=== PATIENT | male | born 1950 | race Hispanic/Latino ===

== ENCOUNTER 2017-01-07 11:41 | Inpatient (IN) | payer OTHER, BC ==
[2017-01-07 11:44] VITALS: BMI 24.1
[2017-01-07] MEDS ORDERED: Sodium Chloride 0.9% 1,000 ML IV STA ×2 (12:34→16:40)
[2017-01-07] MEDS ORDERED: metroNIDAZOLE 500mg/100ml NS 100 ML IV ONE (12:53)
[2017-01-07] MEDS ORDERED: Ciprofloxacin IV 400 MG in Sodium Chloride 0.9% 250 ML IV STA (12:53)
[2017-01-07] MEDS ORDERED: Ciprofloxacin 400mg/200ml D5W 400 MG/200 ML BAG IVPB ONE (13:19)
[2017-01-07] MEDS ORDERED: metroNIDAZOLE 500mg/100ml NS 100 ML IVPB ONE (13:20)
[2017-01-07 14:01] LABS: BASO # 0.1 K/uL (0.0-0.2); BASO % 0.7 % (0.0-2.0); EOS # 0.1 K/uL (0.0-0.7); EOS % 1.1 % (0.0-4.0); HEMATOCRIT 42.5 % (35.0-51.0); LYMPH # 1.7 K/uL (1.0-4.3); MEAN CELL VOLUME 92.2 fl (80.0-94.0); MEAN CORPUSCULAR HEMOGLOBIN 31.3 pg (27.0-31.0); MEAN CORPUSCULAR HGB CONC 33.9 g/dL (33.0-37.0); MEAN PLATELET VOLUME 8.7 fl (7.2-11.7); MONO # 0.5 K/uL (0.0-0.8); NEUT # 10.3 K/uL (1.8-7.0); NEUT % 81.2 % (50.0-75.0); NRBC % 0.1 % (0.0-0.0); RED CELL DISTRIBUTION WIDTH 13.2 % (11.5-14.5); WHITE BLOOD COUNT 12.7 K/uL (4.8-10.8)
[2017-01-07 14:08] LABS: ALB/GLOB RATIO 1.6 (1.0-2.1); ALKALINE PHOSPHATASE 68 U/L (38-126); ALT/SGPT 25 U/L (21-72); AST/SGOT 22 U/L (17-59); BILIRUBIN,TOTAL 0.8 mg/dl (0.2-1.3); BLOOD UREA NITROGEN 11 mg/dl (9-20); CALCIUM 9.9 mg/dL (8.4-10.2); CARBON DIOXIDE 25 mmol/L (22-30); CHLORIDE 104 mmol/L (98-107); GFR AFRICAN-AMERICAN > 60; GLUCOSE,RANDOM 79 mg/dL (75-110); POTASSIUM 3.8 MMOL/L (3.6-5.0); SODIUM 140 mmol/l (132-148); TOTAL PROTEIN 7.4 G/DL (6.3-8.2)
[2017-01-07] MEDS ORDERED: Iohexol 300 100 ML IJ ONE (14:26)
[2017-01-07] MEDS ORDERED: Sodium Chloride 0.9% 50 ML IV ONE (14:27)
--- NOTE | 2017-01-07 15:21 | CT ---
PROCEDURE: CT Abdomen and Pelvis with contrast HISTORY: LLQ, blood stool, hx diverticulitis COMPARISON: None. TECHNIQUE: Contrast dose: 95 mL Radiation dose: Total exam DLP = 596.48 mGy-cm. This CT exam was performed using one or more of the following dose reduction techniques: Automated exposure control, adjustment of the mA and/or kV according to patient size, and/or use of iterative reconstruction technique. FINDINGS: LOWER THORAX: 4 millimeter nodule in the right middle lobe (series 3, image 15.) this remains stable. Mild bibasilar atelectatic changes noted. The heart is not enlarged. There is no significant pericardial effusion. Coronary arterial calcifications noted. Aortic valve calcifications and calcifications of the focal annulus noted LIVER: Hepatic steatosis. GALLBLADDER AND BILE DUCTS: Unremarkable. PANCREAS: Mildly prominent yet stable appearance of a pancreatic duct. Likely pancreatic divisum. SPLEEN: Unremarkable. ADRENALS: Stable diffuse thickening of both adrenal glands. KIDNEYS AND URETERS: Symmetric nephrograms. Possible cysts in the right kidney, stable. No hydronephrosis. VASCULATURE: No aortic aneurysm. Scattered atherosclerotic plaque throughout the abdominal aorta and its main branches. Focal moderate to severe narrowing in involving the proximal segment of the right common iliac artery due to calcified and noncalcified plaque, stable. BOWEL: No bowel obstruction. Small hiatal hernia. Collapsed stomach limiting evaluation. Postsurgical changes in the proximal small bowel in the right steven abdomen. Moderate stool burden throughout the colon suggestive of constipation. Sigmoid colon demonstrates wall thickening and pericolonic stranding and fluid. Underlying colitis should be suspected. Given the proximity of multiple diverticular, acute diverticulitis is suspected. No organized fluid collection/ abscess. APPENDIX: Normal appendix. PERITONEUM: Fluid in the peritoneum. No evidence of free air. LYMPH NODES: No bulky lymphadenopathy. Scattered likely reactive retroperitoneal, pelvic sidewall and inguinal region lymph nodes. BLADDER: Unremarkable. REPRODUCTIVE: Enlarged prostate. BONES: Degenerative changes involving the lower spine and both hips. OTHER FINDINGS: None. IMPRESSION: Sigmoid colon demonstrates inflammatory changes as evidenced by wall thickening and pericolonic stranding associated with small amount of fluid. No organized fluid collection or abscess identified. Given the proximity of multiple diverticula, acute diverticulitis is suspected. Followup to resolution recommended. Moderate stool burden throughout the colon suggestive of constipation. 4 millimeter nodule in the right middle lobe, stable. 3-6 month follow-up recommended. Presumed right renal cysts. Hepatic steatosis. Focal moderate narrowing due to calcified and noncalcified plaque in the proximal right common iliac artery. Other findings as above. Discussed with SAMI Connelly at approximately 3:25 p.m. on 01/07/2017.
--- NOTE | 2017-01-07 16:20 | ED PDOC ---
HPI: Abdomen Time Seen by Provider: 01/07/17 12:23 Chief Complaint (Nursing): Abdominal Pain Chief Complaint (Provider): LLQ, blood in stool x 3 days History Per: Patient History/Exam Limitations: no limitations Onset/Duration Of Symptoms: Days Outside of [place] travel?: No Current Symptoms Are (Timing): Still Present Severity: Severe Pain Scale Rating Of: 9 Location Of Pain/Discomfort: LLQ Quality Of Discomfort: Sharp, Cramping Associated Symptoms: Nausea, Loss Of Appetite. denies: Fever, Chills, Diarrhea (Blood in stool ) Exacerbating Factors: None Alleviating Factors: None Last Bowel Movement: Today Additional Complaint(s): Pt reports pain x 4 days. States he took 2 percocet which he had at home for his back pain but it did not help. No fever/chills. Past Medical History Reviewed: Historical Data, Nursing Documentation, Vital Signs Vital Signs: Last Vital Signs Temp 97.8 F 01/07/17 11:44 Pulse 79 01/07/17 11:44 Resp 19 01/07/17 11:44 BP 118/73 01/07/17 11:44 Pulse Ox 99 01/07/17 11:44 - Medical History PMH: Back Problems, CAD, Diverticulitis, HTN, Hypercholesterolemia Denies: HIV, Chronic Kidney Disease - Surgical History Surgical History: Tonsillectomy Other surgeries: Femoral hernia - Family History Family History: States: Unknown Family Hx - Living Arrangements Living Arrangements: With Family - Social History Current smoker - smoking cessation education provided: No Alcohol: None Drugs: Denies - Immunization History Hx Tetanus Toxoid Vaccination: No Hx Influenza Vaccination: No Hx Pneumococcal Vaccination: No - Home Medications Home Medications: Ambulatory Orders Medication Instructions Recorded Atorvastatin [Lipitor] 20 mg PO DAILY 05/26/16 Losartan/Hydrochlorothiazide 1 tab PO DAILY 05/26/16 [Losartan-Hctz 100-25 mg Tab] Omeprazole Magnesium [Prilosec] 20 mg PO DAILY 05/26/16 amLODIPine [Norvasc] 10 mg PO DAILY 05/26/16 Famotidine [Pepcid] 20 mg PO Q12 #60 tab 10/06/16 Sucralfate [Carafate Tab] 1 gm PO QID #60 tab 10/07/16 - Allergies Allergies/Adverse Reactions: Allergies Allergy/AdvReac Type Severity Reaction Status Date / Time No Known Allergies Allergy Verified 04/30/15 15:41 Review of Systems ROS Statement: Except As Marked, All Systems Reviewed And Found Negative Gastrointestinal: Positive for: Nausea, Vomiting, Abdominal Pain, Hematochezia. Negative for: Rectal Pain Physical Exam - Reviewed Nursing Documentation Reviewed: Yes Vital Signs Reviewed: Yes - Physical Exam Appears: Positive for: Well, Non-toxic, No Acute Distress Head Exam: Positive for: ATRAUMATIC, NORMAL INSPECTION, NORMOCEPHALIC Skin: Positive for: Normal Color, Warm, DRY Eye Exam: Positive for: Normal appearance ENT: Positive for: Normal ENT Inspection Neck: Positive for: Normal, Painless ROM Cardiovascular/Chest: Positive for: Regular Rate, Rhythm Respiratory: Positive for: CNT, Normal Breath Sounds Gastrointestinal/Abdominal: Positive for: Bowel Sounds, Soft, Tenderness (LLQ), Guarding, Rebound. Negative for: Normal Exam Back: Positive for: Normal Inspection Extremity: Positive for: Normal ROM Neurologic/Psych: Positive for: Alert, Oriented - Laboratory Results Result Diagrams: 01/07/17 13:00 01/07/17 13:00 - ECG O2 Sat by Pulse Oximetry: 99 Pulse Ox Interpretation: Normal Medical Decision Making Medical Decision Making: Discussed admission with ROCAEL Villatoro. Disposition - Clinical Impression Clinical Impression: Diverticulitis - Patient ED Disposition Is Patient to be Admitted: Yes - Disposition Disposition Time: 16:22 Condition: STABLE - Pt Status Changed To: Hospital Disposition Of: Observation - Admit Certification Admit to Inpatient:: M/S - POA Present On Arrival: None
[2017-01-07 17:03] LABS: RBC URINE < 1 /hpf (0-3); URINE BILIRUBIN NEGATIVE (NEGATIVE); URINE BLOOD NEGATIVE (NEGATIVE); URINE COLOR STRAW (YELLOW); URINE GLUCOSE (UA) NEG (Normal); URINE KETONE NEGATIVE (NEGATIVE); URINE LEUKOCYTE ESTERASE NEG Leu/uL (Negative); URINE PROTEIN NEGATIVE (NEGATIVE); URINE UROBILINOGEN 0.2-1.0 mg/dL (0.2-1.0); WBC URINE < 1 /hpf (0-5)
[2017-01-07] MEDS: Ciprofloxacin 400mg/200ml D5W 400 MG/200 ML BAG IVPB SCH (21:59)
[2017-01-08] MEDS: metroNIDAZOLE 500mg/100ml NS 100 ML IVPB SCH ×3 (00:47→17:00)
[2017-01-08] MEDS: oxyCODONE 5 mg Immediate Release Tab PO PRN (04:24)
--- NOTE | 2017-01-08 07:22 | CP.PCM.HP ---
History of Present Illness - History of Present Illness History of Present Illness: pt admitted for diverticulitis. states s/s x 4-5 days. no f/c, n/v/d. states has abd pressure. wbc 12.7 on admission now wbc 7. chem panel wnl. pt has appetitie. imaging noted. Present on Admission - Present on Admission Any Indicators Present on Admission: No Review of Systems - Gastrointestinal Gastrointestinal: As Per HPI, Abdominal Pain, Nausea, Vomiting Past Patient History - Infectious Disease Hx of Infectious Diseases: None - Past Medical History & Family History Past Medical History?: Yes - Past Social History Smoking Status: ciag 2 mth - CARDIAC Hx Cardiac Disorders: Yes Hx Hypertension: Yes - PULMONARY Hx Respiratory Disorders: No - NEUROLOGICAL Hx Neurological Disorder: No - HEENT Hx HEENT Problems: No - RENAL Hx Chronic Kidney Disease: No - ENDOCRINE/METABOLIC Hx Endocrine Disorders: No - HEMATOLOGICAL/ONCOLOGICAL Hx AIDS: No Hx Human Immunodeficiency Virus (HIV): No - INTEGUMENTARY Hx Dermatological Problems: No - MUSCULOSKELETAL/RHEUMATOLOGICAL Hx Musculoskeletal Disorders: No Hx Falls: No - GASTROINTESTINAL Hx Diverticulitis: Yes - GENITOURINARY/GYNECOLOGICAL Hx Genitourinary Disorders: No - PSYCHIATRIC Hx Psychophysiologic Disorder: Yes Hx Depression: Yes Hx Substance Use: No - SURGICAL HISTORY Hx Herniorrhaphy: Yes Hx Tonsillectomy: Yes - ANESTHESIA Hx Anesthesia: Yes Hx Anesthesia Reactions: No Hx Malignant Hyperthermia: No Meds Home Medications: Home Medication List Medication Instructions Recorded Confirmed Type Ciprofloxacin HCl [Cipro] 500 mg PO BID #14 tablet 01/08/17 Rx Metronidazole [Flagyl] 500 mg PO Q8H #21 tablet 01/08/17 Rx oxyCODONE [oxyCODONE Immediate 5 mg PO Q6 PRN #10 tab 01/08/17 Rx Release Tab] Allergies/Adverse Reactions: Allergies Allergy/AdvReac Type Severity Reaction Status Date / Time No Known Allergies Allergy Verified 01/07/17 16:41 Physical Exam - Constitutional Appears: Well, Non-toxic, No Acute Distress - Head Exam Head Exam: ATRAUMATIC, NORMAL INSPECTION, NORMOCEPHALIC - Eye Exam Eye Exam: EOMI, Normal appearance, PERRL Pupil Exam: NORMAL ACCOMODATION, PERRL - ENT Exam ENT Exam: Mucous Membranes Moist, Normal Exam - Neck Exam Neck exam: Positive for: Normal Inspection - Respiratory Exam Respiratory Exam: Clear to Auscultation Bilateral, NORMAL BREATHING PATTERN - Cardiovascular Exam Cardiovascular Exam: REGULAR RHYTHM, RRR, +S1, +S2 - GI/Abdominal Exam GI & Abdominal Exam: Normal Bowel Sounds, Soft. absent: Tenderness - Extremities Exam Extremities exam: Positive for: normal inspection - Back Exam Back exam: NORMAL INSPECTION - Neurological Exam Neurological exam: Alert, CN II-XII Intact, Normal Gait, Oriented x3, Reflexes Normal - Psychiatric Exam Psychiatric exam: Normal Affect, Normal Mood - Skin Skin Exam: Dry, Intact, Normal Color, Warm Results - Vital Signs Recent Vital Signs: Last Vital Signs Temp 99 F 01/08/17 00:46 Pulse 56 L 01/08/17 00:46 Resp 19 01/08/17 00:46 BP 113/66 01/08/17 00:46 Pulse Ox 97 01/08/17 00:46 - Labs Result Diagrams: 01/08/17 07:15 01/08/17 07:15 Labs: Laboratory Results - last 24 hr 01/07/17 21:30 Blood Type Confirm A POSITIVE Assessment & Plan (1) Diverticulitis Assessment and Plan: cipro/flagyl pain and nausea control po as liu. adv to bland this am Status: Acute (2) DVT prophylaxis Assessment and Plan: scd and ae hose, ambulation lovneox if admitted over 24h Status: Acute Decision To Admit - Pt Status Changed To: Hospital Disposition Of: Observation - . Bed Request Type: Med/Surg Admitting Physician: Niall Barker
[2017-01-08 07:33] LABS: BASO # 0.1 K/uL (0.0-0.2); BASO % 0.7 % (0.0-2.0); EOS # 0.1 K/uL (0.0-0.7); EOS % 1.7 % (0.0-4.0); HEMATOCRIT 38.4 % (35.0-51.0); LYMPH # 1.3 K/uL (1.0-4.3); LYMPH % 17.3 % (20.0-40.0); MEAN CORPUSCULAR HEMOGLOBIN 31.5 pg (27.0-31.0); MEAN CORPUSCULAR HGB CONC 34.6 g/dL (33.0-37.0); MEAN PLATELET VOLUME 7.8 fl (7.2-11.7); MONO # 0.5 K/uL (0.0-0.8); MONO % 6.4 % (0.0-10.0); NEUT # 5.7 K/uL (1.8-7.0); NEUT % 73.9 % (50.0-75.0); RED CELL DISTRIBUTION WIDTH 13.1 % (11.5-14.5); WHITE BLOOD COUNT 7.7 K/uL (4.8-10.8)
[2017-01-08 07:50] LABS: ALB/GLOB RATIO 1.5 (1.0-2.1); ALKALINE PHOSPHATASE 60 U/L (38-126); ALT/SGPT 24 U/L (21-72); AST/SGOT 24 U/L (17-59); BLOOD UREA NITROGEN 8 mg/dl (9-20); CALCIUM 9.1 mg/dL (8.4-10.2); CARBON DIOXIDE 26 mmol/L (22-30); CHLORIDE 104 mmol/L (98-107); GFR AFRICAN-AMERICAN > 60; GLUCOSE,RANDOM 93 mg/dL (75-110); POTASSIUM 3.9 MMOL/L (3.6-5.0); SODIUM 139 mmol/l (132-148); TOTAL PROTEIN 6.5 G/DL (6.3-8.2)
[2017-01-08] MEDS: HCTZ/Losartan 12.5/50 Tab PO SCH (08:25)
[2017-01-08] MEDS: Ciprofloxacin 400mg/200ml D5W 400 MG/200 ML BAG IVPB SCH ×2 (09:57→21:09)
[2017-01-09] MEDS: metroNIDAZOLE 500mg/100ml NS 100 ML IVPB SCH ×2 (01:04→08:46)
[2017-01-09 01:44] VITALS: RESP 20
--- NOTE | 2017-01-09 07:15 | CP.PCM.PN ---
Subjective - Date & Time of Evaluation Date of Evaluation: 01/09/17 Time of Evaluation: 07:14 - Subjective Subjective: diong well, still w/ some pain w/ eating. no f/c, n/v/d. some blood w/ bm am labs noted. Objective - Vital Signs/Intake and Output Vital Signs (last 24 hours): Temp Pulse Resp BP Pulse Ox 98.2 F 60 20 151/87 H 99 01/09/17 01:00 01/09/17 01:00 01/09/17 01:00 01/09/17 01:00 01/09/17 01:00 - Medications Medications: Current Medications Amlodipine Besylate (Norvasc) 5 mg PO DAILY [facility] Last Admin: 01/08/17 08:24 Dose: 5 mg Atorvastatin Calcium (Lipitor) 20 mg PO DAILY [facility] Last Admin: 01/08/17 08:24 Dose: 20 mg Famotidine (Pepcid) 20 mg IVP Q12 [facility] Last Admin: 01/08/17 21:05 Dose: 20 mg HCTZ/Losartan Potassium (Hyzaar 12.5 Mg-50 Mg) 1 tab PO DAILY [facility] Last Admin: 01/08/17 08:25 Dose: 1 tab Home Med (Bupropion Xl [Wellbutrin Xl]) 150 mg PO DAILY [facility] Ciprofloxacin (Cipro 400mg/200ml Dsw) 400 mg in 200 mls @ 200 mls/hr IVPB Q12 [facility] Last Admin: 01/08/17 21:09 Dose: 200 mls/hr Metronidazole (Flagyl 500mg/100ml Ns) 100 mls @ 100 mls/hr IVPB Q8 [facility] Last Admin: 01/09/17 01:04 Dose: 100 mls/hr Ketorolac Tromethamine (Toradol) 30 mg IVP Q6 PRN PRN Reason: pain 2-5 Morphine Sulfate (Morphine) 2 mg IVP Q4 PRN PRN Reason: pain 6-10 Last Admin: 01/08/17 19:14 Dose: 2 mg Ondansetron HCl (Zofran Inj) 4 mg IVP Q6 PRN PRN Reason: Nausea/Vomiting Oxycodone HCl (Oxycodone Immediate Release Tab) 5 mg PO Q6 PRN PRN Reason: Pain, moderate (4-7) Last Admin: 01/08/17 04:24 Dose: 5 mg - Constitutional Appears: Well, Non-toxic, No Acute Distress - Head Exam Head Exam: ATRAUMATIC, NORMAL INSPECTION, NORMOCEPHALIC - Eye Exam Eye Exam: EOMI, Normal appearance, PERRL Pupil Exam: NORMAL ACCOMODATION, PERRL - ENT Exam ENT Exam: Mucous Membranes Moist, Normal Exam - Neck Exam Neck Exam: Full ROM, Normal Inspection. absent: Lymphadenopathy - Respiratory Exam Respiratory Exam: Clear to Ausculation Bilateral, NORMAL BREATHING PATTERN - Cardiovascular Exam Cardiovascular Exam: REGULAR RHYTHM, RRR, +S1, +S2. absent: Murmur - GI/Abdominal Exam GI & Abdominal Exam: Soft, Tenderness, Normal Bowel Sounds - Extremities Exam Extremities Exam: Full ROM, Normal Capillary Refill, Normal Inspection. absent : Joint Swelling, Pedal Edema - Back Exam Back Exam: NORMAL INSPECTION - Neurological Exam Neurological Exam: Alert, Awake, CN II-XII Intact, Normal Gait, Oriented x3 - Psychiatric Exam Psychiatric exam: Normal Affect, Normal Mood - Skin Skin Exam: Dry, Intact, Normal Color, Warm Assessment and Plan (1) Diverticulitis Status: Acute (2) DVT prophylaxis Status: Acute - Assessment and Plan (Free Text) Assessment: (1) Diverticulitis Assessment and Plan: cipro/flagyl pain and nausea control po as liu. bland diet but has some pain Status: Acute (2) DVT prophylaxis Assessment and Plan: scd and ae hose, ambulation lovneox if admitted over 24h Status: Acute
[2017-01-09 07:16] LABS: HEMATOCRIT 42.2 % (35.0-51.0); MEAN CELL VOLUME 91.6 fl (80.0-94.0); MEAN CORPUSCULAR HEMOGLOBIN 31.3 pg (27.0-31.0); MEAN CORPUSCULAR HGB CONC 34.2 g/dL (33.0-37.0); RED CELL DISTRIBUTION WIDTH 12.9 % (11.5-14.5); WHITE BLOOD COUNT 9.4 K/uL (4.8-10.8)
[2017-01-09 07:31] LABS: ALB/GLOB RATIO 1.5 (1.0-2.1); ALKALINE PHOSPHATASE 61 U/L (38-126); ALT/SGPT 27 U/L (21-72); AST/SGOT 19 U/L (17-59); BILIRUBIN,TOTAL 0.8 mg/dl (0.2-1.3); BLOOD UREA NITROGEN 11 mg/dl (9-20); CALCIUM 9.2 mg/dL (8.4-10.2); CARBON DIOXIDE 27 mmol/L (22-30); CHLORIDE 103 mmol/L (98-107); GFR AFRICAN-AMERICAN > 60; GLUCOSE,RANDOM 102 mg/dL (75-110); POTASSIUM 3.8 MMOL/L (3.6-5.0); SODIUM 140 mmol/l (132-148); TOTAL PROTEIN 6.9 G/DL (6.3-8.2)
[2017-01-09 08:14] VITALS: BP 133/85; PULSE 67; TEMP 97.7; O2SAT 98
[2017-01-09] MEDS: HCTZ/Losartan 12.5/50 Tab PO SCH (08:46)
[2017-01-09] MEDS: oxyCODONE 5 mg Immediate Release Tab PO PRN (08:46)
[2017-01-09] MEDS: Ciprofloxacin 400mg/200ml D5W 400 MG/200 ML BAG IVPB SCH (08:46)
--- NOTE | 2017-01-09 14:46 | CP.PCM.DIS ---
Provider - Provider Date of Admission: 01/08/17 19:05 Attending physician: Niall Barker MD Time Spent in preparation of Discharge (in minutes): 15 Diagnosis - Discharge Diagnosis (1) Diverticulitis Status: Acute (2) DVT prophylaxis Status: Acute Hospital Course - Lab Results Lab Results: Most Recent Lab Values WBC 9.4 K/uL (4.8-10.8) 01/09/17 06:10 RBC 4.61 Mil/uL (4.40-5.90) 01/09/17 06:10 Hgb 14.4 g/dL (12.0-18.0) 01/09/17 06:10 Hct 42.2 % (35.0-51.0) 01/09/17 06:10 MCV 91.6 fl (80.0-94.0) 01/09/17 06:10 MCH 31.3 pg (27.0-31.0) H 01/09/17 06:10 MCHC 34.2 g/dL (33.0-37.0) 01/09/17 06:10 RDW 12.9 % (11.5-14.5) 01/09/17 06:10 Plt Count 306 K/uL (130-400) 01/09/17 06:10 MPV 7.8 fl (7.2-11.7) 01/08/17 07:15 Neut % (Auto) 73.9 % (50.0-75.0) 01/08/17 07:15 Lymph % (Auto) 17.3 % (20.0-40.0) L 01/08/17 07:15 [place] % (Auto) 6.4 % (0.0-10.0) 01/08/17 07:15 Eos % (Auto) 1.7 % (0.0-4.0) 01/08/17 07:15 Baso % (Auto) 0.7 % (0.0-2.0) 01/08/17 07:15 Neut # 5.7 K/uL (1.8-7.0) 01/08/17 07:15 Lymph # 1.3 K/uL (1.0-4.3) 01/08/17 07:15 [place] # 0.5 K/uL (0.0-0.8) 01/08/17 07:15 Eos # 0.1 K/uL (0.0-0.7) 01/08/17 07:15 Baso # 0.1 K/uL (0.0-0.2) 01/08/17 07:15 Sodium 140 mmol/l (132-148) 01/09/17 06:10 Potassium 3.8 MMOL/L (3.6-5.0) 01/09/17 06:10 Chloride 103 mmol/L (98-107) 01/09/17 06:10 Carbon Dioxide 27 mmol/L (22-30) 01/09/17 06:10 Anion Gap 14 (10-20) 01/09/17 06:10 BUN 11 mg/dl (9-20) 01/09/17 06:10 Creatinine 1.0 mg/dL (0.8-1.5) 01/09/17 06:10 Est GFR ( Amer) > 60 01/09/17 06:10 Est GFR (Non-Af Amer) > 60 01/09/17 06:10 Random Glucose 102 mg/dL (75-110) 01/09/17 06:10 Calcium 9.2 mg/dL (8.4-10.2) 01/09/17 06:10 Total Bilirubin 0.8 mg/dl (0.2-1.3) 01/09/17 06:10 AST 19 U/L (17-59) 01/09/17 06:10 ALT 27 U/L (21-72) 01/09/17 06:10 Alkaline Phosphatase 61 U/L (38-126) 01/09/17 06:10 Total Protein 6.9 G/DL (6.3-8.2) 01/09/17 06:10 Albumin 4.1 g/dL (3.5-5.0) 01/09/17 06:10 Globulin 2.8 gm/dL (2.2-3.9) 01/09/17 06:10 Albumin/Globulin Ratio 1.5 (1.0-2.1) 01/09/17 06:10 Urine Color Straw (YELLOW) 01/07/17 16:00 Urine Clarity Clear (Clear) 01/07/17 16:00 Urine pH 7.0 (5.0-8.0) 01/07/17 16:00 Ur Specific [place] 1.039 (1.003-1.030) H 01/07/17 16:00 Urine Protein Negative mg/dL (NEGATIVE) 01/07/17 16:00 Urine Glucose (UA) Neg mg/dL (Normal) 01/07/17 16:00 Urine Ketones Negative mg/dL (NEGATIVE) 01/07/17 16:00 Urine Blood Negative (NEGATIVE) 01/07/17 16:00 Urine Nitrate Negative (NEGATIVE) 01/07/17 16:00 Urine Bilirubin Negative (NEGATIVE) 01/07/17 16:00 Urine Urobilinogen 0.2-1.0 mg/dL (0.2-1.0) 01/07/17 16:00 Ur Leukocyte Esterase Neg Lilian/uL (Negative) 01/07/17 16:00 Urine RBC (Auto) < 1 /hpf (0-3) 01/07/17 16:00 Urine Microscopic WBC < 1 /hpf (0-5) 01/07/17 16:00 Blood Type A POSITIVE 01/07/17 13:00 Blood Type Confirm A POSITIVE 01/07/17 21:30 Antibody Screen Negative 01/07/17 13:00 BBK History Checked No verified bt 01/07/17 13:00 Discharge Exam - Head Exam Head Exam: ATRAUMATIC, NORMAL INSPECTION, NORMOCEPHALIC Discharge Plan - Discharge Medications Prescriptions: Ciprofloxacin HCl [Cipro] 500 mg PO BID #14 tablet Metronidazole [Flagyl] 500 mg PO Q8H #21 tablet oxyCODONE [oxyCODONE Immediate Release Tab] 5 mg PO Q6 PRN #10 tab PRN Reason: Pain, Moderate (4-7) - Follow Up Plan Condition: STABLE Disposition: HOME/ ROUTINE Instructions: Diverticulitis (DC) Additional Instructions: final dx-diverticulitis liu po w/o pain. nof /c, n/v/d. bw noted f/u rmg 2 days, rted prn. finish anbx x 7 days Referrals: Collins Villatoro, DNP, [employer]ALITY AUDIT REPRESENTATIVE [Advanced Practice Nurse] -
== END 2017-01-09 14:45 | disposition home or self-care (01) | DRG 392 ==
LOC: H.ER 11:41 → H.ERHOLD 16:14 → INTOOBSV 16:14 → H.MEDSURG1 17:29 → OBSVTOIN 01-08 19:05
PROVIDERS: ADMIT Family Medicine; ATTEND Family Medicine
DX: K57.92 Diverticulitis of intestine, part unspecified, without perforation or abscess without bleeding (principal); I10 Essential (primary) hypertension; E78.00 Pure hypercholesterolemia, unspecified; I25.10 Atherosclerotic heart disease of native coronary artery without angina pectoris

== ENCOUNTER 2017-02-09 22:35 | Inpatient (IN) | payer BC, OTHER ==
[2017-02-09 22:35] VITALS: BMI 24.1
[2017-02-09] MEDS ORDERED: Iohexol 240 (50 ml) PO ONE (22:48)
[2017-02-09] MEDS ORDERED: Sodium Chloride 0.9% 1,000 ML IV STA (23:09)
[2017-02-09] MEDS ORDERED: Iohexol 240 (50 ml) ONE ×2 (23:17→23:30)
[2017-02-10 00:22] LABS: BASO % 0.1 % (0.0-2.0); EOS % 0.1 % (0.0-4.0); HEMOGLOBIN 15.3 g/dL (12.0-18.0); LYMPH # 0.5 K/uL (1.0-4.3); MEAN CELL VOLUME 91.5 fl (80.0-94.0); MEAN CORPUSCULAR HEMOGLOBIN 31.2 pg (27.0-31.0); MEAN CORPUSCULAR HGB CONC 34.1 g/dL (33.0-37.0); MEAN PLATELET VOLUME 8.2 fl (7.2-11.7); MONO # 0.4 K/uL (0.0-0.8); MONO % 3.1 % (0.0-10.0); NEUT % 92.7 % (50.0-75.0); NRBC % 0.1 % (0.0-0.0); PLATELET COUNT 244 K/uL (130-400)
[2017-02-10] MEDS ORDERED: metroNIDAZOLE 500mg/100ml NS 100 ML IVPB STA (00:46)
[2017-02-10] MEDS ORDERED: Ciprofloxacin 400mg/200ml D5W 400 MG/200 ML BAG IVPB STA (00:46)
[2017-02-10 00:47] LABS: ALB/GLOB RATIO 1.7 (1.0-2.1); ALBUMIN 4.3 g/dL (3.5-5.0); ALT/SGPT 25 U/L (21-72); AST/SGOT 27 U/L (17-59); BLOOD UREA NITROGEN 15 mg/dl (9-20); CALCIUM 9.4 mg/dL (8.4-10.2); GFR AFRICAN-AMERICAN > 60; GFR NON-AFRICAN AMERICAN > 60; LIPASE 36 U/L (23-300)
[2017-02-10] MEDS ORDERED: Iohexol 300 100 ML IJ ONE (00:48)
[2017-02-10] MEDS ORDERED: Sodium Chloride 0.9% 50 ML IV ONE (00:49)
[2017-02-10] MEDS ORDERED: metroNIDAZOLE 500mg/100ml NS 100 ML IVPB ONE (01:09)
[2017-02-10] MEDS ORDERED: Ciprofloxacin 400mg/200ml D5W 400 MG/200 ML BAG IVPB ONE (01:09)
--- NOTE | 2017-02-10 01:37 | ED PDOC ---
HPI: Abdomen Time Seen by Provider: 02/09/17 22:47 Chief Complaint (Nursing): Abdominal Pain Chief Complaint (Provider): abdominal pain History Per: Patient History/Exam Limitations: no limitations Additional Complaint(s): 66yo M in ED for eval of acute abdominal pain to RLQ area with vomiting x 1 and bloody stool since this AM. pt with hx of diverticulitis. no fever no chills no body aches no dysuria no hematuria. [place] : PMD Past Medical History Reviewed: Historical Data, Nursing Documentation, Vital Signs Vital Signs: Last Vital Signs Temp 98.6 F 02/09/17 22:39 Pulse 99 H 02/09/17 22:39 Resp 16 02/09/17 22:39 BP 98/52 L 02/09/17 22:39 Pulse Ox 98 02/10/17 01:53 - Medical History PMH: Back Problems, CAD, Depression, Diverticulitis, HTN, Hypercholesterolemia Denies: HIV, Chronic Kidney Disease - Surgical History Surgical History: Tonsillectomy - Family History Family History: States: Unknown Family Hx - Immunization History Hx Tetanus Toxoid Vaccination: No Hx Influenza Vaccination: No Hx Pneumococcal Vaccination: No - Home Medications Home Medications: Ambulatory Orders Medication Instructions Recorded Atorvastatin [Lipitor] 20 mg PO DAILY 05/26/16 amLODIPine [Norvasc] 10 mg PO DAILY 05/26/16 buPROPion XL [Wellbutrin XL] 150 mg PO DAILY 01/07/17 oxyCODONE [oxyCODONE Immediate 5 mg PO Q6 PRN #10 tab 01/08/17 Release Tab] Losartan [Cozaar] 25 mg PO DAILY 02/09/17 Melatonin [Mel[place] 3 mg-1 mg] 1 tab PO HS 02/09/17 Omeprazole Magnesium [Prilosec Otc] 20 mg PO DAILY 02/09/17 - Allergies Allergies/Adverse Reactions: Allergies Allergy/AdvReac Type Severity Reaction Status Date / Time No Known Allergies Allergy Verified 02/09/17 23:02 Review of Systems ROS Statement: Except As Marked, All Systems Reviewed And Found Negative Constitutional: Negative for: Fever, Chills Cardiovascular: Negative for: Chest Pain, Palpitations Gastrointestinal: Positive for: Nausea, Vomiting, Abdominal Pain Physical Exam - Reviewed Nursing Documentation Reviewed: Yes Vital Signs Reviewed: Yes - Physical Exam Appears: Positive for: Non-toxic, No Acute Distress, Uncomfortable Head Exam: Positive for: ATRAUMATIC, NORMAL INSPECTION, NORMOCEPHALIC Skin: Positive for: Normal Color, Warm, DRY Cardiovascular/Chest: Positive for: Regular Rate, Rhythm Respiratory: Positive for: CNT, Normal Breath Sounds Gastrointestinal/Abdominal: Positive for: Bowel Sounds, Soft, Tenderness (RLQ pain 10/10 with guariding but diffuse abd pain) Back: Positive for: Normal Inspection Extremity: Positive for: Normal ROM Neurologic/Psych: Positive for: Alert, Oriented - Laboratory Results Result Diagrams: 02/09/17 23:12 02/09/17 23:12 - ECG O2 Sat by Pulse Oximetry: 98 - CT Scan/US ct scan Other Rad Studies (CT/US): Radiology Report Reviewed (perforated diverticulitis) - Progress ED Course And Treament: ct scan cbc/cmp/UA pain control : morphine ctc an: terminal ileal wall thickening.Appendix is unremarkable. There is inflammation at the base of the cecum. There is moderate stool in the colon. There is diverticulosis. There is sigmoid diverticulitis. Appendix: See stomach and bowel PELVIS: Bladder: unremarkable Reproductive: The prostate is enlarged. Seminal vesicles have the expected configuration. ABDOMEN and PELVIS: Intraperitoneal space: There is a small amount of fluid in the pelvis..There is a small amount of free air in the upper abdomen. Bones/joints: unremarkable Soft tissues: unremarkable Vasculature: There are vascular calcifications. Lymph nodes: Shotty adenopathy IMPRESSION: Perforated sigmoid diverticulitis with extensive inflammatory change in the pelvis Additional findings as described above. Dictated and Authenticated by: Miesha Miller MD 02/10/2017 1:37 AM Eastern Time ([place] & [place]) Pt given Cipro /flagy Collins villatoro contacted at 1:41 pt to be admitted with Kot[place] and Sortiatis consults)GI/surgery) 1:52 Primo calling for Satagorah. wants 150cc/hr of NS and req. surgical residents to consult 1:54 surgical residents consulted-will evaluate pt. PT will recieve further pain control Morphine 4mg IV Re-evaluation Time: 01:40 Condition: Improving,but remains with symptoms Medical Decision Making Medical Decision Making: dx: perforated sigmoid diverticulitis admitted to Med surg- [place] Collins Villatoro with K[place]man/sortiatis consults Disposition - Clinical Impression Clinical Impression: Perforated sigmoid colon - Patient ED Disposition Is Patient to be Admitted: Yes - Disposition Disposition Time: 01:56 Condition: FAIR - Pt Status Changed To: Hospital Disposition Of: Inpatient - Admit Certification Admit to Inpatient:: After my assessment, the patient will require hospitalization for at least two midnights. This is because of the severity of symptoms shown, intensity of services needed, and/or the medical risk in this patient being treated as an outpatient. - POA Present On Arrival: None
[2017-02-10] MEDS ORDERED: Sodium Chloride 0.9% 1,000 ML IV STA (01:51)
--- NOTE | 2017-02-10 03:17 | CP.PCM.HP ---
History of Present Illness - History of Present Illness History of Present Illness: Attending: Dr Barker Reason for Consult: Management of critical care matter Chief Complaint: Lower abdominal pain HPI: 66 years old male with hx of CAD, HTN, Hemorrhoid, partial small bowel Obstruction and Diverticulitis who was last admitted to the [facility] on and diagnosed Acute Diverticulitis. He now returns with sharp, continuous pain to the pelvis and supra-pubic region radiating to the RLQ. This was associated nausea, vomiting once and Diarrhea with blood. No fever,dysuria, hematuria PMH: Back Problems, CAD, Depression, Diverticulitis, HTN, HLD, Partial small bowel obstruction PSH: Tonsillectomy, left inguinal Hernia repair; Right Femoral hernia repair; Back surgery SH: Former smoker of Cigarettes, Smokes Cigars; no illegal drug use; no alcohol ; live with family, Retired but works at the [employer]: Unknown family history Allergies: NKDA Past Patient History - Infectious Disease Hx of Infectious Diseases: None - Past Medical History & Family History Past Medical History?: Yes - Past Social History Smoking Status: Light Smoker < 10 Cigarettes Daily - CARDIAC Hx Hypercholesterolemia: Yes Hx Hypertension: Yes - PULMONARY Hx Respiratory Disorders: No - NEUROLOGICAL Hx Neurological Disorder: No - HEENT Hx HEENT Problems: No - RENAL Hx Chronic Kidney Disease: No - ENDOCRINE/METABOLIC Hx Endocrine Disorders: No - HEMATOLOGICAL/ONCOLOGICAL Hx Human Immunodeficiency Virus (HIV): No - INTEGUMENTARY Hx Dermatological Problems: No - MUSCULOSKELETAL/RHEUMATOLOGICAL Hx Musculoskeletal Disorders: No Hx Falls: No - GASTROINTESTINAL Hx Diverticulitis: Yes - GENITOURINARY/GYNECOLOGICAL Hx Genitourinary Disorders: No - PSYCHIATRIC Hx Depression: Yes - SURGICAL HISTORY Hx Tonsillectomy: Yes - ANESTHESIA Hx Anesthesia: Yes Hx Anesthesia Reactions: No Hx Malignant Hyperthermia: No Meds Allergies/Adverse Reactions: Allergies Allergy/AdvReac Type Severity Reaction Status Date / Time No Known Allergies Allergy Verified 02/09/17 23:02 Results - Vital Signs Recent Vital Signs: Last Vital Signs Temp 98.6 F 02/09/17 22:39 Pulse 86 02/10/17 02:38 Resp 16 02/10/17 02:38 BP 126/90 02/10/17 02:38 Pulse Ox 98 02/10/17 02:38 - Labs Result Diagrams: 02/09/17 23:12 02/09/17 23:12 Labs: Laboratory Results - last 24 hr 02/09/17 02/09/17 23:12 23:12 WBC 13.0 H RBC 4.90 Hgb 15.3 Hct 44.8 MCV 91.5 MCH 31.2 H MCHC 34.1 RDW 14.0 Plt Count 244 MPV 8.2 Neut % (Auto) 92.7 H Lymph % (Auto) 4.0 L [place] % (Auto) 3.1 Eos % (Auto) 0.1 Baso % (Auto) 0.1 Neut # 12.0 H Lymph # 0.5 L [place] # 0.4 Eos # 0.0 Baso # 0.0 Sodium 141 Potassium 3.5 L Chloride 105 Carbon Dioxide 26 Anion Gap 14 BUN 15 Creatinine 0.9 Est GFR ( Amer) > 60 Est GFR (Non-Af Amer) > 60 Random Glucose 115 H Calcium 9.4 Total Bilirubin 1.6 H AST 27 ALT 25 Alkaline Phosphatase 52 Total Protein 6.9 Albumin 4.3 Globulin 2.6 Albumin/Globulin Ratio 1.7 Lipase 36 Assessment & Plan - Date & Time Date: 02/10/17 Time: 03:17
[2017-02-10 03:27] LABS: URINE BILIRUBIN NEGATIVE (NEGATIVE); URINE BLOOD NEGATIVE (NEGATIVE); URINE CLARITY CLEAR (Clear); URINE COLOR YELLOW (YELLOW); URINE GLUCOSE (UA) NEG (Normal); URINE LEUKOCYTE ESTERASE NEG Leu/uL (Negative); URINE NITRATE NEGATIVE (NEGATIVE); URINE PROTEIN NEGATIVE (NEGATIVE); URINE UROBILINOGEN 0.2-1.0 mg/dL (0.2-1.0)
--- NOTE | 2017-02-10 03:37 | CP.PCM.CON ---
History of Present Illness - History of Present Illness History of Present Illness: General sx consult note for Dr. Virgil Higgins, PGY-1 Pt S & E at bedside. 66M w/PMH sig for diverticulitis consulted for RLQ abdominal pain 2/2 sigmoid diverticulitis with perforation. Pt reports onset of RLQ abdominal pain this AM after work. Pain is "pressure", radiates to upper abdomen, constant since onset. Pt reports attempting to sleep, able to sleep with knees flexed, pain worsened by movement. No alleviating factors identified. Pt reports 1 remote episode of similar- perforation 2/2 diverticulitis treated with ABx successfully. Admits to 1 normal BM followed by diarrhea x 5, BRBPR, drops of dark red blood in toilet bowel, emesis x 1 (nbnb). Denies F/C, SOB, CP, WADDELL, recent illness, constipation, dysuria, hematemesis, hematuria. PMH: Diverticulitis, hx of perforation treated conservatively many yrs ago, GERD , HTN, HLD, depression, hemorrhoids PSH: Tonsillectomy, R femoral hernia repair, L inguinal hernia repair, recent surgical ablation of spinal nerves All: NKDA SH: Remote hx of tobacco use, occasional cigar use, denies ETOH or illicit drug use PMD: Maria Isabel Surgeon: Michael Review of Systems - Review of Systems All systems: reviewed and no additional remarkable complaints except - Constitutional Constitutional: absent: Chills, Fever - EENT Eyes: absent: Change in Vision Nose/Mouth/Throat: absent: Sore Throat - Cardiovascular Cardiovascular: absent: Chest Pain - Gastrointestinal Gastrointestinal: Abdominal Pain, Change in Bowel Habits, Change in Stool Character, Diarrhea, Hematochezia, Nausea, Vomiting. absent: Constipation, Hematemesis, Melena - Genitourinary Genitourinary: absent: Dysuria - Neurological Neurological: absent: Headaches - Psychiatric Psychiatric: Depression (chronic) Past Patient History - Infectious Disease Hx of Infectious Diseases: None - Past Medical History & Family History Past Medical History?: Yes - Past Social History Smoking Status: Light Smoker < 10 Cigarettes Daily - CARDIAC Hx Hypercholesterolemia: Yes Hx Hypertension: Yes - PULMONARY Hx Respiratory Disorders: No - NEUROLOGICAL Hx Neurological Disorder: No - HEENT Hx HEENT Problems: No - RENAL Hx Chronic Kidney Disease: No - ENDOCRINE/METABOLIC Hx Endocrine Disorders: No - HEMATOLOGICAL/ONCOLOGICAL Hx Human Immunodeficiency Virus (HIV): No - INTEGUMENTARY Hx Dermatological Problems: No - MUSCULOSKELETAL/RHEUMATOLOGICAL Hx Musculoskeletal Disorders: No Hx Falls: No - GASTROINTESTINAL Hx Diverticulitis: Yes - GENITOURINARY/GYNECOLOGICAL Hx Genitourinary Disorders: No - PSYCHIATRIC Hx Depression: Yes - SURGICAL HISTORY Hx Tonsillectomy: Yes - ANESTHESIA Hx Anesthesia: Yes Hx Anesthesia Reactions: No Hx Malignant Hyperthermia: No Meds Allergies/Adverse Reactions: Allergies Allergy/AdvReac Type Severity Reaction Status Date / Time No Known Allergies Allergy Verified 02/09/17 23:02 - Medications Medications: Current Medications Sodium Chloride (Sodium Chloride 0.9%) 1,000 mls @ 150 mls/hr IV .Q6H40M STA Stop: 02/10/17 08:30 Last Admin: 02/10/17 02:28 Dose: 150 mls/hr Ciprofloxacin (Cipro 400mg/200ml Dsw) 400 mg in 200 mls @ 200 mls/hr IVPB Q12 SANDER Metronidazole (Flagyl 500mg/100ml Ns) 100 mls @ 100 mls/hr IVPB Q8 SANDER Physical Exam - Constitutional Appears: Non-toxic, No Acute Distress - Head Exam Head Exam: ATRAUMATIC, NORMAL INSPECTION, NORMOCEPHALIC - Eye Exam Eye Exam: EOMI, Normal appearance - ENT Exam ENT Exam: Mucous Membranes Moist, Normal Exam - Neck Exam Neck exam: Positive for: Full Rom, Normal Inspection - Respiratory Exam Respiratory Exam: Clear to Auscultation Bilateral, NORMAL BREATHING PATTERN. absent: Rales, Rhonchi, Wheezes, Respiratory Distress - Cardiovascular Exam Cardiovascular Exam: REGULAR RHYTHM, +S1, +S2 - GI/Abdominal Exam GI & Abdominal Exam: Firm, Guarding, Hypoactive Bowel Sounds, Tenderness (RLQ, RUQ, suprapubic). absent: Distended, Hernia, Rebound, Rigid - Extremities Exam Extremities exam: Negative for: pedal edema, tenderness - Neurological Exam Neurological exam: Alert, CN II-XII Intact, Oriented x3 - Psychiatric Exam Psychiatric exam: Normal Affect, Normal Mood - Skin Skin Exam: Dry, Intact, Normal Color, Warm Results - Vital Signs Recent Vital Signs: Last Vital Signs Temp 98.6 F 02/09/17 22:39 Pulse 86 02/10/17 02:38 Resp 16 02/10/17 02:38 BP 126/90 02/10/17 02:38 Pulse Ox 98 02/10/17 02:38 - Labs Result Diagrams: 02/09/17 23:12 02/09/17 23:12 Assessment & Plan - Assessment and Plan (Free Text) Plan: 66M w/peritonitis 2/2 perforated sigmoid diverticulitis, currently stable NS @150 Cipro Flagyl NPO Monitor in ICU DW attending Gisela, PGY-1 - Date & Time Date: 02/10/17 Time: 02:30
[2017-02-10 03:57] LABS: BANDS 4 % (0-2); EOSINOPHIL 1 % (0-7); LYMPHOCYTE 4 % (20-50); MONOCYTE 3 % (0-10); NEUTROPHIL 87 % (42-75); PLATELET ESTIMATE NORMAL (NORMAL); REACTIVE LYMPHOCYTES 1 % (0-0); TOTAL CELLS COUNTED 100
[2017-02-10 04:01] LABS: LARGE PLATELETS PRESENT; PLATELET CLUMPS PRESENT
[2017-02-10 04:02] LABS: TOXIC GRANULATION PRESENT
[2017-02-10 04:03] LABS: SPHEROCYTES SLIGHT
--- NOTE | 2017-02-10 04:16 | CP.PCM.CON ---
History of Present Illness - History of Present Illness History of Present Illness: Attending: Dr Barker Reason for Consult: Management of critical care matter Chief Complaint: Lower abdominal pain HPI: 66 years old male with hx of CAD, HTN, Hemorrhoid, partial small bowel Obstruction and Diverticulitis who was last admitted to the [facility] [place] on and diagnosed Acute Diverticulitis. He now returns with sharp, continuous pain to the pelvis and supra-pubic region radiating to the RLQ. This was associated nausea, vomiting once and Diarrhea with blood. No fever,dysuria, hematuria PMH: Back Problems, CAD, Depression, Diverticulitis dx 10 years ago, HTN, HLD, Partial small bowel obstruction PSH: Tonsillectomy, left inguinal Hernia repair; Right Femoral hernia repair; Back surgery SH: Former smoker of Cigarettes, Smokes Cigars; no illegal drug use; no alcohol ; live with family, Retired but works at the [employer] FH: Unknown family history Allergies: NKDA Review of Systems - Constitutional Constitutional: absent: Anorexia, Chills, Fatigue, Fever, Headache - EENT Eyes: Requires Corrective Lenses. absent: Blurred Vision, Diplopia, Floaters, Photophobia, Sees Flashes Ears: absent: Decreased Hearing, Ear Discharge, Ear Pain, Tinnitus Nose/Mouth/Throat: absent: Epistaxis, Nasal Congestion, Nasal Discharge, Sinus Pain, Sinus Pressure Additional comments: Dentures. - Cardiovascular Cardiovascular: absent: Chest Pain, Dyspnea, Edema - Respiratory Respiratory: absent: Dyspnea, Wheezing, Snoring, Chest Congestion - Gastrointestinal Gastrointestinal: Abdominal Pain, Diarrhea, Hematochezia, Nausea, Vomiting. absent: Constipation - Genitourinary Genitourinary: absent: Dysuria, Flank Pain, Hematuria - Musculoskeletal Musculoskeletal: absent: Arthralgias, Joint Swelling - Integumentary Integumentary: absent: Pruritus, Rash, Skin Ulcer, Sores, Striae, Swelling - Neurological Neurological: absent: Abnormal Hearing, Confusion, Dizziness, Focal Weakness - Psychiatric Psychiatric: Depression. absent: Confusion, Panic Attacks - Endocrine Endocrine: absent: Palpitations, Polydipsia, Polyphagia, Polyuria - Hematologic/Lymphatic Hematologic: absent: Easy Bleeding, Easy Bruising Past Patient History - Infectious Disease Hx of Infectious Diseases: None - Past Medical History & Family History Past Medical History?: Yes - Past Social History Smoking Status: Former Smoker Chewing Tobacco Use: No Cigar Use: No Alcohol: None Drugs: Denies Home Situation {Lives}: With Family - CARDIAC Hx Hypercholesterolemia: Yes Hx Hypertension: Yes - PULMONARY Hx Respiratory Disorders: No - NEUROLOGICAL Hx Neurological Disorder: No - HEENT Hx HEENT Problems: No - RENAL Hx Chronic Kidney Disease: No - ENDOCRINE/METABOLIC Hx Endocrine Disorders: No - HEMATOLOGICAL/ONCOLOGICAL Hx Blood Disorders: No Hx Human Immunodeficiency Virus (HIV): No - INTEGUMENTARY Hx Dermatological Problems: No - MUSCULOSKELETAL/RHEUMATOLOGICAL Hx Musculoskeletal Disorders: No Hx Falls: No - GASTROINTESTINAL Hx Diverticulitis: Yes - GENITOURINARY/GYNECOLOGICAL Hx Genitourinary Disorders: No - PSYCHIATRIC Hx Depression: Yes - SURGICAL HISTORY Hx Herniorrhaphy: Yes (left Inguinal and Right femoral Hernia repair) Hx Tonsillectomy: Yes - ANESTHESIA Hx Anesthesia: Yes Hx Anesthesia Reactions: No Hx Malignant Hyperthermia: No Meds Allergies/Adverse Reactions: Allergies Allergy/AdvReac Type Severity Reaction Status Date / Time No Known Allergies Allergy Verified 02/09/17 23:02 - Medications Medications: Current Medications Enalaprilat (Vasotec Iv) 1.25 mg IV Q6 SANDER Sodium Chloride (Sodium Chloride 0.9%) 1,000 mls @ 150 mls/hr IV .Q6H40M STA Stop: 02/10/17 08:30 Last Admin: 02/10/17 02:28 Dose: 150 mls/hr Ciprofloxacin (Cipro 400mg/200ml Dsw) 400 mg in 200 mls @ 200 mls/hr IVPB Q12 SANDER Metronidazole (Flagyl 500mg/100ml Ns) 100 mls @ 100 mls/hr IVPB Q8 SANDER Morphine Sulfate (Morphine) 2 mg IVP Q4 PRN PRN Reason: Pain, moderate (4-7) Morphine Sulfate (Morphine) 4 mg IVP Q4 PRN PRN Reason: Pain, severe (8-10) Pantoprazole Sodium (Protonix Inj) 40 mg IVP DAILY [facility] Physical Exam - Constitutional Appears: No Acute Distress - Head Exam Head Exam: ATRAUMATIC, NORMAL INSPECTION, NORMOCEPHALIC - Eye Exam Eye Exam: EOMI, Normal appearance Pupil Exam: NORMAL ACCOMODATION, PERRL - ENT Exam ENT Exam: Mucous Membranes Moist, Normal Exam, Normal External Ear Exam, Normal Oropharynx - Neck Exam Neck exam: Positive for: Full Rom, Normal Inspection. Negative for: Lymphadenopathy, Tenderness - Respiratory Exam Respiratory Exam: Clear to Auscultation Bilateral. absent: Rales, Rhonchi, Wheezes - Cardiovascular Exam Cardiovascular Exam: REGULAR RHYTHM, RRR, +S1, +S2. absent: Gallop, JVD - GI/Abdominal Exam Additional comments: Flat, Soft, decreased bowel sounds, tender at the left lower Quadrant and the pelvic region, No rebound tenderness, no guarding. - Extremities Exam Extremities exam: Positive for: full ROM, normal inspection. Negative for: joint swelling, pedal edema - Back Exam Back exam: NORMAL INSPECTION. absent: CVA tenderness (L), CVA tenderness (R) - Neurological Exam Neurological exam: Alert, CN II-XII Intact, Oriented x3, Reflexes Normal - Psychiatric Exam Psychiatric exam: Normal Affect, Normal Mood - Skin Skin Exam: Dry, Intact, Normal Color, Warm Results - Vital Signs Recent Vital Signs: Last Vital Signs Temp 98.9 F 02/10/17 03:42 Pulse 86 02/10/17 03:42 Resp 16 02/10/17 03:42 BP 126/90 02/10/17 03:42 Pulse Ox 98 02/10/17 02:38 - Labs Result Diagrams: 02/09/17 23:12 02/09/17 23:12 - Imaging and Cardiology CT scan - abdomen Status: Report reviewed by me Additional comment: FINDINGS: Lower thorax: Heart size is normal. There are coronary calcifications. There is a hiatal hernia. There is bibasilar atelectasis. ABDOMEN: Liver: There is fatty infiltration of the liver. Gallbladder and bile ducts: unremarkable Pancreas: Pancreas is atrophic. Spleen: unremarkable Adrenals: unremarkable Kidneys and ureters: There are right renal cysts. There are nonobstructing left renal stones.Kidneys and ureters are otherwise unremarkable. Stomach and bowel: Stomach is partially distended. Rotation is normal. There are dilated small bowel loops in the left upper quadrant. There are thickened ileal loops in the pelvis. There is mild terminal ileal wall thickening.Appendix is unremarkable. There is inflammation at the base of the cecum. There is moderate stool in the colon. There is diverticulosis. There is sigmoid diverticulitis. Appendix: See stomach and bowel PELVIS: Bladder: unremarkable Reproductive: The prostate is enlarged. Seminal vesicles have the expected configuration. ABDOMEN and PELVIS: Intraperitoneal space: There is a small amount of fluid in the pelvis..There is a small amount of free air in the upper abdomen. Bones/joints: unremarkable Soft tissues: unremarkable Vasculature: There are vascular calcifications. Lymph nodes: Shotty adenopathy IMPRESSION: Perforated sigmoid diverticulitis with extensive inflammatory change in the pelvis Assessment & Plan - Assessment and Plan (Free Text) Assessment: #. Perforated Sigmoid Diverticulitis #. Hypokalemia #. leukocytosis #. HTN #. Chronic Back pain #. CAD #. Depression Plan: 66 years old male with hx of CAD, HTN, Hemorrhoid, partial small bowel Obstruction and Diverticulitis who was last admitted to the [facility] [place] on and diagnosed Acute Diverticulitis. He now returns with sharp, continuous pain to the pelvis and supra-pubic region radiating to the RLQ. #. Perforated Sigmoid Diverticulitis - Consult Surgery Dr juarez - consult GI Dr Barnhart - NPO - IV Fluids NS + KCL - Pain Management with Morphine - Flagyl - Cipro #. Hypokalemia - Replace and place on maintenance - Follow electrolytes #. leukocytosis - follow WBC #. HTN - Vasotec 1.25mg Q6hrs -Follow Blood Pressure #. Chronic Back pain - pain management #. CAD - Will need Cardiac consult for Surgery #. Stress ulcer prophylaxis with Pantoprazole. #. DVT Prophylaxis with SCD #.Code Status: Full - Date & Time Date: 02/10/17 Time: 04:16
[2017-02-10] MEDS: EnalaprilAT 1.25 mg/ml Inj IV SCH ×4 (04:30→21:03)
[2017-02-10 07:45] LABS: BASO % 0.3 % (0.0-2.0); EOS % 0.2 % (0.0-4.0); HEMOGLOBIN 13.4 g/dL (12.0-18.0); LYMPH # 1.2 K/uL (1.0-4.3); LYMPH % 10.3 % (20.0-40.0); MEAN CELL VOLUME 91.5 fl (80.0-94.0); MEAN CORPUSCULAR HEMOGLOBIN 31.2 pg (27.0-31.0); MEAN CORPUSCULAR HGB CONC 34.1 g/dL (33.0-37.0); MEAN PLATELET VOLUME 8.2 fl (7.2-11.7); MONO # 0.3 K/uL (0.0-0.8); MONO % 2.6 % (0.0-10.0); NEUT # 9.9 K/uL (1.8-7.0); NEUT % 86.6 % (50.0-75.0); RBC 4.29 Mil/uL (4.40-5.90); RED CELL DISTRIBUTION WIDTH 13.8 % (11.5-14.5); WHITE BLOOD COUNT 11.5 K/uL (4.8-10.8)
[2017-02-10 07:46] LABS: ALB/GLOB RATIO 1.5 (1.0-2.1); ALBUMIN 3.6 g/dL (3.5-5.0); ALT/SGPT 26 U/L (21-72); AST/SGOT 20 U/L (17-59); BLOOD UREA NITROGEN 11 mg/dl (9-20); CALCIUM 8.6 mg/dL (8.4-10.2); GFR AFRICAN-AMERICAN > 60; GFR NON-AFRICAN AMERICAN > 60
[2017-02-10] MEDS: metroNIDAZOLE 500mg/100ml NS 100 ML IVPB SCH ×2 (09:19→16:37)
--- NOTE | 2017-02-10 09:32 | CP.PCM.HP ---
History of Present Illness - History of Present Illness History of Present Illness: pt admitted for perf diverticulitis. at present pt is w/o pain, f/c, n/v/d. no copmalitns. 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 pt had diverticulitis approx 1m onth ago. was ascheudled forcolonoscopy 02/26. bw and imaigng noted. case d/cw/ icu attending Present on Admission - Present on Admission Any Indicators Present on Admission: No Review of Systems - Gastrointestinal Gastrointestinal: As Per HPI, Abdominal Pain, Nausea, Vomiting Past Patient History - Infectious Disease Hx of Infectious Diseases: None - Past Medical History & Family History Past Medical History?: Yes - Past Social History Smoking Status: Former Smoker Chewing Tobacco Use: No Cigar Use: No Alcohol: None Drugs: Denies Home Situation {Lives}: With Family - CARDIAC Hx Hypercholesterolemia: Yes Hx Hypertension: Yes - PULMONARY Hx Respiratory Disorders: No - NEUROLOGICAL Hx Neurological Disorder: No - HEENT Hx HEENT Problems: No - RENAL Hx Chronic Kidney Disease: No - ENDOCRINE/METABOLIC Hx Endocrine Disorders: No - HEMATOLOGICAL/ONCOLOGICAL Hx Blood Disorders: No Hx Human Immunodeficiency Virus (HIV): No - INTEGUMENTARY Hx Dermatological Problems: No - MUSCULOSKELETAL/RHEUMATOLOGICAL Hx Musculoskeletal Disorders: No Hx Falls: No - GASTROINTESTINAL Hx Diverticulitis: Yes - GENITOURINARY/GYNECOLOGICAL Hx Genitourinary Disorders: No - PSYCHIATRIC Hx Depression: Yes - SURGICAL HISTORY Hx Herniorrhaphy: Yes (left Inguinal and Right femoral Hernia repair) Hx Tonsillectomy: Yes - ANESTHESIA Hx Anesthesia: Yes Hx Anesthesia Reactions: No Hx Malignant Hyperthermia: No Meds Allergies/Adverse Reactions: Allergies Allergy/AdvReac Type Severity Reaction Status Date / Time No Known Allergies Allergy Verified 02/09/17 23:02 Physical Exam - Constitutional Appears: Well, Non-toxic, No Acute Distress - Head Exam Head Exam: ATRAUMATIC, NORMAL INSPECTION, NORMOCEPHALIC - Eye Exam Eye Exam: EOMI, Normal appearance, PERRL Pupil Exam: NORMAL ACCOMODATION, PERRL - ENT Exam ENT Exam: Mucous Membranes Moist, Normal Exam - Neck Exam Neck exam: Positive for: Normal Inspection - Respiratory Exam Respiratory Exam: Clear to Auscultation Bilateral, NORMAL BREATHING PATTERN - Cardiovascular Exam Cardiovascular Exam: REGULAR RHYTHM, RRR, +S1, +S2 - GI/Abdominal Exam GI & Abdominal Exam: Hypoactive Bowel Sounds, Soft. absent: Tenderness - Extremities Exam Extremities exam: Positive for: full ROM, normal capillary refill, normal inspection, pedal pulses present - Back Exam Back exam: NORMAL INSPECTION - Neurological Exam Neurological exam: Alert, CN II-XII Intact, Normal Gait, Oriented x3, Reflexes Normal - Psychiatric Exam Psychiatric exam: Normal Affect, Normal Mood - Skin Skin Exam: Dry, Intact, Normal Color, Warm Results - Vital Signs Recent Vital Signs: Last Vital Signs Temp 97.6 F 02/10/17 08:00 Pulse 82 02/10/17 08:00 Resp 25 H 02/10/17 08:00 BP 129/60 02/10/17 08:00 Pulse Ox 97 02/10/17 08:00 - Labs Result Diagrams: 02/11/17 04:30 02/11/17 04:30 Labs: Laboratory Results - last 24 hr 02/10/17 02/10/17 05:30 05:30 WBC 11.5 H RBC 4.29 L Hgb 13.4 Hct 39.2 MCV 91.5 MCH 31.2 H MCHC 34.1 RDW 13.8 Plt Count 202 MPV 8.2 Neut % (Auto) 86.6 H Lymph % (Auto) 10.3 L [place] % (Auto) 2.6 Eos % (Auto) 0.2 Baso % (Auto) 0.3 Neut # 9.9 H Lymph # 1.2 [place] # 0.3 Eos # 0.0 Baso # 0.0 Sodium 139 Potassium 3.1 L Chloride 106 Carbon Dioxide 26 Anion Gap 10 BUN 11 Creatinine 0.8 Est GFR ( Amer) > 60 Est GFR (Non-Af Amer) > 60 Random Glucose 92 Calcium 8.6 Total Bilirubin 1.5 H AST 20 ALT 26 Alkaline Phosphatase 46 Total Protein 6.1 L Albumin 3.6 Globulin 2.5 Albumin/Globulin Ratio 1.5 Assessment & Plan (1) Perforated sigmoid colon Assessment and Plan: gi, surgery consults cipro/flagyl pain and nausea control monitor closely in icu Status: Acute (2) DVT prophylaxis Assessment and Plan: scd and aehose, ambulation hold anticoag until surgery r/o Status: Acute Decision To Admit - Pt Status Changed To: Hospital Disposition Of: Inpatient - Admit Certification Admit to Inpatient:: After my assessment, the patient will require hospitalization for at least two midnights. This is because of the severity of symptoms shown, intensity of services needed, and/or the medical risk in this patient being treated as an outpatient. - . Bed Request Type: Intensive Care Admitting Physician: Niall Barker
[2017-02-10] MEDS: Ciprofloxacin 400mg/200ml D5W 400 MG/200 ML BAG IVPB SCH ×2 (10:19→20:32)
--- NOTE | 2017-02-10 12:07 | CP.PCM.CON ---
History of Present Illness - History of Present Illness History of Present Illness: 66yo gentlemen with h/o diverticular dz and diverticulitis referred with acute diverticulitis with perforation. Patient well known to me from past office visits and endoscopic procedures. Currently in ICU but doing well thus far. His pain has decreased along with WBC' s. Will monitor closely while keeping NPO, on Cipro/Flagyl and with surgical f/u. If he continues to improve I would still recommend elective sigmoid resection in 2-3 months given repeated attacks of diverticulitis. Full consult to be dictated Past Patient History - Infectious Disease Hx of Infectious Diseases: None - Past Medical History & Family History Past Medical History?: Yes - Past Social History Smoking Status: Former Smoker Chewing Tobacco Use: No Cigar Use: No Alcohol: None Drugs: Denies Home Situation {Lives}: With Family - CARDIAC Hx Hypercholesterolemia: Yes Hx Hypertension: Yes - PULMONARY Hx Respiratory Disorders: No - NEUROLOGICAL Hx Neurological Disorder: No - HEENT Hx HEENT Problems: No - RENAL Hx Chronic Kidney Disease: No - ENDOCRINE/METABOLIC Hx Endocrine Disorders: No - HEMATOLOGICAL/ONCOLOGICAL Hx Blood Disorders: No Hx Human Immunodeficiency Virus (HIV): No - INTEGUMENTARY Hx Dermatological Problems: No - MUSCULOSKELETAL/RHEUMATOLOGICAL Hx Musculoskeletal Disorders: No Hx Falls: No - GASTROINTESTINAL Hx Diverticulitis: Yes - GENITOURINARY/GYNECOLOGICAL Hx Genitourinary Disorders: No - PSYCHIATRIC Hx Depression: Yes - SURGICAL HISTORY Hx Herniorrhaphy: Yes (left Inguinal and Right femoral Hernia repair) Hx Tonsillectomy: Yes - ANESTHESIA Hx Anesthesia: Yes Hx Anesthesia Reactions: No Hx Malignant Hyperthermia: No Meds Allergies/Adverse Reactions: Allergies Allergy/AdvReac Type Severity Reaction Status Date / Time No Known Allergies Allergy Verified 02/09/17 23:02 - Medications Medications: Current Medications Enalaprilat (Vasotec Iv) 1.25 mg IV Q6 [facility] Last Admin: 02/10/17 11:39 Dose: 1.25 mg Ciprofloxacin (Cipro 400mg/200ml Dsw) 400 mg in 200 mls @ 200 mls/hr IVPB Q12 [facility] Last Admin: 02/10/17 10:19 Dose: 200 mls/hr Metronidazole (Flagyl 500mg/100ml Ns) 100 mls @ 100 mls/hr IVPB Q8 [facility] Last Admin: 02/10/17 09:19 Dose: 100 mls/hr Potassium Chloride 10 meq/ (Sodium Chloride) 1,005 mls @ 150 mls/hr IV .Q6H42M [facility] Stop: 02/11/17 04:52 Last Admin: 02/10/17 05:12 Dose: 150 mls/hr Potassium Chloride (Potassium Chloride 10 Meq/100 Ml) 100 mls @ 100 mls/hr IVPB Q1 [facility] Stop: 02/10/17 15:59 Morphine Sulfate (Morphine) 2 mg IVP Q4 PRN PRN Reason: Pain, moderate (4-7) Last Admin: 02/10/17 10:21 Dose: 2 mg Morphine Sulfate (Morphine) 4 mg IVP Q4 PRN PRN Reason: Pain, severe (8-10) Last Admin: 02/10/17 06:56 Dose: 4 mg Pantoprazole Sodium (Protonix Inj) 40 mg IVP DAILY [facility] Last Admin: 02/10/17 08:48 Dose: 40 mg Results - Vital Signs Recent Vital Signs: Last Vital Signs Temp 97.6 F 02/10/17 08:00 Pulse 75 02/10/17 10:00 Resp 31 H 02/10/17 10:00 BP 134/56 L 02/10/17 11:39 Pulse Ox 97 02/10/17 10:00 - Labs Result Diagrams: 02/10/17 05:30 02/10/17 05:30 Labs: Laboratory Results - last 24 hr 02/10/17 02/10/17 05:30 05:30 WBC 11.5 H RBC 4.29 L Hgb 13.4 Hct 39.2 MCV 91.5 MCH 31.2 H MCHC 34.1 RDW 13.8 Plt Count 202 MPV 8.2 Neut % (Auto) 86.6 H Lymph % (Auto) 10.3 L Beckham % (Auto) 2.6 Eos % (Auto) 0.2 Baso % (Auto) 0.3 Neut # 9.9 H Lymph # 1.2 Beckham # 0.3 Eos # 0.0 Baso # 0.0 Sodium 139 Potassium 3.1 L Chloride 106 Carbon Dioxide 26 Anion Gap 10 BUN 11 Creatinine 0.8 Est GFR ( Amer) > 60 Est GFR (Non-Af Amer) > 60 Random Glucose 92 Calcium 8.6 Total Bilirubin 1.5 H AST 20 ALT 26 Alkaline Phosphatase 46 Total Protein 6.1 L Albumin 3.6 Globulin 2.5 Albumin/Globulin Ratio 1.5
[2017-02-10] MEDS: Potassium CL 10mEq/100ml 100 ML IVPB SCH ×4 (12:15→15:11)
--- NOTE | 2017-02-10 14:02 | CT ---
PROCEDURE: CT abdomen and pelvis dated 02/10/2017 HISTORY: abdominal pain with bloody stool COMPARISON: Comparison made with prior CT scan abdomen pelvis 01/07/2017 TECHNIQUE: Contiguous axial images of the abdomen and pelvis performed following oral and intravenous injection of approximately 95 cc Omnipaque 300 contrast material. . Coronal and Sagittal reformats generated. Radiation dose: Total exam DLP = 407.94 mGy-cm. This CT exam was performed using one or more of the following dose reduction techniques: Automated exposure control, adjustment of the mA and/or kV according to patient size, and/or use of iterative reconstruction technique. FINDINGS: LOWER THORAX: Mild passive/dependent type atelectasis both posterior lower lung velez of. No focal consolidation effusion or basilar pneumothorax. There is a small hiatal hernia with wall thickening of the distal esophagus that could be due to protrusion of gastric mucosa. Possibility of esophagitis not excluded. The heart size within range of normal. No significant pericardial effusion. LIVER: Liver is enlarged measuring nearly 21 cm in CC dimension. Mild diffuse fatty hepatic infiltration. No obvious hepatic mass or collection. Portal and splenic veins are opacified. . GALLBLADDER AND BILE DUCTS: Gallbladder is physiologically distended. No evidence of intraluminal gallbladder calculi. PANCREAS: No obvious pancreatic mass collection or calcification seen. Pancreatic duct is visible lobe does not appear significantly dilated. SPLEEN: The spleen exhibits normal size and attenuation pattern without mass collection or calcification. ADRENALS: Mildly enlarged adrenal glands left greater than right KIDNEYS AND URETERS: The kidneys exhibit symmetric nephrograms. No evidence of nephrolithiasis or hydronephrosis. Re- demonstrated are several small low-attenuation foci upper pole left kidney likely representing renal cysts. Note that the smallest of these foci partially exophytic along posterior upper pole exhibits Hounsfield units in the low 30s which probably represents of small sample size for Hounsfield units an adjacent enhancing parenchyma as well as more hyperdense rib. Ultrasound could be performed to confirm and exclude any solid components. . BLADDER: Urinary bladder is incompletely distended which may account for slight thick-walled appearance. Muscular hypertrophy may contribute. Cystitis not excluded. REPRODUCTIVE: Prostatic calcifications again noted. APPENDIX: What is felt to represent normal appendix on best seen on coronal sequence image number [id number]. The appears grossly unremarkable BOWEL: Evaluation of the bowel is limited due to the lack of oral contrast material however there is hyperdense on material within the proximal small bowel. This could be related to prior procedure. Clinical correlation recommended. The stomach is distended with food debris liquid and air. . Rule out localized intussusception involving a short segment of small bowel left upper quadrant of the abdomen. In addition, there is mild wall thickening of a few adjacent loops ;. There is also of wall thickening of the terminal ileum and questionable wall thickening of the base of the cecum. . Rule out enteritis. Stool and air seen throughout colon. Re- demonstrated is a localized area of marked wall thickening involving the sigmoid colon with scattered colonic diverticula consistent with diverticulitis and suspected phlegmon formation with inflammatory changes in the adjacent mesenteries. Rule out microperforation and or devin perforation. Clinical correlation recommended. There also appears to be mild wall thickening of the distal aspect of the descending colon as well. No definitive drainable fluid collection is identified. PERITONEUM: Inflammatory changes within the mesentery adjacent to the sigmoid colon consistent with this patient's history of acute diverticulitis. LYMPH NODES: Unremarkable. No enlarged lymph nodes. VASCULATURE: Unremarkable. No aortic aneurysm. BONES: Multilevel degenerative spondylosis of the lower thoracic and lumbar spine OTHER FINDINGS: None. IMPRESSION: There is acute sigmoid diverticulitis with phlegmon and inflammatory changes presumed phlegmon formation and adjacent inflammatory changes. Findings suggest perforation. . Wall thickening of several loops of small bowel as well as the terminal ileum and base of the cecum suggesting underlying enteritis. Possibility of a localized concomitant dissection left upper quadrant the abdomen not excluded. Hepatomegaly with mild fatty hepatic infiltration. Probable right renal cysts as above. Followup ultrasound recommended to exclude any solid component.
[2017-02-10] MEDS: Morphine 4 MG/ML VIAL IVP PRN ×2 (19:55→23:56)
[2017-02-11] MEDS: metroNIDAZOLE 500mg/100ml NS 100 ML IVPB SCH ×3 (00:14→16:21)
[2017-02-11] MEDS: Morphine 4 MG/ML VIAL IVP PRN ×3 (04:06→20:36)
[2017-02-11] MEDS: EnalaprilAT 1.25 mg/ml Inj IV SCH ×4 (04:08→21:00)
[2017-02-11 05:13] LABS: BASO % 0.2 % (0.0-2.0); EOS % 0.1 % (0.0-4.0); HEMOGLOBIN 13.6 g/dL (12.0-18.0); LYMPH # 0.7 K/uL (1.0-4.3); LYMPH % 6.7 % (20.0-40.0); MEAN CELL VOLUME 92.2 fl (80.0-94.0); MEAN CORPUSCULAR HEMOGLOBIN 31.3 pg (27.0-31.0); MEAN CORPUSCULAR HGB CONC 33.9 g/dL (33.0-37.0); MEAN PLATELET VOLUME 8.2 fl (7.2-11.7); MONO # 0.4 K/uL (0.0-0.8); MONO % 4.1 % (0.0-10.0); NEUT # 9.5 K/uL (1.8-7.0); NEUT % 88.9 % (50.0-75.0); NRBC % 0.1 % (0.0-0.0); RBC 4.34 Mil/uL (4.40-5.90); RED CELL DISTRIBUTION WIDTH 13.8 % (11.5-14.5); WHITE BLOOD COUNT 10.7 K/uL (4.8-10.8)
[2017-02-11 05:42] LABS: ALB/GLOB RATIO 1.4 (1.0-2.1); ALBUMIN 3.7 g/dL (3.5-5.0); ALT/SGPT 25 U/L (21-72); AST/SGOT 21 U/L (17-59); BLOOD UREA NITROGEN 8 mg/dl (9-20); CALCIUM 8.7 mg/dL (8.4-10.2); GFR AFRICAN-AMERICAN > 60; GFR NON-AFRICAN AMERICAN > 60
--- NOTE | 2017-02-11 06:47 | CARD ---
APPROVED REPORT EKG Measurement Heart [id number] VT [id number] [id number] <Conclusion> Poor data quality, interpretation may be adversely affected Normal sinus rhythm Left atrial enlargement Borderline ECG
--- NOTE | 2017-02-11 07:29 | CP.PCM.PN ---
Subjective - Date & Time of Evaluation Date of Evaluation: 02/11/17 Time of Evaluation: 07:28 - Subjective Subjective: doign well in bed. still in icu. no f/c, n/v/d. am labs noted. no pain, nausea. Objective - Vital Signs/Intake and Output Vital Signs (last 24 hours): Temp Pulse Resp BP Pulse Ox 99.4 F 80 28 H 148/89 97 02/11/17 04:00 02/11/17 06:00 02/11/17 06:00 02/11/17 06:00 02/11/17 06:00 Intake and Output: 02/11/17 02/11/17 06:59 18:59 Intake Total 1650 Output Total 940 Balance 710 - Medications Medications: Current Medications Enalaprilat (Vasotec Iv) 1.25 mg IV Q6 [facility] Last Admin: 02/11/17 04:08 Dose: 1.25 mg Ciprofloxacin (Cipro 400mg/200ml Dsw) 400 mg in 200 mls @ 200 mls/hr IVPB Q12 [facility] Last Admin: 02/10/17 20:32 Dose: 200 mls/hr Metronidazole (Flagyl 500mg/100ml Ns) 100 mls @ 100 mls/hr IVPB Q8 [facility] Last Admin: 02/11/17 00:14 Dose: 100 mls/hr Morphine Sulfate (Morphine) 2 mg IVP Q4 PRN PRN Reason: Pain, moderate (4-7) Last Admin: 02/10/17 13:54 Dose: 2 mg Morphine Sulfate (Morphine) 4 mg IVP Q4 PRN PRN Reason: Pain, severe (8-10) Last Admin: 02/11/17 04:06 Dose: 4 mg Pantoprazole Sodium (Protonix Inj) 40 mg IVP DAILY [facility] Last Admin: 02/10/17 08:48 Dose: 40 mg Zolpidem Tartrate (Ambien) 5 mg PO HS PRN PRN Reason: Sleep Last Admin: 02/10/17 21:03 Dose: 5 mg - Labs Labs: 02/11/17 04:30 02/11/17 04:30 - Constitutional Appears: Well, Non-toxic, No Acute Distress - Head Exam Head Exam: ATRAUMATIC, NORMAL INSPECTION, NORMOCEPHALIC - Eye Exam Eye Exam: EOMI, Normal appearance, PERRL Pupil Exam: NORMAL ACCOMODATION, PERRL - ENT Exam ENT Exam: Mucous Membranes Moist, Normal Exam - Neck Exam Neck Exam: Full ROM, Normal Inspection. absent: Lymphadenopathy - Respiratory Exam Respiratory Exam: Clear to Ausculation Bilateral, NORMAL BREATHING PATTERN - Cardiovascular Exam Cardiovascular Exam: REGULAR RHYTHM, RRR, +S1, +S2. absent: Murmur - GI/Abdominal Exam GI & Abdominal Exam: Soft, Normal Bowel Sounds. absent: Tenderness - Extremities Exam Extremities Exam: Full ROM, Normal Capillary Refill, Normal Inspection. absent : Joint Swelling, Pedal Edema - Back Exam Back Exam: NORMAL INSPECTION - Neurological Exam Neurological Exam: Alert, Awake, CN II-XII Intact, Normal Gait, Oriented x3 - Psychiatric Exam Psychiatric exam: Normal Affect, Normal Mood - Skin Skin Exam: Dry, Intact, Normal Color, Warm Assessment and Plan (1) Perforated sigmoid colon Status: Acute (2) DVT prophylaxis Status: Acute - Assessment and Plan (Free Text) Assessment: (1) Perforated sigmoid colon Assessment and Plan: gi, surgery consults cipro/flagyl pain and nausea control monitor closely in icu Status: Acute (2) DVT prophylaxis Assessment and Plan: scd and aehose, ambulation hold anticoag until surgery r/o Status: Acute
--- NOTE | 2017-02-11 08:00 | CP.PCM.PN ---
<YefrigwendolynmarlysTyrel - Last Filed: 02/11/17 08:01> Subjective - Date & Time of Evaluation Date of Evaluation: 02/11/17 Time of Evaluation: 07:58 - Subjective Subjective: Surgery: Dr. Rodriguez Pt seen and examined. Still has abd pain but it is improved compared to yesterday. No N/V. Passing flatus, no BM. No F/C. Objective - Vital Signs/Intake and Output Vital Signs (last 24 hours): Temp Pulse Resp BP Pulse Ox 99.4 F 80 28 H 148/89 97 02/11/17 04:00 02/11/17 06:00 02/11/17 06:00 02/11/17 06:00 02/11/17 06:00 Intake and Output: 02/11/17 02/11/17 06:59 18:59 Intake Total 1650 Output Total 940 Balance 710 - Medications Medications: Current Medications Enalaprilat (Vasotec Iv) 1.25 mg IV Q6 [facility] Last Admin: 02/11/17 04:08 Dose: 1.25 mg Ciprofloxacin (Cipro 400mg/200ml Dsw) 400 mg in 200 mls @ 200 mls/hr IVPB Q12 [facility] Last Admin: 02/10/17 20:32 Dose: 200 mls/hr Metronidazole (Flagyl 500mg/100ml Ns) 100 mls @ 100 mls/hr IVPB Q8 [facility] Last Admin: 02/11/17 00:14 Dose: 100 mls/hr Morphine Sulfate (Morphine) 2 mg IVP Q4 PRN PRN Reason: Pain, moderate (4-7) Last Admin: 02/11/17 07:55 Dose: 2 mg Morphine Sulfate (Morphine) 4 mg IVP Q4 PRN PRN Reason: Pain, severe (8-10) Last Admin: 02/11/17 04:06 Dose: 4 mg Pantoprazole Sodium (Protonix Inj) 40 mg IVP DAILY [facility] Last Admin: 02/10/17 08:48 Dose: 40 mg Zolpidem Tartrate (Ambien) 5 mg PO HS PRN PRN Reason: Sleep Last Admin: 02/10/17 21:03 Dose: 5 mg - Labs Labs: 02/11/17 04:30 02/11/17 04:30 - Constitutional Appears: Non-toxic, No Acute Distress - Head Exam Head Exam: ATRAUMATIC, NORMOCEPHALIC - Eye Exam Eye Exam: EOMI - ENT Exam ENT Exam: Mucous Membranes Moist - Neck Exam Neck Exam: Full ROM - Respiratory Exam Respiratory Exam: NORMAL BREATHING PATTERN. absent: Accessory Muscle Use, Respiratory Distress - GI/Abdominal Exam GI & Abdominal Exam: Firm, Tenderness (lower quadrants). absent: Distended, Guarding, Rigid, Rebound - Extremities Exam Extremities Exam: absent: Calf Tenderness, Pedal Edema - Neurological Exam Neurological Exam: Alert, Awake, Oriented x3 Assessment and Plan - Assessment and Plan (Free Text) Assessment: 66M w. diverticulitis -maintain NPO -possible CLD tomorrow -c/w IVF, abx, and pain meds -serial abd exams -d/w attending Tyrese PGY2 <Don Rodriguez - Last Filed: 02/11/17 20:10> Subjective - Date & Time of Evaluation Time of Evaluation: 19:45 - Subjective Subjective: Patient was seen and examined at the bedside. Agree with resident's note above. Objective - Vital Signs/Intake and Output Vital Signs (last 24 hours): Temp Pulse Resp BP Pulse Ox 98.3 F 83 24 157/104 H 99 02/11/17 11:58 02/11/17 11:58 02/11/17 11:58 02/11/17 16:22 02/11/17 11:58 Intake and Output: 02/11/17 02/12/17 18:59 06:59 Output Total 200 Balance -200 - Medications Medications: Current Medications Enalaprilat (Vasotec Iv) 1.25 mg IV Q6 [facility] Last Admin: 02/11/17 16:22 Dose: 1.25 mg Enoxaparin Sodium (Lovenox) 40 mg SC DAILY [facility] PRN Reason: Protocol Last Admin: 02/11/17 10:20 Dose: 40 mg Ciprofloxacin (Cipro 400mg/200ml Dsw) 400 mg in 200 mls @ 200 mls/hr IVPB Q12 [facility] Last Admin: 02/11/17 08:01 Dose: 200 mls/hr Metronidazole (Flagyl 500mg/100ml Ns) 100 mls @ 100 mls/hr IVPB Q8 [facility] Last Admin: 02/11/17 16:21 Dose: 100 mls/hr Potassium Chloride 10 meq/ (Sodium Chloride) 1,005 mls @ 150 mls/hr IV .Q6H42M [facility] Stop: 02/12/17 19:33 Morphine Sulfate (Morphine) 2 mg IVP Q4 PRN PRN Reason: Pain, moderate (4-7) Last Admin: 02/11/17 16:17 Dose: 2 mg Zolpidem Tartrate (Ambien) 5 mg PO HS PRN PRN Reason: Sleep Last Admin: 02/10/17 21:03 Dose: 5 mg - Labs Labs: 02/11/17 04:30 02/11/17 04:30 Assessment and Plan - Assessment and Plan (Free Text) Plan: - Keep NPO - IV fluids - pain control - Continue antibiotics - repeat labs in am - Will follow
[2017-02-11] MEDS: Ciprofloxacin 400mg/200ml D5W 400 MG/200 ML BAG IVPB SCH ×2 (08:01→20:37)
--- NOTE | 2017-02-11 10:12 | PQF GENQUE ---
This form is a permanent part of the medical record 02/11/17 Collins Villatoro APN, Documentation by the surgical device sales representative of peritonitis. After workup please clarify if the peritonitis is ruled in or out. If ruled in please clarify the type if known. Admitted with perforated diverticulitis. WBC 13 with a L shift and 4% BANDS.CT results noted. Treated with Flagyl and Cipro. Temp max 99.7, HR max 99->75, BP 98/52, 126/90, R 16-31 Clarification of your documentation is requested to better reflect the severity of illness and intensity of treatment of your patient. PHYSICIAN'S RESPONSE [] Peritonitis ruled out [x] Peritonitis ruled in Please clarify type of peritonitis: [] Aseptic [] Bacterial (please documented causative organism if known) [] Due to foreign body [x] Due to foreign substance-perf diverticulum [] Generalized [] Pelvic, female [] Postoperative [] Spontaneous bacterial peritonitis [] Suppurative [] With abscess (specify location of abscess) [] With appendicitis (specify as with or without abscess) [] Other type not specified above (please specify) [] Clinically unable to determine [] Unknown Based on your medical judgment of the clinical indicators outlined above please clarify the following: [] Practitioner response [] If unable to determine, please check the box, sign and date. Present On Admission (POA) Indicator: [] Present at the time of admission [] Not present at the time of admission [] Clinically Undetermined In responding to this query, please exercise your independent professional judgment. The fact that a question is asked does not imply that any particular answer is desired or expected. Thank you for your clarification on this documentation. If you have any questions please call:extension [phone] * Thank you, Krystin Ramos RN CDMP MTDD
[2017-02-11] MEDS: Enoxaparin 40 mg Syringe SC SCH (10:20)
--- NOTE | 2017-02-11 15:21 | CP.PCM.PN ---
Subjective - Date & Time of Evaluation Date of Evaluation: 02/11/17 Time of Evaluation: 15:20 - Subjective Subjective: pain improving Objective - Vital Signs/Intake and Output Vital Signs (last 24 hours): Temp Pulse Resp BP Pulse Ox 98.3 F 83 24 167/90 H 99 02/11/17 11:58 02/11/17 11:58 02/11/17 11:58 02/11/17 11:58 02/11/17 11:58 Intake and Output: 02/11/17 02/11/17 06:59 18:59 Intake Total 1650 Output Total 940 200 Balance 710 -200 - Medications Medications: Current Medications Enalaprilat (Vasotec Iv) 1.25 mg IV Q6 [facility] Last Admin: 02/11/17 10:15 Dose: 1.25 mg Enoxaparin Sodium (Lovenox) 40 mg SC DAILY [facility] PRN Reason: Protocol Last Admin: 02/11/17 10:20 Dose: 40 mg Ciprofloxacin (Cipro 400mg/200ml Dsw) 400 mg in 200 mls @ 200 mls/hr IVPB Q12 [facility] Last Admin: 02/11/17 08:01 Dose: 200 mls/hr Metronidazole (Flagyl 500mg/100ml Ns) 100 mls @ 100 mls/hr IVPB Q8 [facility] Last Admin: 02/11/17 08:01 Dose: 100 mls/hr Morphine Sulfate (Morphine) 2 mg IVP Q4 PRN PRN Reason: Pain, moderate (4-7) Zolpidem Tartrate (Ambien) 5 mg PO HS PRN PRN Reason: Sleep Last Admin: 02/10/17 21:03 Dose: 5 mg - Labs Labs: 02/11/17 04:30 02/11/17 04:30 - GI/Abdominal Exam GI & Abdominal Exam: Soft, Tenderness, Normal Bowel Sounds Assessment and Plan - Assessment and Plan (Free Text) Assessment: 66 yo male with complicated diverticulitis abx surgical input
[2017-02-12] MEDS: Morphine 4 MG/ML VIAL IVP PRN ×6 (00:08→22:12)
[2017-02-12] MEDS: metroNIDAZOLE 500mg/100ml NS 100 ML IVPB SCH ×2 (01:34→08:10)
[2017-02-12] MEDS: EnalaprilAT 1.25 mg/ml Inj IV SCH ×4 (03:36→21:31)
[2017-02-12] MEDS: Ciprofloxacin 400mg/200ml D5W 400 MG/200 ML BAG IVPB SCH (08:09)
[2017-02-12] MEDS: Enoxaparin 40 mg Syringe SC SCH (08:10)
[2017-02-12 08:28] LABS: BASO % 0.3 % (0.0-2.0); EOS % 0.2 % (0.0-4.0); HEMOGLOBIN 15.2 g/dL (12.0-18.0); LYMPH # 0.7 K/uL (1.0-4.3); LYMPH % 5.8 % (20.0-40.0); MEAN CELL VOLUME 91.5 fl (80.0-94.0); MEAN CORPUSCULAR HEMOGLOBIN 31.2 pg (27.0-31.0); MEAN CORPUSCULAR HGB CONC 34.1 g/dL (33.0-37.0); MEAN PLATELET VOLUME 8.6 fl (7.2-11.7); MONO # 0.4 K/uL (0.0-0.8); MONO % 3.9 % (0.0-10.0); NEUT # 10.3 K/uL (1.8-7.0); NEUT % 89.8 % (50.0-75.0); NRBC % 0.1 % (0.0-0.0); RBC 4.88 Mil/uL (4.40-5.90); RED CELL DISTRIBUTION WIDTH 13.6 % (11.5-14.5); WHITE BLOOD COUNT 11.4 K/uL (4.8-10.8)
[2017-02-12 08:35] LABS: ALB/GLOB RATIO 1.3 (1.0-2.1); ALBUMIN 3.6 g/dL (3.5-5.0); ALT/SGPT 26 U/L (21-72); AST/SGOT 16 U/L (17-59); BLOOD UREA NITROGEN 11 mg/dl (9-20); CALCIUM 8.8 mg/dL (8.4-10.2); GFR AFRICAN-AMERICAN > 60; GFR NON-AFRICAN AMERICAN > 60
--- NOTE | 2017-02-12 08:56 | CP.PCM.PN ---
Subjective - Date & Time of Evaluation Date of Evaluation: 02/12/17 Time of Evaluation: 08:30 - Subjective Subjective: Patient was seen and examined at the bedside. Still has some abdominal pain but states that it has improved. Objective - Vital Signs/Intake and Output Vital Signs (last 24 hours): Temp Pulse Resp BP Pulse Ox 98.1 F 78 18 139/95 H 98 02/12/17 07:57 02/12/17 07:57 02/12/17 07:57 02/12/17 07:57 02/12/17 07:57 Intake and Output: 02/12/17 02/12/17 06:59 18:59 Intake Total 1225 Output Total 875 Balance 350 - Medications Medications: Current Medications Enalaprilat (Vasotec Iv) 1.25 mg IV Q6 [facility] Last Admin: 02/12/17 03:36 Dose: 1.25 mg Enoxaparin Sodium (Lovenox) 40 mg SC DAILY [facility] PRN Reason: Protocol Last Admin: 02/12/17 08:10 Dose: 40 mg Potassium Chloride 10 meq/ (Sodium Chloride) 1,005 mls @ 150 mls/hr IV .Q6H42M [facility] Stop: 02/12/17 19:33 Last Admin: 02/12/17 04:48 Dose: 150 mls/hr Piperacillin Sod/Tazobactam (Sod 3.375 gm/ Sodium Chloride) 100 mls @ 100 mls/ hr IVPB Q6 [facility] Morphine Sulfate (Morphine) 2 mg IVP Q4 PRN PRN Reason: Pain, moderate (4-7) Last Admin: 02/11/17 20:36 Dose: 2 mg Morphine Sulfate (Morphine) 4 mg IVP Q4 PRN PRN Reason: Pain, severe (8-10) Last Admin: 02/12/17 04:50 Dose: 4 mg Zolpidem Tartrate (Ambien) 5 mg PO HS PRN PRN Reason: Sleep Last Admin: 02/11/17 20:59 Dose: 5 mg - Labs Labs: 02/12/17 08:15 02/12/17 08:15 - Constitutional Appears: Well, Non-toxic, No Acute Distress - Head Exam Head Exam: ATRAUMATIC, NORMAL INSPECTION, NORMOCEPHALIC - Eye Exam Eye Exam: EOMI, Normal appearance, PERRL Pupil Exam: NORMAL ACCOMODATION, PERRL - ENT Exam ENT Exam: Mucous Membranes Moist, Normal Exam - Neck Exam Neck Exam: Full ROM, Normal Inspection - Respiratory Exam Respiratory Exam: Clear to Ausculation Bilateral, NORMAL BREATHING PATTERN - Cardiovascular Exam Cardiovascular Exam: REGULAR RHYTHM, +S1, +S2 - GI/Abdominal Exam GI & Abdominal Exam: Soft, Normal Bowel Sounds Additional comments: Tender to palpation, mildly distended, no rebound, no guarding - Rectal Exam Rectal Exam: Deferred - Extremities Exam Extremities Exam: Full ROM, Normal Inspection - Neurological Exam Neurological Exam: Alert, Awake, Oriented x3 - Psychiatric Exam Psychiatric exam: Normal Affect, Normal Mood - Skin Skin Exam: Dry, Intact, Normal Color, Warm Assessment and Plan - Assessment and Plan (Free Text) Assessment: 66 y.o. male with acute diverticulitis Plan: - Keep NPO - IV fluid hydration - pain control - Stop Cipro and Flagyl - Start Zosyn - Out of bed - Repeat labs in am - Will follow
--- NOTE | 2017-02-12 09:42 | CP.PCM.PN ---
Subjective - Date & Time of Evaluation Date of Evaluation: 02/12/17 Time of Evaluation: 09:41 - Subjective Subjective: doign well, bp noted to be up but all home meds have been held. bp[ incr w/ pain incr. no f/c, n/v/d. surgical consult appriciated and case d/c w/ dr juarez. Objective - Vital Signs/Intake and Output Vital Signs (last 24 hours): Temp Pulse Resp BP Pulse Ox 98.1 F 78 18 144/100 H 98 02/12/17 07:57 02/12/17 07:57 02/12/17 07:57 02/12/17 09:14 02/12/17 07:57 Intake and Output: 02/12/17 02/12/17 06:59 18:59 Intake Total 1225 Output Total 875 Balance 350 - Medications Medications: Current Medications Amlodipine Besylate (Norvasc) 10 mg PO DAILY [facility] Atorvastatin Calcium (Lipitor) 20 mg PO DAILY [facility] Enalaprilat (Vasotec Iv) 1.25 mg IV Q6 [facility] Last Admin: 02/12/17 09:14 Dose: 1.25 mg Enoxaparin Sodium (Lovenox) 40 mg SC DAILY [facility] PRN Reason: Protocol Last Admin: 02/12/17 08:10 Dose: 40 mg Home Med (Bupropion Xl [Wellbutrin Xl]) 150 mg PO DAILY [facility] Potassium Chloride 10 meq/ (Sodium Chloride) 1,005 mls @ 150 mls/hr IV .Q6H42M [facility] Stop: 02/12/17 19:33 Last Admin: 02/12/17 04:48 Dose: 150 mls/hr Piperacillin Sod/Tazobactam (Sod 3.375 gm/ Sodium Chloride) 100 mls @ 100 mls/ hr IVPB Q6 [facility] Losartan Potassium (Cozaar) 25 mg PO DAILY [facility] Morphine Sulfate (Morphine) 2 mg IVP Q4 PRN PRN Reason: Pain, moderate (4-7) Last Admin: 02/12/17 09:17 Dose: 2 mg Morphine Sulfate (Morphine) 4 mg IVP Q4 PRN PRN Reason: Pain, severe (8-10) Last Admin: 02/12/17 04:50 Dose: 4 mg Zolpidem Tartrate (Ambien) 5 mg PO HS PRN PRN Reason: Sleep Last Admin: 02/11/17 20:59 Dose: 5 mg - Labs Labs: 02/12/17 08:15 02/12/17 08:15 - Constitutional Appears: Well, Non-toxic, No Acute Distress - Head Exam Head Exam: ATRAUMATIC, NORMAL INSPECTION, NORMOCEPHALIC - Eye Exam Eye Exam: EOMI, Normal appearance, PERRL Pupil Exam: NORMAL ACCOMODATION, PERRL - ENT Exam ENT Exam: Mucous Membranes Moist, Normal Exam - Neck Exam Neck Exam: Full ROM, Normal Inspection. absent: Lymphadenopathy - Respiratory Exam Respiratory Exam: Clear to Ausculation Bilateral, NORMAL BREATHING PATTERN - Cardiovascular Exam Cardiovascular Exam: REGULAR RHYTHM, RRR, +S1, +S2. absent: Murmur - GI/Abdominal Exam GI & Abdominal Exam: Soft, Tenderness, Normal Bowel Sounds - Extremities Exam Extremities Exam: Full ROM, Normal Capillary Refill, Normal Inspection. absent : Joint Swelling, Pedal Edema - Back Exam Back Exam: NORMAL INSPECTION - Neurological Exam Neurological Exam: Alert, Awake, CN II-XII Intact, Normal Gait, Oriented x3 - Psychiatric Exam Psychiatric exam: Normal Affect, Normal Mood - Skin Skin Exam: Dry, Intact, Normal Color, Warm Assessment and Plan (1) Perforated sigmoid colon Status: Acute (2) DVT prophylaxis Status: Acute (3) HTN (hypertension) Status: Chronic - Assessment and Plan (Free Text) Assessment: (1) Perforated sigmoid colon Assessment and Plan: gi, surgery consults cipro/flagyl pain and nausea control monitor closely in icu Status: Acute (2) DVT prophylaxis Assessment and Plan: scd and aehose, ambulation hold anticoag until surgery r/o Status: Acute [id number] home meds, upgrade to tele from m/s if unable to be controlled
[2017-02-12] MEDS ORDERED: Patient's Own Med (Bupropion Xl [Wellbutrin Xl] 150 MG) PO SCH (09:45)
[2017-02-12] MEDS: Piperacillin/Tazobact 3.375 GM in Sodium Chloride 0.9% 100 ML IVPB SCH ×3 (11:04→21:34)
[2017-02-13] MEDS: Morphine 4 MG/ML VIAL IVP PRN ×5 (02:33→21:48)
[2017-02-13] MEDS: EnalaprilAT 1.25 mg/ml Inj IV SCH ×2 (04:45→09:32)
[2017-02-13] MEDS: Piperacillin/Tazobact 3.375 GM in Sodium Chloride 0.9% 100 ML IVPB SCH ×4 (04:48→22:16)
[2017-02-13 06:59] LABS: BASO # 0.1 K/uL (0.0-0.2); BASO % 0.6 % (0.0-2.0); EOS # 0.1 K/uL (0.0-0.7); EOS % 1.1 % (0.0-4.0); HEMOGLOBIN 13.8 g/dL (12.0-18.0); LYMPH # 1.1 K/uL (1.0-4.3); LYMPH % 12.3 % (20.0-40.0); MEAN CELL VOLUME 91.5 fl (80.0-94.0); MEAN CORPUSCULAR HGB CONC 33.9 g/dL (33.0-37.0); MEAN PLATELET VOLUME 7.9 fl (7.2-11.7); MONO # 0.5 K/uL (0.0-0.8); MONO % 5.7 % (0.0-10.0); NEUT # 7.2 K/uL (1.8-7.0); NEUT % 80.3 % (50.0-75.0); RBC 4.46 Mil/uL (4.40-5.90); RED CELL DISTRIBUTION WIDTH 13.6 % (11.5-14.5)
[2017-02-13 07:16] LABS: ALB/GLOB RATIO 1.2 (1.0-2.1); ALBUMIN 3.3 g/dL (3.5-5.0); ALT/SGPT 28 U/L (21-72); AST/SGOT 19 U/L (17-59); BLOOD UREA NITROGEN 10 mg/dl (9-20); CALCIUM 8.4 mg/dL (8.4-10.2); GFR AFRICAN-AMERICAN > 60; GFR NON-AFRICAN AMERICAN > 60
--- NOTE | 2017-02-13 08:13 | CP.PCM.PN ---
Subjective - Date & Time of Evaluation Date of Evaluation: 02/13/17 Time of Evaluation: 08:12 - Subjective Subjective: pt on 6s and is now in less pain. no f/c, n/v/d. bw noted. pending sugery for adv of diet pt has been w/ hiccoughs for 1 day. some relief w/ reglan Objective - Vital Signs/Intake and Output Vital Signs (last 24 hours): Temp Pulse Resp BP Pulse Ox 98.3 F 77 20 151/87 H 98 02/13/17 08:07 02/13/17 08:07 02/13/17 08:07 02/13/17 08:07 02/13/17 08:07 Intake and Output: 02/13/17 02/13/17 06:59 18:59 Intake Total 1999 Balance 1999 - Medications Medications: Current Medications Amlodipine Besylate (Norvasc) 10 mg PO DAILY [facility] Last Admin: 02/12/17 11:04 Dose: 10 mg Atorvastatin Calcium (Lipitor) 20 mg PO DAILY [facility] Last Admin: 02/12/17 11:04 Dose: 20 mg Enalaprilat (Vasotec Iv) 1.25 mg IV Q6 [facility] Last Admin: 02/13/17 04:45 Dose: 1.25 mg Enoxaparin Sodium (Lovenox) 40 mg SC DAILY [facility] PRN Reason: Protocol Last Admin: 02/12/17 08:10 Dose: 40 mg Home Med (Bupropion Xl [Wellbutrin Xl]) 150 mg PO DAILY [facility] Piperacillin Sod/Tazobactam (Sod 3.375 gm/ Sodium Chloride) 100 mls @ 100 mls/ hr IVPB Q6 [facility] Last Admin: 02/13/17 04:48 Dose: 100 mls/hr Potassium Chloride 10 meq/ (Sodium Chloride) 1,005 mls @ 149.257 mls/hr IV .Q6H44M [facility] Stop: 02/14/17 00:33 Last Admin: 02/13/17 00:51 Dose: 149.257 mls/hr Potassium Chloride (Potassium Chloride 10 Meq/100 Ml) 100 mls @ 100 mls/hr IVPB Q1 [facility] Stop: 02/13/17 12:59 Losartan Potassium (Cozaar) 25 mg PO DAILY [facility] Last Admin: 02/12/17 11:03 Dose: 25 mg Metoclopramide HCl (Reglan) 10 mg IVP Q8 PRN PRN Reason: Hiccups Last Admin: 02/13/17 06:28 Dose: 10 mg Morphine Sulfate (Morphine) 2 mg IVP Q4 PRN PRN Reason: Pain, moderate (4-7) Last Admin: 02/12/17 13:04 Dose: 2 mg Morphine Sulfate (Morphine) 4 mg IVP Q4 PRN PRN Reason: Pain, severe (8-10) Last Admin: 02/13/17 06:32 Dose: 4 mg Zolpidem Tartrate (Ambien) 5 mg PO HS PRN PRN Reason: Sleep Last Admin: 02/11/17 20:59 Dose: 5 mg - Labs Labs: 02/13/17 06:05 02/13/17 06:05 - Constitutional Appears: Well, Non-toxic, No Acute Distress - Head Exam Head Exam: ATRAUMATIC, NORMAL INSPECTION, NORMOCEPHALIC - Eye Exam Eye Exam: EOMI, Normal appearance, PERRL Pupil Exam: NORMAL ACCOMODATION, PERRL - ENT Exam ENT Exam: Mucous Membranes Moist, Normal Exam - Neck Exam Neck Exam: Full ROM, Normal Inspection. absent: Lymphadenopathy - Respiratory Exam Respiratory Exam: Clear to Ausculation Bilateral, NORMAL BREATHING PATTERN - Cardiovascular Exam Cardiovascular Exam: REGULAR RHYTHM, RRR, +S1, +S2. absent: Murmur - GI/Abdominal Exam GI & Abdominal Exam: Soft, Tenderness, Normal Bowel Sounds - Extremities Exam Extremities Exam: Full ROM, Normal Capillary Refill, Normal Inspection. absent : Joint Swelling, Pedal Edema - Back Exam Back Exam: NORMAL INSPECTION - Neurological Exam Neurological Exam: Alert, Awake, CN II-XII Intact, Normal Gait, Oriented x3 - Psychiatric Exam Psychiatric exam: Normal Affect, Normal Mood - Skin Skin Exam: Dry, Intact, Normal Color, Warm Assessment and Plan (1) Perforated sigmoid colon Status: Acute (2) DVT prophylaxis Status: Acute (3) HTN (hypertension) Status: Chronic - Assessment and Plan (Free Text) Assessment: (1) Perforated sigmoid colon w/ peritonitis Assessment and Plan: gi, surgery consults zosyn pain and nausea control downgrade to m/s Status: Acute (2) DVT prophylaxis Assessment and Plan: scd and aehose, ambulation hold anticoag until surgery r/o Status: Acute [id number] home meds, upgrade to tele from m/s if unable to be controlled [id number], gi, lipase
[2017-02-13] MEDS: Enoxaparin 40 mg Syringe SC SCH (08:44)
--- NOTE | 2017-02-13 11:04 | CP.PCM.PN ---
Subjective - Date & Time of Evaluation Date of Evaluation: 02/13/17 Time of Evaluation: 11:02 - Subjective Subjective: Surgery: Dr. Tillman Pt seen and examined. States that pain is improved compared to yesterday. No F/ C. No N/V. Passing flatus. No BM. Objective - Vital Signs/Intake and Output Vital Signs (last 24 hours): Temp Pulse Resp BP Pulse Ox 98.3 F 77 20 150/88 98 02/13/17 08:07 02/13/17 08:44 02/13/17 08:07 02/13/17 09:32 02/13/17 08:07 Intake and Output: 02/13/17 02/13/17 06:59 18:59 Intake Total 1999 Balance 1999 - Medications Medications: Current Medications Amlodipine Besylate (Norvasc) 10 mg PO DAILY [facility] Last Admin: 02/13/17 08:44 Dose: 10 mg Atorvastatin Calcium (Lipitor) 20 mg PO DAILY [facility] Last Admin: 02/13/17 08:43 Dose: 20 mg Enalaprilat (Vasotec Iv) 1.25 mg IV Q6 [facility] Last Admin: 02/13/17 09:32 Dose: 1.25 mg Enoxaparin Sodium (Lovenox) 40 mg SC DAILY [facility] PRN Reason: Protocol Last Admin: 02/13/17 08:44 Dose: 40 mg Home Med (Bupropion Xl [Wellbutrin Xl]) 150 mg PO DAILY [facility] Piperacillin Sod/Tazobactam (Sod 3.375 gm/ Sodium Chloride) 100 mls @ 100 mls/ hr IVPB Q6 [facility] Last Admin: 02/13/17 09:24 Dose: 100 mls/hr Potassium Chloride 10 meq/ (Sodium Chloride) 1,005 mls @ 149.257 mls/hr IV .Q6H44M [facility] Stop: 02/14/17 00:33 Last Admin: 02/13/17 09:25 Dose: Not Given Potassium Chloride (Potassium Chloride 10 Meq/100 Ml) 100 mls @ 100 mls/hr IVPB Q1 [facility] Stop: 02/13/17 12:59 Losartan Potassium (Cozaar) 25 mg PO DAILY [facility] Last Admin: 02/13/17 08:43 Dose: 25 mg Metoclopramide HCl (Reglan) 10 mg IVP Q8 PRN PRN Reason: Hiccups Last Admin: 02/13/17 06:28 Dose: 10 mg Morphine Sulfate (Morphine) 2 mg IVP Q4 PRN PRN Reason: Pain, moderate (4-7) Last Admin: 02/12/17 13:04 Dose: 2 mg Morphine Sulfate (Morphine) 4 mg IVP Q4 PRN PRN Reason: Pain, severe (8-10) Last Admin: 02/13/17 06:32 Dose: 4 mg Zolpidem Tartrate (Ambien) 5 mg PO HS PRN PRN Reason: Sleep Last Admin: 02/11/17 20:59 Dose: 5 mg - Labs Labs: 02/13/17 06:05 02/13/17 06:05 - Constitutional Appears: Non-toxic, No Acute Distress - Head Exam Head Exam: ATRAUMATIC, NORMOCEPHALIC - Eye Exam Eye Exam: EOMI - ENT Exam ENT Exam: Mucous Membranes Moist - Neck Exam Neck Exam: Full ROM - Respiratory Exam Respiratory Exam: NORMAL BREATHING PATTERN. absent: Accessory Muscle Use, Respiratory Distress - GI/Abdominal Exam GI & Abdominal Exam: Soft, Tenderness (RLQ). absent: Distended, Firm, Guarding , Rigid, Rebound - Extremities Exam Extremities Exam: absent: Calf Tenderness, Pedal Edema - Neurological Exam Neurological Exam: Alert, Awake, Oriented x3 Assessment and Plan - Assessment and Plan (Free Text) Assessment: 66M w. sigmoid diverticulitis -will start CLD, monitor bowel fxn -NPO @ [place] -Repeat CT tomorrow AM -c/w abx -d/w attending Tyrese PGY3
[2017-02-13] MEDS ORDERED: Iohexol 240 (50 ml) PO ONE ×2 (11:05→16:25)
[2017-02-13] MEDS: Potassium CL 10mEq/100ml 100 ML IVPB SCH ×5 (11:21→16:33)
[2017-02-13] MEDS ORDERED: HYDROmorphone 0.5 mg/0.5 ml ISec IVP STA (13:21)
[2017-02-13] MEDS ORDERED: Iohexol 300 100 ML IJ ONE (18:43)
[2017-02-13] MEDS ORDERED: Sodium Chloride 0.9% 50 ML IV ONE (18:43)
[2017-02-14] MEDS: Piperacillin/Tazobact 3.375 GM in Sodium Chloride 0.9% 100 ML IVPB SCH ×3 (03:44→23:12)
[2017-02-14 06:41] LABS: ALB/GLOB RATIO 1.3 (1.0-2.1); ALBUMIN 3.8 g/dL (3.5-5.0); ALT/SGPT 25 U/L (21-72); AST/SGOT 23 U/L (17-59); BLOOD UREA NITROGEN 10 mg/dl (9-20); CALCIUM 8.8 mg/dL (8.4-10.2); GFR AFRICAN-AMERICAN > 60; GFR NON-AFRICAN AMERICAN > 60
[2017-02-14 06:55] LABS: BASO % 0.3 % (0.0-2.0); EOS % 0.1 % (0.0-4.0); HEMOGLOBIN 15.5 g/dL (12.0-18.0); LYMPH # 0.6 K/uL (1.0-4.3); LYMPH % 5.4 % (20.0-40.0); MEAN CELL VOLUME 90.4 fl (80.0-94.0); MEAN CORPUSCULAR HGB CONC 34.3 g/dL (33.0-37.0); MEAN PLATELET VOLUME 7.8 fl (7.2-11.7); MONO # 0.5 K/uL (0.0-0.8); MONO % 4.5 % (0.0-10.0); NEUT # 9.2 K/uL (1.8-7.0); NEUT % 89.7 % (50.0-75.0); NRBC % 0.1 % (0.0-0.0); PLATELET COUNT 335 K/uL (130-400); RED CELL DISTRIBUTION WIDTH 13.7 % (11.5-14.5); WHITE BLOOD COUNT 10.3 K/uL (4.8-10.8)
--- NOTE | 2017-02-14 07:56 | CP.PCM.PN ---
Subjective - Date & Time of Evaluation Date of Evaluation: 02/14/17 Time of Evaluation: 07:53 - Subjective Subjective: pt in bed, c/o abd bloating and nausea after contrast. no f/c, n/v/d. am labs noted. ct report w/ worsening diverticulitits, ileus, abscess. this was discussed at time offinding w/ dr juarez. pts abd appears to be bloated. c/o insomnia Objective - Vital Signs/Intake and Output Vital Signs (last 24 hours): Temp Pulse Resp BP Pulse Ox 98.0 F 95 H 20 152/95 H 96 02/14/17 07:42 02/14/17 07:42 02/14/17 07:42 02/14/17 07:42 02/14/17 07:42 Intake and Output: 02/14/17 02/14/17 06:59 18:59 Intake Total 1700 Balance 1700 - Medications Medications: Current Medications Amlodipine Besylate (Norvasc) 10 mg PO DAILY [facility] Last Admin: 02/13/17 08:44 Dose: 10 mg Atorvastatin Calcium (Lipitor) 20 mg PO DAILY [facility] Last Admin: 02/13/17 08:43 Dose: 20 mg Enoxaparin Sodium (Lovenox) 40 mg SC DAILY [facility] PRN Reason: Protocol Last Admin: 02/13/17 08:44 Dose: 40 mg Home Med (Bupropion Xl [Wellbutrin Xl]) 150 mg PO DAILY [facility] Piperacillin Sod/Tazobactam (Sod 3.375 gm/ Sodium Chloride) 100 mls @ 100 mls/ hr IVPB Q6 [facility] Last Admin: 02/14/17 03:44 Dose: 100 mls/hr Losartan Potassium (Cozaar) 25 mg PO DAILY [facility] Last Admin: 02/13/17 08:43 Dose: 25 mg Metoclopramide HCl (Reglan) 10 mg IVP Q8 PRN PRN Reason: Hiccups Last Admin: 02/13/17 16:04 Dose: 10 mg Morphine Sulfate (Morphine) 2 mg IVP Q4 PRN PRN Reason: Pain, moderate (4-7) Last Admin: 02/12/17 13:04 Dose: 2 mg Morphine Sulfate (Morphine) 4 mg IVP Q4 PRN PRN Reason: Pain, severe (8-10) Last Admin: 02/13/17 21:48 Dose: 4 mg Zolpidem Tartrate (Ambien) 5 mg PO HS PRN PRN Reason: Sleep Last Admin: 02/11/17 20:59 Dose: 5 mg - Labs Labs: 02/14/17 05:25 02/14/17 05:25 - Constitutional Appears: Well, Non-toxic, No Acute Distress - Head Exam Head Exam: ATRAUMATIC, NORMAL INSPECTION, NORMOCEPHALIC - Eye Exam Eye Exam: EOMI, Normal appearance, PERRL Pupil Exam: NORMAL ACCOMODATION, PERRL - ENT Exam ENT Exam: Mucous Membranes Moist, Normal Exam - Neck Exam Neck Exam: Full ROM, Normal Inspection. absent: Lymphadenopathy - Respiratory Exam Respiratory Exam: Clear to Ausculation Bilateral, NORMAL BREATHING PATTERN - Cardiovascular Exam Cardiovascular Exam: REGULAR RHYTHM, RRR, +S1, +S2. absent: Murmur - GI/Abdominal Exam GI & Abdominal Exam: Distended, Soft, Normal Bowel Sounds. absent: Tenderness - Extremities Exam Extremities Exam: Full ROM, Normal Capillary Refill, Normal Inspection. absent : Joint Swelling, Pedal Edema - Back Exam Back Exam: NORMAL INSPECTION - Neurological Exam Neurological Exam: Alert, Awake, CN II-XII Intact, Normal Gait, Oriented x3 - Psychiatric Exam Psychiatric exam: Normal Affect, Normal Mood - Skin Skin Exam: Dry, Intact, Normal Color, Warm Assessment and Plan (1) Perforated sigmoid colon Assessment & Plan: new findings on ct noted and d/c w/ surgery cont zosyn, pain/nausea control cont to monitor bw Status: Acute (2) DVT prophylaxis Assessment & Plan: scd and aehose ambulation lovenox Status: Acute (3) HTN (hypertension) Assessment & Plan: cont current po meds monitor bp Status: Chronic
[2017-02-14] MEDS: Morphine 4 MG/ML VIAL IVP PRN ×2 (08:27→20:53)
[2017-02-14 09:20] LABS: BANDS 1 % (0-2); LYMPHOCYTE 8 % (20-50); MONOCYTE 9 % (0-10); NEUTROPHIL 81 % (42-75); REACTIVE LYMPHOCYTES 1 % (0-0); TOTAL CELLS COUNTED 100
[2017-02-14 09:21] LABS: PLATELET ESTIMATE NORMAL (NORMAL); TEARDROP CELLS SLIGHT
[2017-02-14] MEDS: Potassium CL 10mEq/100ml 100 ML IVPB SCH ×2 (11:34→12:49)
[2017-02-14 11:56] LABS: INR 1.3 (0.9-1.2); PARTIAL THROMBOPLASTIN TIME 38.9 Seconds (25.6-37.1); PROTHROMBIN TIME 14.7 Seconds (9.8-13.1)
--- NOTE | 2017-02-14 12:12 | CP.PCM.PCO ---
Physician Communication Note - Physician Communication Note Physician Communication Note: Given CT findings of increased free air and developing abscess,to OR today.
--- NOTE | 2017-02-14 12:43 | CT ---
PROCEDURE: CT Abdomen and Pelvis with contrast HISTORY: comparison COMPARISON: None. TECHNIQUE: Contrast dose: 100 cc Visipaque 320 Radiation dose: Total exam DLP = 516.07 mGy-cm. This CT exam was performed using one or more of the following dose reduction techniques: Automated exposure control, adjustment of the mA and/or kV according to patient size, and/or use of iterative reconstruction technique. FINDINGS: LOWER THORAX: Unremarkable. LIVER: Unremarkable. No gross lesion or ductal dilatation. GALLBLADDER AND BILE DUCTS: Distended gallbladder. No acute findings. PANCREAS: Unremarkable. No gross lesion or ductal dilatation. SPLEEN: Unremarkable. ADRENALS: Unremarkable. No mass. KIDNEYS AND URETERS: Unremarkable. No hydronephrosis. No solid mass. Incidental finding(s): Innumerable small cysts. VASCULATURE: Unremarkable. No aortic aneurysm. BOWEL: Progressive dilatation of small bowel consistent with worsening small bowel obstruction. APPENDIX: Normal appendix. PERITONEUM: No intra-abdominal ascites. New free air. Abscess formation at the site of diverticulitis/perforation. This appears superior to the sigmoid colon. LYMPH NODES: Unremarkable. No enlarged lymph nodes. BLADDER: Unremarkable. REPRODUCTIVE: Unremarkable. BONES: No acute fracture. OTHER FINDINGS: None. IMPRESSION: Free-air, free-fluid, evolving pelvic abscess consistent with perforated viscus/related to acute diverticulitis. Concordant results (preliminary interpretation) provided by [place]. Procedure Completed: 18:49 Preliminary ([facility]) Report: Dictated and Authenticated: 21:03 Final Interpretation: 11:25. February 13, 2017. left or proximal cyst or cysts Laws has is so the support tubes and at the colo locating differently is a veins ultimately uric at site of what your cough and 1 go to the present of this bladder but the bladder is less obstructive start chest pain for based
--- NOTE | 2017-02-14 12:45 | RAD ---
HISTORY: preop diverticulitits COMPARISON: 10/06/2016 TECHNIQUE: Chest PA and lateral FINDINGS: LUNGS: No active pulmonary disease. PLEURA: No significant pleural effusion identified. No pneumothorax apparent. CARDIOVASCULAR: Normal. OSSEOUS STRUCTURES: No significant abnormalities. VISUALIZED UPPER ABDOMEN: Dilated small bowel better appreciated on concurrent CT of the abdomen and pelvis. Free air identified under the diaphragms is confirmed on the prior CT scan. OTHER FINDINGS: None. IMPRESSION: No active pulmonary disease. Findings below the diaphragms relate to progressive small-bowel obstruction and known/documented free-air
[2017-02-14] MEDS ORDERED: Succinylcholine 200 mg/10 ml Inj IV ONE (15:13)
[2017-02-14] MEDS ORDERED: Neostigmine Methylsulfate 3mg/3ml Syringe IV ONE (15:13)
[2017-02-14] MEDS ORDERED: Midazolam 2 MG/2 ML VIAL ONE (15:13)
[2017-02-14] MEDS ORDERED: Rocuronium 10 mg/ml (5 ml) ONE (15:13)
[2017-02-14] MEDS ORDERED: Propofol 10 mg/ml Inj (20 ML) ONE (15:13)
[2017-02-14] MEDS ORDERED: Lactated Ringer's 1,000 ML IV ONE ×2 (15:30→16:41)
[2017-02-14] MEDS ORDERED: Piperacillin/Tazobact 3.375 gm Inj IVPB ONE (15:45)
[2017-02-14] MEDS ORDERED: Lactated Ringer's 500 ML IV ONE ×3 (16:41→17:00)
[2017-02-14] MEDS ORDERED: Liquid Adhesive TOP ONE ×2 (17:43→17:44)
--- NOTE | 2017-02-14 17:46 | PCM.SURG1 ---
Surgeon's Initial Post Op Note - Surgeon's Notes Surgeon: Dr. Primo Morin Maintenance Worker House Trailer: Shashank PGY3, Kaylan PGY1 Type of Anesthesia: General Endo Pre-Operative Diagnosis: perfortated diverticulitits Operative Findings: Sigmoid Perforation, purulent peritonitis , extensive adhesions Post-Operative Diagnosis: Perforated sigmoid diverticulitis Operation Performed: Ex lap Mulu's procedure , VILLA Specimen/Specimens Removed: Sigmoid colon Estimated Blood Loss: EBL {In ML}: 50 Blood Products Given: N/A Drains Used: [place] Post-Op Condition: Good Date of Surgery/Procedure: 02/14/17 Time of Surgery/Procedure: 17:47
[2017-02-14] MEDS ORDERED: Esmolol 100 mg/10ml Inj IV ONE (17:54)
[2017-02-14] MEDS ORDERED: HYDROmorphone 0.5 mg/0.5 ml ISec ONE (18:16)
[2017-02-14] MEDS ORDERED: Labetalol 5 mg/ml Inj 20ML IVP ONE (18:27)
[2017-02-15] MEDS: Piperacillin/Tazobact 3.375 GM in Sodium Chloride 0.9% 100 ML IVPB SCH ×5 (05:23→22:24)
[2017-02-15 06:54] LABS: BASO % 0.2 % (0.0-2.0); EOS % 0.2 % (0.0-4.0); HEMOGLOBIN 15.4 g/dL (12.0-18.0); LYMPH # 1.2 K/uL (1.0-4.3); LYMPH % 7.9 % (20.0-40.0); MEAN CELL VOLUME 90.1 fl (80.0-94.0); MEAN CORPUSCULAR HEMOGLOBIN 30.9 pg (27.0-31.0); MEAN CORPUSCULAR HGB CONC 34.3 g/dL (33.0-37.0); MEAN PLATELET VOLUME 7.8 fl (7.2-11.7); MONO % 6.5 % (0.0-10.0); NEUT # 13.1 K/uL (1.8-7.0); NEUT % 85.2 % (50.0-75.0); NRBC % 0.1 % (0.0-0.0); RED CELL DISTRIBUTION WIDTH 13.8 % (11.5-14.5); WHITE BLOOD COUNT 15.4 K/uL (4.8-10.8)
[2017-02-15 07:05] LABS: ALB/GLOB RATIO 1.3 (1.0-2.1); ALBUMIN 3.3 g/dL (3.5-5.0); ALT/SGPT 25 U/L (21-72); AST/SGOT 29 U/L (17-59); BLOOD UREA NITROGEN 12 mg/dl (9-20); CALCIUM 8.6 mg/dL (8.4-10.2); GFR AFRICAN-AMERICAN > 60; GFR NON-AFRICAN AMERICAN > 60
[2017-02-15] MEDS ORDERED: Potassium Chloride 20 mEq ER Tab PO ONE (08:14)
--- NOTE | 2017-02-15 08:38 | CP.PCM.PN ---
<KaylanAv ambriz - Last Filed: 02/15/17 08:35> Subjective - Date & Time of Evaluation Date of Evaluation: 02/15/17 Time of Evaluation: 08:36 - Subjective Subjective: Surgery Progress note. Dr. Rodriguez Pt seen and examined at bedside. No acute events overnight. Patient states that he feels better with the abdominal pain. No N/V/D. states that he has the sensation of needing to pass gas per rectum. Denies any output from stoma at this time. No CP/SOB. No F/C. States that he feels apprehensive to advancing diet at this time and would like to try some liquids later today. No new complaints. Objective - Vital Signs/Intake and Output Vital Signs (last 24 hours): Temp Pulse Resp BP Pulse Ox 98.6 F 92 H 20 139/89 97 02/15/17 08:20 02/15/17 08:28 02/15/17 08:20 02/15/17 08:28 02/15/17 08:20 Intake and Output: 02/15/17 02/15/17 06:59 18:59 Intake Total 400 Output Total 820 Balance -420 - Medications Medications: Current Medications Amlodipine Besylate (Norvasc) 10 mg PO DAILY [facility] Last Admin: 02/15/17 08:28 Dose: 10 mg Atorvastatin Calcium (Lipitor) 20 mg PO DAILY [facility] Last Admin: 02/15/17 08:27 Dose: 20 mg Bupropion HCl (Wellbutrin) 75 mg PO Q12H [facility] Last Admin: 02/15/17 00:44 Dose: Not Given Diphenhydramine HCl (Benadryl) 25 mg PO HS PRN PRN Reason: Insomnia Last Admin: 02/15/17 00:06 Dose: 25 mg Home Med (Bupropion Xl [Wellbutrin Xl]) 150 mg PO DAILY [facility] Hydromorphone HCl (Dilaudid) 1 mg IVP Q4 PRN PRN Reason: Pain, moderate (4-7) Last Admin: 02/15/17 08:21 Dose: 1 mg Hydromorphone HCl (Dilaudid) 0.5 mg IVP Q15MIN PRN PRN Reason: Pain, moderate (4-7) Last Admin: 02/14/17 19:14 Dose: 0.5 mg Piperacillin Sod/Tazobactam (Sod 3.375 gm/ Sodium Chloride) 100 mls @ 100 mls/ hr IVPB Q6 [facility] Last Admin: 02/15/17 05:23 Dose: 100 mls/hr Lactated Ringer's (Lactated Ringer's 500ml) 500 mls @ 100 mls/hr IV .Q5H [facility] Losartan Potassium (Cozaar) 25 mg PO DAILY [facility] Last Admin: 02/15/17 08:26 Dose: 25 mg Metoclopramide HCl (Reglan) 10 mg IVP Q8 PRN PRN Reason: Hiccups Last Admin: 02/14/17 08:49 Dose: 10 mg Morphine Sulfate (Morphine) 2 mg IVP Q4 PRN PRN Reason: Pain, moderate (4-7) Last Admin: 02/12/17 13:04 Dose: 2 mg Morphine Sulfate (Morphine) 4 mg IVP Q4 PRN PRN Reason: Pain, severe (8-10) Last Admin: 02/14/17 20:53 Dose: 4 mg Ondansetron HCl (Zofran Inj) 4 mg IVP Q4 PRN PRN Reason: Nausea/Vomiting Zolpidem Tartrate (Ambien) 5 mg PO HS PRN PRN Reason: Sleep - Labs Labs: 02/15/17 05:50 02/15/17 05:50 PT 14.7 Seconds (9.8-13.1) H 02/14/17 11:15 INR 1.3 (0.9-1.2) H 02/14/17 11:15 APTT 38.9 Seconds (25.6-37.1) H 02/14/17 11:15 - Constitutional Appears: Well, No Acute Distress - Head Exam Head Exam: ATRAUMATIC, NORMAL INSPECTION, NORMOCEPHALIC - Eye Exam Eye Exam: EOMI, Normal appearance - Respiratory Exam Respiratory Exam: NORMAL BREATHING PATTERN - GI/Abdominal Exam Additional comments: Midline surgical wound intact. Bandage with mild streaks, intact. Mild distention noted. Appropriately tender to palpation diffusely. Stoma with bowel sweat noted, no output. TG drain 20cc serrosanguinous - Extremities Exam Extremities Exam: Normal Inspection. absent: Calf Tenderness - Neurological Exam Neurological Exam: Alert, Awake, Oriented x3 Assessment and Plan - Assessment and Plan (Free Text) Assessment: 66M w perforated sigmoid diverticulitis, peritonitis. s/p Ex lap Mulu's Procedure 02/14. POD 1 - Maintain vanegas - Advance to Clears today - Strict I&Os - Encourage IS use, encourage OOB - Continue ABX - Pain management Discussed case with Dr. Michael Kimbrough PGY1 surgery pager: [phone] <Don Rodriguez - Last Filed: 02/15/17 18:46> Subjective - Date & Time of Evaluation Time of Evaluation: 11:25 - Subjective Subjective: Patient was seen and examined at the bedside. Agree with resident's note above. Objective - Vital Signs/Intake and Output Vital Signs (last 24 hours): Temp Pulse Resp BP Pulse Ox 98.5 F 97 H 20 148/90 96 02/15/17 16:39 02/15/17 16:39 02/15/17 16:39 02/15/17 16:39 02/15/17 16:39 Intake and Output: 02/15/17 02/15/17 06:59 18:59 Intake Total 400 Output Total 820 Balance -420 - Medications Medications: Current Medications Amlodipine Besylate (Norvasc) 10 mg PO DAILY [facility] Last Admin: 02/15/17 08:28 Dose: 10 mg Atorvastatin Calcium (Lipitor) 20 mg PO DAILY [facility] Last Admin: 02/15/17 08:27 Dose: 20 mg Bupropion HCl (Wellbutrin) 75 mg PO Q12H [facility] Last Admin: 02/15/17 13:44 Dose: 75 mg Diphenhydramine HCl (Benadryl) 25 mg PO HS PRN PRN Reason: Insomnia Last Admin: 02/15/17 00:06 Dose: 25 mg Enoxaparin Sodium (Lovenox) 40 mg SC DAILY [facility] PRN Reason: Protocol Famotidine (Pepcid) 20 mg IVP Q12 [facility] Last Admin: 02/15/17 16:38 Dose: 20 mg Home Med (Bupropion Xl [Wellbutrin Xl]) 150 mg PO DAILY [facility] Hydromorphone HCl (Dilaudid) 0.5 mg IVP Q15MIN PRN PRN Reason: Pain, moderate (4-7) Last Admin: 02/14/17 19:14 Dose: 0.5 mg Hydromorphone HCl (Dilaudid) 0.5 mg IVP Q4 PRN PRN Reason: Pain, moderate (4-7) Piperacillin Sod/Tazobactam (Sod 3.375 gm/ Sodium Chloride) 100 mls @ 100 mls/ hr IVPB Q6 [facility] Last Admin: 02/15/17 10:40 Dose: 100 mls/hr Lactated Ringer's (Lactated Ringer's 500ml) 500 mls @ 100 mls/hr IV .Q5H [facility] Last Admin: 02/15/17 18:27 Dose: Not Given Losartan Potassium (Cozaar) 25 mg PO DAILY [facility] Last Admin: 02/15/17 08:26 Dose: 25 mg Metoclopramide HCl (Reglan) 10 mg IVP Q8 PRN PRN Reason: Hiccups Last Admin: 02/14/17 08:49 Dose: 10 mg Ondansetron HCl (Zofran Inj) 4 mg IVP Q4 PRN PRN Reason: Nausea/Vomiting Simethicone (Mylicon Chew Tab) 80 mg PO QID PRN PRN Reason: Flatulence Zolpidem Tartrate (Ambien) 5 mg PO HS PRN PRN Reason: Sleep - Labs Labs: 02/15/17 05:50 02/15/17 05:50 PT 14.7 Seconds (9.8-13.1) H 02/14/17 11:15 INR 1.3 (0.9-1.2) H 02/14/17 11:15 APTT 38.9 Seconds (25.6-37.1) H 02/14/17 11:15 Assessment and Plan - Assessment and Plan (Free Text) Plan: - Keep NPO for now - IV fluids - Insentive spirometry - Continue antibiotics - DVT ppx - Out of bed to chair - Keep vanegas for now - Repeat labs in am - Will follow
--- NOTE | 2017-02-15 09:58 | CP.PCM.PN ---
Subjective - Date & Time of Evaluation Date of Evaluation: 02/15/17 Time of Evaluation: 09:57 - Subjective Subjective: doing well, lesss pain, s/p montez pod 1. no f/c, n/v/d. bw noted. sensation of gas in rectum, no fecal matter in colostomy. surgical note reviewed. case d/c w/ dr juarez Objective - Vital Signs/Intake and Output Vital Signs (last 24 hours): Temp Pulse Resp BP Pulse Ox 98.6 F 92 H 20 139/89 97 02/15/17 08:20 02/15/17 08:28 02/15/17 08:20 02/15/17 08:28 02/15/17 08:20 Intake and Output: 02/15/17 02/15/17 06:59 18:59 Intake Total 400 Output Total 820 Balance -420 - Medications Medications: Current Medications Amlodipine Besylate (Norvasc) 10 mg PO DAILY [facility] [place] Last Admin: 02/15/17 08:28 Dose: 10 mg Atorvastatin Calcium (Lipitor) 20 mg PO DAILY [facility] [place] Last Admin: 02/15/17 08:27 Dose: 20 mg Bupropion HCl (Wellbutrin) 75 mg PO Q12H [facility] [place] Last Admin: 02/15/17 00:44 Dose: Not Given Diphenhydramine HCl (Benadryl) 25 mg PO HS PRN PRN Reason: Insomnia Last Admin: 02/15/17 00:06 Dose: 25 mg Enoxaparin Sodium (Lovenox) 40 mg SC DAILY [facility] [place] PRN Reason: Protocol Home Med (Bupropion Xl [Wellbutrin Xl]) 150 mg PO DAILY [facility] [place] Hydromorphone HCl (Dilaudid) 1 mg IVP Q4 PRN PRN Reason: Pain, moderate (4-7) Last Admin: 02/15/17 08:21 Dose: 1 mg Hydromorphone HCl (Dilaudid) 0.5 mg IVP Q15MIN PRN PRN Reason: Pain, moderate (4-7) Last Admin: 02/14/17 19:14 Dose: 0.5 mg Piperacillin Sod/Tazobactam (Sod 3.375 gm/ Sodium Chloride) 100 mls @ 100 mls/ hr IVPB Q6 [facility] [place] Last Admin: 02/15/17 05:23 Dose: 100 mls/hr Lactated Ringer's (Lactated Ringer's 500ml) 500 mls @ 100 mls/hr IV .Q5H [facility] Losartan Potassium (Cozaar) 25 mg PO DAILY [facility] Last Admin: 02/15/17 08:26 Dose: 25 mg Metoclopramide HCl (Reglan) 10 mg IVP Q8 PRN PRN Reason: Hiccups Last Admin: 02/14/17 08:49 Dose: 10 mg Morphine Sulfate (Morphine) 2 mg IVP Q4 PRN PRN Reason: Pain, moderate (4-7) Last Admin: 02/12/17 13:04 Dose: 2 mg Morphine Sulfate (Morphine) 4 mg IVP Q4 PRN PRN Reason: Pain, severe (8-10) Last Admin: 02/14/17 20:53 Dose: 4 mg Ondansetron HCl (Zofran Inj) 4 mg IVP Q4 PRN PRN Reason: Nausea/Vomiting Zolpidem Tartrate (Ambien) 5 mg PO HS PRN PRN Reason: Sleep - Labs Labs: 02/15/17 05:50 02/15/17 05:50 PT 14.7 Seconds (9.8-13.1) H 02/14/17 11:15 INR 1.3 (0.9-1.2) H 02/14/17 11:15 APTT 38.9 Seconds (25.6-37.1) H 02/14/17 11:15 - Constitutional Appears: Well, Non-toxic, No Acute Distress - Head Exam Head Exam: ATRAUMATIC, NORMAL INSPECTION, NORMOCEPHALIC - Eye Exam Eye Exam: EOMI, Normal appearance, PERRL Pupil Exam: NORMAL ACCOMODATION, PERRL - ENT Exam ENT Exam: Mucous Membranes Moist, Normal Exam - Neck Exam Neck Exam: Full ROM, Normal Inspection. absent: Lymphadenopathy - Respiratory Exam Respiratory Exam: Clear to Ausculation Bilateral, NORMAL BREATHING PATTERN - Cardiovascular Exam Cardiovascular Exam: REGULAR RHYTHM, RRR, +S1, +S2. absent: Murmur - GI/Abdominal Exam GI & Abdominal Exam: Distended, Soft, Normal Bowel Sounds. absent: Tenderness - Extremities Exam Extremities Exam: Full ROM, Normal Capillary Refill, Normal Inspection. absent : Joint Swelling, Pedal Edema - Back Exam Back Exam: NORMAL INSPECTION - Neurological Exam Neurological Exam: Alert, Awake, CN II-XII Intact, Normal Gait, Oriented x3 - Psychiatric Exam Psychiatric exam: Normal Affect, Normal Mood - Skin Skin Exam: Dry, Intact, Normal Color, Warm Assessment and Plan (1) Perforated sigmoid colon Status: Acute (2) DVT prophylaxis Status: Acute (3) HTN (hypertension) Status: Chronic - Assessment and Plan (Free Text) Assessment: (1) Perforated sigmoid colon Assessment & Plan: new findings on ct noted and d/c w/ surgery cont zosyn, pain/nausea control cont to monitor bw adv diet as liu Status: Acute (2) DVT prophylaxis Assessment & Plan: scd and aehose ambulation lovenox Status: Acute (3) HTN (hypertension) Assessment & Plan: cont current po meds monitor bp Status: Chronic
[2017-02-15] MEDS: Potassium CL 10mEq/100ml 100 ML IVPB SCH ×4 (13:27→18:24)
[2017-02-15] MEDS: Morphine 4 MG/ML VIAL IVP PRN (13:58)
[2017-02-15] MEDS: Lactated Ringer's 500 ML IV SCH ×3 (18:26→20:19)
[2017-02-15] MEDS: HYDROmorphone 0.5 mg/0.5 ml ISec IVP PRN (19:05)
[2017-02-15] MEDS: Simethicone 80 mg Chewtab PO PRN (19:18)
[2017-02-15] MEDS ORDERED: Chlorhexidine Gluconate 1 APPL/PKT TP ONE (21:21)
[2017-02-15] MEDS ORDERED: HYDROmorphone 0.5 mg/0.5 ml ISec IVP STA (21:43)
[2017-02-16] MEDS: Lactated Ringer's 500 ML IV SCH ×6 (01:00→21:55)
[2017-02-16] MEDS: Piperacillin/Tazobact 3.375 GM in Sodium Chloride 0.9% 100 ML IVPB SCH ×4 (04:28→21:26)
[2017-02-16] MEDS: HYDROmorphone 0.5 mg/0.5 ml ISec IVP PRN ×5 (04:32→22:34)
--- NOTE | 2017-02-16 07:52 | CP.PCM.PN ---
Subjective - Date & Time of Evaluation Date of Evaluation: 02/16/17 Time of Evaluation: 07:50 - Subjective Subjective: pt doing well pod 2, no f/c, n/v/d. has some hiccoughs today. pulled sae drain while having a nightmare last night. am labs pending. pain free at present. Objective - Vital Signs/Intake and Output Vital Signs (last 24 hours): Temp Pulse Resp BP Pulse Ox 99.0 F 91 H 20 138/91 H 96 02/16/17 07:27 02/16/17 07:27 02/16/17 07:27 02/16/17 07:27 02/16/17 07:27 Intake and Output: 02/16/17 02/16/17 06:59 18:59 Intake Total 1200 Output Total 1260 Balance -60 - Medications Medications: Current Medications Amlodipine Besylate (Norvasc) 10 mg PO DAILY [facility] Last Admin: 02/15/17 08:28 Dose: 10 mg Atorvastatin Calcium (Lipitor) 20 mg PO DAILY [facility] Last Admin: 02/15/17 08:27 Dose: 20 mg Bupropion HCl (Wellbutrin) 75 mg PO Q12H [facility] Last Admin: 02/16/17 00:06 Dose: 75 mg Diphenhydramine HCl (Benadryl) 25 mg PO HS PRN PRN Reason: Insomnia Last Admin: 02/16/17 00:06 Dose: 25 mg Enoxaparin Sodium (Lovenox) 40 mg SC DAILY [facility] PRN Reason: Protocol Famotidine (Pepcid) 20 mg IVP Q12 [facility] Last Admin: 02/15/17 22:23 Dose: 20 mg Home Med (Bupropion Xl [Wellbutrin Xl]) 150 mg PO DAILY [facility] Hydromorphone HCl (Dilaudid) 0.5 mg IVP Q15MIN PRN PRN Reason: Pain, moderate (4-7) Last Admin: 02/14/17 19:14 Dose: 0.5 mg Hydromorphone HCl (Dilaudid) 0.5 mg IVP Q4 PRN PRN Reason: Pain, moderate (4-7) Last Admin: 02/16/17 04:32 Dose: 0.5 mg Piperacillin Sod/Tazobactam (Sod 3.375 gm/ Sodium Chloride) 100 mls @ 100 mls/ hr IVPB Q6 [facility] Last Admin: 02/16/17 04:28 Dose: 100 mls/hr Lactated Ringer's (Lactated Ringer's 500ml) 500 mls @ 100 mls/hr IV .Q5H [facility] Last Admin: 02/16/17 05:37 Dose: 100 mls/hr Losartan Potassium (Cozaar) 25 mg PO DAILY [facility] Last Admin: 02/15/17 08:26 Dose: 25 mg Metoclopramide HCl (Reglan) 10 mg IVP Q8 PRN PRN Reason: Hiccups Last Admin: 02/14/17 08:49 Dose: 10 mg Ondansetron HCl (Zofran Inj) 4 mg IVP Q4 PRN PRN Reason: Nausea/Vomiting Pantoprazole Sodium (Protonix Inj) 40 mg IVP DAILY [facility] Last Admin: 02/15/17 22:23 Dose: 40 mg Simethicone (Mylicon Chew Tab) 80 mg PO QID PRN PRN Reason: Flatulence Last Admin: 02/15/17 19:18 Dose: 80 mg Zolpidem Tartrate (Ambien) 5 mg PO HS PRN PRN Reason: Sleep - Labs Labs: 02/15/17 05:50 02/15/17 05:50 PT 14.7 Seconds (9.8-13.1) H 02/14/17 11:15 INR 1.3 (0.9-1.2) H 02/14/17 11:15 APTT 38.9 Seconds (25.6-37.1) H 02/14/17 11:15 - Constitutional Appears: Well, Non-toxic, No Acute Distress - Head Exam Head Exam: ATRAUMATIC, NORMAL INSPECTION, NORMOCEPHALIC - Eye Exam Eye Exam: EOMI, Normal appearance, PERRL Pupil Exam: NORMAL ACCOMODATION, PERRL - ENT Exam ENT Exam: Mucous Membranes Moist, Normal Exam - Neck Exam Neck Exam: Full ROM, Normal Inspection. absent: Lymphadenopathy - Respiratory Exam Respiratory Exam: Clear to Ausculation Bilateral, NORMAL BREATHING PATTERN - Cardiovascular Exam Cardiovascular Exam: REGULAR RHYTHM, +S1, +S2. absent: Murmur - GI/Abdominal Exam GI & Abdominal Exam: Distended, Soft, Normal Bowel Sounds. absent: Tenderness - Extremities Exam Extremities Exam: Full ROM, Normal Capillary Refill, Normal Inspection. absent : Joint Swelling, Pedal Edema - Back Exam Back Exam: NORMAL INSPECTION - Neurological Exam Neurological Exam: Alert, Awake, CN II-XII Intact, Normal Gait, Oriented x3 - Psychiatric Exam Psychiatric exam: Normal Affect, Normal Mood - Skin Skin Exam: Dry, Intact, Normal Color, Warm Assessment and Plan (1) Perforated sigmoid colon Status: Acute (2) DVT prophylaxis Status: Acute (3) HTN (hypertension) Status: Chronic - Assessment and Plan (Free Text) Assessment: (1) Perforated sigmoid colon Assessment & Plan: new findings on ct noted and d/c w/ surgery cont zosyn, pain/nausea control cont to monitor bw po as liu Status: Acute (2) DVT prophylaxis Assessment & Plan: scd and aehose ambulation lovenox Status: Acute (3) HTN (hypertension) Assessment & Plan: cont current po meds monitor bp Status: Chronic [id number] prn
[2017-02-16 08:15] LABS: MEAN CELL VOLUME 90.1 fl (80.0-94.0); MEAN CORPUSCULAR HGB CONC 34.4 g/dL (33.0-37.0); RBC 4.84 Mil/uL (4.40-5.90); RED CELL DISTRIBUTION WIDTH 13.7 % (11.5-14.5); WHITE BLOOD COUNT 12.7 K/uL (4.8-10.8)
[2017-02-16 08:34] LABS: BLOOD UREA NITROGEN 10 mg/dl (9-20); CALCIUM 8.4 mg/dL (8.4-10.2); GFR AFRICAN-AMERICAN > 60; GFR NON-AFRICAN AMERICAN > 60
[2017-02-16] MEDS: Enoxaparin 40 mg Syringe SC SCH (09:09)
[2017-02-16] MEDS: Simethicone 80 mg Chewtab PO PRN ×3 (09:10→22:13)
--- NOTE | 2017-02-16 09:21 | CP.PCM.PN ---
<KaylanAv ambriz - Last Filed: 02/16/17 09:17> Subjective - Date & Time of Evaluation Date of Evaluation: 02/16/17 Time of Evaluation: 09:18 - Subjective Subjective: Surgery Progress note. Dr. Rodriguez Pt seen and examined at bedside. Patient requested NGT last night due to abdominal distention and discomfort. States that surgical first assistant placed successfully last night and he had relief, however, he accidentally pulled it out this morning after having a nightmare. He states that he slept well last night. Currently c/o hiccups, bloating and belching. Does have mild nausea, no vomiting. No CP/SOB. Abd pain rated at 6-7 at its worst. No new complaints. Objective - Vital Signs/Intake and Output Vital Signs (last 24 hours): Temp Pulse Resp BP Pulse Ox 99.0 F 91 H 20 138/91 H 96 02/16/17 07:27 02/16/17 09:10 02/16/17 07:27 02/16/17 09:10 02/16/17 07:27 Intake and Output: 02/16/17 02/16/17 06:59 18:59 Intake Total 1200 Output Total 1260 Balance -60 - Medications Medications: Current Medications Amlodipine Besylate (Norvasc) 10 mg PO DAILY [facility] Last Admin: 02/16/17 09:10 Dose: 10 mg Atorvastatin Calcium (Lipitor) 20 mg PO DAILY [facility] Last Admin: 02/16/17 09:09 Dose: 20 mg Bupropion HCl (Wellbutrin) 75 mg PO Q12H [facility] Last Admin: 02/16/17 00:06 Dose: 75 mg Diphenhydramine HCl (Benadryl) 25 mg PO HS PRN PRN Reason: Insomnia Last Admin: 02/16/17 00:06 Dose: 25 mg Enoxaparin Sodium (Lovenox) 40 mg SC DAILY [facility] PRN Reason: Protocol Last Admin: 02/16/17 09:09 Dose: 40 mg Famotidine (Pepcid) 20 mg IVP Q12 [facility] Last Admin: 02/16/17 09:10 Dose: 20 mg Home Med (Bupropion Xl [Wellbutrin Xl]) 150 mg PO DAILY [facility] Hydromorphone HCl (Dilaudid) 0.5 mg IVP Q15MIN PRN PRN Reason: Pain, moderate (4-7) Last Admin: 02/14/17 19:14 Dose: 0.5 mg Hydromorphone HCl (Dilaudid) 0.5 mg IVP Q4 PRN PRN Reason: Pain, moderate (4-7) Last Admin: 02/16/17 04:32 Dose: 0.5 mg Piperacillin Sod/Tazobactam (Sod 3.375 gm/ Sodium Chloride) 100 mls @ 100 mls/ hr IVPB Q6 [facility] Last Admin: 02/16/17 04:28 Dose: 100 mls/hr Lactated Ringer's (Lactated Ringer's 500ml) 500 mls @ 100 mls/hr IV .Q5H [facility] Last Admin: 02/16/17 05:37 Dose: 100 mls/hr Potassium Chloride (Potassium Chloride 10 Meq/100 Ml) 100 mls @ 100 mls/hr IVPB Q1 [facility] Stop: 02/16/17 13:59 Losartan Potassium (Cozaar) 25 mg PO DAILY [facility] Last Admin: 02/16/17 09:08 Dose: 25 mg Metoclopramide HCl (Reglan) 10 mg IVP Q8 PRN PRN Reason: Hiccups Last Admin: 02/16/17 09:11 Dose: 10 mg Ondansetron HCl (Zofran Inj) 4 mg IVP Q4 PRN PRN Reason: Nausea/Vomiting Pantoprazole Sodium (Protonix Inj) 40 mg IVP DAILY [facility] Last Admin: 02/16/17 09:11 Dose: 40 mg Simethicone (Mylicon Chew Tab) 80 mg PO QID PRN PRN Reason: Flatulence Last Admin: 02/16/17 09:10 Dose: 80 mg Zolpidem Tartrate (Ambien) 5 mg PO HS PRN PRN Reason: Sleep - Labs Labs: 02/16/17 06:00 02/16/17 06:00 PT 14.7 Seconds (9.8-13.1) H 02/14/17 11:15 INR 1.3 (0.9-1.2) H 02/14/17 11:15 APTT 38.9 Seconds (25.6-37.1) H 02/14/17 11:15 - Constitutional Appears: Well, No Acute Distress - Head Exam Head Exam: ATRAUMATIC, NORMAL INSPECTION, NORMOCEPHALIC - Eye Exam Eye Exam: EOMI, Normal appearance - ENT Exam ENT Exam: Mucous Membranes Moist - Respiratory Exam Respiratory Exam: NORMAL BREATHING PATTERN - GI/Abdominal Exam Additional comments: Midline incision bandage with mild streaking. Dry and intact. Ostomy site with bag in place, bowel sweat noted, no stool output. Abdomen moderately distended. Appropriately tender to palpation - Extremities Exam Extremities Exam: Normal Inspection. absent: Calf Tenderness - Neurological Exam Neurological Exam: Alert, Awake, Oriented x3 - Psychiatric Exam Psychiatric exam: Normal Affect, Normal Mood - Skin Skin Exam: Dry, Intact, Normal Color, Warm Assessment and Plan - Assessment and Plan (Free Text) Assessment: 66M w perforated sigmoid diverticulitis, peritonitis. s/p Ex lap Mulu's Procedure 02/14. POD 2 - Maintain NPO for now - Strict I&Os - Consider NGT if Nausea worse or starts vomiting. - Encourage IS use, encourage OOB - Continue ABX - Pain management - Will continue to monitor patient's clinical course Av Kimbrough PGY1 <Don Rodriguez - Last Filed: 02/16/17 14:33> Subjective - Date & Time of Evaluation Time of Evaluation: 13:40 - Subjective Subjective: Patient was seen and examined at the bedside. Agree with resident's note above. Objective - Vital Signs/Intake and Output Vital Signs (last 24 hours): Temp Pulse Resp BP Pulse Ox 99.0 F 91 H 20 138/91 H 96 02/16/17 07:27 02/16/17 09:10 02/16/17 07:27 02/16/17 09:10 02/16/17 07:27 Intake and Output: 02/16/17 02/16/17 06:59 18:59 Intake Total 1200 Output Total 1260 Balance -60 - Medications Medications: Current Medications Amlodipine Besylate (Norvasc) 10 mg PO DAILY [facility] Last Admin: 02/16/17 09:10 Dose: 10 mg Atorvastatin Calcium (Lipitor) 20 mg PO DAILY [facility] Last Admin: 02/16/17 09:09 Dose: 20 mg Bupropion HCl (Wellbutrin) 75 mg PO Q12H [facility] Last Admin: 02/16/17 00:06 Dose: 75 mg Diphenhydramine HCl (Benadryl) 25 mg PO HS PRN PRN Reason: Insomnia Last Admin: 02/16/17 00:06 Dose: 25 mg Enoxaparin Sodium (Lovenox) 40 mg SC DAILY [facility] PRN Reason: Protocol Last Admin: 02/16/17 09:09 Dose: 40 mg Famotidine (Pepcid) 20 mg IVP Q12 [facility] Last Admin: 02/16/17 09:10 Dose: 20 mg Home Med (Bupropion Xl [Wellbutrin Xl]) 150 mg PO DAILY [facility] Hydromorphone HCl (Dilaudid) 0.5 mg IVP Q15MIN PRN PRN Reason: Pain, moderate (4-7) Last Admin: 02/14/17 19:14 Dose: 0.5 mg Hydromorphone HCl (Dilaudid) 0.5 mg IVP Q4 PRN PRN Reason: Pain, moderate (4-7) Last Admin: 02/16/17 10:01 Dose: 0.5 mg Piperacillin Sod/Tazobactam (Sod 3.375 gm/ Sodium Chloride) 100 mls @ 100 mls/ hr IVPB Q6 [facility] Last Admin: 02/16/17 04:28 Dose: 100 mls/hr Lactated Ringer's (Lactated Ringer's 500ml) 500 mls @ 100 mls/hr IV .Q5H [facility] Last Admin: 02/16/17 05:37 Dose: 100 mls/hr Losartan Potassium (Cozaar) 25 mg PO DAILY [facility] Last Admin: 02/16/17 09:08 Dose: 25 mg Metoclopramide HCl (Reglan) 10 mg IVP Q8 PRN PRN Reason: Hiccups Last Admin: 02/16/17 09:11 Dose: 10 mg Ondansetron HCl (Zofran Inj) 4 mg IVP Q4 PRN PRN Reason: Nausea/Vomiting Pantoprazole Sodium (Protonix Inj) 40 mg IVP DAILY [facility] Last Admin: 02/16/17 09:11 Dose: 40 mg Simethicone (Mylicon Chew Tab) 80 mg PO QID PRN PRN Reason: Flatulence Last Admin: 02/16/17 09:10 Dose: 80 mg Zolpidem Tartrate (Ambien) 5 mg PO HS PRN PRN Reason: Sleep - Labs Labs: 02/16/17 06:00 07/08/17 06:00 PT 14.7 Seconds (9.8-13.1) H 02/14/17 11:15 INR 1.3 (0.9-1.2) H 02/14/17 11:15 APTT 38.9 Seconds (25.6-37.1) H 02/14/17 11:15 Assessment and Plan - Assessment and Plan (Free Text) Plan: - Keep NPO for now - Pain control - IV fluids - Continue antibiotics - Insentive spirometry - DVT ppx - Keep vanegas in for now - Out of bed and ambulate - Repeat labs in am - Will follow
[2017-02-16] MEDS: Potassium CL 10mEq/100ml 100 ML IVPB SCH ×4 (11:40→16:55)
--- NOTE | 2017-02-16 16:35 | RAD ---
PROCEDURE: CHEST RADIOGRAPH, 1 VIEW HISTORY: NGT placement COMPARISON: Comparison chest 02/14/2017 FINDINGS: LUNGS: Poor inspiration with low lung volumes, crowded bronchovascular markings and mild bibasilar atelectasis Interval placement NGT with tip in the left upper quadrant of the abdomen. PLEURA: No pneumothorax or pleural fluid seen. CARDIOVASCULAR: Normal. OSSEOUS STRUCTURES: No significant abnormalities. VISUALIZED UPPER ABDOMEN: Previously noted free intraperitoneal air is less well seen on this study. OTHER FINDINGS: None. IMPRESSION: Mild bibasilar atelectasis. Previously noted free intraperitoneal air a diminished is less well seen on this study compared the prior exam Interval placement NGT.
[2017-02-17] MEDS: HYDROmorphone 0.5 mg/0.5 ml ISec IVP PRN ×2 (03:49→21:42)
[2017-02-17] MEDS: Lactated Ringer's 500 ML IV SCH ×3 (04:33→22:04)
[2017-02-17] MEDS: Piperacillin/Tazobact 3.375 GM in Sodium Chloride 0.9% 100 ML IVPB SCH ×2 (05:22→09:32)
[2017-02-17 07:41] LABS: BASO % 0.4 % (0.0-2.0); EOS # 0.3 K/uL (0.0-0.7); EOS % 2.4 % (0.0-4.0); HEMOGLOBIN 14.5 g/dL (12.0-18.0); LYMPH # 1.4 K/uL (1.0-4.3); LYMPH % 12.1 % (20.0-40.0); MEAN CELL VOLUME 89.1 fl (80.0-94.0); MEAN CORPUSCULAR HEMOGLOBIN 30.8 pg (27.0-31.0); MEAN CORPUSCULAR HGB CONC 34.6 g/dL (33.0-37.0); MEAN PLATELET VOLUME 7.4 fl (7.2-11.7); MONO # 0.7 K/uL (0.0-0.8); MONO % 6.2 % (0.0-10.0); NEUT # 9.1 K/uL (1.8-7.0); NEUT % 78.9 % (50.0-75.0); NRBC % 0.1 % (0.0-0.0); RBC 4.69 Mil/uL (4.40-5.90); RED CELL DISTRIBUTION WIDTH 13.5 % (11.5-14.5); WHITE BLOOD COUNT 11.5 K/uL (4.8-10.8)
[2017-02-17 08:07] LABS: ALB/GLOB RATIO 1.2 (1.0-2.1); ALBUMIN 3.1 g/dL (3.5-5.0); ALT/SGPT 20 U/L (21-72); AST/SGOT 31 U/L (17-59); BLOOD UREA NITROGEN 11 mg/dl (9-20); CALCIUM 8.3 mg/dL (8.4-10.2); GFR AFRICAN-AMERICAN > 60; GFR NON-AFRICAN AMERICAN > 60
[2017-02-17] MEDS: Enoxaparin 40 mg Syringe SC SCH (09:42)
--- NOTE | 2017-02-17 10:08 | CP.PCM.PN ---
<Av Kimbrough - Last Filed: 02/17/17 10:04> Subjective - Date & Time of Evaluation Date of Evaluation: 02/17/17 Time of Evaluation: 10:04 - Subjective Subjective: Surgery Progress note. Dr. Rodriguez Pt seen and examined at bedside. No acute events overnight. Patient sitting up in chair this morning. States that he feels much better. He states that he feels very hungry and would like to have vanegas removed today if possible. No N/ V. No F/C. No Headaches. No CP/SOB. Objective - Vital Signs/Intake and Output Vital Signs (last 24 hours): Temp Pulse Resp BP Pulse Ox 98.1 F 98 H 20 141/100 H 97 02/17/17 07:45 02/17/17 07:45 02/17/17 07:45 02/17/17 09:41 02/17/17 07:45 Intake and Output: 02/17/17 02/17/17 06:59 18:59 Intake Total 2406 Output Total 3965 Balance -1559 - Medications Medications: Current Medications Amlodipine Besylate (Norvasc) 10 mg PO DAILY [facility] Last Admin: 02/17/17 09:34 Dose: 10 mg Atorvastatin Calcium (Lipitor) 20 mg PO DAILY [facility] Last Admin: 02/17/17 09:42 Dose: 20 mg Bupropion HCl (Wellbutrin) 75 mg PO Q12H [facility] Last Admin: 02/16/17 23:43 Dose: 75 mg Diphenhydramine HCl (Benadryl) 25 mg PO HS PRN PRN Reason: Insomnia Last Admin: 02/17/17 00:24 Dose: 25 mg Enoxaparin Sodium (Lovenox) 40 mg SC DAILY [facility] PRN Reason: Protocol Last Admin: 02/17/17 09:42 Dose: 40 mg Home Med (Bupropion Xl [Wellbutrin Xl]) 150 mg PO DAILY [facility] Hydromorphone HCl (Dilaudid) 0.5 mg IVP Q15MIN PRN PRN Reason: Pain, moderate (4-7) Last Admin: 02/14/17 19:14 Dose: 0.5 mg Hydromorphone HCl (Dilaudid) 0.5 mg IVP Q4 PRN PRN Reason: Pain, moderate (4-7) Last Admin: 02/17/17 03:49 Dose: 0.5 mg Lactated Ringer's (Lactated Ringer's 500ml) 500 mls @ 100 mls/hr IV .Q5H [facility] Last Admin: 02/17/17 06:44 Dose: Not Given Potassium Chloride/Dextrose (Potassium Chl 20 Meq In D5w) 1,000 mls @ 100 mls/ hr IV .Q10H [facility] Stop: 02/18/17 08:26 Potassium Chloride (Potassium Chloride 10 Meq/100 Ml) 100 mls @ 100 mls/hr IVPB Q1 [facility] Stop: 02/17/17 12:59 Losartan Potassium (Cozaar) 25 mg PO DAILY [facility] Last Admin: 02/17/17 09:41 Dose: 25 mg Metoclopramide HCl (Reglan) 10 mg IVP Q8 PRN PRN Reason: Hiccups Last Admin: 02/16/17 23:44 Dose: 10 mg Ondansetron HCl (Zofran Inj) 4 mg IVP Q4 PRN PRN Reason: Nausea/Vomiting Pantoprazole Sodium (Protonix Inj) 40 mg IVP DAILY [facility] Last Admin: 02/17/17 09:43 Dose: 40 mg Simethicone (Mylicon Chew Tab) 80 mg PO QID PRN PRN Reason: Flatulence Last Admin: 02/16/17 22:13 Dose: 80 mg Zolpidem Tartrate (Ambien) 5 mg PO HS PRN PRN Reason: Sleep - Labs Labs: 02/17/17 06:00 02/17/17 06:00 PT 14.7 Seconds (9.8-13.1) H 02/14/17 11:15 INR 1.3 (0.9-1.2) H 02/14/17 11:15 APTT 38.9 Seconds (25.6-37.1) H 02/14/17 11:15 - Constitutional Appears: Well, No Acute Distress - Head Exam Head Exam: ATRAUMATIC, NORMAL INSPECTION, NORMOCEPHALIC - Eye Exam Eye Exam: EOMI, Normal appearance - ENT Exam ENT Exam: Mucous Membranes Moist - Neck Exam Neck Exam: Full ROM - Respiratory Exam Respiratory Exam: NORMAL BREATHING PATTERN - GI/Abdominal Exam Additional comments: Midline surgical incision bandage intact, mild streaks noted. No active drainage. TG in place with 965cc/24hrs output. Still mod distention and mild hiccups. - Exam Additional comments: Vanegas in place with yellow urine - Extremities Exam Extremities Exam: Normal Inspection. absent: Calf Tenderness - Neurological Exam Neurological Exam: Alert, Awake, Oriented x3 - Psychiatric Exam Psychiatric exam: Normal Affect, Normal Mood Assessment and Plan - Assessment and Plan (Free Text) Assessment: 66M w perforated sigmoid diverticulitis, peritonitis. s/p Ex lap Mulu's Procedure 02/14. POD 3 - Hypokalemia noted, repleat prn - Consider trial of clears later today - Maintain Vanegas for now, until further notice - Strict I&Os - Consider NGT if Nausea/Vomiting - Encourage IS use, encourage OOB, encourage ambulation - Continue ABX - Pain management - Will continue to monitor patient's clinical course Further recs as per Dr. Michael Kimbrough PGY1 <Don Rodriguez - Last Filed: 02/17/17 16:03> Subjective - Date & Time of Evaluation Time of Evaluation: 15:35 - Subjective Subjective: Patient was seen and examined at the bedside. Agree with resident's note above. Colostomy is having gas output, no stool yet Objective - Vital Signs/Intake and Output Vital Signs (last 24 hours): Temp Pulse Resp BP Pulse Ox 98.1 F 98 H 20 141/100 H 97 02/17/17 07:45 02/17/17 07:45 02/17/17 07:45 02/17/17 09:41 02/17/17 07:45 Intake and Output: 02/17/17 02/17/17 06:59 18:59 Intake Total 2406 Output Total 3965 Balance -1559 - Medications Medications: Current Medications Amlodipine Besylate (Norvasc) 10 mg PO DAILY [facility] Last Admin: 02/17/17 09:34 Dose: 10 mg Atorvastatin Calcium (Lipitor) 20 mg PO DAILY [facility] Last Admin: 02/17/17 09:42 Dose: 20 mg Bupropion HCl (Wellbutrin) 75 mg PO Q12H [facility] Last Admin: 02/16/17 23:43 Dose: 75 mg Diphenhydramine HCl (Benadryl) 25 mg PO HS PRN PRN Reason: Insomnia Last Admin: 02/17/17 00:24 Dose: 25 mg Enoxaparin Sodium (Lovenox) 40 mg SC DAILY [facility] PRN Reason: Protocol Last Admin: 02/17/17 09:42 Dose: 40 mg Home Med (Bupropion Xl [Wellbutrin Xl]) 150 mg PO DAILY [facility] Hydromorphone HCl (Dilaudid) 0.5 mg IVP Q15MIN PRN PRN Reason: Pain, moderate (4-7) Last Admin: 02/14/17 19:14 Dose: 0.5 mg Hydromorphone HCl (Dilaudid) 0.5 mg IVP Q4 PRN PRN Reason: Pain, moderate (4-7) Last Admin: 02/17/17 03:49 Dose: 0.5 mg Lactated Ringer's (Lactated Ringer's 500ml) 500 mls @ 100 mls/hr IV .Q5H [facility] Last Admin: 02/17/17 06:44 Dose: Not Given Potassium Chloride/Dextrose (Potassium Chl 20 Meq In D5w) 1,000 mls @ 100 mls/ hr IV .Q10H [facility] Stop: 02/18/17 08:26 Last Admin: 02/17/17 14:58 Dose: 100 mls/hr Piperacillin Sod/Tazobactam (Sod 3.375 gm/ Sodium Chloride) 100 mls @ 100 mls/ hr IVPB Q6 [facility] Losartan Potassium (Cozaar) 25 mg PO DAILY [facility] Last Admin: 02/17/17 09:41 Dose: 25 mg Metoclopramide HCl (Reglan) 10 mg IVP Q8 PRN PRN Reason: Hiccups Last Admin: 02/16/17 23:44 Dose: 10 mg Ondansetron HCl (Zofran Inj) 4 mg IVP Q4 PRN PRN Reason: Nausea/Vomiting Pantoprazole Sodium (Protonix Inj) 40 mg IVP DAILY [facility] Last Admin: 02/17/17 09:43 Dose: 40 mg Potassium Chloride (Potassium Chloride Oral Soln) 40 meq PO ONCE ONE Stop: 02/17/17 20:01 Simethicone (Mylicon Chew Tab) 80 mg PO QID PRN PRN Reason: Flatulence Last Admin: 02/16/17 22:13 Dose: 80 mg Zolpidem Tartrate (Ambien) 5 mg PO HS PRN PRN Reason: Sleep - Labs Labs: 02/17/17 06:00 02/17/17 06:00 PT 14.7 Seconds (9.8-13.1) H 02/14/17 11:15 INR 1.3 (0.9-1.2) H 02/14/17 11:15 APTT 38.9 Seconds (25.6-37.1) H 02/14/17 11:15 Assessment and Plan - Assessment and Plan (Free Text) Plan: - start clear liquid diet - pain control - IV fluids - Continue Zosyn - Keep vanegas in for now - Insentive spirometry - DVT ppx - Out of bed and ambulate - repeat labs in am - will follow
[2017-02-17] MEDS: Potassium Chl 20mEq & D5W 1,000 ML IV SCH (14:58)
[2017-02-17] MEDS ORDERED: Potassium Chloride 20 mEq/15 ml LIQ UD PO STA (15:01)
[2017-02-17] MEDS: Potassium CL 10mEq/100ml 100 ML IVPB SCH ×2 (15:06→18:47)
[2017-02-17] MEDS ORDERED: Piperacillin/Tazobact 3.375 GM in Sodium Chloride 0.9% 100 ML IVPB SCH (16:00)
--- NOTE | 2017-02-17 19:09 | CP.PCM.PN ---
Subjective - Date & Time of Evaluation Date of Evaluation: 02/17/17 Time of Evaluation: 09:00 - Subjective Subjective: pt doign well, no complaints, wants vanegas out, wants to eat. no f/c, n/v/d. bw noted. k low. wbc trending down. Objective - Vital Signs/Intake and Output Vital Signs (last 24 hours): Temp Pulse Resp BP Pulse Ox 98.2 F 90 20 146/91 H 97 02/17/17 17:05 02/17/17 17:05 02/17/17 17:05 02/17/17 17:05 02/17/17 17:05 - Medications Medications: Current Medications Amlodipine Besylate (Norvasc) 10 mg PO DAILY [facility] Last Admin: 02/17/17 09:34 Dose: 10 mg Atorvastatin Calcium (Lipitor) 20 mg PO DAILY [facility] Last Admin: 02/17/17 09:42 Dose: 20 mg Bupropion HCl (Wellbutrin) 75 mg PO Q12H [facility] Last Admin: 02/17/17 19:04 Dose: 75 mg Diphenhydramine HCl (Benadryl) 25 mg PO HS PRN PRN Reason: Insomnia Last Admin: 02/17/17 00:24 Dose: 25 mg Enoxaparin Sodium (Lovenox) 40 mg SC DAILY [facility] PRN Reason: Protocol Last Admin: 02/17/17 09:42 Dose: 40 mg Home Med (Bupropion Xl [Wellbutrin Xl]) 150 mg PO DAILY [facility] Hydromorphone HCl (Dilaudid) 0.5 mg IVP Q4 PRN PRN Reason: Pain, moderate (4-7) Last Admin: 02/17/17 03:49 Dose: 0.5 mg Lactated Ringer's (Lactated Ringer's 500ml) 500 mls @ 100 mls/hr IV .Q5H [facility] Last Admin: 02/17/17 06:44 Dose: Not Given Potassium Chloride/Dextrose (Potassium Chl 20 Meq In D5w) 1,000 mls @ 100 mls/ hr IV .Q10H [facility] Stop: 02/18/17 08:26 Last Admin: 02/17/17 14:58 Dose: 100 mls/hr Piperacillin Sod/Tazobactam (Sod 3.375 gm/ Sodium Chloride) 100 mls @ 100 mls/ hr IVPB Q6 [facility] Last Admin: 02/17/17 19:06 Dose: 100 mls/hr Losartan Potassium (Cozaar) 25 mg PO DAILY [facility] Last Admin: 02/17/17 09:41 Dose: 25 mg Metoclopramide HCl (Reglan) 10 mg IVP Q8 PRN PRN Reason: Hiccups Last Admin: 02/16/17 23:44 Dose: 10 mg Ondansetron HCl (Zofran Inj) 4 mg IVP Q4 PRN PRN Reason: Nausea/Vomiting Pantoprazole Sodium (Protonix Inj) 40 mg IVP DAILY [facility] Last Admin: 02/17/17 09:43 Dose: 40 mg Potassium Chloride (Potassium Chloride Oral Soln) 40 meq PO ONCE ONE Stop: 02/17/17 20:01 Simethicone (Mylicon Chew Tab) 80 mg PO QID PRN PRN Reason: Flatulence Last Admin: 02/16/17 22:13 Dose: 80 mg Zolpidem Tartrate (Ambien) 5 mg PO HS PRN PRN Reason: Sleep - Labs Labs: 02/17/17 06:00 02/17/17 06:00 PT 14.7 Seconds (9.8-13.1) H 02/14/17 11:15 INR 1.3 (0.9-1.2) H 02/14/17 11:15 APTT 38.9 Seconds (25.6-37.1) H 02/14/17 11:15 - Constitutional Appears: Well, Non-toxic, No Acute Distress - Head Exam Head Exam: ATRAUMATIC, NORMAL INSPECTION, NORMOCEPHALIC - Eye Exam Eye Exam: EOMI, Normal appearance, PERRL Pupil Exam: NORMAL ACCOMODATION, PERRL - ENT Exam ENT Exam: Mucous Membranes Moist, Normal Exam - Neck Exam Neck Exam: Full ROM, Normal Inspection. absent: Lymphadenopathy - Respiratory Exam Respiratory Exam: Clear to Ausculation Bilateral, NORMAL BREATHING PATTERN - Cardiovascular Exam Cardiovascular Exam: REGULAR RHYTHM, RRR, +S1, +S2. absent: Murmur - GI/Abdominal Exam GI & Abdominal Exam: Distended, Soft, Normal Bowel Sounds. absent: Tenderness - Exam Bimanual exam: NORMAL BIMANUAL EXAM - Extremities Exam Extremities Exam: Full ROM, Normal Capillary Refill, Normal Inspection. absent : Joint Swelling, Pedal Edema - Back Exam Back Exam: NORMAL INSPECTION - Neurological Exam Neurological Exam: Alert, Awake, CN II-XII Intact, Normal Gait, Oriented x3 - Psychiatric Exam Psychiatric exam: Normal Affect, Normal Mood - Skin Skin Exam: Dry, Intact, Normal Color, Warm Assessment and Plan (1) Perforated sigmoid colon Status: Acute (2) DVT prophylaxis Status: Acute (3) HTN (hypertension) Status: Chronic - Assessment and Plan (Free Text) Assessment: (1) Perforated sigmoid colon Assessment & Plan: new findings on ct noted and d/c w/ surgery cont zosyn, pain/nausea control cont to monitor bw po as liu Status: Acute (2) DVT prophylaxis Assessment & Plan: scd and aehose ambulation lovenox Status: Acute (3) HTN (hypertension) Assessment & Plan: cont current po meds monitor bp Status: Chronic [id number] prn [id number] x 4, ivf w/ kcl, monitor k
[2017-02-17] MEDS ORDERED: Potassium Chloride 20 mEq/15 ml LIQ UD PO ONE (20:00)
--- NOTE | 2017-02-17 20:41 | CP.PCM.PN ---
Subjective - Date & Time of Evaluation Date of Evaluation: 02/14/17 Time of Evaluation: 17:30 - Subjective Subjective: doing well Objective - Vital Signs/Intake and Output Vital Signs (last 24 hours): Temp Pulse Resp BP Pulse Ox 98.2 F 90 20 146/91 H 97 02/17/17 17:05 02/17/17 17:05 02/17/17 17:05 02/17/17 17:05 02/17/17 17:05 - Medications Medications: Current Medications Amlodipine Besylate (Norvasc) 10 mg PO DAILY [facility] Last Admin: 02/17/17 09:34 Dose: 10 mg Atorvastatin Calcium (Lipitor) 20 mg PO DAILY [facility] Last Admin: 02/17/17 09:42 Dose: 20 mg Bupropion HCl (Wellbutrin) 75 mg PO Q12H [facility] Last Admin: 02/17/17 19:04 Dose: 75 mg Diphenhydramine HCl (Benadryl) 25 mg PO HS PRN PRN Reason: Insomnia Last Admin: 02/17/17 00:24 Dose: 25 mg Enoxaparin Sodium (Lovenox) 40 mg SC DAILY [facility] PRN Reason: Protocol Last Admin: 02/17/17 09:42 Dose: 40 mg Home Med (Bupropion Xl [Wellbutrin Xl]) 150 mg PO DAILY [facility] Hydromorphone HCl (Dilaudid) 0.5 mg IVP Q4 PRN PRN Reason: Pain, moderate (4-7) Last Admin: 02/17/17 03:49 Dose: 0.5 mg Lactated Ringer's (Lactated Ringer's 500ml) 500 mls @ 100 mls/hr IV .Q5H [facility] Last Admin: 02/17/17 06:44 Dose: Not Given Potassium Chloride/Dextrose (Potassium Chl 20 Meq In D5w) 1,000 mls @ 100 mls/ hr IV .Q10H [facility] Stop: 02/18/17 08:26 Last Admin: 02/17/17 14:58 Dose: 100 mls/hr Piperacillin Sod/Tazobactam (Sod 3.375 gm/ Sodium Chloride) 100 mls @ 100 mls/ hr IVPB Q6 [facility] Last Admin: 02/17/17 19:06 Dose: 100 mls/hr Losartan Potassium (Cozaar) 25 mg PO DAILY [facility] Last Admin: 02/17/17 09:41 Dose: 25 mg Metoclopramide HCl (Reglan) 10 mg IVP Q8 PRN PRN Reason: Hiccups Last Admin: 02/16/17 23:44 Dose: 10 mg Ondansetron HCl (Zofran Inj) 4 mg IVP Q4 PRN PRN Reason: Nausea/Vomiting Pantoprazole Sodium (Protonix Inj) 40 mg IVP DAILY [facility] Last Admin: 02/17/17 09:43 Dose: 40 mg Simethicone (Mylicon Chew Tab) 80 mg PO QID PRN PRN Reason: Flatulence Last Admin: 02/16/17 22:13 Dose: 80 mg Zolpidem Tartrate (Ambien) 5 mg PO HS PRN PRN Reason: Sleep - Labs Labs: 02/17/17 06:00 02/17/17 06:00 PT 14.7 Seconds (9.8-13.1) H 02/14/17 11:15 INR 1.3 (0.9-1.2) H 02/14/17 11:15 APTT 38.9 Seconds (25.6-37.1) H 02/14/17 11:15 - GI/Abdominal Exam GI & Abdominal Exam: Soft, Tenderness, Normal Bowel Sounds Assessment and Plan - Assessment and Plan (Free Text) Assessment: 66 yo male with complicated diverticulitis s/p resection will need colonoscopy prior to colonic re-anastamosis
[2017-02-18] MEDS: Potassium CL 10mEq/100ml 100 ML IVPB SCH ×2 (00:44→00:51)
[2017-02-18] MEDS: Piperacillin/Tazobact 3.375 GM in Sodium Chloride 0.9% 100 ML IVPB SCH ×4 (00:44→19:35)
[2017-02-18] MEDS: HYDROmorphone 0.5 mg/0.5 ml ISec IVP PRN ×3 (03:18→21:27)
[2017-02-18 07:09] LABS: BASO # 0.1 K/uL (0.0-0.2); BASO % 0.7 % (0.0-2.0); EOS # 0.4 K/uL (0.0-0.7); EOS % 2.7 % (0.0-4.0); HEMOGLOBIN 14.5 g/dL (12.0-18.0); LYMPH # 1.9 K/uL (1.0-4.3); LYMPH % 14.4 % (20.0-40.0); MEAN CORPUSCULAR HEMOGLOBIN 30.9 pg (27.0-31.0); MEAN CORPUSCULAR HGB CONC 34.4 g/dL (33.0-37.0); MEAN PLATELET VOLUME 7.4 fl (7.2-11.7); MONO # 0.8 K/uL (0.0-0.8); NEUT # 10.2 K/uL (1.8-7.0); NEUT % 76.2 % (50.0-75.0); RBC 4.7 Mil/uL (4.40-5.90); RED CELL DISTRIBUTION WIDTH 13.6 % (11.5-14.5); WHITE BLOOD COUNT 13.4 K/uL (4.8-10.8)
--- NOTE | 2017-02-18 07:19 | CP.PCM.PN ---
Subjective - Date & Time of Evaluation Date of Evaluation: 02/18/17 Time of Evaluation: : - Subjective Subjective: doing well, no distress/complaints. less abd distention. no pain. no f/c, n/v/d gas in colostomy bag liu liquids yesterday w/o pain. Objective - Vital Signs/Intake and Output Vital Signs (last 24 hours): Temp Pulse Resp BP Pulse Ox 98.5 F 74 18 135/86 97 02/18/17 00:00 02/18/17 00:00 02/18/17 00:00 02/18/17 00:00 02/18/17 00:00 - Medications Medications: Current Medications Amlodipine Besylate (Norvasc) 10 mg PO DAILY [facility] Last Admin: 02/17/17 09:34 Dose: 10 mg Atorvastatin Calcium (Lipitor) 20 mg PO DAILY [facility] Last Admin: 02/17/17 09:42 Dose: 20 mg Bupropion HCl (Wellbutrin) 75 mg PO Q12H [facility] Last Admin: 02/18/17 00:43 Dose: 75 mg Diphenhydramine HCl (Benadryl) 25 mg PO HS PRN PRN Reason: Insomnia Last Admin: 02/17/17 21:42 Dose: 25 mg Enoxaparin Sodium (Lovenox) 40 mg SC DAILY [facility] PRN Reason: Protocol Last Admin: 02/17/17 09:42 Dose: 40 mg Home Med (Bupropion Xl [Wellbutrin Xl]) 150 mg PO DAILY [facility] Hydromorphone HCl (Dilaudid) 0.5 mg IVP Q4 PRN PRN Reason: Pain, moderate (4-7) Last Admin: 02/18/17 03:18 Dose: 0.5 mg Lactated Ringer's (Lactated Ringer's 500ml) 500 mls @ 100 mls/hr IV .Q5H [facility] Last Admin: 02/17/17 22:04 Dose: Not Given Potassium Chloride/Dextrose (Potassium Chl 20 Meq In D5w) 1,000 mls @ 100 mls/ hr IV .Q10H [facility] Stop: 02/18/17 08:26 Last Admin: 02/17/17 14:58 Dose: 100 mls/hr Piperacillin Sod/Tazobactam (Sod 3.375 gm/ Sodium Chloride) 100 mls @ 100 mls/ hr IVPB Q6H [facility] Last Admin: 02/18/17 06:52 Dose: 100 mls/hr Losartan Potassium (Cozaar) 25 mg PO DAILY [facility] Last Admin: 02/17/17 09:41 Dose: 25 mg Metoclopramide HCl (Reglan) 10 mg IVP Q8 PRN PRN Reason: Hiccups Last Admin: 02/16/17 23:44 Dose: 10 mg Ondansetron HCl (Zofran Inj) 4 mg IVP Q4 PRN PRN Reason: Nausea/Vomiting Pantoprazole Sodium (Protonix Inj) 40 mg IVP DAILY [facility] Last Admin: 02/17/17 09:43 Dose: 40 mg Simethicone (Mylicon Chew Tab) 80 mg PO QID PRN PRN Reason: Flatulence Last Admin: 02/16/17 22:13 Dose: 80 mg Zolpidem Tartrate (Ambien) 5 mg PO HS PRN PRN Reason: Sleep - Labs Labs: 02/18/17 06:25 02/17/17 06:00 PT 14.7 Seconds (9.8-13.1) H 02/14/17 11:15 INR 1.3 (0.9-1.2) H 02/14/17 11:15 APTT 38.9 Seconds (25.6-37.1) H 02/14/17 11:15 - Constitutional Appears: Well, Non-toxic, No Acute Distress - Head Exam Head Exam: ATRAUMATIC, NORMAL INSPECTION, NORMOCEPHALIC - Eye Exam Eye Exam: EOMI, Normal appearance, PERRL Pupil Exam: NORMAL ACCOMODATION, PERRL - ENT Exam ENT Exam: Mucous Membranes Moist, Normal Exam - Neck Exam Neck Exam: Full ROM, Normal Inspection. absent: Lymphadenopathy - Respiratory Exam Respiratory Exam: Clear to Ausculation Bilateral, NORMAL BREATHING PATTERN - Cardiovascular Exam Cardiovascular Exam: REGULAR RHYTHM, RRR, +S1, +S2. absent: Murmur - GI/Abdominal Exam GI & Abdominal Exam: Soft, Normal Bowel Sounds. absent: Tenderness - Extremities Exam Extremities Exam: Full ROM, Normal Capillary Refill, Normal Inspection. absent : Joint Swelling, Pedal Edema - Back Exam Back Exam: NORMAL INSPECTION - Neurological Exam Neurological Exam: Alert, Awake, CN II-XII Intact, Normal Gait, Oriented x3 - Psychiatric Exam Psychiatric exam: Normal Affect, Normal Mood - Skin Skin Exam: Dry, Intact, Normal Color, Warm Assessment and Plan (1) Perforated sigmoid colon Status: Acute (2) DVT prophylaxis Status: Acute (3) HTN (hypertension) Status: Chronic - Assessment and Plan (Free Text) Assessment: (1) Perforated sigmoid colon Assessment & Plan: ??tcu cont zosyn, pain/nausea control cont to monitor bw po as liu Status: Acute (2) DVT prophylaxis Assessment & Plan: scd and aehose ambulation lovenox Status: Acute (3) HTN (hypertension) Assessment & Plan: cont current po meds monitor bp Status: Chronic [id number] prn-improving [id number]-cdc x 4, ivf w/ kcl, monitor k-todays pending
[2017-02-18 07:36] LABS: BLOOD UREA NITROGEN 6 mg/dl (9-20); CALCIUM 8.6 mg/dL (8.4-10.2); GFR AFRICAN-AMERICAN > 60; GFR NON-AFRICAN AMERICAN > 60
--- NOTE | 2017-02-18 08:32 | CP.PCM.PN ---
<Tyrel Xiong - Last Filed: 02/18/17 11:38> Subjective - Date & Time of Evaluation Date of Evaluation: 02/18/17 Time of Evaluation: 08:30 - Subjective Subjective: Surgery: Dr. Rodriguez Pt seen and examined. Resting comfortably in bed. Overall looks much better. Pain controlled. Tolerating CLD. Would like to eat more. No N/V. Passing gas into bag. Objective - Vital Signs/Intake and Output Vital Signs (last 24 hours): Temp Pulse Resp BP Pulse Ox 98.5 F 74 18 135/86 97 02/18/17 00:00 02/18/17 00:00 02/18/17 00:00 02/18/17 00:00 02/18/17 00:00 Intake and Output: 02/18/17 02/18/17 06:59 18:59 Output Total 3355 Balance -3355 - Medications Medications: Current Medications Amlodipine Besylate (Norvasc) 10 mg PO DAILY [facility] Last Admin: 02/17/17 09:34 Dose: 10 mg Atorvastatin Calcium (Lipitor) 20 mg PO DAILY [facility] Last Admin: 02/17/17 09:42 Dose: 20 mg Bupropion HCl (Wellbutrin) 75 mg PO Q12H [facility] Last Admin: 02/18/17 00:43 Dose: 75 mg Diphenhydramine HCl (Benadryl) 25 mg PO HS PRN PRN Reason: Insomnia Last Admin: 02/17/17 21:42 Dose: 25 mg Enoxaparin Sodium (Lovenox) 40 mg SC DAILY [facility] PRN Reason: Protocol Last Admin: 02/17/17 09:42 Dose: 40 mg Home Med (Bupropion Xl [Wellbutrin Xl]) 150 mg PO DAILY [facility] Hydromorphone HCl (Dilaudid) 0.5 mg IVP Q4 PRN PRN Reason: Pain, moderate (4-7) Last Admin: 02/18/17 03:18 Dose: 0.5 mg Lactated Ringer's (Lactated Ringer's 500ml) 500 mls @ 100 mls/hr IV .Q5H [facility] Last Admin: 02/17/17 22:04 Dose: Not Given Piperacillin Sod/Tazobactam (Sod 3.375 gm/ Sodium Chloride) 100 mls @ 100 mls/ hr IVPB Q6H [facility] Last Admin: 02/18/17 06:52 Dose: 100 mls/hr Losartan Potassium (Cozaar) 25 mg PO DAILY [facility] Last Admin: 02/17/17 09:41 Dose: 25 mg Metoclopramide HCl (Reglan) 10 mg IVP Q8 PRN PRN Reason: Hiccups Last Admin: 02/16/17 23:44 Dose: 10 mg Ondansetron HCl (Zofran Inj) 4 mg IVP Q4 PRN PRN Reason: Nausea/Vomiting Pantoprazole Sodium (Protonix Inj) 40 mg IVP DAILY [facility] Last Admin: 02/17/17 09:43 Dose: 40 mg Simethicone (Mylicon Chew Tab) 80 mg PO QID PRN PRN Reason: Flatulence Last Admin: 02/16/17 22:13 Dose: 80 mg Zolpidem Tartrate (Ambien) 5 mg PO HS PRN PRN Reason: Sleep - Labs Labs: 02/18/17 06:25 02/18/17 06:25 PT 14.7 Seconds (9.8-13.1) H 02/14/17 11:15 INR 1.3 (0.9-1.2) H 02/14/17 11:15 APTT 38.9 Seconds (25.6-37.1) H 02/14/17 11:15 - Constitutional Appears: Non-toxic, No Acute Distress - Head Exam Head Exam: ATRAUMATIC, NORMOCEPHALIC - Eye Exam Eye Exam: EOMI - ENT Exam ENT Exam: Mucous Membranes Moist, Normal External Ear Exam - Neck Exam Neck Exam: Full ROM - Respiratory Exam Respiratory Exam: NORMAL BREATHING PATTERN. absent: Accessory Muscle Use, Respiratory Distress - GI/Abdominal Exam GI & Abdominal Exam: Soft, Tenderness (leticia-incisional ). absent: Distended, Firm, Guarding, Rigid, Rebound Additional comments: midline incision, dressing in place, C/D/I Stoma pink and patent w. bowel sweat R side collin in place - Extremities Exam Extremities Exam: absent: Calf Tenderness, Pedal Edema - Neurological Exam Neurological Exam: Alert, Awake, Oriented x3 Assessment and Plan - Assessment and Plan (Free Text) Assessment: 66M w. diverticulitis, s/p harmtan's POD#4 -Collin: 155cc/24hr serous -Holt 3200cc/24hr, will d/c -diet advanced to low residue -monitor bowel fxn -wbc trending up, c/w abx -d/w attending Tyrese PGY3 <Don Rodriguez - Last Filed: 02/18/17 11:53> Subjective - Date & Time of Evaluation Time of Evaluation: 11:20 - Subjective Subjective: Patient was seen and examined at the bedside. Agree with resident's note above. Objective - Vital Signs/Intake and Output Vital Signs (last 24 hours): Temp Pulse Resp BP Pulse Ox 98.4 F 77 18 127/85 96 02/18/17 09:00 02/18/17 10:05 02/18/17 09:00 02/18/17 10:05 02/18/17 09:00 Intake and Output: 02/18/17 02/18/17 06:59 18:59 Output Total 3355 Balance -3355 - Medications Medications: Current Medications Amlodipine Besylate (Norvasc) 10 mg PO DAILY [facility] Last Admin: 02/18/17 10:05 Dose: 10 mg Atorvastatin Calcium (Lipitor) 20 mg PO DAILY [facility] Last Admin: 02/18/17 10:07 Dose: 20 mg Bupropion HCl (Wellbutrin) 75 mg PO Q12H [facility] Last Admin: 02/18/17 11:50 Dose: 75 mg Diphenhydramine HCl (Benadryl) 25 mg PO HS PRN PRN Reason: Insomnia Last Admin: 02/17/17 21:42 Dose: 25 mg Enoxaparin Sodium (Lovenox) 40 mg SC DAILY [facility] PRN Reason: Protocol Last Admin: 02/18/17 10:04 Dose: 40 mg Home Med (Bupropion Xl [Wellbutrin Xl]) 150 mg PO DAILY [facility] Hydromorphone HCl (Dilaudid) 0.5 mg IVP Q4 PRN PRN Reason: Pain, moderate (4-7) Last Admin: 02/18/17 03:18 Dose: 0.5 mg Lactated Ringer's (Lactated Ringer's 500ml) 500 mls @ 100 mls/hr IV .Q5H [facility] Last Admin: 02/17/17 22:04 Dose: Not Given Piperacillin Sod/Tazobactam (Sod 3.375 gm/ Sodium Chloride) 100 mls @ 100 mls/ hr IVPB Q6H [facility] Last Admin: 02/18/17 06:52 Dose: 100 mls/hr Losartan Potassium (Cozaar) 25 mg PO DAILY [facility] Last Admin: 02/18/17 10:05 Dose: 25 mg Metoclopramide HCl (Reglan) 10 mg IVP Q8 PRN PRN Reason: Hiccups Last Admin: 02/16/17 23:44 Dose: 10 mg Ondansetron HCl (Zofran Inj) 4 mg IVP Q4 PRN PRN Reason: Nausea/Vomiting Pantoprazole Sodium (Protonix Inj) 40 mg IVP DAILY [facility] Last Admin: 02/18/17 10:04 Dose: 40 mg Simethicone (Mylicon Chew Tab) 80 mg PO QID PRN PRN Reason: Flatulence Last Admin: 02/16/17 22:13 Dose: 80 mg Zolpidem Tartrate (Ambien) 5 mg PO HS PRN PRN Reason: Sleep - Labs Labs: 02/18/17 06:25 02/18/17 06:25 PT 14.7 Seconds (9.8-13.1) H 02/14/17 11:15 INR 1.3 (0.9-1.2) H 02/14/17 11:15 APTT 38.9 Seconds (25.6-37.1) H 02/14/17 11:15
[2017-02-18] MEDS ORDERED: Potassium Chloride 20 mEq ER Tab PO ONE (09:30)
[2017-02-18] MEDS: Enoxaparin 40 mg Syringe SC SCH (10:04)
--- NOTE | 2017-02-18 14:34 | CP.PCM.PN ---
Subjective - Date & Time of Evaluation Date of Evaluation: 02/18/17 Time of Evaluation: 14:30 - Subjective Subjective: tolerating liquid Objective - Vital Signs/Intake and Output Vital Signs (last 24 hours): Temp Pulse Resp BP Pulse Ox 98.4 F 77 18 127/85 96 02/18/17 09:00 02/18/17 10:05 02/18/17 09:00 02/18/17 10:05 02/18/17 09:00 Intake and Output: 02/18/17 02/18/17 06:59 18:59 Output Total 3355 Balance -3355 - Medications Medications: Current Medications Amlodipine Besylate (Norvasc) 10 mg PO DAILY [facility] Last Admin: 02/18/17 10:05 Dose: 10 mg Atorvastatin Calcium (Lipitor) 20 mg PO DAILY [facility] Last Admin: 02/18/17 10:07 Dose: 20 mg Bupropion HCl (Wellbutrin) 75 mg PO Q12H [facility] Last Admin: 02/18/17 11:50 Dose: 75 mg Diphenhydramine HCl (Benadryl) 25 mg PO HS PRN PRN Reason: Insomnia Last Admin: 02/17/17 21:42 Dose: 25 mg Enoxaparin Sodium (Lovenox) 40 mg SC DAILY [facility] PRN Reason: Protocol Last Admin: 02/18/17 10:04 Dose: 40 mg Home Med (Bupropion Xl [Wellbutrin Xl]) 150 mg PO DAILY [facility] Hydromorphone HCl (Dilaudid) 0.5 mg IVP Q4 PRN PRN Reason: Pain, moderate (4-7) Last Admin: 02/18/17 03:18 Dose: 0.5 mg Lactated Ringer's (Lactated Ringer's 500ml) 500 mls @ 100 mls/hr IV .Q5H [facility] Last Admin: 02/17/17 22:04 Dose: Not Given Piperacillin Sod/Tazobactam (Sod 3.375 gm/ Sodium Chloride) 100 mls @ 100 mls/ hr IVPB Q6H [facility] Last Admin: 02/18/17 12:17 Dose: 100 mls/hr Potassium Chloride/Dextrose (Potassium Chl 20 Meq In D5w) 1,000 mls @ 100 mls/ hr IV .Q10H [facility] Stop: 02/19/17 12:24 Losartan Potassium (Cozaar) 25 mg PO DAILY [facility] Last Admin: 02/18/17 10:05 Dose: 25 mg Metoclopramide HCl (Reglan) 10 mg IVP Q8 PRN PRN Reason: Hiccups Last Admin: 02/16/17 23:44 Dose: 10 mg Ondansetron HCl (Zofran Inj) 4 mg IVP Q4 PRN PRN Reason: Nausea/Vomiting Pantoprazole Sodium (Protonix Inj) 40 mg IVP DAILY [facility] Last Admin: 02/18/17 10:04 Dose: 40 mg Simethicone (Mylicon Chew Tab) 80 mg PO QID PRN PRN Reason: Flatulence Last Admin: 02/16/17 22:13 Dose: 80 mg Zolpidem Tartrate (Ambien) 5 mg PO HS PRN PRN Reason: Sleep - Labs Labs: 02/18/17 06:25 02/18/17 06:25 PT 14.7 Seconds (9.8-13.1) H 02/14/17 11:15 INR 1.3 (0.9-1.2) H 02/14/17 11:15 APTT 38.9 Seconds (25.6-37.1) H 02/14/17 11:15 - GI/Abdominal Exam GI & Abdominal Exam: Soft, Normal Bowel Sounds Assessment and Plan - Assessment and Plan (Free Text) Assessment: 66 yo male with complicated diverticulitis dc planning when able outpt colonoscopy
[2017-02-18] MEDS: Simethicone 80 mg Chewtab PO PRN ×2 (15:18→21:08)
[2017-02-18] MEDS: Potassium Chl 20mEq & D5W 1,000 ML IV SCH ×3 (15:24→23:00)
[2017-02-18] MEDS: Lactated Ringer's 500 ML IV SCH ×3 (15:29→22:30)
[2017-02-19] MEDS: Piperacillin/Tazobact 3.375 GM in Sodium Chloride 0.9% 100 ML IVPB SCH ×4 (00:26→18:14)
[2017-02-19] MEDS: HYDROmorphone 0.5 mg/0.5 ml ISec IVP PRN ×3 (01:56→21:36)
[2017-02-19] MEDS ORDERED: HYDROmorphone 0.5 mg/0.5 ml ISec IVP ONE (03:05)
[2017-02-19] MEDS: Lactated Ringer's 500 ML IV SCH ×4 (04:11→18:15)
[2017-02-19] MEDS: Potassium Chl 20mEq & D5W 1,000 ML IV SCH ×3 (05:09→21:30)
[2017-02-19 07:40] LABS: ALB/GLOB RATIO 1.2 (1.0-2.1); ALT/SGPT 36 U/L (21-72); AST/SGOT 44 U/L (17-59); BASO # 0.1 K/uL (0.0-0.2); BASO % 0.4 % (0.0-2.0); BLOOD UREA NITROGEN 8 mg/dl (9-20); CALCIUM 8.3 mg/dL (8.4-10.2); EOS # 0.2 K/uL (0.0-0.7); GFR AFRICAN-AMERICAN > 60; GFR NON-AFRICAN AMERICAN > 60; HEMOGLOBIN 13.2 g/dL (12.0-18.0); LYMPH # 1.1 K/uL (1.0-4.3); LYMPH % 7.1 % (20.0-40.0); MEAN CELL VOLUME 90.3 fl (80.0-94.0); MEAN CORPUSCULAR HEMOGLOBIN 30.6 pg (27.0-31.0); MEAN CORPUSCULAR HGB CONC 33.9 g/dL (33.0-37.0); MEAN PLATELET VOLUME 7.5 fl (7.2-11.7); MONO # 0.7 K/uL (0.0-0.8); MONO % 4.6 % (0.0-10.0); NEUT % 86.9 % (50.0-75.0); NRBC % 0.1 % (0.0-0.0); PLATELET COUNT 502 K/uL (130-400); RBC 4.32 Mil/uL (4.40-5.90); RED CELL DISTRIBUTION WIDTH 13.5 % (11.5-14.5); WHITE BLOOD COUNT 16.1 K/uL (4.8-10.8)
[2017-02-19] MEDS: Enoxaparin 40 mg Syringe SC SCH (08:28)
--- NOTE | 2017-02-19 08:50 | CP.PCM.PN ---
<Zaina Encarnacion - Last Filed: 02/19/17 10:29> Subjective - Date & Time of Evaluation Date of Evaluation: 02/19/17 Time of Evaluation: 06:30 - Subjective Subjective: GENERAL SURGERY PROGRESS NOTE FOR DR. ROLLINS Patient seen and examined with Dr. Rollins at bedside. He states that overnight, he was having difficulty urinating and had a lot of pain and nausea. He then passed 3 kidney stones and his pain subsided. He had stool output in the bag last night per the patient and nurse. He tracked how much he walked in the halls with an kelin and walked 0.38 miles yesterday. He is tolerating low residue diet and denies vomiting. Objective - Vital Signs/Intake and Output Vital Signs (last 24 hours): Temp Pulse Resp BP Pulse Ox 98.4 F 76 18 132/83 98 02/19/17 08:43 02/19/17 08:43 02/19/17 08:43 02/19/17 08:43 02/19/17 08:43 Intake and Output: 02/19/17 02/19/17 06:59 18:59 Output Total 30 Balance -30 - Medications Medications: Current Medications Amlodipine Besylate (Norvasc) 10 mg PO DAILY [facility] Last Admin: 02/19/17 08:28 Dose: 10 mg Atorvastatin Calcium (Lipitor) 20 mg PO DAILY [facility] Last Admin: 02/19/17 08:28 Dose: 20 mg Bupropion HCl (Wellbutrin) 75 mg PO Q12H [facility] Last Admin: 02/19/17 00:26 Dose: 75 mg Diphenhydramine HCl (Benadryl) 25 mg PO HS PRN PRN Reason: Insomnia Last Admin: 02/17/17 21:42 Dose: 25 mg Enoxaparin Sodium (Lovenox) 40 mg SC DAILY [facility] PRN Reason: Protocol Last Admin: 02/19/17 08:28 Dose: 40 mg Home Med (Bupropion Xl [Wellbutrin Xl]) 150 mg PO DAILY [facility] Hydromorphone HCl (Dilaudid) 0.5 mg IVP Q4 PRN PRN Reason: Pain, moderate (4-7) Last Admin: 02/19/17 01:56 Dose: 0.5 mg Lactated Ringer's (Lactated Ringer's 500ml) 500 mls @ 100 mls/hr IV .Q5H [facility] Last Admin: 02/19/17 08:30 Dose: Not Given Piperacillin Sod/Tazobactam (Sod 3.375 gm/ Sodium Chloride) 100 mls @ 100 mls/ hr IVPB Q6H [facility] Last Admin: 02/19/17 06:08 Dose: 100 mls/hr Potassium Chloride/Dextrose (Potassium Chl 20 Meq In D5w) 1,000 mls @ 100 mls/ hr IV .Q10H [facility] Stop: 02/19/17 12:24 Last Admin: 02/19/17 08:30 Dose: Not Given Losartan Potassium (Cozaar) 25 mg PO DAILY [facility] Last Admin: 02/19/17 08:28 Dose: 25 mg Metoclopramide HCl (Reglan) 10 mg IVP Q8 PRN PRN Reason: Hiccups Last Admin: 02/16/17 23:44 Dose: 10 mg Ondansetron HCl (Zofran Inj) 4 mg IVP Q4 PRN PRN Reason: Nausea/Vomiting Last Admin: 02/19/17 03:56 Dose: 4 mg Pantoprazole Sodium (Protonix Inj) 40 mg IVP DAILY [facility] Last Admin: 02/19/17 08:31 Dose: 40 mg Simethicone (Mylicon Chew Tab) 80 mg PO QID PRN PRN Reason: Flatulence Last Admin: 02/18/17 21:08 Dose: 80 mg Zolpidem Tartrate (Ambien) 5 mg PO HS PRN PRN Reason: Sleep Last Admin: 02/18/17 21:09 Dose: 5 mg - Labs Labs: 02/19/17 06:50 02/19/17 06:50 PT 14.7 Seconds (9.8-13.1) H 02/14/17 11:15 INR 1.3 (0.9-1.2) H 02/14/17 11:15 APTT 38.9 Seconds (25.6-37.1) H 02/14/17 11:15 - Constitutional Appears: Non-toxic, No Acute Distress - Head Exam Head Exam: ATRAUMATIC, NORMAL INSPECTION - Eye Exam Eye Exam: EOMI, Normal appearance - Respiratory Exam Respiratory Exam: NORMAL BREATHING PATTERN. absent: Respiratory Distress - Cardiovascular Exam Cardiovascular Exam: +S1, +S2 - GI/Abdominal Exam GI & Abdominal Exam: Distended (mild), Soft. absent: Firm, Guarding, Rigid, Tenderness, Rebound Additional comments: Isra over midline incision with small amount of serosanguinous drainage Right yung drain in place with 30cc output over past 24 hours - Neurological Exam Neurological Exam: Alert, Awake, Oriented x3 - Psychiatric Exam Psychiatric exam: Normal Affect, Normal Mood - Skin Skin Exam: Dry, Normal Color, Warm Assessment and Plan - Assessment and Plan (Free Text) Assessment: 66yo M with perforated sigmoid diverticulitis s/p Hartmanns POD#5 - Afebrile, VSS - WBC increased to 16.1 (13.4 yesterday) - Holt DCed yesterday - Tolerating low residue diet - Had stool output into ostomy last night - Continue Abx - Per GI Dr. De Leon, recommend patient have outpatient colonoscopy - Discussed plan with Dr. Michael Encarnacion PGY-3 <Don Rollins - Last Filed: 02/19/17 11:14> Subjective - Subjective Subjective: Patient was seen and examined at the bedside. Agree with resident's note above. Objective - Vital Signs/Intake and Output Vital Signs (last 24 hours): Temp Pulse Resp BP Pulse Ox 98.4 F 76 18 132/83 98 02/19/17 08:43 02/19/17 08:43 02/19/17 08:43 02/19/17 08:43 02/19/17 08:43 Intake and Output: 02/19/17 02/19/17 06:59 18:59 Output Total 30 Balance -30 - Medications Medications: Current Medications Amlodipine Besylate (Norvasc) 10 mg PO DAILY [facility] Last Admin: 02/19/17 08:28 Dose: 10 mg Atorvastatin Calcium (Lipitor) 20 mg PO DAILY [facility] Last Admin: 02/19/17 08:28 Dose: 20 mg Bupropion HCl (Wellbutrin) 75 mg PO Q12H [facility] Last Admin: 02/19/17 00:26 Dose: 75 mg Diphenhydramine HCl (Benadryl) 25 mg PO HS PRN PRN Reason: Insomnia Last Admin: 02/17/17 21:42 Dose: 25 mg Enoxaparin Sodium (Lovenox) 40 mg SC DAILY [facility] PRN Reason: Protocol Last Admin: 02/19/17 08:28 Dose: 40 mg Home Med (Bupropion Xl [Wellbutrin Xl]) 150 mg PO DAILY [facility] Hydromorphone HCl (Dilaudid) 0.5 mg IVP Q4 PRN PRN Reason: Pain, moderate (4-7) Last Admin: 02/19/17 01:56 Dose: 0.5 mg Lactated Ringer's (Lactated Ringer's 500ml) 500 mls @ 100 mls/hr IV .Q5H [facility] Last Admin: 02/19/17 08:30 Dose: Not Given Piperacillin Sod/Tazobactam (Sod 3.375 gm/ Sodium Chloride) 100 mls @ 100 mls/ hr IVPB Q6H [facility] Last Admin: 02/19/17 06:08 Dose: 100 mls/hr Potassium Chloride/Dextrose (Potassium Chl 20 Meq In D5w) 1,000 mls @ 100 mls/ hr IV .Q10H [facility] Stop: 02/19/17 12:24 Last Admin: 02/19/17 08:30 Dose: Not Given Vancomycin HCl 1 gm/ Sodium (Chloride) 250 mls @ 166.667 mls/hr IVPB Q12 [facility] Losartan Potassium (Cozaar) 25 mg PO DAILY [facility] Last Admin: 02/19/17 08:28 Dose: 25 mg Metoclopramide HCl (Reglan) 10 mg IVP Q8 PRN PRN Reason: Hiccups Last Admin: 02/16/17 23:44 Dose: 10 mg Ondansetron HCl (Zofran Inj) 4 mg IVP Q4 PRN PRN Reason: Nausea/Vomiting Last Admin: 02/19/17 03:56 Dose: 4 mg Pantoprazole Sodium (Protonix Inj) 40 mg IVP DAILY [facility] Last Admin: 02/19/17 08:31 Dose: 40 mg Simethicone (Mylicon Chew Tab) 80 mg PO QID PRN PRN Reason: Flatulence Last Admin: 02/18/17 21:08 Dose: 80 mg Zolpidem Tartrate (Ambien) 5 mg PO HS PRN PRN Reason: Sleep Last Admin: 02/18/17 21:09 Dose: 5 mg - Labs Labs: 02/19/17 06:50 02/19/17 06:50 PT 14.7 Seconds (9.8-13.1) H 02/14/17 11:15 INR 1.3 (0.9-1.2) H 02/14/17 11:15 APTT 38.9 Seconds (25.6-37.1) H 02/14/17 11:15
--- NOTE | 2017-02-19 09:13 | CP.PCM.PN ---
Subjective - Date & Time of Evaluation Date of Evaluation: 02/19/17 Time of Evaluation: 09:11 - Subjective Subjective: pt doing well, passed kidney stones overnight-has hx same. less distention, no f/c, n/v/d. bw noted, wbc 16, k 3.4 no pain at present. no n/v Objective - Vital Signs/Intake and Output Vital Signs (last 24 hours): Temp Pulse Resp BP Pulse Ox 98.4 F 76 18 132/83 98 02/19/17 08:43 02/19/17 08:43 02/19/17 08:43 02/19/17 08:43 02/19/17 08:43 Intake and Output: 02/19/17 02/19/17 06:59 18:59 Output Total 30 Balance -30 - Medications Medications: Current Medications Amlodipine Besylate (Norvasc) 10 mg PO DAILY [facility] Last Admin: 02/19/17 08:28 Dose: 10 mg Atorvastatin Calcium (Lipitor) 20 mg PO DAILY [facility] Last Admin: 02/19/17 08:28 Dose: 20 mg Bupropion HCl (Wellbutrin) 75 mg PO Q12H [facility] Last Admin: 02/19/17 00:26 Dose: 75 mg Diphenhydramine HCl (Benadryl) 25 mg PO HS PRN PRN Reason: Insomnia Last Admin: 02/17/17 21:42 Dose: 25 mg Enoxaparin Sodium (Lovenox) 40 mg SC DAILY [facility] PRN Reason: Protocol Last Admin: 02/19/17 08:28 Dose: 40 mg Home Med (Bupropion Xl [Wellbutrin Xl]) 150 mg PO DAILY [facility] Hydromorphone HCl (Dilaudid) 0.5 mg IVP Q4 PRN PRN Reason: Pain, moderate (4-7) Last Admin: 02/19/17 01:56 Dose: 0.5 mg Lactated Ringer's (Lactated Ringer's 500ml) 500 mls @ 100 mls/hr IV .Q5H [facility] Last Admin: 02/19/17 08:30 Dose: Not Given Piperacillin Sod/Tazobactam (Sod 3.375 gm/ Sodium Chloride) 100 mls @ 100 mls/ hr IVPB Q6H [facility] Last Admin: 02/19/17 06:08 Dose: 100 mls/hr Potassium Chloride/Dextrose (Potassium Chl 20 Meq In D5w) 1,000 mls @ 100 mls/ hr IV .Q10H [facility] Stop: 02/19/17 12:24 Last Admin: 02/19/17 08:30 Dose: Not Given Losartan Potassium (Cozaar) 25 mg PO DAILY [facility] Last Admin: 02/19/17 08:28 Dose: 25 mg Metoclopramide HCl (Reglan) 10 mg IVP Q8 PRN PRN Reason: Hiccups Last Admin: 02/16/17 23:44 Dose: 10 mg Ondansetron HCl (Zofran Inj) 4 mg IVP Q4 PRN PRN Reason: Nausea/Vomiting Last Admin: 02/19/17 03:56 Dose: 4 mg Pantoprazole Sodium (Protonix Inj) 40 mg IVP DAILY [facility] Last Admin: 02/19/17 08:31 Dose: 40 mg Simethicone (Mylicon Chew Tab) 80 mg PO QID PRN PRN Reason: Flatulence Last Admin: 02/18/17 21:08 Dose: 80 mg Zolpidem Tartrate (Ambien) 5 mg PO HS PRN PRN Reason: Sleep Last Admin: 02/18/17 21:09 Dose: 5 mg - Labs Labs: 02/19/17 06:50 02/19/17 06:50 PT 14.7 Seconds (9.8-13.1) H 02/14/17 11:15 INR 1.3 (0.9-1.2) H 02/14/17 11:15 APTT 38.9 Seconds (25.6-37.1) H 02/14/17 11:15 - Constitutional Appears: Well, Non-toxic, No Acute Distress - Head Exam Head Exam: ATRAUMATIC, NORMAL INSPECTION, NORMOCEPHALIC - Eye Exam Eye Exam: EOMI, Normal appearance, PERRL Pupil Exam: NORMAL ACCOMODATION, PERRL - ENT Exam ENT Exam: Mucous Membranes Moist, Normal Exam - Neck Exam Neck Exam: Full ROM, Normal Inspection. absent: Lymphadenopathy - Respiratory Exam Respiratory Exam: Clear to Ausculation Bilateral, NORMAL BREATHING PATTERN - Cardiovascular Exam Cardiovascular Exam: REGULAR RHYTHM, RRR, +S1, +S2. absent: Murmur - GI/Abdominal Exam GI & Abdominal Exam: Soft, Normal Bowel Sounds. absent: Tenderness Additional comments: no distention, drains in place, dsg w/ small amt of drainage - Extremities Exam Extremities Exam: Full ROM, Normal Capillary Refill, Normal Inspection. absent : Joint Swelling, Pedal Edema - Back Exam Back Exam: NORMAL INSPECTION - Neurological Exam Neurological Exam: Alert, Awake, CN II-XII Intact, Normal Gait, Oriented x3 - Psychiatric Exam Psychiatric exam: Normal Affect, Normal Mood - Skin Skin Exam: Dry, Intact, Normal Color, Warm Assessment and Plan (1) Perforated sigmoid colon Status: Acute (2) DVT prophylaxis Status: Acute (3) HTN (hypertension) Status: Chronic - Assessment and Plan (Free Text) Assessment: (1) Perforated sigmoid colon Assessment & Plan: ??tcu cont zosyn, pain/nausea control cont to monitor bw po as liu wbc trending up, will dc w/ surgery, add vanco, cont anbx for now Status: Acute (2) DVT prophylaxis Assessment & Plan: scd and aehose ambulation lovenox Status: Acute (3) HTN (hypertension) Assessment & Plan: cont current po meds monitor bp Status: Chronic [id number] prn-improving 8-[id number]-[id number], ivf w/ kcl, monitor k- 6-kidney stone, hydration, will monitor
[2017-02-19] MEDS ORDERED: Potassium Chloride 20 mEq ER Tab PO ONE (10:16)
--- NOTE | 2017-02-19 10:59 | CP.PCM.PN ---
Subjective - Date & Time of Evaluation Date of Evaluation: 02/19/17 Time of Evaluation: 11:00 - Subjective Subjective: tolerating solid food Objective - Vital Signs/Intake and Output Vital Signs (last 24 hours): Temp Pulse Resp BP Pulse Ox 98.4 F 76 18 132/83 98 02/19/17 08:43 02/19/17 08:43 02/19/17 08:43 02/19/17 08:43 02/19/17 08:43 Intake and Output: 02/19/17 02/19/17 06:59 18:59 Output Total 30 Balance -30 - Medications Medications: Current Medications Amlodipine Besylate (Norvasc) 10 mg PO DAILY [facility] Last Admin: 02/19/17 08:28 Dose: 10 mg Atorvastatin Calcium (Lipitor) 20 mg PO DAILY [facility] Last Admin: 02/19/17 08:28 Dose: 20 mg Bupropion HCl (Wellbutrin) 75 mg PO Q12H [facility] Last Admin: 02/19/17 00:26 Dose: 75 mg Diphenhydramine HCl (Benadryl) 25 mg PO HS PRN PRN Reason: Insomnia Last Admin: 02/17/17 21:42 Dose: 25 mg Enoxaparin Sodium (Lovenox) 40 mg SC DAILY [facility] PRN Reason: Protocol Last Admin: 02/19/17 08:28 Dose: 40 mg Home Med (Bupropion Xl [Wellbutrin Xl]) 150 mg PO DAILY [facility] Hydromorphone HCl (Dilaudid) 0.5 mg IVP Q4 PRN PRN Reason: Pain, moderate (4-7) Last Admin: 02/19/17 01:56 Dose: 0.5 mg Lactated Ringer's (Lactated Ringer's 500ml) 500 mls @ 100 mls/hr IV .Q5H [facility] Last Admin: 02/19/17 08:30 Dose: Not Given Piperacillin Sod/Tazobactam (Sod 3.375 gm/ Sodium Chloride) 100 mls @ 100 mls/ hr IVPB Q6H [facility] Last Admin: 02/19/17 06:08 Dose: 100 mls/hr Potassium Chloride/Dextrose (Potassium Chl 20 Meq In D5w) 1,000 mls @ 100 mls/ hr IV .Q10H [facility] Stop: 02/19/17 12:24 Last Admin: 02/19/17 08:30 Dose: Not Given Vancomycin HCl 1 gm/ Sodium (Chloride) 250 mls @ 166.667 mls/hr IVPB Q12 [facility] Losartan Potassium (Cozaar) 25 mg PO DAILY [facility] Last Admin: 02/19/17 08:28 Dose: 25 mg Metoclopramide HCl (Reglan) 10 mg IVP Q8 PRN PRN Reason: Hiccups Last Admin: 02/16/17 23:44 Dose: 10 mg Ondansetron HCl (Zofran Inj) 4 mg IVP Q4 PRN PRN Reason: Nausea/Vomiting Last Admin: 02/19/17 03:56 Dose: 4 mg Pantoprazole Sodium (Protonix Inj) 40 mg IVP DAILY [facility] Last Admin: 02/19/17 08:31 Dose: 40 mg Simethicone (Mylicon Chew Tab) 80 mg PO QID PRN PRN Reason: Flatulence Last Admin: 02/18/17 21:08 Dose: 80 mg Zolpidem Tartrate (Ambien) 5 mg PO HS PRN PRN Reason: Sleep Last Admin: 02/18/17 21:09 Dose: 5 mg - Labs Labs: 02/19/17 06:50 02/19/17 06:50 PT 14.7 Seconds (9.8-13.1) H 02/14/17 11:15 INR 1.3 (0.9-1.2) H 02/14/17 11:15 APTT 38.9 Seconds (25.6-37.1) H 02/14/17 11:15 - GI/Abdominal Exam GI & Abdominal Exam: Soft, Normal Bowel Sounds Assessment and Plan - Assessment and Plan (Free Text) Assessment: 66 yo male with colostomy dc planning outpatient colonoscopy
[2017-02-19 12:38] LABS: BANDS 2 % (0-2); EOSINOPHIL 2 % (0-7); LYMPHOCYTE 2 % (20-50); MONOCYTE 7 % (0-10); NEUTROPHIL 85 % (42-75); REACTIVE LYMPHOCYTES 2 % (0-0); TOTAL CELLS COUNTED 100
[2017-02-19 12:42] LABS: PLATELET ESTIMATE INCREASED (NORMAL)
[2017-02-20] MEDS: Piperacillin/Tazobact 3.375 GM in Sodium Chloride 0.9% 100 ML IVPB SCH ×4 (00:25→19:37)
[2017-02-20] MEDS: Potassium Chl 20mEq & D5W 1,000 ML IV SCH ×3 (01:11→17:21)
[2017-02-20] MEDS: Lactated Ringer's 500 ML IV SCH ×4 (04:35→17:25)
[2017-02-20 07:06] LABS: BASO % 0.4 % (0.0-2.0); EOS # 0.4 K/uL (0.0-0.7); EOS % 2.7 % (0.0-4.0); HEMOGLOBIN 13.5 g/dL (12.0-18.0); LYMPH # 1.7 K/uL (1.0-4.3); LYMPH % 12.7 % (20.0-40.0); MEAN CELL VOLUME 90.3 fl (80.0-94.0); MEAN CORPUSCULAR HEMOGLOBIN 30.9 pg (27.0-31.0); MEAN CORPUSCULAR HGB CONC 34.2 g/dL (33.0-37.0); MEAN PLATELET VOLUME 7.5 fl (7.2-11.7); MONO # 0.7 K/uL (0.0-0.8); MONO % 5.2 % (0.0-10.0); NEUT # 10.4 K/uL (1.8-7.0); NRBC % 0.1 % (0.0-0.0); RBC 4.38 Mil/uL (4.40-5.90); RED CELL DISTRIBUTION WIDTH 13.9 % (11.5-14.5); WHITE BLOOD COUNT 13.2 K/uL (4.8-10.8)
--- NOTE | 2017-02-20 07:17 | CP.PCM.PN ---
Subjective - Date & Time of Evaluation Date of Evaluation: 02/20/17 Time of Evaluation: : - Subjective Subjective: pt doing well, w/o complaitns at present. no f/c, n/v/d. pt states that has some problems initiating urine flow. bw noted case d/c w/ surgery team. Objective - Vital Signs/Intake and Output Vital Signs (last 24 hours): Temp Pulse Resp BP Pulse Ox 98.3 F 87 18 123/76 95 02/20/17 00:38 02/20/17 00:38 02/20/17 00:38 02/20/17 00:38 02/20/17 00:38 Intake and Output: 02/20/17 02/20/17 06:59 18:59 Output Total 60 Balance -60 - Medications Medications: Current Medications Amlodipine Besylate (Norvasc) 10 mg PO DAILY [facility] Last Admin: 02/19/17 08:28 Dose: 10 mg Atorvastatin Calcium (Lipitor) 20 mg PO DAILY [facility] Last Admin: 02/19/17 08:28 Dose: 20 mg Bupropion HCl (Wellbutrin) 75 mg PO Q12H [facility] Last Admin: 02/20/17 01:09 Dose: 75 mg Diphenhydramine HCl (Benadryl) 25 mg PO HS PRN PRN Reason: Insomnia Last Admin: 02/17/17 21:42 Dose: 25 mg Enoxaparin Sodium (Lovenox) 40 mg SC DAILY [facility] PRN Reason: Protocol Last Admin: 02/19/17 08:28 Dose: 40 mg Home Med (Bupropion Xl [Wellbutrin Xl]) 150 mg PO DAILY [facility] Hydromorphone HCl (Dilaudid) 0.5 mg IVP Q4 PRN PRN Reason: Pain, moderate (4-7) Last Admin: 02/19/17 21:36 Dose: 0.5 mg Lactated Ringer's (Lactated Ringer's 500ml) 500 mls @ 100 mls/hr IV .Q5H [facility] Last Admin: 02/20/17 04:35 Dose: Not Given Piperacillin Sod/Tazobactam (Sod 3.375 gm/ Sodium Chloride) 100 mls @ 100 mls/ hr IVPB Q6H [facility] Last Admin: 02/20/17 06:11 Dose: 100 mls/hr Potassium Chloride/Dextrose (Potassium Chl 20 Meq In D5w) 1,000 mls @ 100 mls/ hr IV .Q10H [facility] Stop: 02/20/17 20:20 Last Admin: 02/20/17 05:55 Dose: Not Given Vancomycin HCl 1 gm/ Sodium (Chloride) 250 mls @ 166.667 mls/hr IVPB Q12@0100, 1300 [facility] Last Admin: 02/20/17 01:10 Dose: 166.667 mls/hr Losartan Potassium (Cozaar) 25 mg PO DAILY [facility] Last Admin: 02/19/17 08:28 Dose: 25 mg Metoclopramide HCl (Reglan) 10 mg IVP Q8 PRN PRN Reason: Hiccups Last Admin: 02/16/17 23:44 Dose: 10 mg Ondansetron HCl (Zofran Inj) 4 mg IVP Q4 PRN PRN Reason: Nausea/Vomiting Last Admin: 02/19/17 03:56 Dose: 4 mg Pantoprazole Sodium (Protonix Inj) 40 mg IVP DAILY [facility] Last Admin: 02/19/17 08:31 Dose: 40 mg Simethicone (Mylicon Chew Tab) 80 mg PO QID PRN PRN Reason: Flatulence Last Admin: 02/18/17 21:08 Dose: 80 mg Zolpidem Tartrate (Ambien) 5 mg PO HS PRN PRN Reason: Sleep Last Admin: 02/19/17 21:25 Dose: 5 mg - Labs Labs: 02/19/17 06:50 02/19/17 06:50 PT 14.7 Seconds (9.8-13.1) H 02/14/17 11:15 INR 1.3 (0.9-1.2) H 02/14/17 11:15 APTT 38.9 Seconds (25.6-37.1) H 02/14/17 11:15 - Constitutional Appears: Well, Non-toxic, No Acute Distress - Head Exam Head Exam: ATRAUMATIC, NORMAL INSPECTION, NORMOCEPHALIC - Eye Exam Eye Exam: EOMI, Normal appearance, PERRL Pupil Exam: NORMAL ACCOMODATION, PERRL - ENT Exam ENT Exam: Mucous Membranes Moist, Normal Exam - Neck Exam Neck Exam: Full ROM, Normal Inspection. absent: Lymphadenopathy - Respiratory Exam Respiratory Exam: Clear to Ausculation Bilateral, NORMAL BREATHING PATTERN - Cardiovascular Exam Cardiovascular Exam: REGULAR RHYTHM, RRR, +S1, +S2. absent: Murmur Additional comments: serous d/c from wound - GI/Abdominal Exam GI & Abdominal Exam: Soft, Normal Bowel Sounds. absent: Tenderness - Extremities Exam Extremities Exam: Full ROM, Normal Capillary Refill, Normal Inspection. absent : Joint Swelling, Pedal Edema - Back Exam Back Exam: NORMAL INSPECTION - Neurological Exam Neurological Exam: Alert, Awake, CN II-XII Intact, Normal Gait, Oriented x3 - Psychiatric Exam Psychiatric exam: Normal Affect, Normal Mood - Skin Skin Exam: Dry, Intact, Normal Color, Warm Assessment and Plan (1) Perforated sigmoid colon Status: Acute (2) DVT prophylaxis Status: Acute (3) HTN (hypertension) Status: Chronic - Assessment and Plan (Free Text) Assessment: (1) Perforated sigmoid colon Assessment & Plan: ??tcu cont zosyn, pain/nausea control cont to monitor bw po as liu wbc trending up, will dc w/ surgery, add vanco, cont anbx for now wbc back down to 13 Status: Acute (2) DVT prophylaxis Assessment & Plan: scd and aehose ambulation lovenox Status: Acute (3) HTN (hypertension) Assessment & Plan: cont current po meds monitor bp Status: Chronic 8-olkinvybw-jpkjyk prn-improving 5-tlwhrrsuqog-rvea, ivf w/ kcl, monitor k- 6-kidney stone, hydration, will monitor, no further pain, states having problems initating flow, psa, urine and c/s
[2017-02-20 07:24] LABS: ALB/GLOB RATIO 1.2 (1.0-2.1); ALBUMIN 3.3 g/dL (3.5-5.0); ALT/SGPT 40 U/L (21-72); AST/SGOT 48 U/L (17-59); BLOOD UREA NITROGEN 8 mg/dl (9-20); CALCIUM 8.8 mg/dL (8.4-10.2); GFR AFRICAN-AMERICAN > 60; GFR NON-AFRICAN AMERICAN > 60
[2017-02-20] MEDS ORDERED: Iohexol 240 (50 ml) PO ONE (07:50)
--- NOTE | 2017-02-20 08:32 | CP.PCM.PN ---
Subjective - Date & Time of Evaluation Date of Evaluation: 02/20/17 Time of Evaluation: 06:30 - Subjective Subjective: GENERAL SURGERY PROGRESS NOTE FOR DR. STARK Patient seen and examined at bedside. He is doing well, denies fever or chills. He is tolerating low residue diet and denies nausea or vomiting. He is having regular bowel movements into the colostomy now. He is ambulating a lot, with PT and on his own. Collin drain had 90cc output over past 24 hours Objective - Vital Signs/Intake and Output Vital Signs (last 24 hours): Temp Pulse Resp BP Pulse Ox 98.4 F 72 20 134/81 98 02/20/17 08:17 02/20/17 08:17 02/20/17 08:17 02/20/17 08:17 02/20/17 08:17 Intake and Output: 02/20/17 02/20/17 06:59 18:59 Output Total 60 Balance -60 - Medications Medications: Current Medications Amlodipine Besylate (Norvasc) 10 mg PO DAILY [facility] Last Admin: 02/19/17 08:28 Dose: 10 mg Atorvastatin Calcium (Lipitor) 20 mg PO DAILY [facility] Last Admin: 02/19/17 08:28 Dose: 20 mg Bupropion HCl (Wellbutrin) 75 mg PO Q12H [facility] Last Admin: 02/20/17 01:09 Dose: 75 mg Diphenhydramine HCl (Benadryl) 25 mg PO HS PRN PRN Reason: Insomnia Last Admin: 02/17/17 21:42 Dose: 25 mg Enoxaparin Sodium (Lovenox) 40 mg SC DAILY [facility] PRN Reason: Protocol Last Admin: 02/19/17 08:28 Dose: 40 mg Home Med (Bupropion Xl [Wellbutrin Xl]) 150 mg PO DAILY [facility] Hydromorphone HCl (Dilaudid) 0.5 mg IVP Q4 PRN PRN Reason: Pain, moderate (4-7) Last Admin: 02/19/17 21:36 Dose: 0.5 mg Lactated Ringer's (Lactated Ringer's 500ml) 500 mls @ 100 mls/hr IV .Q5H [facility] Last Admin: 02/20/17 04:35 Dose: Not Given Piperacillin Sod/Tazobactam (Sod 3.375 gm/ Sodium Chloride) 100 mls @ 100 mls/ hr IVPB Q6H [facility] Last Admin: 02/20/17 06:11 Dose: 100 mls/hr Potassium Chloride/Dextrose (Potassium Chl 20 Meq In D5w) 1,000 mls @ 100 mls/ hr IV .Q10H [facility] Stop: 02/20/17 20:20 Last Admin: 02/20/17 05:55 Dose: Not Given Vancomycin HCl 1 gm/ Sodium (Chloride) 250 mls @ 166.667 mls/hr IVPB Q12@0100, 1300 [facility] Last Admin: 02/20/17 01:10 Dose: 166.667 mls/hr Losartan Potassium (Cozaar) 25 mg PO DAILY [facility] Last Admin: 02/19/17 08:28 Dose: 25 mg Metoclopramide HCl (Reglan) 10 mg IVP Q8 PRN PRN Reason: Hiccups Last Admin: 02/16/17 23:44 Dose: 10 mg Ondansetron HCl (Zofran Inj) 4 mg IVP Q4 PRN PRN Reason: Nausea/Vomiting Last Admin: 02/19/17 03:56 Dose: 4 mg Pantoprazole Sodium (Protonix Inj) 40 mg IVP DAILY [facility] Last Admin: 02/19/17 08:31 Dose: 40 mg Simethicone (Mylicon Chew Tab) 80 mg PO QID PRN PRN Reason: Flatulence Last Admin: 02/18/17 21:08 Dose: 80 mg Zolpidem Tartrate (Ambien) 5 mg PO HS PRN PRN Reason: Sleep Last Admin: 02/19/17 21:25 Dose: 5 mg - Labs Labs: 02/20/17 05:30 02/20/17 05:30 PT 14.7 Seconds (9.8-13.1) H 02/14/17 11:15 INR 1.3 (0.9-1.2) H 02/14/17 11:15 APTT 38.9 Seconds (25.6-37.1) H 02/14/17 11:15 - Constitutional Appears: Non-toxic, No Acute Distress - Head Exam Head Exam: ATRAUMATIC, NORMAL INSPECTION - Eye Exam Eye Exam: EOMI, Normal appearance - Respiratory Exam Respiratory Exam: NORMAL BREATHING PATTERN. absent: Respiratory Distress - Cardiovascular Exam Cardiovascular Exam: +S1, +S2 - GI/Abdominal Exam GI & Abdominal Exam: Soft. absent: Distended, Firm, Guarding, Rigid, Tenderness , Rebound Additional comments: Isra in place over midline incision, small amount serous drainage between isra Collin drain in place with 90cc output over past 24 hours - Neurological Exam Neurological Exam: Alert, Awake, Oriented x3 - Psychiatric Exam Psychiatric exam: Normal Affect, Normal Mood - Skin Skin Exam: Dry, Normal Color, Warm Assessment and Plan - Assessment and Plan (Free Text) Assessment: 66yo M with perforated sigmoid diverticulitis s/p Hartmanns POD#6 - Afebrile, VSS - WBC decreased to 13.2 from 16.1 yesterday - Tolerating low residue diet - Having regular stool output into colostomy - Continue Abx - Ordered repeat CT with PO and IV contrast to rule out intra-abdominal abscess formation - Discussed plan with Dr. Primo Encarnacion PGY-3
[2017-02-20] MEDS: Enoxaparin 40 mg Syringe SC SCH (08:47)
--- NOTE | 2017-02-20 13:21 | CP.PCM.PN ---
Subjective - Date & Time of Evaluation Date of Evaluation: 02/20/17 Time of Evaluation: 13:20 - Subjective Subjective: doing well Objective - Vital Signs/Intake and Output Vital Signs (last 24 hours): Temp Pulse Resp BP Pulse Ox 98.4 F 72 20 134/81 98 02/20/17 08:17 02/20/17 08:47 02/20/17 08:17 02/20/17 08:47 02/20/17 08:17 Intake and Output: 02/20/17 02/20/17 06:59 18:59 Output Total 60 Balance -60 - Medications Medications: Current Medications Amlodipine Besylate (Norvasc) 10 mg PO DAILY [facility] Last Admin: 02/20/17 08:47 Dose: 10 mg Atorvastatin Calcium (Lipitor) 20 mg PO DAILY [facility] Last Admin: 02/20/17 08:47 Dose: 20 mg Bupropion HCl (Wellbutrin) 75 mg PO Q12H [facility] Last Admin: 02/20/17 01:09 Dose: 75 mg Diphenhydramine HCl (Benadryl) 25 mg PO HS PRN PRN Reason: Insomnia Last Admin: 02/17/17 21:42 Dose: 25 mg Enoxaparin Sodium (Lovenox) 40 mg SC DAILY [facility] PRN Reason: Protocol Last Admin: 02/20/17 08:47 Dose: 40 mg Home Med (Bupropion Xl [Wellbutrin Xl]) 150 mg PO DAILY [facility] Hydromorphone HCl (Dilaudid) 0.5 mg IVP Q4 PRN PRN Reason: Pain, moderate (4-7) Last Admin: 02/19/17 21:36 Dose: 0.5 mg Lactated Ringer's (Lactated Ringer's 500ml) 500 mls @ 100 mls/hr IV .Q5H [facility] Last Admin: 02/20/17 10:20 Dose: Not Given Piperacillin Sod/Tazobactam (Sod 3.375 gm/ Sodium Chloride) 100 mls @ 100 mls/ hr IVPB Q6H [facility] Last Admin: 02/20/17 12:13 Dose: 100 mls/hr Potassium Chloride/Dextrose (Potassium Chl 20 Meq In D5w) 1,000 mls @ 100 mls/ hr IV .Q10H [facility] Stop: 02/20/17 20:20 Last Admin: 02/20/17 05:55 Dose: Not Given Vancomycin HCl 1 gm/ Sodium (Chloride) 250 mls @ 166.667 mls/hr IVPB Q12@0100, 1300 [facility] Last Admin: 02/20/17 01:10 Dose: 166.667 mls/hr Losartan Potassium (Cozaar) 25 mg PO DAILY [facility] Last Admin: 02/20/17 08:47 Dose: 25 mg Metoclopramide HCl (Reglan) 10 mg IVP Q8 PRN PRN Reason: Hiccups Last Admin: 02/16/17 23:44 Dose: 10 mg Ondansetron HCl (Zofran Inj) 4 mg IVP Q4 PRN PRN Reason: Nausea/Vomiting Last Admin: 02/19/17 03:56 Dose: 4 mg Pantoprazole Sodium (Protonix Inj) 40 mg IVP DAILY [facility] Last Admin: 02/20/17 08:48 Dose: 40 mg Simethicone (Mylicon Chew Tab) 80 mg PO QID PRN PRN Reason: Flatulence Last Admin: 02/18/17 21:08 Dose: 80 mg Zolpidem Tartrate (Ambien) 5 mg PO HS PRN PRN Reason: Sleep Last Admin: 02/19/17 21:25 Dose: 5 mg - Labs Labs: 02/20/17 05:30 02/20/17 05:30 PT 14.7 Seconds (9.8-13.1) H 02/14/17 11:15 INR 1.3 (0.9-1.2) H 02/14/17 11:15 APTT 38.9 Seconds (25.6-37.1) H 02/14/17 11:15 - GI/Abdominal Exam GI & Abdominal Exam: Soft, Normal Bowel Sounds Assessment and Plan - Assessment and Plan (Free Text) Assessment: 66 yo male with diverticulitis abx ct today
[2017-02-20 14:01] LABS: URINE BILIRUBIN NEGATIVE (NEGATIVE); URINE BLOOD NEGATIVE (NEGATIVE); URINE CLARITY CLEAR (Clear); URINE COLOR YELLOW (YELLOW); URINE GLUCOSE (UA) NEG (Normal); URINE LEUKOCYTE ESTERASE NEG Leu/uL (Negative); URINE NITRATE NEGATIVE (NEGATIVE); URINE PROTEIN NEGATIVE (NEGATIVE); URINE UROBILINOGEN 0.2-1.0 mg/dL (0.2-1.0)
[2017-02-20] MEDS ORDERED: Iohexol 300 100 ML IJ ONE ×2 (14:20)
[2017-02-20] MEDS ORDERED: Sodium Chloride 0.9% 50 ML IV ONE (14:22)
--- NOTE | 2017-02-20 15:20 | CT ---
PROCEDURE: CT Abdomen and Pelvis with contrast HISTORY: s/p Mulu's POD6, r/o intrabdominal abscess COMPARISON: Multiple serial examinations preceding the most recent study: 05/16/2017. TECHNIQUE: Contrast dose: 95 cc Omnipaque 300 Radiation dose: Total exam DLP = 562.12 mGy-cm. This CT exam was performed using one or more of the following dose reduction techniques: Automated exposure control, adjustment of the mA and/or kV according to patient size, and/or use of iterative reconstruction technique. FINDINGS: LOWER THORAX: Unremarkable. LIVER: Unremarkable. No gross lesion or ductal dilatation. GALLBLADDER AND BILE DUCTS: Unremarkable. PANCREAS: Unremarkable. No gross lesion or ductal dilatation. SPLEEN: Unremarkable. ADRENALS: Unremarkable. No mass. KIDNEYS AND URETERS: Unremarkable. No hydronephrosis. No solid mass. Incidental finding(s): Stable small simple renal cysts VASCULATURE: Unremarkable. No aortic aneurysm. BOWEL: Extensive postoperative changes following colostomy and Mulu pouch. No evidence of residual abscess in the pelvis. Dilated loops of small bowel likely postoperative ileus. The on these dilated loops of pelvic small bowel ileum, terminal ileum and ileocecal valve region normal. APPENDIX: No abnormalities to suggest acute appendicitis. No right lower quadrant inflammatory processes identified. PERITONEUM: Unremarkable. No free fluid. No free air. Intra-abdominal fluid identified on the prior study has resolved. LYMPH NODES: Unremarkable. No enlarged lymph nodes. BLADDER: Unremarkable. REPRODUCTIVE: Unremarkable. BONES: No acute fracture. OTHER FINDINGS: Surgical drain in the pelvis. Collections identified in the pelvis. IMPRESSION: Satisfactory postoperative status. No residual abscess identified.
[2017-02-20] MEDS: Oxycodone/Acetaminophen 5/325 mg Tab PO PRN (16:15)
[2017-02-20] MEDS: HYDROmorphone 0.5 mg/0.5 ml ISec IVP PRN (21:49)
[2017-02-21] MEDS: Piperacillin/Tazobact 3.375 GM in Sodium Chloride 0.9% 100 ML IVPB SCH ×3 (00:09→12:45)
[2017-02-21 07:01] LABS: BASO # 0.1 K/uL (0.0-0.2); BASO % 0.5 % (0.0-2.0); EOS # 0.3 K/uL (0.0-0.7); EOS % 3.2 % (0.0-4.0); LYMPH # 1.6 K/uL (1.0-4.3); LYMPH % 15.5 % (20.0-40.0); MEAN CELL VOLUME 90.5 fl (80.0-94.0); MEAN CORPUSCULAR HEMOGLOBIN 30.9 pg (27.0-31.0); MEAN CORPUSCULAR HGB CONC 34.1 g/dL (33.0-37.0); MEAN PLATELET VOLUME 7.6 fl (7.2-11.7); MONO # 0.6 K/uL (0.0-0.8); MONO % 5.9 % (0.0-10.0); NEUT # 7.8 K/uL (1.8-7.0); NEUT % 74.9 % (50.0-75.0); NRBC % 0.1 % (0.0-0.0); RBC 4.52 Mil/uL (4.40-5.90); RED CELL DISTRIBUTION WIDTH 13.8 % (11.5-14.5); WHITE BLOOD COUNT 10.4 K/uL (4.8-10.8)
--- NOTE | 2017-02-21 07:14 | CP.PCM.PN ---
Subjective - Date & Time of Evaluation Date of Evaluation: 02/21/17 Time of Evaluation: : - Subjective Subjective: pt doing well, w/o complaitns at present. no f/c, n/v/d. bw noted case d/c w/ surgery team. am labs pending final dispo pending. ct abd negative Objective - Vital Signs/Intake and Output Vital Signs (last 24 hours): Temp Pulse Resp BP Pulse Ox 98.2 F 68 20 126/82 99 02/21/17 00:30 02/21/17 00:30 02/21/17 00:30 02/21/17 00:30 02/21/17 00:30 Intake and Output: 02/21/17 02/21/17 06:59 18:59 Output Total 15 Balance -15 - Medications Medications: Current Medications Amlodipine Besylate (Norvasc) 10 mg PO DAILY [facility] Last Admin: 02/20/17 08:47 Dose: 10 mg Atorvastatin Calcium (Lipitor) 20 mg PO DAILY [facility] Last Admin: 02/20/17 08:47 Dose: 20 mg Bupropion HCl (Wellbutrin) 75 mg PO Q12H [facility] Last Admin: 02/21/17 00:11 Dose: 75 mg Diphenhydramine HCl (Benadryl) 25 mg PO HS PRN PRN Reason: Insomnia Last Admin: 02/20/17 21:46 Dose: 25 mg Enoxaparin Sodium (Lovenox) 40 mg SC DAILY [facility] PRN Reason: Protocol Last Admin: 02/20/17 08:47 Dose: 40 mg Home Med (Bupropion Xl [Wellbutrin Xl]) 150 mg PO DAILY [facility] Hydromorphone HCl (Dilaudid) 0.5 mg IVP Q4 PRN PRN Reason: Pain, moderate (4-7) Last Admin: 02/20/17 21:49 Dose: 0.5 mg Lactated Ringer's (Lactated Ringer's 500ml) 500 mls @ 100 mls/hr IV .Q5H [facility]S [facility] Last Admin: 02/20/17 17:25 Dose: Not Given Piperacillin Sod/Tazobactam (Sod 3.375 gm/ Sodium Chloride) 100 mls @ 100 mls/ hr IVPB Q6H [facility] Last Admin: 02/21/17 07:03 Dose: 100 mls/hr Vancomycin HCl 1 gm/ Sodium (Chloride) 250 mls @ 166.667 mls/hr IVPB Q12@0400, 1600 [facility]S [facility] Last Admin: 02/21/17 05:05 Dose: 166.667 mls/hr Losartan Potassium (Cozaar) 25 mg PO DAILY [facility] Last Admin: 02/20/17 08:47 Dose: 25 mg Metoclopramide HCl (Reglan) 10 mg IVP Q8 PRN PRN Reason: Hiccups Last Admin: 02/16/17 23:44 Dose: 10 mg Ondansetron HCl (Zofran Inj) 4 mg IVP Q4 PRN PRN Reason: Nausea/Vomiting Last Admin: 02/19/17 03:56 Dose: 4 mg Oxycodone/Acetaminophen (Percocet 5/325 Mg Tab) 1 tab PO Q6 PRN PRN Reason: Pain, moderate (4-7) Stop: 02/23/17 16:10 Last Admin: 02/20/17 16:15 Dose: 1 tab Pantoprazole Sodium (Protonix Inj) 40 mg IVP DAILY [facility] Last Admin: 02/20/17 08:48 Dose: 40 mg Simethicone (Mylicon Chew Tab) 80 mg PO QID PRN PRN Reason: Flatulence Last Admin: 02/18/17 21:08 Dose: 80 mg Zolpidem Tartrate (Ambien) 5 mg PO HS PRN PRN Reason: Sleep Last Admin: 02/19/17 21:25 Dose: 5 mg - Labs Labs: 02/20/17 05:30 02/20/17 05:30 PT 14.7 Seconds (9.8-13.1) H 02/14/17 11:15 INR 1.3 (0.9-1.2) H 02/14/17 11:15 APTT 38.9 Seconds (25.6-37.1) H 02/14/17 11:15 - Constitutional Appears: Well, Non-toxic, No Acute Distress - Head Exam Head Exam: ATRAUMATIC, NORMAL INSPECTION, NORMOCEPHALIC - Eye Exam Eye Exam: EOMI, Normal appearance, PERRL Pupil Exam: NORMAL ACCOMODATION, PERRL - ENT Exam ENT Exam: Mucous Membranes Moist, Normal Exam - Neck Exam Neck Exam: Full ROM, Normal Inspection. absent: Lymphadenopathy - Respiratory Exam Respiratory Exam: Clear to Ausculation Bilateral, NORMAL BREATHING PATTERN - Cardiovascular Exam Cardiovascular Exam: REGULAR RHYTHM, RRR, +S1, +S2. absent: Murmur - GI/Abdominal Exam GI & Abdominal Exam: Soft, Normal Bowel Sounds. absent: Tenderness Additional comments: dsg c/d/i ostomy functioning - Extremities Exam Extremities Exam: Full ROM, Normal Capillary Refill, Normal Inspection. absent : Joint Swelling, Pedal Edema - Back Exam Back Exam: NORMAL INSPECTION - Neurological Exam Neurological Exam: Alert, Awake, CN II-XII Intact, Normal Gait, Oriented x3 - Psychiatric Exam Psychiatric exam: Normal Affect, Normal Mood - Skin Skin Exam: Dry, Intact, Normal Color, Warm Assessment and Plan (1) Perforated sigmoid colon Status: Acute (2) DVT prophylaxis Status: Acute (3) HTN (hypertension) Status: Chronic - Assessment and Plan (Free Text) Assessment: (1) Perforated sigmoid colon Assessment & Plan: ??tcu cont zosyn/vanco, pain/nausea control cont to monitor bw po as liu-doing well w/ low residue am labs pending Status: Acute (2) DVT prophylaxis Assessment & Plan: scd and aehose ambulation lovenox Status: Acute (3) HTN (hypertension) Assessment & Plan: cont current po meds monitor bp Status: Chronic 9-wnvtfjbkd-nylgot acn-tmwharvhy-xg furthe rcomplaints 3-ijcipmgxwvh-ypoh, ivf w/ kcl, monitor k-noramlized 02/20 6-kidney stone, hydration, will monitor, no further pain, states having problems initating flow, psa, urine and c/s-ua negative, no furthe rcomplaints, pending c/s
[2017-02-21] MEDS ORDERED: KCL 40MEQ/NS 1L 1,000 ML IV SCH (07:15)
[2017-02-21 07:20] LABS: ALB/GLOB RATIO 1.2 (1.0-2.1); ALBUMIN 3.5 g/dL (3.5-5.0); ALT/SGPT 53 U/L (21-72); AST/SGOT 56 U/L (17-59); BLOOD UREA NITROGEN 9 mg/dl (9-20); CALCIUM 8.9 mg/dL (8.4-10.2); GFR AFRICAN-AMERICAN > 60; GFR NON-AFRICAN AMERICAN > 60
[2017-02-21] MEDS: HYDROmorphone 0.5 mg/0.5 ml ISec IVP PRN (09:45)
[2017-02-21] MEDS: Enoxaparin 40 mg Syringe SC SCH (09:51)
--- NOTE | 2017-02-21 09:55 | CP.PCM.PN ---
<Zaina Encarnacion - Last Filed: 02/21/17 10:51> Subjective - Date & Time of Evaluation Date of Evaluation: 02/21/17 Time of Evaluation: 08:00 - Subjective Subjective: GENERAL SURGERY PROGRESS NOTE FOR DR. RODRIGUEZ Patient seen and examined with Dr. Rodriguez at bedside. Patient was seen ambulating in the halls on his own. He states that he has some abdominal pain. He is tolerating low residue diet and denies nausea or vomiting. He is having regular bowel movements into the colostomy bag. He continues to ambulate with PT and on his own. Collin drain had 15cc serous output over past 24 hours. Objective - Vital Signs/Intake and Output Vital Signs (last 24 hours): Temp Pulse Resp BP Pulse Ox 98.1 F 76 20 133/89 100 02/21/17 07:48 02/21/17 09:50 02/21/17 07:48 02/21/17 09:50 02/21/17 07:48 Intake and Output: 02/21/17 02/21/17 06:59 18:59 Output Total 15 Balance -15 - Medications Medications: Current Medications Amlodipine Besylate (Norvasc) 10 mg PO DAILY [facility] Last Admin: 02/21/17 09:50 Dose: 10 mg Atorvastatin Calcium (Lipitor) 20 mg PO DAILY [facility] Last Admin: 02/21/17 09:51 Dose: 20 mg Bupropion HCl (Wellbutrin) 75 mg PO Q12H [facility] Last Admin: 02/21/17 00:11 Dose: 75 mg Diphenhydramine HCl (Benadryl) 25 mg PO HS PRN PRN Reason: Insomnia Last Admin: 02/20/17 21:46 Dose: 25 mg Enoxaparin Sodium (Lovenox) 40 mg SC DAILY [facility] PRN Reason: Protocol Last Admin: 02/21/17 09:51 Dose: 40 mg Home Med (Bupropion Xl [Wellbutrin Xl]) 150 mg PO DAILY [facility] Hydromorphone HCl (Dilaudid) 0.5 mg IVP Q4 PRN PRN Reason: Pain, moderate (4-7) Last Admin: 02/21/17 09:45 Dose: 0.5 mg Lactated Ringer's (Lactated Ringer's 500ml) 500 mls @ 100 mls/hr IV .Q5H [facility] Last Admin: 02/20/17 17:25 Dose: Not Given Piperacillin Sod/Tazobactam (Sod 3.375 gm/ Sodium Chloride) 100 mls @ 100 mls/ hr IVPB Q6H [facility] Last Admin: 02/21/17 07:03 Dose: 100 mls/hr Vancomycin HCl 1 gm/ Sodium (Chloride) 250 mls @ 166.667 mls/hr IVPB Q12@0400, 1600 [facility] Last Admin: 02/21/17 05:05 Dose: 166.667 mls/hr Oral Electrolytes (Kcl 40meq/ 0.9% 1l) 1,000 mls @ 100 mls/hr IV .Q10H [facility] Stop: 02/22/17 07:16 Losartan Potassium (Cozaar) 25 mg PO DAILY [facility] Last Admin: 02/21/17 09:50 Dose: 25 mg Metoclopramide HCl (Reglan) 10 mg IVP Q8 PRN PRN Reason: Hiccups Last Admin: 02/16/17 23:44 Dose: 10 mg Ondansetron HCl (Zofran Inj) 4 mg IVP Q4 PRN PRN Reason: Nausea/Vomiting Last Admin: 02/19/17 03:56 Dose: 4 mg Oxycodone/Acetaminophen (Percocet 5/325 Mg Tab) 1 tab PO Q6 PRN PRN Reason: Pain, moderate (4-7) Stop: 02/23/17 16:10 Last Admin: 02/20/17 16:15 Dose: 1 tab Pantoprazole Sodium (Protonix Inj) 40 mg IVP DAILY [facility] Last Admin: 02/21/17 09:52 Dose: 40 mg Simethicone (Mylicon Chew Tab) 80 mg PO QID PRN PRN Reason: Flatulence Last Admin: 02/18/17 21:08 Dose: 80 mg Zolpidem Tartrate (Ambien) 5 mg PO HS PRN PRN Reason: Sleep Last Admin: 02/19/17 21:25 Dose: 5 mg - Labs Labs: 02/21/17 05:30 02/21/17 05:30 PT 14.7 Seconds (9.8-13.1) H 02/14/17 11:15 INR 1.3 (0.9-1.2) H 02/14/17 11:15 APTT 38.9 Seconds (25.6-37.1) H 02/14/17 11:15 - Constitutional Appears: Non-toxic, No Acute Distress - Head Exam Head Exam: ATRAUMATIC, NORMAL INSPECTION - Eye Exam Eye Exam: EOMI, Normal appearance - Respiratory Exam Respiratory Exam: NORMAL BREATHING PATTERN. absent: Respiratory Distress - Cardiovascular Exam Cardiovascular Exam: +S1, +S2 - GI/Abdominal Exam GI & Abdominal Exam: Soft. absent: Distended, Firm, Guarding, Rigid, Tenderness , Rebound Additional comments: Collin drain in place with 15cc serous drainage over past [address] [place] [address] over midline incision, small amount serous drainage between saadia - Neurological Exam Neurological Exam: Alert, Awake, Oriented x3 - Psychiatric Exam Psychiatric exam: Normal Affect, Normal Mood - Skin Skin Exam: Dry, Normal Color, Warm Assessment and Plan - Assessment and Plan (Free Text) Assessment: 66yo M with perforated sigmoid diverticulitis s/p Hartmanns POD#7 - Afebrile, VSS - WBC decreased to to normal today, WBC 10.4 - Tolerating low residue diet - Having regular stool output into colostomy - Continue Abx - Repeat CT yesterday showed no residual abscess. - Collin drain had 15cc serous drainage over past 24 hours, we removed drain today - Clear for DC from surgical standpoint to TCU or to home - If discharge home, should take Augment 875/125mg PO Q12 hours for 1 week after discharge - Follow up with Dr. Rodriguez in his office in 1 week for staple removal. Call to make appointment - Discussed plan with Dr. Michael Encarnacion PGY-3 <Don Rodriguez - Last Filed: 02/21/17 10:53> Subjective - Date & Time of Evaluation Time of Evaluation: 10:00 - Subjective Subjective: Patient was seen and examined at the bedside. Agree with resident's note above Objective - Vital Signs/Intake and Output Vital Signs (last 24 hours): Temp Pulse Resp BP Pulse Ox 98.1 F 76 20 133/89 100 02/21/17 07:48 02/21/17 09:50 02/21/17 07:48 02/21/17 09:50 02/21/17 07:48 Intake and Output: 02/21/17 02/21/17 06:59 18:59 Output Total 15 Balance -15 - Medications Medications: Current Medications Amlodipine Besylate (Norvasc) 10 mg PO DAILY [facility] Last Admin: 02/21/17 09:50 Dose: 10 mg Atorvastatin Calcium (Lipitor) 20 mg PO DAILY [facility] Last Admin: 02/21/17 09:51 Dose: 20 mg Bupropion HCl (Wellbutrin) 75 mg PO Q12H [facility] Last Admin: 02/21/17 00:11 Dose: 75 mg Diphenhydramine HCl (Benadryl) 25 mg PO HS PRN PRN Reason: Insomnia Last Admin: 02/20/17 21:46 Dose: 25 mg Enoxaparin Sodium (Lovenox) 40 mg SC DAILY [facility] PRN Reason: Protocol Last Admin: 02/21/17 09:51 Dose: 40 mg Home Med (Bupropion Xl [Wellbutrin Xl]) 150 mg PO DAILY [facility] Hydromorphone HCl (Dilaudid) 0.5 mg IVP Q4 PRN PRN Reason: Pain, moderate (4-7) Last Admin: 02/21/17 09:45 Dose: 0.5 mg Lactated Ringer's (Lactated Ringer's 500ml) 500 mls @ 100 mls/hr IV .Q5H [facility] Last Admin: 02/20/17 17:25 Dose: Not Given Piperacillin Sod/Tazobactam (Sod 3.375 gm/ Sodium Chloride) 100 mls @ 100 mls/ hr IVPB Q6H [facility] Last Admin: 02/21/17 07:03 Dose: 100 mls/hr Vancomycin HCl 1 gm/ Sodium (Chloride) 250 mls @ 166.667 mls/hr IVPB Q12@0400, 1600 [facility] Last Admin: 02/21/17 05:05 Dose: 166.667 mls/hr Oral Electrolytes (Kcl 40meq/ 0.9% 1l) 1,000 mls @ 100 mls/hr IV .Q10H [facility] Stop: 02/22/17 07:16 Losartan Potassium (Cozaar) 25 mg PO DAILY [facility] Last Admin: 02/21/17 09:50 Dose: 25 mg Metoclopramide HCl (Reglan) 10 mg IVP Q8 PRN PRN Reason: Hiccups Last Admin: 02/16/17 23:44 Dose: 10 mg Ondansetron HCl (Zofran Inj) 4 mg IVP Q4 PRN PRN Reason: Nausea/Vomiting Last Admin: 02/19/17 03:56 Dose: 4 mg Oxycodone/Acetaminophen (Percocet 5/325 Mg Tab) 1 tab PO Q6 PRN PRN Reason: Pain, moderate (4-7) Stop: 02/23/17 16:10 Last Admin: 02/20/17 16:15 Dose: 1 tab Pantoprazole Sodium (Protonix Inj) 40 mg IVP DAILY [facility] Last Admin: 02/21/17 09:52 Dose: 40 mg Simethicone (Mylicon Chew Tab) 80 mg PO QID PRN PRN Reason: Flatulence Last Admin: 02/18/17 21:08 Dose: 80 mg Zolpidem Tartrate (Ambien) 5 mg PO HS PRN PRN Reason: Sleep Last Admin: 02/19/17 21:25 Dose: 5 mg - Labs Labs: 02/21/17 05:30 02/21/17 05:30 PT 14.7 Seconds (9.8-13.1) H 02/14/17 11:15 INR 1.3 (0.9-1.2) H 02/14/17 11:15 APTT 38.9 Seconds (25.6-37.1) H 02/14/17 11:15
[2017-02-21] MEDS: Lactated Ringer's 500 ML IV SCH (10:54)
[2017-02-21] MEDS: Oxycodone/Acetaminophen 5/325 mg Tab PO PRN (14:50)
[2017-02-21 15:41] VITALS: BP 106/73; PULSE 71; RESP 18; TEMP 97.7; O2SAT 99
--- NOTE | 2017-02-21 17:45 | CP.PCM.PN ---
Subjective - Date & Time of Evaluation Date of Evaluation: 02/21/17 Time of Evaluation: 17:40 - Subjective Subjective: doing well Objective - Vital Signs/Intake and Output Vital Signs (last 24 hours): Temp Pulse Resp BP Pulse Ox 97.7 F 71 18 106/73 99 02/21/17 15:40 02/21/17 15:40 02/21/17 15:40 02/21/17 15:40 02/21/17 15:40 Intake and Output: 02/21/17 02/21/17 06:59 18:59 Output Total 15 Balance -15 - Medications Medications: Current Medications Amlodipine Besylate (Norvasc) 10 mg PO DAILY [facility] Last Admin: 02/21/17 09:50 Dose: 10 mg Atorvastatin Calcium (Lipitor) 20 mg PO DAILY [facility] Last Admin: 02/21/17 09:51 Dose: 20 mg Bupropion HCl (Wellbutrin) 75 mg PO Q12H [facility] Last Admin: 02/21/17 12:46 Dose: 75 mg Diphenhydramine HCl (Benadryl) 25 mg PO HS PRN PRN Reason: Insomnia Last Admin: 02/20/17 21:46 Dose: 25 mg Enoxaparin Sodium (Lovenox) 40 mg SC DAILY [facility] PRN Reason: Protocol Last Admin: 02/21/17 09:51 Dose: 40 mg Home Med (Bupropion Xl [Wellbutrin Xl]) 150 mg PO DAILY [facility] Lactated Ringer's (Lactated Ringer's 500ml) 500 mls @ 100 mls/hr IV .Q5H [facility] Last Admin: 02/21/17 10:54 Dose: Not Given Piperacillin Sod/Tazobactam (Sod 3.375 gm/ Sodium Chloride) 100 mls @ 100 mls/ hr IVPB Q6H [facility] Last Admin: 02/21/17 12:45 Dose: 100 mls/hr Vancomycin HCl 1 gm/ Sodium (Chloride) 250 mls @ 166.667 mls/hr IVPB Q12@0400, 1600 [facility] Last Admin: 02/21/17 05:05 Dose: 166.667 mls/hr Oral Electrolytes (Kcl 40meq/ 0.9% 1l) 1,000 mls @ 100 mls/hr IV .Q10H [facility] Stop: 02/22/17 07:16 Last Admin: 02/21/17 11:04 Dose: 100 mls/hr Losartan Potassium (Cozaar) 25 mg PO DAILY [facility] Last Admin: 02/21/17 09:50 Dose: 25 mg Metoclopramide HCl (Reglan) 10 mg IVP Q8 PRN PRN Reason: Hiccups Last Admin: 02/16/17 23:44 Dose: 10 mg Ondansetron HCl (Zofran Inj) 4 mg IVP Q4 PRN PRN Reason: Nausea/Vomiting Last Admin: 02/19/17 03:56 Dose: 4 mg Oxycodone/Acetaminophen (Percocet 5/325 Mg Tab) 1 tab PO Q6 PRN PRN Reason: Pain, moderate (4-7) Stop: 02/23/17 16:10 Last Admin: 02/21/17 14:50 Dose: 1 tab Pantoprazole Sodium (Protonix Inj) 40 mg IVP DAILY [facility] Last Admin: 02/21/17 09:52 Dose: 40 mg Simethicone (Mylicon Chew Tab) 80 mg PO QID PRN PRN Reason: Flatulence Last Admin: 02/18/17 21:08 Dose: 80 mg Zolpidem Tartrate (Ambien) 5 mg PO HS PRN PRN Reason: Sleep Last Admin: 02/19/17 21:25 Dose: 5 mg - Labs Labs: 02/21/17 05:30 02/21/17 05:30 PT 14.7 Seconds (9.8-13.1) H 02/14/17 11:15 INR 1.3 (0.9-1.2) H 02/14/17 11:15 APTT 38.9 Seconds (25.6-37.1) H 02/14/17 11:15 - GI/Abdominal Exam GI & Abdominal Exam: Soft, Normal Bowel Sounds Assessment and Plan - Assessment and Plan (Free Text) Assessment: 66 yo male with colostomy dc home outpt colonoscopy
--- NOTE | 2017-02-25 18:50 | CP.PCM.DIS ---
Provider - Provider Date of Admission: 02/10/17 02:25 Attending physician: Niall Barker MD Time Spent in preparation of Discharge (in minutes): 15 Diagnosis - Discharge Diagnosis (1) Perforated sigmoid colon Status: Acute (2) DVT prophylaxis Status: Acute (3) HTN (hypertension) Status: Chronic Hospital Course - Lab Results Lab Results: Micro Results 02/20/17 12:15 Urine,Clean Catch Urine Culture - Final No Growth (<1,000 CFU/ML) 02/12/17 15:19 Nose MRSA Culture (Admit) - Final MRSA NOT DETECTED 02/10/17 21:00 Naris MRSA Culture (Admit) - Final MRSA NOT DETECTED Most Recent Lab Values WBC 10.4 K/uL (4.8-10.8) 02/21/17 05:30 RBC 4.52 Mil/uL (4.40-5.90) 02/21/17 05:30 Hgb 14.0 g/dL (12.0-18.0) 02/21/17 05:30 Hct 40.9 % (35.0-51.0) 02/21/17 05:30 MCV 90.5 fl (80.0-94.0) 02/21/17 05:30 MCH 30.9 pg (27.0-31.0) 02/21/17 05:30 MCHC 34.1 g/dL (33.0-37.0) 02/21/17 05:30 RDW 13.8 % (11.5-14.5) 02/21/17 05:30 Plt Count 547 K/uL (130-400) H 02/21/17 05:30 MPV 7.6 fl (7.2-11.7) 02/21/17 05:30 Neut % (Auto) 74.9 % (50.0-75.0) 02/21/17 05:30 Lymph % (Auto) 15.5 % (20.0-40.0) L 02/21/17 05:30 Christian % (Auto) 5.9 % (0.0-10.0) 02/21/17 05:30 Eos % (Auto) 3.2 % (0.0-4.0) 02/21/17 05:30 Baso % (Auto) 0.5 % (0.0-2.0) 02/21/17 05:30 Neut # 7.8 K/uL (1.8-7.0) H 02/21/17 05:30 Lymph # 1.6 K/uL (1.0-4.3) 02/21/17 05:30 Christian # 0.6 K/uL (0.0-0.8) 02/21/17 05:30 Eos # 0.3 K/uL (0.0-0.7) 02/21/17 05:30 Baso # 0.1 K/uL (0.0-0.2) 02/21/17 05:30 Neutrophils % (Manual) 85 % (42-75) H 02/19/17 06:50 Band Neutrophils % 2 % (0-2) 02/19/17 06:50 Lymphocytes % (Manual) 2 % (20-50) L 02/19/17 06:50 Reactive Lymphs % 2 % (0-0) H 02/19/17 06:50 Monocytes % (Manual) 7 % (0-10) 02/19/17 06:50 Eosinophils % (Manual) 2 % (0-7) 02/19/17 06:50 Toxic Granulation Present 02/09/17 23:12 Platelet Estimate Increased (NORMAL) H 02/19/17 06:50 Plt Clumps, EDTA Present 02/09/17 23:12 Large Platelets Present 02/09/17 23:12 RBC Morphology Normal (NORMAL) 02/19/17 06:50 Spherocytes Slight 02/09/17 23:12 Tear Drop Cells Slight 02/14/17 05:25 PT 14.7 Seconds (9.8-13.1) H 02/14/17 11:15 INR 1.3 (0.9-1.2) H 02/14/17 11:15 APTT 38.9 Seconds (25.6-37.1) H 02/14/17 11:15 Sodium 137 mmol/l (132-148) 02/21/17 05:30 Potassium 3.7 MMOL/L (3.6-5.0) 02/21/17 05:30 Chloride 102 mmol/L (98-107) 02/21/17 05:30 Carbon Dioxide 24 mmol/L (22-30) 02/21/17 05:30 Anion Gap 15 (10-20) 02/21/17 05:30 BUN 9 mg/dl (9-20) 02/21/17 05:30 Creatinine 0.8 mg/dL (0.8-1.5) 02/21/17 05:30 Est GFR ( Amer) > 60 02/21/17 05:30 Est GFR (Non-Af Amer) > 60 02/21/17 05:30 POC Glucose (mg/dL) 82 mg/dL (65-110) 02/17/17 05:27 Random Glucose 90 mg/dL (75-110) 02/21/17 05:30 Calcium 8.9 mg/dL (8.4-10.2) 02/21/17 05:30 Total Bilirubin 0.5 mg/dl (0.2-1.3) 02/21/17 05:30 AST 56 U/L (17-59) 02/21/17 05:30 ALT 53 U/L (21-72) 02/21/17 05:30 Alkaline Phosphatase 53 U/L (38-126) 02/21/17 05:30 Total Protein 6.3 G/DL (6.3-8.2) 02/21/17 05:30 Albumin 3.5 g/dL (3.5-5.0) 02/21/17 05:30 Globulin 2.8 gm/dL (2.2-3.9) 02/21/17 05:30 Albumin/Globulin Ratio 1.2 (1.0-2.1) 02/21/17 05:30 Lipase 67 U/L (23-300) 02/13/17 08:13 Prostate Specific Ag 1.37 ng/ML (0.00-4.0) 02/21/17 05:30 Urine Color Yellow (YELLOW) 02/20/17 12:15 Urine Clarity Clear (Clear) 02/20/17 12:15 Urine pH 6.0 (5.0-8.0) 02/20/17 12:15 Ur Specific Export 1.011 (1.003-1.030) 02/20/17 12:15 Urine Protein Negative mg/dL (NEGATIVE) 02/20/17 12:15 Urine Glucose (UA) Neg mg/dL (Normal) 02/20/17 12:15 Urine Ketones Negative mg/dL (NEGATIVE) 02/20/17 12:15 Urine Blood Negative (NEGATIVE) 02/20/17 12:15 Urine Nitrate Negative (NEGATIVE) 02/20/17 12:15 Urine Bilirubin Negative (NEGATIVE) 02/20/17 12:15 Urine Urobilinogen 0.2-1.0 mg/dL (0.2-1.0) 02/20/17 12:15 Ur Leukocyte Esterase Neg Lilian/uL (Negative) 02/20/17 12:15 Urine RBC (Auto) 2 /hpf (0-3) 02/20/17 12:15 Urine Microscopic WBC 1 /hpf (0-5) 02/20/17 12:15 Blood Type A POSITIVE 02/14/17 11:15 Antibody Screen Negative 02/14/17 11:15 BBK History Checked Patient has bt 02/14/17 11:15 Discharge Exam - Head Exam Head Exam: ATRAUMATIC, NORMAL INSPECTION Discharge Plan - Discharge Medications Prescriptions: Amoxicillin/Clavulanate [Augmentin 875 MG-125 MG] 1 tab PO BID #14 tab oxyCODONE/Acetaminophen [Percocet 5/325 mg Tab] 1 tab PO Q6 PRN #12 tab PRN Reason: Pain, Moderate (4-7) - Follow Up Plan Condition: FAIR Disposition: HOME/ ROUTINE Instructions: Diverticulitis (DC), Colostomy Care (DC), Low Fiber Diet (GEN) Additional Instructions: for ostomy supplies: delivery available [facility] medical [facility] surgical supplies [address] [place] [address] Complete all antibiotics. F/u with your primary doctor and Dr. Rodriguez in 1 week. Avoid heavy lifting for 4 weeks final dx-perf diverticulum, s/p ostomy. f/u rmg, rted prn, gi outpt Referrals: Don Rodriguez MD [Staff Provider] -
--- NOTE | 2017-02-26 15:05 | OP ---
This is an operative dictation by Dr. Don Rodriguez for the patient Severiano Castro Date of Procedure: 02/14/2017 Preoperative Diagnosis: Perforated sigmoid diverticulitis. Postoperative Diagnosis: Perforated sigmoid diverticulitis. Purulent peritonitis Procedure: Exploratory laparotomy, (*Mulu) procedure. Surgeon: Michael. Hat Forming Machine Operator : Primo. Second Hat Forming Machine Operator Shashank. Anesthesiologist (*Opal). Anesthesia general endotracheal intubation, IV fluids (*crystalloids), estimated blood loss 50mL. Intraoperative findings perforated sigmoid diverticulitis, as well as, extensive adhesion to the sigmoid colon to the urinary bladder. Specimen of sigmoid colon. Brief history: Mr. Castro is a very pleasant 66-year-old gentleman, who is well known to me from his prior surgery, who presented to the hospital complaining of severe abdominal pain, and upon further investigation, patient was found to have acute diverticulitis. Patient initially was treated conservatively with antibiotics, (*) and IV fluids. However, during the course of several days, patient did not progress, and a repeat CAT scan was done. On the repeat CAT scan, there appeared to be a lot of fluid in the abdomen, ileus, as well as, free air, so the decision was made to take the patient to the operating room for exploratory laparotomy, all the risks and benefits of the procedure were explained to the patient, and with the patient having a full understanding of all the risks and benefits involved, informed consent was obtained and patient was taken to the operating room for the above stated procedure. Procedure: Patient was brought in to the operating room and placed supine on the operating table. B/L flowtron boots were applied the patient's lower extremities. After successful induction of anesthesia and successful endotracheal intubation by the anesthesia team, patient's abdomen was shaved, Holt catheter was inserted into the patient's urinary bladder, and subsequently , that patient's abdomen was prepped with chloraprep stick and draped in the standard surgical fashion prior to the beginning of the procedure timeout was called in the room and everyone in the room were in agreement. Using the 10- blade scalpel knife an approximately 15 cm incision was made below the umbilicus in the lower abdomen, longitudinal and subsequent to that, dissection was carried out with an electrocautery until the fascia was encountered. Fascial was transected with an electrocautery and two (*Aretha) clamps were placed on both ends of the fascia. At that point in time, fascia was opened up a little more and the peritoneal layer was encountered. Peritoneum was clamped with two (*Aretha) clamps and transected with Metzembaum scissors. At that point in time, patient's abdominal cavity was entered. The incision was fully opened up and there appeared to be purulent material in the abdomen that was suctioned out and abdominal cultures were obtained. At that point in time, attention was turned to the left lower quadrant of the patient's abdomen. Upon investigation of the colon, there appeared the sigmoid colon was severely inflamed and it was intimately stuck to the urinary bladder. Using finger (*blunt) dissection as well as sharp dissection with Metzembaum scissor the colon was dissected off the urinary bladder and at that point in time, we made the decision to divide the colon proximal to the diseased portion. A small nikia was made into the mesentery with an electrocautery and subsequent to that, a(*Aretha) clamp was placed through the mesentery and 75mm blue load IRENE staple was fired. Once this was accomplished, we continued dissection with an impact (*ligasure) taking the mesentery. We headed towards the pelvis. At that point in time, once the healthy colon was encountered, we made the decision to use a (*blue load) contour stapler to transect the colon distal to the disease. At that point in time, the contour stapler was fired. The specimen was freed up and passed off to the [place] stand. At that point in time, we opened up the specimen and there appeared to be a perforation at the antimesenteric border of the colon. At that point in time, our attention was turned back to the abdominal cavity. Abdomen was thoroughly washed out. Prior to transecting the colon, the left ureter was identified. The abdomen was washed and the pelvis, right lower, right upper as well as, left lower left upper quadrants. At that point in time, we made the decision to use #19 Collin drain placed in the pelvis and brought out through the abdominal wall in the right lower quadrant of the patient's abdomen and secured in place with zero silk suture. At that point in time, the urinary bladder was inspected. There didn't appear to be any holes in the urinary bladder, however there appeared to be some inflammatory tissue right on top of the bladder. This was approximated together with 3-0 Chromic sutures in an uninterrupted fashion. At that point in time, a small (*circular) incision was made on the left lower quadrant of the patient's abdomen for the colostomy and dissection was carried down with elctrocautery, until the anterior rectus sheath was encountered, anterior Rectus sheath was transected in a cruciate fashion and subsequent to that, muscle was encountered and retracted laterally, posterior Rectus sheath was encountered, another cruciate incision was made in the posterior Rectus sheath and I was able to pass two fingers through the opening of the colostomy. At that point in time, using the Babckock clamp, the descending colon was brought out through the opening and this point in time, Anthony clamps were placed in the fascia and using #1 loop PDS times 2, one from above, one from below, fascia layer was closed and suture was tied. At that point in time, wound was irrigated and skin was closed with saadia. Once this was accomplished, our attention was turned to colostomy. An enterotomy was made with electrocautery and colostomy was matured in a broke fashion at 12, 6, 9 and 3 o'clock positions. Once this was accomplished, colostomy was matured circumferentially with 3-0 monocryl suture in an interrupted fashion. The end of the procedure, colostomy was digitized and appeared to be (*patented). At that point in time, the patient's abdomen was washed and dried and Mestosol applied around colostomy and colostomy appliance to the anterior abdomen wall. Once this was accomplished, a clean dressing of 4x4s and some tape were applied to the abdominal incision , and a 4x4 and a medium size tegaderm was applied to the site of the insertion of the Collin train. At that point in time, patient was successfully extubated by the anesthesia team [facility], and taken to the recovery room in a stable condition. At the end of the procedure, our instrument count, needles, and sponges were correct. This concludes operative dictation by Dr. Don Rodriguez for the patient Severiano Castro. . End of dictation. [facility]
== END 2017-02-21 18:07 | disposition home or self-care (01) | DRG 330 ==
LOC: H.ER 22:35 → H.ERHOLD 02-10 02:25 → H.ICU/CCU 02-10 04:18 → H.MEDSURG1 02-12 13:43
PROVIDERS: ADMIT Family Medicine; ATTEND Family Medicine
PROC: 3E1M38Z Irrigation of Peritoneal Cavity using Irrigating Substance, Percutaneous Approach (ICD-10-PCS; 2017-02-14)
PROC: 0DBN0ZZ Excision of Sigmoid Colon, Open Approach (ICD-10-PCS; principal; 2017-02-14 13:30)
PROC: 0D1N0Z4 Bypass Sigmoid Colon to Cutaneous, Open Approach (ICD-10-PCS; 2017-02-14 13:30)
PROC: 0DNN0ZZ Release Sigmoid Colon, Open Approach (ICD-10-PCS; 2017-02-14 13:30)
DX: K57.20 Diverticulitis of large intestine with perforation and abscess without bleeding (principal); I10 Essential (primary) hypertension; G47.00 Insomnia, unspecified; E78.00 Pure hypercholesterolemia, unspecified; I25.10 Atherosclerotic heart disease of native coronary artery without angina pectoris; F32.9 Major depressive disorder, single episode, unspecified; K21.9 Gastro-esophageal reflux disease without esophagitis; E78.5 Hyperlipidemia, unspecified; E87.6 Hypokalemia; D72.819 Decreased white blood cell count, unspecified; G89.29 Other chronic pain; R06.6 Hiccough; N20.0 Calculus of kidney; K66.0 Peritoneal adhesions (postprocedural) (postinfection)

== ENCOUNTER 2017-06-19 06:15 | Inpatient (IN) | payer BC, OTHER ==
[2017-06-12 09:47] VITALS: BMI 23.9
[2017-06-19] MEDS ORDERED: Lactated Ringer's 1,000 ML IV ONE ×3 (07:03→09:30)
[2017-06-19] MEDS ORDERED: Rocuronium 10 mg/ml (5 ml) ONE (07:41)
[2017-06-19] MEDS ORDERED: Midazolam 2 MG/2 ML VIAL ONE (07:41)
[2017-06-19] MEDS ORDERED: Propofol 10 mg/ml Inj (20 ML) ONE (07:41)
[2017-06-19] MEDS ORDERED: Succinylcholine 200 mg/10 ml Inj IV ONE (07:41)
[2017-06-19] MEDS ORDERED: Neostigmine Methylsulfate 3mg/3ml Syringe IV ONE (07:42)
[2017-06-19] MEDS ORDERED: ceFAZolin IV 1 gm in Dextrose 1 GM/50 ML BAG IVPB ONE (08:00)
--- NOTE | 2017-06-19 08:07 | CP.SDSHP ---
Same Day Surgery H & P - History Proposed Procedure: Colostomy reversal Pre-Op Diagnosis: Diverticular disease - Allergies Allergies: Allergies No Known Allergies Allergy (Verified 02/09/17 23:02) - Physical Exam Vital Signs: Vital Signs 06/19/17 06/19/17 06/19/17 06:41 06:43 07:49 Temperature 98.2 F Pulse Rate 78 78 78 Respiratory 18 Rate Blood Pressure 99/67 L O2 Sat by Pulse 97 Oximetry Mental Status: Alert & Oriented x3 Neuro: WNL Heart: WNL Lungs: WNL GI: WNL - {Optional Preform as Required} Breast: WNL Abdomen: Other (NT, ND, BS+, soft, Colostomy in place, well healed scars from prior surgeries) Integument: WNL : WNL Ortho: WNL ENT: WNL - Impression Impression: Diverticular disease, colostomy Pt. Evaluated Today:Candidate for Anesthesia & Procedure: Yes - Date & Time Date: 06/19/17 Time: 08:00 Short Stay Discharge - Short Stay Discharge Admitting Diagnosis/Reason for Visit: K57.30 Disposition: HOME/ ROUTINE Referrals: Don Rodriguez MD [Primary Care Provider] -
[2017-06-19] MEDS ORDERED: Lactated Ringer's 500 ML IV ONE ×2 (09:00→10:00)
[2017-06-19] MEDS ORDERED: Oxycodone/Acetaminophen 5/325 mg Tab PO PRN (09:55)
--- NOTE | 2017-06-19 10:05 | PCM.SURG1 ---
Surgeon's Initial Post Op Note - Surgeon's Notes Surgeon: Michael Box Puller: Primo Type of Anesthesia: General Endo Anesthesia Administered By: Miriam Pre-Operative Diagnosis: Diverticular disease, colostomy Operative Findings: Intact anastomitic donuts Post-Operative Diagnosis: Same Operation Performed: Reversal of Mulu's procedure Specimen/Specimens Removed: Colostomy and anastomotic donuts Estimated Blood Loss: EBL {In ML}: 10 Blood Products Given: N/A Drains Used: No Drains Post-Op Condition: Good Date of Surgery/Procedure: 06/19/17 Time of Surgery/Procedure: 08:00
[2017-06-19] MEDS ORDERED: HYDROmorphone 0.5 mg/0.5 ml ISec ONE (10:11)
[2017-06-19] MEDS ORDERED: DiphenhydrAMINE 50 mg/ml Inj IVP PRN (10:14)
[2017-06-19] MEDS: HYDROmorphone 0.5 mg/0.5 ml ISec IVP PRN ×6 (10:17→20:55)
[2017-06-19] MEDS ORDERED: HYDROmorphone 0.5 mg/0.5 ml ISec IVP PRN (11:05)
[2017-06-19] MEDS: Lactated Ringer's 1,000 ML IV SCH ×2 (12:00→20:57)
--- NOTE | 2017-06-19 12:11 | OP ---
PROCEDURE DATE:06/19/2017 PREOPERATIVE DIAGNOSES: Diverticular disease, colostomy. POSTOPERATIVE DIAGNOSES: Diverticular disease, colostomy. PROCEDURE: Reversal of the Mulu procedure. SURGEON: Don Rodriguez MD FLOOR ASSOCIATE: Abhi Tillman MD. TYPE OF ANESTHESIA: General with endotracheal intubation. ANESTHESIA ADMINISTERED BY: Luis Fernando Garcia MD INTRAOPERATIVE FINDINGS: Intact anastomotic donuts from EEA stapler and no leak on anastomosis upon insufflation of the rectum. IV FLUIDS INTAKE: Crystalloids. ESTIMATED BLOOD LOSS: 10 mL. SPECIMEN: Colostomy and anastomotic donuts. BRIEF HISTORY: Mr. Castro is a very pleasant 66-year-old gentleman who is known to me from his prior surgeries, who several months ago underwent Mulu procedure for perforated diverticulitis and subsequent to that the patient underwent colonoscopy and that did not reveal any abnormalities in the colon, so the patient was brought back today for reversal of the colostomy. All the risks and benefits of the procedure were explained to the patient and with the patient having a full understanding of all the risks and benefits involved, informed consent was obtained and the patient was taken to the operating room for above-stated procedure. DESCRIPTION OF PROCEDURE: The patient was brought into the operating room and placed supine on the operating table. Bilateral Flowtron boots were applied to the patient's lower extremities. After successful induction of anesthesia and successful endotracheal intubation by the Anesthesia team, Holt catheter was inserted into the patient's urinary bladder and subsequent to that the patient was placed in the lithotomy position and at this point in time, the patient's abdomen was shaved and colostomy was closed with a running locking 2-0 nylon suture. Once this was accomplished, the patient's perineal area was prepped with Betadine and the abdomen was prepped with ChloraPrep stick and draped in a standard surgical fashion. Prior to the beginning of the procedure, the patient received prophylactic antibiotics and subsequent to that time-out was called in the room and everyone in the room were in agreement. Using 10 blade scalpel knife, approximately 15 cm incision was made infraumbilically in the longitudinal fashion through the scar from prior Mulu procedure. Subsequent to that, dissection was carried down with electrical cautery until the fascial layer was encountered. Fascia was transected and peritoneal layer was encountered that was transected. At that point in time, the patient's abdominal cavity was entered. The incision was opened up all the way and at this point in time, we encountered some adhesions of the small bowel to the anterior abdominal wall that was taken down sharply with Metzenbaum scissor. At this point in time, we located the rectal stump and that appeared to be relatively short, so at that point in time, we made a decision to use the EEA stapler for anastomosis. Once this was accomplished, our attention was turned to the side of the colostomy. Using 75 blue load IRENE stapler, the stapler was fired right across the colostomy from the inside right against the abdominal wall and once this was accomplished, the descending colon was brought down to the pelvis and it appeared to be relatively floppy so there was no need to do any further mobilization of the colon. At this point in time, I went down to the patient's perineal area and after sizing the rectum, we made a decision to use a 29 mm EEA stapler. At this point in time, enterotomy was made in the distal descending colon and subsequent to that the anvil of the stapler was introduced into the enterotomy, was brought out through the tinea of the colon and subsequent to that the defect was closed with TA 60 blue load stapler and at that point in time, the redundant colon was cut off with curved Roy. There appeared to be a little bit of oozing at the staple line that was oversewn with 3-0 chromic suture. Once this was accomplished, the EEA stapler was introduced into the patient's rectum and subsequent to that the spike was brought out through the rectal stump and the anvil and stapler were connected together and a click was heard. At that point in time, the stapler was closed and once the closure of the stapler was satisfactory, stapler was fired and at this point in time, it was released and retracted from the patient's rectum. At this point in time, I checked the anastomotic donuts that appeared to be intact. Donuts were sent off as a specimen and passed off from the operative field. At this point in time, the abdominal cavity was filled with saline and using the bulb it was removed from the rectum. The rectum and distal descending colon were insufflated and there appeared to be no bubbles at the anastomosis. At this point in time, fluid was suctioned out and our attention was turned to the side of the colostomy. The remainder of colostomy was cut out in a circular fashion until the fascial layer was visualized and was cut out with electrical cautery and passed off to the [facility] as a specimen. At that point in time, the fascial layer was closed from the inside with 2 [id number] #1 PDS sutures and 1 interrupted #1 PDS suture. At this point in time, the colostomy opening was closed from the outside with 3 [id number] #1 PDS sutures. Once this was accomplished, our attention was turned to the midline incision. Two Anthony clamps were placed on the midline incision and fascial layer was closed with 2-0 PDS looped sutures, one from above, one from below and tied in the middle. At this point in time, the wounds were irrigated and dried and the skin was closed with saadia. At that point in time, the patient's abdomen was washed and dried and a clean dressing with 4x4's and some tape were applied to the sites of the incision. The patient was successfully extubated by the Anesthesia team, [facility] and taken to the recovery room in a stable condition. At the end of the procedure, all instrument counts, needles and sponges were correct. Don Rodriguez MD
[2017-06-19] MEDS: Oxycodone/Acetaminophen 5/325 mg Tab PO PRN ×2 (13:18→19:00)
--- NOTE | 2017-06-19 14:32 | CP.PCM.CON ---
History of Present Illness - History of Present Illness History of Present Illness: pt seen and examined at bedside. nad. pt has h/o of htn, hl and diverticular disease here for reversal of christopher procedure by surgery. no new complaints. pain is being controlled. Review of Systems - Constitutional Constitutional: As Per HPI - EENT Eyes: As Per HPI Nose/Mouth/Throat: As Per HPI - Cardiovascular Cardiovascular: As Per HPI - Respiratory Respiratory: As Per HPI - Gastrointestinal Gastrointestinal: As Per HPI Past Patient History - Infectious Disease Hx of Infectious Diseases: None - Past Medical History & Family History Past Medical History?: Yes - Past Social History Smoking Status: Light Smoker < 10 Cigarettes Daily - CARDIAC Hx Cardiac Disorders: Yes (HTN, high cholesterol) Hx Hypercholesterolemia: Yes Hx Hypertension: Yes - PULMONARY Hx Respiratory Disorders: No - NEUROLOGICAL Hx Neurological Disorder: No - HEENT Hx HEENT Problems: No - RENAL Hx Chronic Kidney Disease: No - ENDOCRINE/METABOLIC Hx Endocrine Disorders: No - HEMATOLOGICAL/ONCOLOGICAL Hx Blood Disorders: No Hx AIDS: No Hx Human Immunodeficiency Virus (HIV): No - INTEGUMENTARY Hx Dermatological Problems: No - MUSCULOSKELETAL/RHEUMATOLOGICAL Hx Musculoskeletal Disorders: No Hx Falls: No Hx Herniated Disk: Yes (lumbar) - GASTROINTESTINAL Hx Gastrointestinal Disorders: Yes Hx Diverticulitis: Yes Hx Gastroesophageal Reflux: Yes - GENITOURINARY/GYNECOLOGICAL Hx Genitourinary Disorders: No - PSYCHIATRIC Hx Psychophysiologic Disorder: Yes (depression) Hx Depression: Yes Hx Substance Use: No - SURGICAL HISTORY Hx Surgeries: Yes Hx Herniorrhaphy: Yes (left Inguinal and Right femoral Hernia repair) Hx Tonsillectomy: Yes Other/Comment: EXPLORATORY LAPAROTOMY,(CHRISTOPHER PROCEDURE) - ANESTHESIA Hx Anesthesia: Yes Hx Anesthesia Reactions: No Hx Malignant Hyperthermia: No Has any member of the family had a problem w/ anesthesia?: No Meds Allergies/Adverse Reactions: Allergies Allergy/AdvReac Type Severity Reaction Status Date / Time No Known Allergies Allergy Verified 02/09/17 23:02 - Medications Medications: Current Medications Amlodipine Besylate (Norvasc) 10 mg PO DAILY [facility] Atorvastatin Calcium (Lipitor) 20 mg PO DAILY [facility] Home Med (Melatonin [Melatin]) 1 tab PO HS [facility] Hydromorphone HCl (Dilaudid) 1 mg IVP Q4 PRN PRN Reason: Pain, severe (8-10) Lactated Ringer's (Lactated Ringer's) 1,000 mls @ 125 mls/hr IV .Q8H [facility] Last Admin: 06/19/17 12:00 Dose: 0 mls Losartan Potassium (Cozaar) 25 mg PO DAILY [facility] Ondansetron HCl (Zofran Inj) 4 mg IVP Q6 PRN PRN Reason: Nausea/Vomiting Oxycodone/Acetaminophen (Percocet 5/325 Mg Tab) 1 tab PO Q4 PRN PRN Reason: Pain, Mild (1-3) Stop: 06/22/17 09:56 Oxycodone/Acetaminophen (Percocet 5/325 Mg Tab) 2 tab PO Q4 PRN PRN Reason: Pain, moderate (4-7) Stop: 06/22/17 10:03 Last Admin: 06/19/17 13:18 Dose: 2 tab Pantoprazole Sodium (Protonix Inj) 40 mg IVP DAILY [facility] Physical Exam - Constitutional Appears: Well - Head Exam Head Exam: ATRAUMATIC - Eye Exam Eye Exam: Normal appearance - ENT Exam ENT Exam: Mucous Membranes Moist - Respiratory Exam Respiratory Exam: Clear to Auscultation Bilateral, NORMAL BREATHING PATTERN - Cardiovascular Exam Cardiovascular Exam: REGULAR RHYTHM, +S1, +S2 - GI/Abdominal Exam GI & Abdominal Exam: Normal Bowel Sounds, Soft Results - Vital Signs Recent Vital Signs: Last Vital Signs Temp 97.3 F L 06/19/17 13:40 Pulse 80 06/19/17 13:40 Resp 18 06/19/17 13:40 BP 112/74 06/19/17 13:40 Pulse Ox 97 06/19/17 13:40 Assessment & Plan - Assessment and Plan (Free Text) Assessment: 1. s/p reversal of christopher procedure cont pain management diet as per surgery. 2. HTN controlled cont home meds 3. HL cont statin 4. DVT px scd
[2017-06-19] MEDS ORDERED: Patient's Own Med (Melatonin [Melatin] 1 TAB) PO SCH (22:00)
[2017-06-20] MEDS: HYDROmorphone 0.5 mg/0.5 ml ISec IVP PRN ×5 (00:56→21:56)
[2017-06-20] MEDS: Lactated Ringer's 1,000 ML IV SCH ×2 (04:01→05:12)
[2017-06-20] MEDS: Oxycodone/Acetaminophen 5/325 mg Tab PO PRN (05:10)
[2017-06-20 07:22] LABS: HEMATOCRIT 28.6 % (35.0-51.0); MEAN CORPUSCULAR HEMOGLOBIN 30.6 pg (27.0-31.0); MEAN CORPUSCULAR HGB CONC 35.6 g/dL (33.0-37.0); RED CELL DISTRIBUTION WIDTH 13.3 % (11.5-14.5)
[2017-06-20 07:38] LABS: BLOOD UREA NITROGEN 8 mg/dl (9-20); CALCIUM 8.2 mg/dL (8.4-10.2); CARBON DIOXIDE 28 mmol/L (22-30); CHLORIDE 102 mmol/L (98-107); GFR AFRICAN-AMERICAN > 60; GLUCOSE,RANDOM 80 mg/dL (75-110); POTASSIUM 3.4 MMOL/L (3.6-5.0); SODIUM 135 mmol/l (132-148)
--- NOTE | 2017-06-20 08:00 | CP.PCM.PN ---
<Carlita Mathewn - Last Filed: 06/20/17 07:58> Subjective - Date & Time of Evaluation Date of Evaluation: 06/20/17 Time of Evaluation: 07:10 - Subjective Subjective: General Surgery Patient seen and examined at bedside this morning. Patient states did not sleep well last night due to environment. leticia-incisional pain manageable with current regiment. +IC. Denies nausea, vomiting, flatus, chest pain, shortness of breath, fevers, chills. Objective - Vital Signs/Intake and Output Vital Signs (last 24 hours): Temp Pulse Resp BP Pulse Ox 98.5 F 80 19 117/73 95 06/20/17 05:00 06/20/17 05:00 06/20/17 05:00 06/20/17 05:00 06/20/17 05:00 Intake and Output: 06/20/17 06/20/17 06:59 18:59 Intake Total 1500 Output Total 650 Balance 850 - Medications Medications: Current Medications Amlodipine Besylate (Norvasc) 10 mg PO DAILY [facility] Atorvastatin Calcium (Lipitor) 20 mg PO DAILY [facility] Hydromorphone HCl (Dilaudid) 1 mg IVP Q4 PRN PRN Reason: Pain, severe (8-10) Last Admin: 06/20/17 00:56 Dose: 1 mg Lactated Ringer's (Lactated Ringer's) 1,000 mls @ 125 mls/hr IV .Q8H [facility] Last Admin: 06/20/17 05:12 Dose: 125 mls/hr Losartan Potassium (Cozaar) 25 mg PO DAILY [facility] Ondansetron HCl (Zofran Inj) 4 mg IVP Q6 PRN PRN Reason: Nausea/Vomiting Oxycodone/Acetaminophen (Percocet 5/325 Mg Tab) 1 tab PO Q4 PRN PRN Reason: Pain, Mild (1-3) Stop: 06/22/17 09:56 Oxycodone/Acetaminophen (Percocet 5/325 Mg Tab) 2 tab PO Q4 PRN PRN Reason: Pain, moderate (4-7) Stop: 06/22/17 10:03 Last Admin: 06/20/17 05:10 Dose: 2 tab Pantoprazole Sodium (Protonix Inj) 40 mg IVP DAILY [facility] - Labs Labs: 06/20/17 07:00 06/20/17 07:00 - Constitutional Appears: Non-toxic, No Acute Distress - Head Exam Head Exam: ATRAUMATIC - Eye Exam Eye Exam: EOMI - ENT Exam ENT Exam: Mucous Membranes Moist - Respiratory Exam Respiratory Exam: NORMAL BREATHING PATTERN. absent: Accessory Muscle Use, Chest Wall Tenderness, Respiratory Distress - Cardiovascular Exam Cardiovascular Exam: +S1, +S2. absent: Bradycardia, Tachycardia - GI/Abdominal Exam GI & Abdominal Exam: Guarding, Soft, Tenderness. absent: Firm, Rigid Additional comments: dressing on incision clean dry intact with minimal strikethrough. tender to palpation leticia-incision; voluntary guarding - Extremities Exam Extremities Exam: Normal Inspection. absent: Calf Tenderness - Neurological Exam Neurological Exam: Alert, Awake, Oriented x3 - Psychiatric Exam Psychiatric exam: Normal Affect, Normal Mood - Skin Skin Exam: Normal Color, Warm Assessment and Plan - Assessment and Plan (Free Text) Assessment: 66M s/p colostomy reversal due to perforated diverticulitis POD#1 Plan: - d/c vanegas - monitor bowel function return - encourage OOB and IC use - pain control and anti-emetic PRN - lyte replacement PRN - IVF - GI/DVT ppx - further recs per surgical attending French Mathew PGY1 <Don Rodriguez - Last Filed: 06/20/17 15:37> Subjective - Date & Time of Evaluation Time of Evaluation: 15:20 - Subjective Subjective: Patient was seen and examined at the bedside. Agree with resident's note above. Objective - Vital Signs/Intake and Output Vital Signs (last 24 hours): Temp Pulse Resp BP Pulse Ox 99.2 F 80 20 125/74 95 06/20/17 08:30 06/20/17 09:48 06/20/17 08:30 06/20/17 09:48 06/20/17 08:30 Intake and Output: 06/20/17 06/20/17 06:59 18:59 Intake Total 1500 Output Total 650 Balance 850 - Medications Medications: Current Medications Amlodipine Besylate (Norvasc) 10 mg PO DAILY [facility] Last Admin: 06/20/17 09:48 Dose: 10 mg Atorvastatin Calcium (Lipitor) 20 mg PO DAILY [facility] Last Admin: 06/20/17 09:47 Dose: 20 mg Diphenhydramine HCl (Benadryl) 25 mg IVP HS PRN PRN Reason: Sleep Enoxaparin Sodium (Lovenox) 40 mg SC DAILY [facility] PRN Reason: Protocol Hydromorphone HCl (Dilaudid) 1 mg IVP Q4 PRN PRN Reason: Pain, severe (8-10) Last Admin: 06/20/17 12:52 Dose: 1 mg Lactated Ringer's (Lactated Ringer's) 1,000 mls @ 125 mls/hr IV .Q8H [facility] Last Admin: 06/20/17 05:12 Dose: 125 mls/hr Potassium Chloride/Dextrose/Sod Cl (Potassium Chl 20 Meq In D5-1/2ns) 1,000 mls @ 100 mls/hr IV .Q10H [facility] Stop: 06/21/17 08:11 Last Admin: 06/20/17 09:48 Dose: 100 mls/hr Losartan Potassium (Cozaar) 25 mg PO DAILY [facility] Last Admin: 06/20/17 09:46 Dose: 25 mg Ondansetron HCl (Zofran Inj) 4 mg IVP Q6 PRN PRN Reason: Nausea/Vomiting Oxycodone/Acetaminophen (Percocet 5/325 Mg Tab) 1 tab PO Q4 PRN PRN Reason: Pain, Mild (1-3) Stop: 06/22/17 09:56 Oxycodone/Acetaminophen (Percocet 5/325 Mg Tab) 2 tab PO Q4 PRN PRN Reason: Pain, moderate (4-7) Stop: 06/22/17 10:03 Last Admin: 06/20/17 05:10 Dose: 2 tab Pantoprazole Sodium (Protonix Inj) 40 mg IVP DAILY [facility] Last Admin: 06/20/17 09:48 Dose: 40 mg - Labs Labs: 06/20/17 07:00 06/20/17 07:00
[2017-06-20] MEDS: Potassium Ch 20mEq in D5-1/2NS 1,000 ML IV SCH ×2 (09:48→21:53)
--- NOTE | 2017-06-20 12:11 | CP.PCM.PN ---
Subjective - Date & Time of Evaluation Date of Evaluation: 06/20/17 Time of Evaluation: 10:00 - Subjective Subjective: pt seen and examined at bedside. nad. pt is stable. still npo with ice chips, no vomiting. pain is better controlled. no new complaints. Objective - Vital Signs/Intake and Output Vital Signs (last 24 hours): Temp Pulse Resp BP Pulse Ox 99.2 F 80 20 125/74 95 06/20/17 08:30 06/20/17 09:48 06/20/17 08:30 06/20/17 09:48 06/20/17 08:30 Intake and Output: 06/20/17 06/20/17 06:59 18:59 Intake Total 1500 Output Total 650 Balance 850 - Medications Medications: Current Medications Amlodipine Besylate (Norvasc) 10 mg PO DAILY [facility] Last Admin: 06/20/17 09:48 Dose: 10 mg Atorvastatin Calcium (Lipitor) 20 mg PO DAILY [facility] Last Admin: 06/20/17 09:47 Dose: 20 mg Enoxaparin Sodium (Lovenox) 40 mg SC DAILY [facility] PRN Reason: Protocol Hydromorphone HCl (Dilaudid) 1 mg IVP Q4 PRN PRN Reason: Pain, severe (8-10) Last Admin: 06/20/17 08:16 Dose: 1 mg Lactated Ringer's (Lactated Ringer's) 1,000 mls @ 125 mls/hr IV .Q8H [facility] Last Admin: 06/20/17 05:12 Dose: 125 mls/hr Potassium Chloride/Dextrose/Sod Cl (Potassium Chl 20 Meq In D5-1/2ns) 1,000 mls @ 100 mls/hr IV .Q10H [facility] Stop: 06/21/17 08:11 Last Admin: 06/20/17 09:48 Dose: 100 mls/hr Losartan Potassium (Cozaar) 25 mg PO DAILY [facility] Last Admin: 06/20/17 09:46 Dose: 25 mg Ondansetron HCl (Zofran Inj) 4 mg IVP Q6 PRN PRN Reason: Nausea/Vomiting Oxycodone/Acetaminophen (Percocet 5/325 Mg Tab) 1 tab PO Q4 PRN PRN Reason: Pain, Mild (1-3) Stop: 06/22/17 09:56 Oxycodone/Acetaminophen (Percocet 5/325 Mg Tab) 2 tab PO Q4 PRN PRN Reason: Pain, moderate (4-7) Stop: 06/22/17 10:03 Last Admin: 06/20/17 05:10 Dose: 2 tab Pantoprazole Sodium (Protonix Inj) 40 mg IVP DAILY [facility] Last Admin: 06/20/17 09:48 Dose: 40 mg - Labs Labs: 06/20/17 07:00 06/20/17 07:00 - Head Exam Head Exam: NORMAL INSPECTION - Eye Exam Eye Exam: Normal appearance Pupil Exam: NORMAL ACCOMODATION - ENT Exam ENT Exam: Mucous Membranes Moist - Respiratory Exam Respiratory Exam: Clear to Ausculation Bilateral - Cardiovascular Exam Cardiovascular Exam: REGULAR RHYTHM, +S1, +S2 - GI/Abdominal Exam GI & Abdominal Exam: Normal Bowel Sounds - Extremities Exam Extremities Exam: Full ROM Assessment and Plan - Assessment and Plan (Free Text) Assessment: 1. s/p reversal of christopher procedure cont pain management diet as per surgery. 2. HTN controlled cont home meds 3. HL cont statin 4. DVT px scd 5. hypokalemia will replete lytes
[2017-06-20] MEDS: Enoxaparin 40 mg Syringe SC SCH (17:15)
[2017-06-21] MEDS: DiphenhydrAMINE 50 mg/ml Inj IVP PRN ×2 (00:41→22:08)
[2017-06-21] MEDS: Lactated Ringer's 1,000 ML IV SCH ×2 (02:00→11:58)
[2017-06-21] MEDS: Potassium Ch 20mEq in D5-1/2NS 1,000 ML IV SCH (04:03)
[2017-06-21] MEDS: HYDROmorphone 0.5 mg/0.5 ml ISec IVP PRN ×3 (06:02→22:01)
[2017-06-21 06:11] LABS: HEMATOCRIT 27.1 % (35.0-51.0); MEAN CELL VOLUME 87.4 fl (80.0-94.0); MEAN CORPUSCULAR HEMOGLOBIN 30.2 pg (27.0-31.0); MEAN CORPUSCULAR HGB CONC 34.5 g/dL (33.0-37.0); RED CELL DISTRIBUTION WIDTH 13.3 % (11.5-14.5); WHITE BLOOD COUNT 7.4 K/uL (4.8-10.8)
[2017-06-21 07:12] LABS: BLOOD UREA NITROGEN 5 mg/dl (9-20); CALCIUM 8.3 mg/dL (8.4-10.2); CARBON DIOXIDE 28 mmol/L (22-30); CHLORIDE 103 mmol/L (98-107); GFR AFRICAN-AMERICAN > 60; GLUCOSE,RANDOM 100 mg/dL (75-110); POTASSIUM 3.2 MMOL/L (3.6-5.0); SODIUM 137 mmol/l (132-148)
[2017-06-21] MEDS ORDERED: Potassium Chloride 20 mEq ER Tab PO ONE (08:01)
--- NOTE | 2017-06-21 08:30 | CP.PCM.PN ---
<Quang Cruz Mily - Last Filed: 06/21/17 08:27> Subjective - Date & Time of Evaluation Date of Evaluation: 06/21/17 Time of Evaluation: 08:27 - Subjective Subjective: Gen Surg: Dr Rodriguez Pt S&E. No acute events overnight. Pain well controlled. Slept better with benadryl. Denies N/V, F/C. OOB and ambulating, using IS. Continues to have hiccups. Objective - Vital Signs/Intake and Output Vital Signs (last 24 hours): Temp Pulse Resp BP Pulse Ox 98.9 F 81 19 112/68 95 06/21/17 05:00 06/21/17 05:00 06/21/17 05:00 06/21/17 05:00 06/21/17 05:00 Intake and Output: 06/21/17 06/21/17 06:59 18:59 Output Total 300 Balance -300 - Medications Medications: Current Medications Amlodipine Besylate (Norvasc) 10 mg PO DAILY [facility] Last Admin: 06/20/17 09:48 Dose: 10 mg Atorvastatin Calcium (Lipitor) 20 mg PO DAILY [facility] Last Admin: 06/20/17 09:47 Dose: 20 mg Diphenhydramine HCl (Benadryl) 25 mg IVP HS PRN PRN Reason: Sleep Last Admin: 06/21/17 00:41 Dose: 25 mg Enoxaparin Sodium (Lovenox) 40 mg SC DAILY [facility] PRN Reason: Protocol Last Admin: 06/20/17 17:15 Dose: 40 mg Hydromorphone HCl (Dilaudid) 1 mg IVP Q4 PRN PRN Reason: Pain, severe (8-10) Last Admin: 06/21/17 06:02 Dose: 1 mg Lactated Ringer's (Lactated Ringer's) 1,000 mls @ 125 mls/hr IV .Q8H [facility] Last Admin: 06/21/17 02:00 Dose: Not Given Losartan Potassium (Cozaar) 25 mg PO DAILY [facility] Last Admin: 06/20/17 09:46 Dose: 25 mg Ondansetron HCl (Zofran Inj) 4 mg IVP Q6 PRN PRN Reason: Nausea/Vomiting Oxycodone/Acetaminophen (Percocet 5/325 Mg Tab) 1 tab PO Q4 PRN PRN Reason: Pain, Mild (1-3) Stop: 06/22/17 09:56 Oxycodone/Acetaminophen (Percocet 5/325 Mg Tab) 2 tab PO Q4 PRN PRN Reason: Pain, moderate (4-7) Stop: 06/22/17 10:03 Last Admin: 06/20/17 05:10 Dose: 2 tab Pantoprazole Sodium (Protonix Inj) 40 mg IVP DAILY [facility] Last Admin: 06/20/17 09:48 Dose: 40 mg Potassium Chloride (Klor-Con 10) 40 meq PO ONCE ONE Stop: 06/21/17 08:02 - Labs Labs: 06/21/17 05:20 06/21/17 05:20 - Constitutional Appears: Non-toxic, No Acute Distress - Eye Exam Eye Exam: Normal appearance. absent: Scleral icterus - ENT Exam ENT Exam: Mucous Membranes Moist - Respiratory Exam Respiratory Exam: absent: Accessory Muscle Use, Respiratory Distress - Cardiovascular Exam Cardiovascular Exam: REGULAR RHYTHM. absent: Tachycardia - GI/Abdominal Exam GI & Abdominal Exam: Soft, Tenderness (post-op and appropriate). absent: Distended, Firm, Guarding Additional comments: midline dressing with minimal staining, will change this afternoon when attending present - Neurological Exam Neurological Exam: Alert, Awake, Oriented x3 - Psychiatric Exam Psychiatric exam: Normal Affect, Normal Mood - Skin Skin Exam: Normal Color, Warm Assessment and Plan - Assessment and Plan (Free Text) Assessment: 66M POD#2 s/p reversal of Mulu's Plan: continue pain management and anti-emetics PRN encourage IS and ambulation D/C Reglan - to early post-op for use per attendings preferences continue to monitor for flatus NPO w/ ice chips at this time d/w Dr Michael Cruz, PGY3 <Don Rodriguez - Last Filed: 06/21/17 10:19> Subjective - Date & Time of Evaluation Time of Evaluation: 10:00 - Subjective Subjective: Patient was seen and examined at the bedside. Agree with resident's note above. Objective - Vital Signs/Intake and Output Vital Signs (last 24 hours): Temp Pulse Resp BP Pulse Ox 98 F 103 H 20 106/68 95 06/21/17 08:45 06/21/17 09:01 06/21/17 08:45 06/21/17 09:01 06/21/17 08:45 Intake and Output: 06/21/17 06/21/17 06:59 18:59 Output Total 300 Balance -300 - Medications Medications: Current Medications Amlodipine Besylate (Norvasc) 10 mg PO DAILY [facility] Last Admin: 06/21/17 09:01 Dose: 10 mg Atorvastatin Calcium (Lipitor) 20 mg PO DAILY [facility] Last Admin: 06/21/17 09:01 Dose: 20 mg Diphenhydramine HCl (Benadryl) 25 mg IVP HS PRN PRN Reason: Sleep Last Admin: 06/21/17 00:41 Dose: 25 mg Enoxaparin Sodium (Lovenox) 40 mg SC DAILY [facility] PRN Reason: Protocol Last Admin: 06/21/17 09:00 Dose: 40 mg Hydromorphone HCl (Dilaudid) 1 mg IVP Q4 PRN PRN Reason: Pain, severe (8-10) Last Admin: 06/21/17 06:02 Dose: 1 mg Lactated Ringer's (Lactated Ringer's) 1,000 mls @ 125 mls/hr IV .Q8H [facility] Last Admin: 06/21/17 02:00 Dose: Not Given Losartan Potassium (Cozaar) 25 mg PO DAILY [facility] Last Admin: 06/21/17 09:01 Dose: 25 mg Ondansetron HCl (Zofran Inj) 4 mg IVP Q6 PRN PRN Reason: Nausea/Vomiting Oxycodone/Acetaminophen (Percocet 5/325 Mg Tab) 1 tab PO Q4 PRN PRN Reason: Pain, Mild (1-3) Stop: 06/22/17 09:56 Oxycodone/Acetaminophen (Percocet 5/325 Mg Tab) 2 tab PO Q4 PRN PRN Reason: Pain, moderate (4-7) Stop: 06/22/17 10:03 Last Admin: 06/21/17 09:00 Dose: 2 tab Pantoprazole Sodium (Protonix Inj) 40 mg IVP DAILY [facility] Last Admin: 06/21/17 09:01 Dose: 40 mg - Labs Labs: 06/21/17 05:20 06/21/17 05:20 - GI/Abdominal Exam Additional comments: Soft, mild leticia-incisional tenderness, ND, BS hypoactive, no rebound, no guarding, incisions clean, no erythema, no drainage, saadia in place Assessment and Plan - Assessment and Plan (Free Text) Plan: - Start clear liquid diet - pain control - Zofran prn - Replace potassium - IV fluids - Insentive spirometry - DVT ppx - Out of bed and ambulate - repeat labs in am
[2017-06-21] MEDS: Oxycodone/Acetaminophen 5/325 mg Tab PO PRN ×2 (09:00→17:39)
[2017-06-21] MEDS: Enoxaparin 40 mg Syringe SC SCH (09:00)
--- NOTE | 2017-06-21 11:34 | CP.PCM.PN ---
Subjective - Date & Time of Evaluation Date of Evaluation: 06/21/17 Time of Evaluation: 10:00 - Subjective Subjective: pt seen and examined at bedside. nad. c/o hiccups, improved with reglan. Objective - Vital Signs/Intake and Output Vital Signs (last 24 hours): Temp Pulse Resp BP Pulse Ox 98 F 103 H 20 106/68 95 06/21/17 08:45 06/21/17 09:01 06/21/17 08:45 06/21/17 09:01 06/21/17 08:45 Intake and Output: 06/21/17 06/21/17 06:59 18:59 Output Total 300 Balance -300 - Medications Medications: Current Medications Amlodipine Besylate (Norvasc) 10 mg PO DAILY [facility] Last Admin: 06/21/17 09:01 Dose: 10 mg Atorvastatin Calcium (Lipitor) 20 mg PO DAILY [facility] Last Admin: 06/21/17 09:01 Dose: 20 mg Diphenhydramine HCl (Benadryl) 25 mg IVP HS PRN PRN Reason: Sleep Last Admin: 06/21/17 00:41 Dose: 25 mg Diphenhydramine HCl (Benadryl) 25 mg PO HS PRN PRN Reason: Insomnia Enoxaparin Sodium (Lovenox) 40 mg SC DAILY [facility] PRN Reason: Protocol Last Admin: 06/21/17 09:00 Dose: 40 mg Hydromorphone HCl (Dilaudid) 1 mg IVP Q4 PRN PRN Reason: Pain, severe (8-10) Last Admin: 06/21/17 06:02 Dose: 1 mg Lactated Ringer's (Lactated Ringer's) 1,000 mls @ 125 mls/hr IV .Q8H [facility] Last Admin: 06/21/17 02:00 Dose: Not Given Losartan Potassium (Cozaar) 25 mg PO DAILY [facility] Last Admin: 06/21/17 09:01 Dose: 25 mg Metoclopramide HCl (Reglan) 10 mg IVP Q6 PRN PRN Reason: Nausea/Vomiting Ondansetron HCl (Zofran Inj) 4 mg IVP Q6 PRN PRN Reason: Nausea/Vomiting Oxycodone/Acetaminophen (Percocet 5/325 Mg Tab) 1 tab PO Q4 PRN PRN Reason: Pain, Mild (1-3) Stop: 06/22/17 09:56 Oxycodone/Acetaminophen (Percocet 5/325 Mg Tab) 2 tab PO Q4 PRN PRN Reason: Pain, moderate (4-7) Stop: 06/22/17 10:03 Last Admin: 06/21/17 09:00 Dose: 2 tab Pantoprazole Sodium (Protonix Inj) 40 mg IVP DAILY [facility] Last Admin: 06/21/17 09:01 Dose: 40 mg - Labs Labs: 06/21/17 05:20 06/21/17 05:20 Assessment and Plan - Assessment and Plan (Free Text) Assessment: 1. s/p reversal of christopher procedure cont pain management diet as per surgery. 2. HTN controlled cont home meds 3. HL cont statin 4. DVT px scd 5. hiccups cont reglan prn 6. insomnia benadryl prn
[2017-06-22] MEDS: HYDROmorphone 0.5 mg/0.5 ml ISec IVP PRN ×3 (01:49→10:00)
[2017-06-22] MEDS: Lactated Ringer's 1,000 ML IV SCH ×2 (02:26→10:01)
[2017-06-22 07:19] LABS: HEMATOCRIT 28.1 % (35.0-51.0); MEAN CELL VOLUME 87.2 fl (80.0-94.0); MEAN CORPUSCULAR HGB CONC 34.4 g/dL (33.0-37.0); RED CELL DISTRIBUTION WIDTH 13.3 % (11.5-14.5)
[2017-06-22 07:41] LABS: BLOOD UREA NITROGEN 5 mg/dl (9-20); CALCIUM 8.7 mg/dL (8.4-10.2); CARBON DIOXIDE 29 mmol/L (22-30); CHLORIDE 104 mmol/L (98-107); GFR AFRICAN-AMERICAN > 60; GLUCOSE,RANDOM 91 mg/dL (75-110); POTASSIUM 3.6 MMOL/L (3.6-5.0); SODIUM 140 mmol/l (132-148)
--- NOTE | 2017-06-22 07:48 | CP.PCM.PN ---
<Quang Cruz Mily - Last Filed: 06/22/17 07:45> Subjective - Date & Time of Evaluation Date of Evaluation: 06/22/17 Time of Evaluation: 07:45 - Subjective Subjective: Gen Surg: Dr Rodriguez Pt S&E. Resting comfortably. Pain is well controlled. Tolerating CLD. Has been OOB and ambulating. using incentive spirometer. Denies any nausea, vomiting, fevers or chills. Not yet passing flatus. Objective - Vital Signs/Intake and Output Vital Signs (last 24 hours): Temp Pulse Resp BP Pulse Ox 98.5 F 75 20 117/77 95 06/22/17 07:29 06/22/17 07:29 06/22/17 07:29 06/22/17 07:29 06/22/17 07:29 Intake and Output: 06/22/17 06/22/17 06:59 18:59 Intake Total 120 Output Total 800 Balance -680 - Medications Medications: Current Medications Amlodipine Besylate (Norvasc) 10 mg PO DAILY [facility] Last Admin: 06/21/17 09:01 Dose: 10 mg Atorvastatin Calcium (Lipitor) 20 mg PO DAILY [facility] Last Admin: 06/21/17 09:01 Dose: 20 mg Diphenhydramine HCl (Benadryl) 25 mg IVP HS PRN PRN Reason: Sleep Last Admin: 06/21/17 22:08 Dose: 25 mg Enoxaparin Sodium (Lovenox) 40 mg SC DAILY [facility] PRN Reason: Protocol Last Admin: 06/21/17 09:00 Dose: 40 mg Hydromorphone HCl (Dilaudid) 1 mg IVP Q4 PRN PRN Reason: Pain, severe (8-10) Last Admin: 06/22/17 06:24 Dose: 1 mg Lactated Ringer's (Lactated Ringer's) 1,000 mls @ 125 mls/hr IV .Q8H [facility] Last Admin: 06/22/17 02:26 Dose: Not Given Losartan Potassium (Cozaar) 25 mg PO DAILY [facility] Last Admin: 06/21/17 09:01 Dose: 25 mg Ondansetron HCl (Zofran Inj) 4 mg IVP Q6 PRN PRN Reason: Nausea/Vomiting Oxycodone/Acetaminophen (Percocet 5/325 Mg Tab) 1 tab PO Q4 PRN PRN Reason: Pain, Mild (1-3) Stop: 06/22/17 09:56 Oxycodone/Acetaminophen (Percocet 5/325 Mg Tab) 2 tab PO Q4 PRN PRN Reason: Pain, moderate (4-7) Stop: 06/22/17 10:03 Last Admin: 06/21/17 17:39 Dose: 2 tab Pantoprazole Sodium (Protonix Inj) 40 mg IVP DAILY [facility] Last Admin: 06/21/17 09:01 Dose: 40 mg - Labs Labs: 06/22/17 05:30 06/22/17 06:30 - Constitutional Appears: Non-toxic, No Acute Distress - ENT Exam ENT Exam: Mucous Membranes Moist - Respiratory Exam Respiratory Exam: NORMAL BREATHING PATTERN. absent: Accessory Muscle Use, Respiratory Distress - Cardiovascular Exam Cardiovascular Exam: REGULAR RHYTHM. absent: Tachycardia - GI/Abdominal Exam GI & Abdominal Exam: Soft, Tenderness (leticia-incisional and appropriate). absent : Distended, Firm, Guarding Additional comments: midline incision c/d/i - Neurological Exam Neurological Exam: Alert, Awake, Oriented x3 - Psychiatric Exam Psychiatric exam: Normal Affect, Normal Mood - Skin Skin Exam: Normal Color, Warm Assessment and Plan - Assessment and Plan (Free Text) Assessment: 66M POD#3 s/p reversal of Mulu's Plan: Continue CLD Labs WNL today Continue ambulation and IS use do not advance diet until passes flatus Please leave current medication as it stands further recs after attending eval d/w Dr Michael Cruz, PGY3 <Don Rodriguez - Last Filed: 06/22/17 13:37> Subjective - Date & Time of Evaluation Time of Evaluation: 13:15 - Subjective Subjective: Patient was seen and examined at the bedside. Agree with resident's note above. Passed some flatus this morning, no bowel movements yet. Objective - Vital Signs/Intake and Output Vital Signs (last 24 hours): Temp Pulse Resp BP Pulse Ox 98.5 F 75 20 117/77 95 06/22/17 07:29 06/22/17 09:48 06/22/17 07:29 06/22/17 09:48 06/22/17 07:29 Intake and Output: 06/22/17 06/22/17 06:59 18:59 Intake Total 120 Output Total 800 Balance -680 - Medications Medications: Current Medications Amlodipine Besylate (Norvasc) 10 mg PO DAILY [facility] Last Admin: 06/22/17 09:48 Dose: 10 mg Atorvastatin Calcium (Lipitor) 20 mg PO DAILY [facility] Last Admin: 06/22/17 09:48 Dose: 20 mg Diphenhydramine HCl (Benadryl) 25 mg IVP HS PRN PRN Reason: Sleep Last Admin: 06/21/17 22:08 Dose: 25 mg Enoxaparin Sodium (Lovenox) 40 mg SC DAILY [facility] PRN Reason: Protocol Last Admin: 06/22/17 12:26 Dose: 40 mg Hydromorphone HCl (Dilaudid) 1 mg IVP Q4 PRN PRN Reason: Pain, severe (8-10) Lactated Ringer's (Lactated Ringer's) 1,000 mls @ 125 mls/hr IV .Q8H [facility] Last Admin: 06/22/17 10:01 Dose: Not Given Losartan Potassium (Cozaar) 25 mg PO DAILY [facility] Last Admin: 06/22/17 09:47 Dose: 25 mg Ondansetron HCl (Zofran Inj) 4 mg IVP Q6 PRN PRN Reason: Nausea/Vomiting Oxycodone/Acetaminophen (Percocet 5/325 Mg Tab) 1 tab PO Q4 PRN PRN Reason: Pain, Mild (1-3) Stop: 06/25/17 13:33 Oxycodone/Acetaminophen (Percocet 5/325 Mg Tab) 2 tab PO Q4 PRN PRN Reason: Pain, moderate (4-7) Stop: 06/25/17 13:35 Pantoprazole Sodium (Protonix Inj) 40 mg IVP DAILY [facility] Last Admin: 06/22/17 09:49 Dose: 40 mg - Labs Labs: 06/22/17 05:30 06/22/17 06:30 Assessment and Plan - Assessment and Plan (Free Text) Plan: - Keep on clear liquid diet for now - Pain control - IV fluids - Insentive spirometry - DVT ppx - Out of bed and ambulate - Repeat labs in am
[2017-06-22] MEDS: Enoxaparin 40 mg Syringe SC SCH (12:26)
--- NOTE | 2017-06-22 14:01 | CP.PCM.PN ---
Subjective - Date & Time of Evaluation Date of Evaluation: 06/22/17 Time of Evaluation: 10:00 - Subjective Subjective: pt seen and examined at bedside. nad. no new complaints. pt on liquid diet. Objective - Vital Signs/Intake and Output Vital Signs (last 24 hours): Temp Pulse Resp BP Pulse Ox 98.5 F 75 20 117/77 95 06/22/17 07:29 06/22/17 09:48 06/22/17 07:29 06/22/17 09:48 06/22/17 07:29 Intake and Output: 06/22/17 06/22/17 06:59 18:59 Intake Total 120 Output Total 800 Balance -680 - Medications Medications: Current Medications Amlodipine Besylate (Norvasc) 10 mg PO DAILY [facility] Last Admin: 06/22/17 09:48 Dose: 10 mg Atorvastatin Calcium (Lipitor) 20 mg PO DAILY [facility] Last Admin: 06/22/17 09:48 Dose: 20 mg Diphenhydramine HCl (Benadryl) 25 mg IVP HS PRN PRN Reason: Sleep Last Admin: 06/21/17 22:08 Dose: 25 mg Enoxaparin Sodium (Lovenox) 40 mg SC DAILY [facility] PRN Reason: Protocol Last Admin: 06/22/17 12:26 Dose: 40 mg Hydromorphone HCl (Dilaudid) 1 mg IVP Q4 PRN PRN Reason: Pain, severe (8-10) Lactated Ringer's (Lactated Ringer's) 1,000 mls @ 125 mls/hr IV .Q8H [facility] Last Admin: 06/22/17 10:01 Dose: Not Given Losartan Potassium (Cozaar) 25 mg PO DAILY [facility] Last Admin: 06/22/17 09:47 Dose: 25 mg Ondansetron HCl (Zofran Inj) 4 mg IVP Q6 PRN PRN Reason: Nausea/Vomiting Oxycodone/Acetaminophen (Percocet 5/325 Mg Tab) 1 tab PO Q4 PRN PRN Reason: Pain, Mild (1-3) Stop: 06/25/17 13:33 Oxycodone/Acetaminophen (Percocet 5/325 Mg Tab) 2 tab PO Q4 PRN PRN Reason: Pain, moderate (4-7) Stop: 06/25/17 13:35 Pantoprazole Sodium (Protonix Inj) 40 mg IVP DAILY [facility] Last Admin: 06/22/17 09:49 Dose: 40 mg - Labs Labs: 06/22/17 05:30 06/22/17 06:30 - Head Exam Head Exam: NORMAL INSPECTION - Eye Exam Eye Exam: Normal appearance - ENT Exam ENT Exam: Mucous Membranes Moist, Normal Exam - Neck Exam Neck Exam: Full ROM - Respiratory Exam Respiratory Exam: Clear to Ausculation Bilateral, NORMAL BREATHING PATTERN - Cardiovascular Exam Cardiovascular Exam: REGULAR RHYTHM, +S1, +S2 - GI/Abdominal Exam GI & Abdominal Exam: Normal Bowel Sounds - Extremities Exam Extremities Exam: Full ROM, Normal Inspection Assessment and Plan - Assessment and Plan (Free Text) Assessment: 1. s/p reversal of christopher procedure cont pain management diet as per surgery. 2. HTN controlled cont home meds 3. HL cont statin 4. DVT px scd 5. hiccups cont reglan prn 6. insomnia benadryl prn
[2017-06-22] MEDS: Oxycodone/Acetaminophen 5/325 mg Tab PO PRN ×2 (15:19→20:52)
[2017-06-22] MEDS: DiphenhydrAMINE 50 mg/ml Inj IVP PRN (21:59)
[2017-06-23] MEDS: Lactated Ringer's 1,000 ML IV SCH ×2 (02:00→12:18)
[2017-06-23] MEDS: Oxycodone/Acetaminophen 5/325 mg Tab PO PRN ×4 (04:47→18:49)
[2017-06-23 06:56] LABS: HEMATOCRIT 28.1 % (35.0-51.0); MEAN CELL VOLUME 87.3 fl (80.0-94.0); MEAN CORPUSCULAR HEMOGLOBIN 29.6 pg (27.0-31.0); MEAN CORPUSCULAR HGB CONC 33.9 g/dL (33.0-37.0); WHITE BLOOD COUNT 5.6 K/uL (4.8-10.8)
[2017-06-23 07:04] LABS: BLOOD UREA NITROGEN 5 mg/dl (9-20); CALCIUM 8.8 mg/dL (8.4-10.2); CARBON DIOXIDE 29 mmol/L (22-30); CHLORIDE 104 mmol/L (98-107); GFR AFRICAN-AMERICAN > 60; GLUCOSE,RANDOM 99 mg/dL (75-110); POTASSIUM 3.4 MMOL/L (3.6-5.0); SODIUM 140 mmol/l (132-148)
[2017-06-23] MEDS ORDERED: Potassium Chloride 20 mEq/15 ml LIQ UD PO ONE (07:14)
[2017-06-23] MEDS: Enoxaparin 40 mg Syringe SC SCH (08:44)
--- NOTE | 2017-06-23 08:51 | CP.PCM.PN ---
<Arnold Magallanes - Last Filed: 06/23/17 08:49> Subjective - Date & Time of Evaluation Date of Evaluation: 06/23/17 Time of Evaluation: 07:40 - Subjective Subjective: General Surgery Pt S&E, NAEO, reports large amount of flatus, no BM. Tolerating CLD, ambulating. No abd pain. No other complaints. Objective - Vital Signs/Intake and Output Vital Signs (last 24 hours): Temp Pulse Resp BP Pulse Ox 97.8 F 60 20 106/67 98 06/23/17 07:30 06/23/17 08:45 06/23/17 07:30 06/23/17 08:45 06/23/17 07:30 - Medications Medications: Current Medications Amlodipine Besylate (Norvasc) 10 mg PO DAILY [facility] Last Admin: 06/22/17 09:48 Dose: 10 mg Atorvastatin Calcium (Lipitor) 20 mg PO DAILY [facility] Last Admin: 06/23/17 08:45 Dose: 20 mg Diphenhydramine HCl (Benadryl) 25 mg IVP HS PRN PRN Reason: Sleep Last Admin: 06/22/17 21:59 Dose: 25 mg Enoxaparin Sodium (Lovenox) 40 mg SC DAILY [facility] PRN Reason: Protocol Last Admin: 06/23/17 08:44 Dose: 40 mg Hydromorphone HCl (Dilaudid) 1 mg IVP Q4 PRN PRN Reason: Pain, severe (8-10) Lactated Ringer's (Lactated Ringer's) 1,000 mls @ 125 mls/hr IV .Q8H [facility] Last Admin: 06/23/17 02:00 Dose: Not Given Losartan Potassium (Cozaar) 25 mg PO DAILY [facility] Last Admin: 06/23/17 08:45 Dose: 25 mg Ondansetron HCl (Zofran Inj) 4 mg IVP Q6 PRN PRN Reason: Nausea/Vomiting Oxycodone/Acetaminophen (Percocet 5/325 Mg Tab) 1 tab PO Q4 PRN PRN Reason: Pain, Mild (1-3) Stop: 06/25/17 13:33 Oxycodone/Acetaminophen (Percocet 5/325 Mg Tab) 2 tab PO Q4 PRN PRN Reason: Pain, moderate (4-7) Stop: 06/25/17 13:35 Last Admin: 06/23/17 04:47 Dose: 2 tab Pantoprazole Sodium (Protonix Inj) 40 mg IVP DAILY [facility] Last Admin: 06/23/17 08:46 Dose: 40 mg - Labs Labs: 06/23/17 05:30 06/23/17 05:30 - Constitutional Appears: Non-toxic, No Acute Distress - Head Exam Head Exam: ATRAUMATIC, NORMOCEPHALIC - Eye Exam Eye Exam: EOMI. absent: Scleral icterus - Respiratory Exam Respiratory Exam: NORMAL BREATHING PATTERN. absent: Respiratory Distress - GI/Abdominal Exam GI & Abdominal Exam: Soft. absent: Distended, Guarding, Tenderness Additional comments: Incisions C/D/I - Neurological Exam Neurological Exam: Alert, Awake - Skin Skin Exam: Dry, Warm Assessment and Plan - Assessment and Plan (Free Text) Assessment: 66M POD#4 s/p reversal of Mulu's Plan: Continue CLD Repleted K Continue ambulation and IS use Dr. Rodriguez to see D/W Dr. Michael Magallanes PGY4 <Don Rodriguez - Last Filed: 06/23/17 14:22> Subjective - Date & Time of Evaluation Time of Evaluation: 14:00 - Subjective Subjective: Patient was seen and examined at the bedside. Agree with resident's note above. Objective - Vital Signs/Intake and Output Vital Signs (last 24 hours): Temp Pulse Resp BP Pulse Ox 97.8 F 60 20 106/67 98 06/23/17 07:30 06/23/17 08:45 06/23/17 07:30 06/23/17 08:45 06/23/17 07:30 - Medications Medications: Current Medications Amlodipine Besylate (Norvasc) 10 mg PO DAILY [facility] Last Admin: 06/22/17 09:48 Dose: 10 mg Atorvastatin Calcium (Lipitor) 20 mg PO DAILY [facility] Last Admin: 06/23/17 08:45 Dose: 20 mg Diphenhydramine HCl (Benadryl) 25 mg IVP HS PRN PRN Reason: Sleep Last Admin: 06/22/17 21:59 Dose: 25 mg Hydromorphone HCl (Dilaudid) 1 mg IVP Q4 PRN PRN Reason: Pain, severe (8-10) Lactated Ringer's (Lactated Ringer's) 1,000 mls @ 125 mls/hr IV .Q8H [facility] Last Admin: 06/23/17 12:18 Dose: Not Given Losartan Potassium (Cozaar) 25 mg PO DAILY [facility] Last Admin: 06/23/17 08:45 Dose: 25 mg Ondansetron HCl (Zofran Inj) 4 mg IVP Q6 PRN PRN Reason: Nausea/Vomiting Oxycodone/Acetaminophen (Percocet 5/325 Mg Tab) 1 tab PO Q4 PRN PRN Reason: Pain, Mild (1-3) Stop: 06/25/17 13:33 Last Admin: 06/23/17 08:55 Dose: 1 tab Oxycodone/Acetaminophen (Percocet 5/325 Mg Tab) 2 tab PO Q4 PRN PRN Reason: Pain, moderate (4-7) Stop: 06/25/17 13:35 Last Admin: 06/23/17 13:43 Dose: 2 tab Pantoprazole Sodium (Protonix Inj) 40 mg IVP DAILY [facility] Last Admin: 06/23/17 08:46 Dose: 40 mg - Labs Labs: 06/23/17 05:30 06/23/17 05:30 Assessment and Plan - Assessment and Plan (Free Text) Plan: - Start low residue diet - pain control - Insentive spirometry - DVT ppx - Out of bed and ambulate - Replace Potassium - Repeat labs in am
--- NOTE | 2017-06-23 14:48 | CP.PCM.PN ---
Subjective - Date & Time of Evaluation Date of Evaluation: 06/23/17 Time of Evaluation: 11:00 - Subjective Subjective: pt seen and examined at bedside. nad. no complaints. pt diet is advance to solid food Objective - Vital Signs/Intake and Output Vital Signs (last 24 hours): Temp Pulse Resp BP Pulse Ox 97.8 F 60 20 106/67 98 06/23/17 07:30 06/23/17 08:45 06/23/17 07:30 06/23/17 08:45 06/23/17 07:30 - Medications Medications: Current Medications Amlodipine Besylate (Norvasc) 10 mg PO DAILY [facility] Last Admin: 06/22/17 09:48 Dose: 10 mg Atorvastatin Calcium (Lipitor) 20 mg PO DAILY [facility] Last Admin: 06/23/17 08:45 Dose: 20 mg Diphenhydramine HCl (Benadryl) 25 mg IVP HS PRN PRN Reason: Sleep Last Admin: 06/22/17 21:59 Dose: 25 mg Hydromorphone HCl (Dilaudid) 1 mg IVP Q4 PRN PRN Reason: Pain, severe (8-10) Lactated Ringer's (Lactated Ringer's) 1,000 mls @ 125 mls/hr IV .Q8H [facility] Last Admin: 06/23/17 12:18 Dose: Not Given Losartan Potassium (Cozaar) 25 mg PO DAILY [facility] Last Admin: 06/23/17 08:45 Dose: 25 mg Ondansetron HCl (Zofran Inj) 4 mg IVP Q6 PRN PRN Reason: Nausea/Vomiting Oxycodone/Acetaminophen (Percocet 5/325 Mg Tab) 1 tab PO Q4 PRN PRN Reason: Pain, Mild (1-3) Stop: 06/25/17 13:33 Last Admin: 06/23/17 08:55 Dose: 1 tab Oxycodone/Acetaminophen (Percocet 5/325 Mg Tab) 2 tab PO Q4 PRN PRN Reason: Pain, moderate (4-7) Stop: 06/25/17 13:35 Last Admin: 06/23/17 13:43 Dose: 2 tab Pantoprazole Sodium (Protonix Inj) 40 mg IVP DAILY [facility] Last Admin: 06/23/17 08:46 Dose: 40 mg - Labs Labs: 06/23/17 05:30 11/12/17 05:30 - Constitutional Appears: Well - Head Exam Head Exam: NORMAL INSPECTION - Eye Exam Eye Exam: Normal appearance Pupil Exam: NORMAL ACCOMODATION - ENT Exam ENT Exam: Mucous Membranes Moist - Respiratory Exam Respiratory Exam: Clear to Ausculation Bilateral, NORMAL BREATHING PATTERN - Cardiovascular Exam Cardiovascular Exam: REGULAR RHYTHM, +S1, +S2 - GI/Abdominal Exam GI & Abdominal Exam: Normal Bowel Sounds - Neurological Exam Neurological Exam: Alert Assessment and Plan - Assessment and Plan (Free Text) Assessment: 1. s/p reversal of christopher procedure cont pain management diet as per surgery. 2. HTN controlled cont home meds 3. HL cont statin 4. DVT px scd 5. hiccups cont reglan prn 6. insomnia benadryl prn
[2017-06-23] MEDS: DiphenhydrAMINE 50 mg/ml Inj IVP PRN (21:58)
[2017-06-24] MEDS: Lactated Ringer's 1,000 ML IV SCH ×3 (02:00→19:36)
[2017-06-24 06:34] LABS: HEMATOCRIT 31.2 % (35.0-51.0); MEAN CELL VOLUME 86.2 fl (80.0-94.0); MEAN CORPUSCULAR HGB CONC 34.8 g/dL (33.0-37.0); RED CELL DISTRIBUTION WIDTH 13.4 % (11.5-14.5); WHITE BLOOD COUNT 6.6 K/uL (4.8-10.8)
[2017-06-24 06:49] LABS: BLOOD UREA NITROGEN 9 mg/dl (9-20); CARBON DIOXIDE 30 mmol/L (22-30); CHLORIDE 103 mmol/L (98-107); GFR AFRICAN-AMERICAN > 60; GLUCOSE,RANDOM 104 mg/dL (75-110); POTASSIUM 4.1 MMOL/L (3.6-5.0); SODIUM 141 mmol/l (132-148)
[2017-06-24] MEDS: HYDROmorphone 0.5 mg/0.5 ml ISec IVP PRN ×4 (09:02→21:38)
--- NOTE | 2017-06-24 10:25 | CP.PCM.PN ---
<Daniela Herrera - Last Filed: 06/24/17 10:34> Subjective - Date & Time of Evaluation Date of Evaluation: 06/24/17 Time of Evaluation: 07:30 - Subjective Subjective: General Surgery Dr. Rodriguez Pt S&E @bedside. YAZANEO. pt c/o hiccups and nausea this morning. reports poor sleep overnight. denies F/C and vomiting. tolerating diet. (+)Flatus (-)BM. Objective - Vital Signs/Intake and Output Vital Signs (last 24 hours): Temp Pulse Resp BP Pulse Ox 98.7 F 84 20 129/74 97 06/24/17 08:30 06/24/17 09:03 06/24/17 08:30 06/24/17 09:03 06/24/17 08:30 - Medications Medications: Current Medications Amlodipine Besylate (Norvasc) 10 mg PO DAILY [facility] Last Admin: 06/24/17 09:03 Dose: 10 mg Atorvastatin Calcium (Lipitor) 20 mg PO DAILY [facility] Last Admin: 06/24/17 09:04 Dose: 20 mg Chlorpromazine (Thorazine) 25 mg PO Q6 [facility] Diphenhydramine HCl (Benadryl) 25 mg IVP HS PRN PRN Reason: Sleep Last Admin: 06/23/17 21:58 Dose: 25 mg Hydromorphone HCl (Dilaudid) 0.5 mg IVP Q3 PRN PRN Reason: Pain, severe (8-10) Stop: 06/26/17 06:58 Last Admin: 06/24/17 09:02 Dose: 0.5 mg Lactated Ringer's (Lactated Ringer's) 1,000 mls @ 125 mls/hr IV .Q8H [facility] Last Admin: 06/24/17 02:00 Dose: Not Given Losartan Potassium (Cozaar) 25 mg PO DAILY [facility] Last Admin: 06/24/17 09:03 Dose: 25 mg Ondansetron HCl (Zofran Inj) 4 mg IVP Q6 PRN PRN Reason: Nausea/Vomiting Last Admin: 06/24/17 09:03 Dose: 4 mg Oxycodone/Acetaminophen (Percocet 5/325 Mg Tab) 1 tab PO Q4 PRN PRN Reason: Pain, Mild (1-3) Stop: 06/25/17 13:33 Last Admin: 06/23/17 08:55 Dose: 1 tab Oxycodone/Acetaminophen (Percocet 5/325 Mg Tab) 2 tab PO Q4 PRN PRN Reason: Pain, moderate (4-7) Stop: 06/25/17 13:35 Last Admin: 06/23/17 18:49 Dose: 2 tab Pantoprazole Sodium (Protonix Inj) 40 mg IVP DAILY [facility] Last Admin: 06/24/17 09:04 Dose: 40 mg - Labs Labs: 06/24/17 05:45 06/24/17 05:45 - Constitutional Appears: Non-toxic, No Acute Distress - Head Exam Head Exam: NORMAL INSPECTION - Eye Exam Eye Exam: Normal appearance - ENT Exam ENT Exam: Mucous Membranes Moist - Respiratory Exam Respiratory Exam: NORMAL BREATHING PATTERN. absent: Accessory Muscle Use, Respiratory Distress - Cardiovascular Exam Cardiovascular Exam: absent: Bradycardia, Tachycardia - GI/Abdominal Exam GI & Abdominal Exam: Soft, Tenderness (appropriate leticia-incisional TTP). absent : Distended, Guarding, Rigid Additional comments: incision c/d/i. skin well approximated - Extremities Exam Extremities Exam: Normal Inspection - Neurological Exam Neurological Exam: Alert, Awake, Oriented x3 - Psychiatric Exam Psychiatric exam: Normal Affect, Normal Mood - Skin Skin Exam: Dry, Intact, Normal Color, Warm Assessment and Plan - Assessment and Plan (Free Text) Assessment: 66 y.o M POD#5 s/p Wheatley's reversal - Thorazine 25mg Q6 for hiccups - Zofran 4mg Q4 for nausea - advance diet as tolerated - cont pain management - monitor bowel fxn - encourage OOB to chair/Amb/IS use - GI/DVT PPx Pt seen and discussed w/ Dr. Michael Herrera DO PGY2 <Don Rodriguez - Last Filed: 06/24/17 16:20> Subjective - Date & Time of Evaluation Time of Evaluation: 09:20 - Subjective Subjective: Patient was seen and examined at the bedside. Agree with resident's note above. Objective - Vital Signs/Intake and Output Vital Signs (last 24 hours): Temp Pulse Resp BP Pulse Ox 98.7 F 84 20 129/74 97 06/24/17 08:30 06/24/17 09:03 06/24/17 08:30 06/24/17 09:03 06/24/17 08:30 - Medications Medications: Current Medications Amlodipine Besylate (Norvasc) 10 mg PO DAILY [facility] Last Admin: 06/24/17 09:03 Dose: 10 mg Atorvastatin Calcium (Lipitor) 20 mg PO DAILY [facility] Last Admin: 06/24/17 09:04 Dose: 20 mg Chlorpromazine (Thorazine) 25 mg PO Q6 [facility] Last Admin: 06/24/17 11:56 Dose: 25 mg Diphenhydramine HCl (Benadryl) 25 mg IVP HS PRN PRN Reason: Sleep Last Admin: 06/23/17 21:58 Dose: 25 mg Hydromorphone HCl (Dilaudid) 0.5 mg IVP Q3 PRN PRN Reason: Pain, severe (8-10) Stop: 06/26/17 06:58 Last Admin: 06/24/17 11:54 Dose: 0.5 mg Lactated Ringer's (Lactated Ringer's) 1,000 mls @ 125 mls/hr IV .Q8H [facility] Last Admin: 06/24/17 11:55 Dose: Not Given Losartan Potassium (Cozaar) 25 mg PO DAILY [facility] Last Admin: 06/24/17 09:03 Dose: 25 mg Ondansetron HCl (Zofran Inj) 4 mg IVP Q6 PRN PRN Reason: Nausea/Vomiting Last Admin: 06/24/17 09:03 Dose: 4 mg Oxycodone/Acetaminophen (Percocet 5/325 Mg Tab) 1 tab PO Q4 PRN PRN Reason: Pain, Mild (1-3) Stop: 06/25/17 13:33 Last Admin: 06/23/17 08:55 Dose: 1 tab Oxycodone/Acetaminophen (Percocet 5/325 Mg Tab) 2 tab PO Q4 PRN PRN Reason: Pain, moderate (4-7) Stop: 06/25/17 13:35 Last Admin: 06/23/17 18:49 Dose: 2 tab Pantoprazole Sodium (Protonix Inj) 40 mg IVP DAILY [facility] Last Admin: 06/24/17 09:04 Dose: 40 mg - Labs Labs: 06/24/17 05:45 06/24/17 05:45
--- NOTE | 2017-06-24 11:45 | CP.PCM.PN ---
Subjective - Date & Time of Evaluation Date of Evaluation: 06/24/17 Time of Evaluation: 11:00 - Subjective Subjective: pt seen and examined at bedside. nad. tolerating po, nad. Objective - Vital Signs/Intake and Output Vital Signs (last 24 hours): Temp Pulse Resp BP Pulse Ox 98.7 F 84 20 129/74 97 06/24/17 08:30 06/24/17 09:03 06/24/17 08:30 06/24/17 09:03 06/24/17 08:30 - Medications Medications: Current Medications Amlodipine Besylate (Norvasc) 10 mg PO DAILY [facility] Last Admin: 06/24/17 09:03 Dose: 10 mg Atorvastatin Calcium (Lipitor) 20 mg PO DAILY [facility] Last Admin: 06/24/17 09:04 Dose: 20 mg Chlorpromazine (Thorazine) 25 mg PO Q6 [facility] Diphenhydramine HCl (Benadryl) 25 mg IVP HS PRN PRN Reason: Sleep Last Admin: 06/23/17 21:58 Dose: 25 mg Hydromorphone HCl (Dilaudid) 0.5 mg IVP Q3 PRN PRN Reason: Pain, severe (8-10) Stop: 06/26/17 06:58 Last Admin: 06/24/17 09:02 Dose: 0.5 mg Lactated Ringer's (Lactated Ringer's) 1,000 mls @ 125 mls/hr IV .Q8H [facility] Last Admin: 06/24/17 02:00 Dose: Not Given Losartan Potassium (Cozaar) 25 mg PO DAILY [facility] Last Admin: 06/24/17 09:03 Dose: 25 mg Ondansetron HCl (Zofran Inj) 4 mg IVP Q6 PRN PRN Reason: Nausea/Vomiting Last Admin: 06/24/17 09:03 Dose: 4 mg Oxycodone/Acetaminophen (Percocet 5/325 Mg Tab) 1 tab PO Q4 PRN PRN Reason: Pain, Mild (1-3) Stop: 06/25/17 13:33 Last Admin: 06/23/17 08:55 Dose: 1 tab Oxycodone/Acetaminophen (Percocet 5/325 Mg Tab) 2 tab PO Q4 PRN PRN Reason: Pain, moderate (4-7) Stop: 06/25/17 13:35 Last Admin: 06/23/17 18:49 Dose: 2 tab Pantoprazole Sodium (Protonix Inj) 40 mg IVP DAILY [facility] Last Admin: 06/24/17 09:04 Dose: 40 mg - Labs Labs: 06/24/17 05:45 06/24/17 05:45 - Constitutional Appears: Well - Head Exam Head Exam: ATRAUMATIC, NORMAL INSPECTION - Eye Exam Eye Exam: EOMI, Normal appearance Pupil Exam: NORMAL ACCOMODATION - ENT Exam ENT Exam: Mucous Membranes Moist - Neck Exam Neck Exam: Full ROM - Respiratory Exam Respiratory Exam: Clear to Ausculation Bilateral, NORMAL BREATHING PATTERN - Cardiovascular Exam Cardiovascular Exam: REGULAR RHYTHM, +S1, +S2 - GI/Abdominal Exam GI & Abdominal Exam: Soft, Normal Bowel Sounds - Neurological Exam Neurological Exam: Alert, Oriented x3 Assessment and Plan - Assessment and Plan (Free Text) Assessment: 1. s/p reversal of christopher procedure cont pain management diet as per surgery. 2. HTN controlled cont home meds 3. HL cont statin 4. DVT px scd 5. hiccups cont reglan prn 6. insomnia benadryl prn
[2017-06-24] MEDS: DiphenhydrAMINE 50 mg/ml Inj IVP PRN (21:38)
[2017-06-25] MEDS: Lactated Ringer's 1,000 ML IV SCH (02:10)
--- NOTE | 2017-06-25 08:50 | CP.PCM.DIS ---
Provider - Provider Date of Admission: 06/19/17 09:55 Attending physician: Don Rodriguez MD Primary care physician: Don Rodriguez MD Time Spent in preparation of Discharge (in minutes): 45 Hospital Course - Lab Results Lab Results: Most Recent Lab Values WBC 6.6 K/uL (4.8-10.8) 06/24/17 05:45 RBC 3.62 Mil/uL (4.40-5.90) L 06/24/17 05:45 Hgb 10.8 g/dL (12.0-18.0) L 06/24/17 05:45 Hct 31.2 % (35.0-51.0) L 06/24/17 05:45 MCV 86.2 fl (80.0-94.0) 06/24/17 05:45 MCH 30.0 pg (27.0-31.0) 06/24/17 05:45 MCHC 34.8 g/dL (33.0-37.0) 06/24/17 05:45 RDW 13.4 % (11.5-14.5) 06/24/17 05:45 Plt Count 288 K/uL (130-400) 06/24/17 05:45 Sodium 141 mmol/l (132-148) 06/24/17 05:45 Potassium 4.1 MMOL/L (3.6-5.0) 06/24/17 05:45 Chloride 103 mmol/L (98-107) 06/24/17 05:45 Carbon Dioxide 30 mmol/L (22-30) 06/24/17 05:45 Anion Gap 12 (10-20) 06/24/17 05:45 BUN 9 mg/dl (9-20) 06/24/17 05:45 Creatinine 0.8 mg/dL (0.8-1.5) 06/24/17 05:45 Est GFR ( Amer) > 60 06/24/17 05:45 Est GFR (Non-Af Amer) > 60 06/24/17 05:45 Random Glucose 104 mg/dL (75-110) 06/24/17 05:45 Calcium 9.0 mg/dL (8.4-10.2) 06/24/17 05:45 - Hospital Course Hospital Course: 66M hx of diverticulitis w/ Mulu's procedure in December of 2016, came for scheduled colostomy reversal. Patient under went the procedure and tolerated well with no immediate complications. During Hospital course patient had multiple episodes of hiccups and was resolved with Thorazine. Patient continued out of bed and ambulated, pain was well controlled, and bowel function returned , and tolerated diet well. On Post operative day ___ patient was discharge in stable condition. patient to follow up as an outpatient in 2 weeks. Discharge Exam - Head Exam Head Exam: ATRAUMATIC, NORMAL INSPECTION - Eye Exam Eye Exam: EOMI. absent: Scleral icterus - ENT Exam ENT Exam: Mucous Membranes Moist - Respiratory Exam Respiratory Exam: NORMAL BREATHING PATTERN. absent: Accessory Muscle Use, Respiratory Distress - Cardiovascular Exam Cardiovascular Exam: +S1, +S2. absent: Bradycardia, Tachycardia - GI/Abdominal Exam GI & Abdominal Exam: Normal Bowel Sounds, Soft, Tenderness. absent: Distended, Firm, Guarding, Rebound, Rigid Additional comments: minimal leticia-incisional appropriately tender. mid-line incision healing well. no erythema, areas of fluctuance on induration. - Extremities Exam Extremities exam: normal inspection - Neurological Exam Neurological exam: Alert, Oriented x3 - Psychiatric Exam Psychiatric exam: Normal Affect, Normal Mood - Skin Skin Exam: Normal Color, Warm Discharge Plan - Discharge Medications Prescriptions: Metoclopramide HCl [Reglan] 10 mg PO Q6 #10 tablet oxyCODONE/Acetaminophen [Percocet 5/325 mg Tab] 1 tab PO Q4 PRN #10 tab PRN Reason: Pain, Moderate (4-7) - Follow Up Plan Condition: GOOD Disposition: HOME/ ROUTINE Instructions: Low Fiber Diet (GEN), Open Colostomy Reversal (DC) Referrals: Don Rodriguez MD [Primary Care Provider] -
[2017-06-25] MEDS: Oxycodone/Acetaminophen 5/325 mg Tab PO PRN (08:59)
--- NOTE | 2017-06-25 09:26 | CP.PCM.PN ---
<Quang Cruz Mily - Last Filed: 06/25/17 09:20> Subjective - Date & Time of Evaluation Date of Evaluation: 06/25/17 Time of Evaluation: 09:20 - Subjective Subjective: General Surgery: Dr Rodriguez Pt S&eNona [employer]. Tolerating regular diet. Passing flatus but has not yet had BM. Continues to have hiccups. OOB and ambulating. Denies n/v, f/c, sob or chest pain. Objective - Vital Signs/Intake and Output Vital Signs (last 24 hours): Temp Pulse Resp BP Pulse Ox 98.3 F 80 20 103/69 97 06/25/17 07:59 06/25/17 09:00 06/25/17 07:59 06/25/17 09:00 06/25/17 07:59 - Medications Medications: Current Medications Amlodipine Besylate (Norvasc) 10 mg PO DAILY [facility] Last Admin: 06/25/17 09:00 Dose: 10 mg Atorvastatin Calcium (Lipitor) 20 mg PO DAILY [facility] Last Admin: 06/24/17 09:04 Dose: 20 mg Chlorpromazine (Thorazine) 25 mg PO Q6 [facility] Last Admin: 06/25/17 09:01 Dose: 25 mg Diphenhydramine HCl (Benadryl) 25 mg IVP HS PRN PRN Reason: Sleep Last Admin: 06/24/17 21:38 Dose: 25 mg Hydromorphone HCl (Dilaudid) 0.5 mg IVP Q3 PRN PRN Reason: Pain, severe (8-10) Stop: 06/26/17 06:58 Last Admin: 06/24/17 21:38 Dose: 0.5 mg Lactated Ringer's (Lactated Ringer's) 1,000 mls @ 125 mls/hr IV .Q8H [facility] Last Admin: 06/25/17 02:10 Dose: Not Given Losartan Potassium (Cozaar) 25 mg PO DAILY [facility] Last Admin: 06/25/17 09:00 Dose: 25 mg Ondansetron HCl (Zofran Inj) 4 mg IVP Q6 PRN PRN Reason: Nausea/Vomiting Last Admin: 06/24/17 09:03 Dose: 4 mg Oxycodone/Acetaminophen (Percocet 5/325 Mg Tab) 1 tab PO Q4 PRN PRN Reason: Pain, Mild (1-3) Stop: 06/25/17 13:33 Last Admin: 06/25/17 08:59 Dose: 1 tab Oxycodone/Acetaminophen (Percocet 5/325 Mg Tab) 2 tab PO Q4 PRN PRN Reason: Pain, moderate (4-7) Stop: 06/25/17 13:35 Last Admin: 06/23/17 18:49 Dose: 2 tab Pantoprazole Sodium (Protonix Inj) 40 mg IVP DAILY [facility] Last Admin: 06/25/17 08:59 Dose: 40 mg - Labs Labs: 06/24/17 05:45 06/24/17 05:45 - Constitutional Appears: Non-toxic - Head Exam Head Exam: ATRAUMATIC, NORMOCEPHALIC - Eye Exam Eye Exam: Normal appearance - ENT Exam ENT Exam: Mucous Membranes Moist - Respiratory Exam Respiratory Exam: absent: Accessory Muscle Use, Respiratory Distress - Cardiovascular Exam Cardiovascular Exam: REGULAR RHYTHM. absent: Tachycardia - GI/Abdominal Exam GI & Abdominal Exam: Soft, Tenderness (post-op and appropriate). absent: Distended, Firm, Guarding Additional comments: incision c/d/i - Neurological Exam Neurological Exam: Alert, Awake, Oriented x3 - Psychiatric Exam Psychiatric exam: Normal Affect, Normal Mood - Skin Skin Exam: Normal Color, Warm Assessment and Plan - Assessment and Plan (Free Text) Assessment: 66M POD#6 s/p reversal of Mulu's Plan: adding Reglan 10mg Q8H [facility] continue to encourage ambulation will remain in house for one more day, awaiting resolution of hiccups and bowel movement d/w Dr Michael Cruz, PGY3 <Don Rodriguez - Last Filed: 06/25/17 09:35> Subjective - Subjective Subjective: Patient was seen and examined at the bedside. Agree with resident's note above. Objective - Vital Signs/Intake and Output Vital Signs (last 24 hours): Temp Pulse Resp BP Pulse Ox 98.3 F 80 20 103/69 97 06/25/17 07:59 06/25/17 09:00 06/25/17 07:59 06/25/17 09:00 06/25/17 07:59 - Medications Medications: Current Medications Amlodipine Besylate (Norvasc) 10 mg PO DAILY [facility] Last Admin: 06/25/17 09:00 Dose: 10 mg Atorvastatin Calcium (Lipitor) 20 mg PO DAILY [facility] Last Admin: 06/24/17 09:04 Dose: 20 mg Chlorpromazine (Thorazine) 25 mg PO Q6 [facility] Last Admin: 06/25/17 09:01 Dose: 25 mg Diphenhydramine HCl (Benadryl) 25 mg IVP HS PRN PRN Reason: Sleep Last Admin: 06/24/17 21:38 Dose: 25 mg Hydromorphone HCl (Dilaudid) 0.5 mg IVP Q3 PRN PRN Reason: Pain, severe (8-10) Stop: 06/26/17 06:58 Last Admin: 06/24/17 21:38 Dose: 0.5 mg Lactated Ringer's (Lactated Ringer's) 1,000 mls @ 125 mls/hr IV .Q8H [facility] Last Admin: 06/25/17 02:10 Dose: Not Given Losartan Potassium (Cozaar) 25 mg PO DAILY [facility] Last Admin: 06/25/17 09:00 Dose: 25 mg Ondansetron HCl (Zofran Inj) 4 mg IVP Q6 PRN PRN Reason: Nausea/Vomiting Last Admin: 06/24/17 09:03 Dose: 4 mg Oxycodone/Acetaminophen (Percocet 5/325 Mg Tab) 1 tab PO Q4 PRN PRN Reason: Pain, Mild (1-3) Stop: 06/25/17 13:33 Last Admin: 06/25/17 08:59 Dose: 1 tab Oxycodone/Acetaminophen (Percocet 5/325 Mg Tab) 2 tab PO Q4 PRN PRN Reason: Pain, moderate (4-7) Stop: 06/25/17 13:35 Last Admin: 06/23/17 18:49 Dose: 2 tab Pantoprazole Sodium (Protonix Inj) 40 mg IVP DAILY [facility] Last Admin: 06/25/17 08:59 Dose: 40 mg - Labs Labs: 06/24/17 05:45 06/24/17 05:45 Assessment and Plan - Assessment and Plan (Free Text) Plan: - Continue low residue diet - pain control - Insentive spirometry - DVT ppx - Out of bed and ambulate
--- NOTE | 2017-06-25 09:31 | CP.PCM.PN ---
Subjective - Date & Time of Evaluation Date of Evaluation: 06/25/17 Time of Evaluation: 09:29 - Subjective Subjective: pt doing well, still w/ some pain and hiccoughs. admitted for reanastamosis of colon and reversal of colostomy after having procedure for diverticulitis. inscisions c/d/i, stables noted. no f/c, n/v/d. bw noted. case d/c w/ surgical residents Objective - Vital Signs/Intake and Output Vital Signs (last 24 hours): Temp Pulse Resp BP Pulse Ox 98.3 F 80 20 103/69 97 06/25/17 07:59 06/25/17 09:00 06/25/17 07:59 06/25/17 09:00 06/25/17 07:59 - Medications Medications: Current Medications Amlodipine Besylate (Norvasc) 10 mg PO DAILY [facility] Last Admin: 06/25/17 09:00 Dose: 10 mg Atorvastatin Calcium (Lipitor) 20 mg PO DAILY [facility] Last Admin: 06/24/17 09:04 Dose: 20 mg Chlorpromazine (Thorazine) 25 mg PO Q6 [facility] Last Admin: 06/25/17 09:01 Dose: 25 mg Diphenhydramine HCl (Benadryl) 25 mg IVP HS PRN PRN Reason: Sleep Last Admin: 06/24/17 21:38 Dose: 25 mg Hydromorphone HCl (Dilaudid) 0.5 mg IVP Q3 PRN PRN Reason: Pain, severe (8-10) Stop: 06/26/17 06:58 Last Admin: 06/24/17 21:38 Dose: 0.5 mg Lactated Ringer's (Lactated Ringer's) 1,000 mls @ 125 mls/hr IV .Q8H [facility] Last Admin: 06/25/17 02:10 Dose: Not Given Losartan Potassium (Cozaar) 25 mg PO DAILY [facility] Last Admin: 06/25/17 09:00 Dose: 25 mg Ondansetron HCl (Zofran Inj) 4 mg IVP Q6 PRN PRN Reason: Nausea/Vomiting Last Admin: 06/24/17 09:03 Dose: 4 mg Oxycodone/Acetaminophen (Percocet 5/325 Mg Tab) 1 tab PO Q4 PRN PRN Reason: Pain, Mild (1-3) Stop: 06/25/17 13:33 Last Admin: 06/25/17 08:59 Dose: 1 tab Oxycodone/Acetaminophen (Percocet 5/325 Mg Tab) 2 tab PO Q4 PRN PRN Reason: Pain, moderate (4-7) Stop: 06/25/17 13:35 Last Admin: 06/23/17 18:49 Dose: 2 tab Pantoprazole Sodium (Protonix Inj) 40 mg IVP DAILY [facility] Last Admin: 06/25/17 08:59 Dose: 40 mg - Labs Labs: 06/24/17 05:45 06/24/17 05:45 - Constitutional Appears: Well, Non-toxic, No Acute Distress - Head Exam Head Exam: ATRAUMATIC, NORMAL INSPECTION, NORMOCEPHALIC - Eye Exam Eye Exam: EOMI, Normal appearance, PERRL Pupil Exam: NORMAL ACCOMODATION, PERRL - ENT Exam ENT Exam: Mucous Membranes Moist, Normal Exam - Neck Exam Neck Exam: Full ROM, Normal Inspection. absent: Lymphadenopathy - Respiratory Exam Respiratory Exam: Clear to Ausculation Bilateral, NORMAL BREATHING PATTERN - Cardiovascular Exam Cardiovascular Exam: REGULAR RHYTHM, RRR, +S1, +S2. absent: Murmur - GI/Abdominal Exam GI & Abdominal Exam: Soft, Normal Bowel Sounds. absent: Tenderness Additional comments: surgica.l sites c/d/i, saadia in place - Extremities Exam Extremities Exam: Full ROM, Normal Capillary Refill, Normal Inspection. absent : Joint Swelling, Pedal Edema - Back Exam Back Exam: NORMAL INSPECTION - Neurological Exam Neurological Exam: Alert, Awake, CN II-XII Intact, Normal Gait, Oriented x3 - Psychiatric Exam Psychiatric exam: Normal Affect, Normal Mood - Skin Skin Exam: Dry, Intact, Normal Color, Warm Assessment and Plan (1) DVT prophylaxis Assessment & Plan: scd and ae hose ambulation anticoag when cleared by surgery Status: Acute (2) Diverticulitis Assessment & Plan: s/p reversal of colostomy. moisés madsen still w/ hiccoughlarissa-reglan/throazine surgery f/u diet as liu likelly dc tomorrow paina nd nausea control Status: Acute
[2017-06-25] MEDS: HYDROmorphone 0.5 mg/0.5 ml ISec IVP PRN ×3 (10:31→18:31)
[2017-06-25] MEDS ORDERED: Enoxaparin 30 mg Syringe SC SCH (10:45)
[2017-06-25] MEDS ORDERED: Enoxaparin 40 mg Syringe SC SCH (10:56)
[2017-06-25] MEDS: DiphenhydrAMINE 50 mg/ml Inj IVP PRN (23:37)
[2017-06-26 01:11] VITALS: RESP 18
[2017-06-26 06:44] LABS: BASO % 0.4 % (0.0-2.0); EOS # 0.2 K/uL (0.0-0.7); EOS % 3.3 % (0.0-4.0); HEMATOCRIT 29.9 % (35.0-51.0); LYMPH # 0.9 K/uL (1.0-4.3); LYMPH % 13.7 % (20.0-40.0); MEAN CELL VOLUME 86.5 fl (80.0-94.0); MEAN CORPUSCULAR HEMOGLOBIN 29.7 pg (27.0-31.0); MEAN CORPUSCULAR HGB CONC 34.3 g/dL (33.0-37.0); MEAN PLATELET VOLUME 7.6 fl (7.2-11.7); MONO # 0.5 K/uL (0.0-0.8); MONO % 8.3 % (0.0-10.0); NEUT # 4.7 K/uL (1.8-7.0); NEUT % 74.3 % (50.0-75.0); NRBC % 0.1 % (0.0-0.0); RED CELL DISTRIBUTION WIDTH 13.4 % (11.5-14.5); WHITE BLOOD COUNT 6.4 K/uL (4.8-10.8)
[2017-06-26 07:28] LABS: ALB/GLOB RATIO 1.4 (1.0-2.1); ALKALINE PHOSPHATASE 52 U/L (38-126); ALT/SGPT 43 U/L (21-72); AST/SGOT 57 U/L (17-59); BILIRUBIN,TOTAL 1.9 mg/dl (0.2-1.3); BLOOD UREA NITROGEN 11 mg/dl (9-20); CALCIUM 8.8 mg/dL (8.4-10.2); CARBON DIOXIDE 28 mmol/L (22-30); CHLORIDE 104 mmol/L (98-107); GFR AFRICAN-AMERICAN > 60; GLUCOSE,RANDOM 105 mg/dL (75-110); POTASSIUM 3.7 MMOL/L (3.6-5.0); SODIUM 138 mmol/l (132-148)
[2017-06-26 07:36] VITALS: BP 112/73; PULSE 73; TEMP 98.2; O2SAT 99
[2017-06-26] MEDS ORDERED: Oxycodone/Acetaminophen 5/325 mg Tab PO PRN ×2 (08:33→08:34)
--- NOTE | 2017-06-26 08:33 | CP.PCM.PN ---
Subjective - Date & Time of Evaluation Date of Evaluation: 06/26/17 Time of Evaluation: 08:31 - Subjective Subjective: pt doing well, w/o pain, f/c, n/v/d. passing flatus, no stooll, good appetite. surgical sites c/d/i for ?? dc today Objective - Vital Signs/Intake and Output Vital Signs (last 24 hours): Temp Pulse Resp BP Pulse Ox 98.2 F 73 18 112/73 99 06/26/17 07:35 06/26/17 07:35 06/26/17 07:35 06/26/17 07:35 06/26/17 07:35 - Medications Medications: Current Medications Amlodipine Besylate (Norvasc) 10 mg PO DAILY [facility] Last Admin: 06/25/17 09:00 Dose: 10 mg Atorvastatin Calcium (Lipitor) 20 mg PO DAILY [facility] Last Admin: 06/25/17 10:32 Dose: 20 mg Chlorpromazine (Thorazine) 25 mg PO Q6 [facility] Last Admin: 06/26/17 04:33 Dose: 25 mg Diphenhydramine HCl (Benadryl) 25 mg IVP HS PRN PRN Reason: Sleep Last Admin: 06/25/17 23:37 Dose: 25 mg Enoxaparin Sodium (Lovenox) 40 mg SC DAILY [facility] PRN Reason: Protocol Losartan Potassium (Cozaar) 25 mg PO DAILY [facility] Last Admin: 06/25/17 09:00 Dose: 25 mg Metoclopramide HCl (Reglan) 10 mg IVP Q8 [facility] Last Admin: 06/26/17 00:00 Dose: 10 mg Ondansetron HCl (Zofran Inj) 4 mg IVP Q6 PRN PRN Reason: Nausea/Vomiting Last Admin: 06/24/17 09:03 Dose: 4 mg Pantoprazole Sodium (Protonix Inj) 40 mg IVP DAILY [facility] Last Admin: 06/25/17 08:59 Dose: 40 mg - Labs Labs: 06/26/17 06:20 06/26/17 06:20 - Constitutional Appears: Well, Non-toxic, No Acute Distress - Head Exam Head Exam: ATRAUMATIC, NORMAL INSPECTION, NORMOCEPHALIC - Eye Exam Eye Exam: EOMI, Normal appearance, PERRL Pupil Exam: NORMAL ACCOMODATION, PERRL - ENT Exam ENT Exam: Mucous Membranes Moist, Normal Exam - Neck Exam Neck Exam: Full ROM, Normal Inspection. absent: Lymphadenopathy - Respiratory Exam Respiratory Exam: Clear to Ausculation Bilateral, NORMAL BREATHING PATTERN - Cardiovascular Exam Cardiovascular Exam: REGULAR RHYTHM, RRR, +S1, +S2. absent: Murmur - GI/Abdominal Exam GI & Abdominal Exam: Soft, Normal Bowel Sounds. absent: Tenderness - Extremities Exam Extremities Exam: Full ROM, Normal Capillary Refill, Normal Inspection. absent : Joint Swelling, Pedal Edema - Back Exam Back Exam: NORMAL INSPECTION - Neurological Exam Neurological Exam: Alert, Awake, CN II-XII Intact, Normal Gait, Oriented x3 - Psychiatric Exam Psychiatric exam: Normal Affect, Normal Mood - Skin Skin Exam: Dry, Intact, Normal Color, Warm Assessment and Plan (1) DVT prophylaxis Status: Acute (2) Diverticulitis Status: Acute - Assessment and Plan (Free Text) Assessment: (1) DVT prophylaxis Assessment & Plan: scd and ae hose ambulation lovenox Status: Acute (2) Diverticulitis Assessment & Plan: s/p reversal of colostomy. moisés madsen still w/ jesus-arin/angela surgery f/u diet as liu likelly dc today paina nd nausea control Status: Acute
--- NOTE | 2017-06-26 11:02 | CP.PCM.DIS ---
Provider - Provider Date of Admission: 06/19/17 09:55 Attending physician: Don Rodriguez MD Primary care physician: Don Rodriguez MD Time Spent in preparation of Discharge (in minutes): 15 Hospital Course - Lab Results Lab Results: Most Recent Lab Values WBC 6.4 K/uL (4.8-10.8) 06/26/17 06:20 RBC 3.46 Mil/uL (4.40-5.90) L 06/26/17 06:20 Hgb 10.3 g/dL (12.0-18.0) L 06/26/17 06:20 Hct 29.9 % (35.0-51.0) L 06/26/17 06:20 MCV 86.5 fl (80.0-94.0) 06/26/17 06:20 MCH 29.7 pg (27.0-31.0) 06/26/17 06:20 MCHC 34.3 g/dL (33.0-37.0) 06/26/17 06:20 RDW 13.4 % (11.5-14.5) 06/26/17 06:20 Plt Count 299 K/uL (130-400) 06/26/17 06:20 MPV 7.6 fl (7.2-11.7) 06/26/17 06:20 Neut % (Auto) 74.3 % (50.0-75.0) 06/26/17 06:20 Lymph % (Auto) 13.7 % (20.0-40.0) L 06/26/17 06:20 [place] % (Auto) 8.3 % (0.0-10.0) 06/26/17 06:20 Eos % (Auto) 3.3 % (0.0-4.0) 06/26/17 06:20 Baso % (Auto) 0.4 % (0.0-2.0) 06/26/17 06:20 Neut # 4.7 K/uL (1.8-7.0) 06/26/17 06:20 Lymph # 0.9 K/uL (1.0-4.3) L 06/26/17 06:20 [place] # 0.5 K/uL (0.0-0.8) 06/26/17 06:20 Eos # 0.2 K/uL (0.0-0.7) 06/26/17 06:20 Baso # 0.0 K/uL (0.0-0.2) 06/26/17 06:20 Sodium 138 mmol/l (132-148) 06/26/17 06:20 Potassium 3.7 MMOL/L (3.6-5.0) 06/26/17 06:20 Chloride 104 mmol/L (98-107) 06/26/17 06:20 Carbon Dioxide 28 mmol/L (22-30) 06/26/17 06:20 Anion Gap 10 (10-20) 06/26/17 06:20 BUN 11 mg/dl (9-20) 06/26/17 06:20 Creatinine 0.7 mg/dl (0.8-1.5) L 06/26/17 06:20 Est GFR ( Amer) > 60 06/26/17 06:20 Est GFR (Non-Af Amer) > 60 06/26/17 06:20 Random Glucose 105 mg/dL (75-110) 06/26/17 06:20 Calcium 8.8 mg/dL (8.4-10.2) 06/26/17 06:20 Total Bilirubin 1.9 mg/dl (0.2-1.3) H 06/26/17 06:20 AST 57 U/L (17-59) 06/26/17 06:20 ALT 43 U/L (21-72) 06/26/17 06:20 Alkaline Phosphatase 52 U/L (38-126) 06/26/17 06:20 Total Protein 6.0 G/DL (6.3-8.2) L 06/26/17 06:20 Albumin 3.5 g/dL (3.5-5.0) 06/26/17 06:20 Globulin 2.5 gm/dL (2.2-3.9) 06/26/17 06:20 Albumin/Globulin Ratio 1.4 (1.0-2.1) 06/26/17 06:20 - Hospital Course Hospital Course: Pt is a 66M POD#7 s/p colostomy reversal. Pt remained in house post-op for pain management, diet tolerance and physical therapy. Pt has been OOB and ambulating, labs WNL, tolerating regular diet, passing flatus. Being D/C today with Rx for Reglan and Percocet. D/C instructions provided at length. Pt is aware to follow up in 1 week. All questions answered at time of examination this morning Discharge Exam - Head Exam Head Exam: ATRAUMATIC, NORMAL INSPECTION, NORMOCEPHALIC - Eye Exam Eye Exam: Normal appearance - Respiratory Exam Respiratory Exam: NORMAL BREATHING PATTERN. absent: Accessory Muscle Use, Respiratory Distress - Cardiovascular Exam Cardiovascular Exam: REGULAR RHYTHM. absent: Tachycardia - GI/Abdominal Exam GI & Abdominal Exam: Normal Bowel Sounds. absent: Distended, Firm, Guarding, Hernia Additional comments: incisions c/d/i - Neurological Exam Neurological exam: Alert, Oriented x3 - Psychiatric Exam Psychiatric exam: Normal Affect, Normal Mood - Skin Skin Exam: Normal Color, Warm Discharge Plan - Discharge Medications Prescriptions: Metoclopramide HCl [Reglan] 10 mg PO Q6 #10 tablet oxyCODONE/Acetaminophen [Percocet 5/325 mg Tab] 1 tab PO Q4 PRN #10 tab PRN Reason: Pain, Moderate (4-7) - Follow Up Plan Condition: GOOD Disposition: HOME/ ROUTINE Instructions: Low Fiber Diet (GEN), Open Colostomy Reversal (DC) Referrals: Don Rodriguez MD [Primary Care Provider] -
== END 2017-06-26 13:30 | disposition home or self-care (01) | DRG 346 ==
LOC: H.OPSURG 06:15 → H.MEDSURG1 09:55
PROVIDERS: ADMIT Surgery; ATTEND Surgery
PROC: 0DSM0ZZ Reposition Descending Colon, Open Approach (ICD-10-PCS; principal; 2017-06-19 07:45)
DX: Z43.3 Encounter for attention to colostomy (principal); I10 Essential (primary) hypertension; E78.00 Pure hypercholesterolemia, unspecified; E78.5 Hyperlipidemia, unspecified; F17.210 Nicotine dependence, cigarettes, uncomplicated; R06.6 Hiccough; G47.00 Insomnia, unspecified; E87.6 Hypokalemia

== ENCOUNTER 2017-07-05 13:27 | Inpatient (IN) | payer MEDICARE, BC, OTHER ==
[2017-07-05 13:28] VITALS: BMI 23.9
--- NOTE | 2017-07-05 14:21 | ED PDOC ---
HPI: Abdomen Time Seen by Provider: 07/05/17 13:53 Chief Complaint (Nursing): Abdominal Pain Chief Complaint (Provider): Abdominal Pain History Per: Patient History/Exam Limitations: no limitations Onset/Duration Of Symptoms: Days (x16) Current Symptoms Are (Timing): Still Present Additional Complaint(s): Severiano Castro is a 67 y/o male who was referred to the ED after having an abnormal CT scan earlier today. Patient reports having abdominal pain and hiccups since colostomy reversal surgery with Dr. Rodriguez on 06/19/17, for which the CT was ordered. His initial colostomy was done in February 2017. Pain has worsened over the past 2 days. Patient also reports some diarrhea. No vomiting, nausea, headache, dizziness, weakness, numbness, tingling, fever, shortness of breath, or chest pain. PMD: [facility] Past Medical History Reviewed: Historical Data, Nursing Documentation, Vital Signs Vital Signs: Last Vital Signs Temp 98.8 F 07/05/17 13:51 Pulse 75 07/05/17 13:51 Resp 18 07/05/17 13:51 BP 123/77 07/05/17 13:51 Pulse Ox 98 07/05/17 14:30 - Medical History PMH: Back Problems, CAD, Depression, Diverticulitis, HTN, Hypercholesterolemia Denies: HIV, Chronic Kidney Disease - Surgical History Surgical History: Endoscopy, Tonsillectomy Other surgeries: Colostomy placement February 2017, Colostomy reversal 06/19/17 - Family History Family History: States: Unknown Family Hx - Living Arrangements Living Arrangements: With Family - Social History Alcohol: None Drugs: Denies - Immunization History Hx Tetanus Toxoid Vaccination: No Hx Influenza Vaccination: No Hx Pneumococcal Vaccination: No - Home Medications Home Medications: Ambulatory Orders Medication Instructions Recorded RX: Atorvastatin [Lipitor] 20 mg PO DAILY 05/26/16 RX: amLODIPine [Norvasc] 10 mg PO DAILY 05/26/16 RX: Losartan [Cozaar] 25 mg PO DAILY 02/09/17 RX: Melatonin [Melatin] 1 tab PO HS 02/09/17 RX: Omeprazole Magnesium [Prilosec 20 mg PO DAILY 02/09/17 Otc] Metoclopramide HCl [Reglan] 10 mg PO Q6 #10 tablet 06/25/17 oxyCODONE/Acetaminophen [Percocet 1 tab PO Q4 PRN #10 tab 06/25/17 5/325 mg Tab] - Allergies Allergies/Adverse Reactions: Allergies Allergy/AdvReac Type Severity Reaction Status Date / Time No Known Allergies Allergy Verified 02/09/17 23:02 Review of Systems ROS Statement: Except As Marked, All Systems Reviewed And Found Negative Constitutional: Negative for: Fever, Chills Cardiovascular: Negative for: Chest Pain Respiratory: Negative for: Cough, Shortness of Breath Gastrointestinal: Positive for: Abdominal Pain, Diarrhea. Negative for: Nausea , Vomiting Genitourinary Male: Negative for: Dysuria, Frequency, Hematuria Neurological: Negative for: Weakness, Numbness, Headache, Dizziness Physical Exam - Reviewed Nursing Documentation Reviewed: Yes Vital Signs Reviewed: Yes - Physical Exam Appears: Positive for: Non-toxic, No Acute Distress Head Exam: Positive for: ATRAUMATIC, NORMAL INSPECTION, NORMOCEPHALIC Skin: Positive for: Normal Color, Warm, Dry Eye Exam: Positive for: EOMI, Normal appearance, PERRL Neck: Positive for: Normal, Painless ROM Cardiovascular/Chest: Positive for: Regular Rate, Rhythm. Negative for: Murmur Respiratory: Positive for: Normal Breath Sounds. Negative for: Accessory Muscle Use, Respiratory Distress Gastrointestinal/Abdominal: Positive for: Soft, Tenderness (periumbilical tenderness), Other (Healing surgical scars noted. +Ecchymosis to the lower incision, no discharge. [place] in place.) Back: Positive for: Normal Inspection. Negative for: L CVA Tenderness, R CVA Tenderness, Vertebral Tenderness, Other (Flank tenderness) Extremity: Positive for: Normal ROM. Negative for: Pedal Edema, Calf Tenderness , Deformity Neurologic/Psych: Positive for: Alert, Oriented (x3) - ECG O2 Sat by Pulse Oximetry: 98 (RA) Pulse Ox Interpretation: Normal - Progress ED Course And Treament: CT report from earlier today reviewed: Creator : Toney Acosta MD Dictator : Toney Acosta MD Boat Master : Patient Services Manager : Toney Acosta MD Approver2 : Report Date : 07/05/2017 12:40:30 My Comment : PROCEDURE: CT Abdomen and Pelvis with contrast HISTORY: FREQUENT HICCUPS, evaluate for intra-abdominal abscess COMPARISON: CT scan of the abdomen pelvis dated 02/20/2017 TECHNIQUE: Contrast dose: 95 mL Omnipaque 300 Radiation dose: Total exam DLP = 571.4 mGy-cm. This CT exam was performed using one or more of the following dose reduction techniques: Automated exposure control, adjustment of the mA and/or kV according to patient size, and/or use of iterative reconstruction technique. FINDINGS: LOWER THORAX: Coronary arterial and valvular calcifications. Heart size is normal. No focal consolidation or pleural effusion. LIVER: Unremarkable. No gross lesion or ductal dilatation. GALLBLADDER AND BILE DUCTS: Unremarkable. PANCREAS: Unremarkable. No gross lesion or ductal dilatation. SPLEEN: Unremarkable. ADRENALS: Unremarkable. No mass. KIDNEYS AND URETERS: Stable sub centimeter right renal cysts. Punctate nonobstructive left lower pole calculi. No hydronephrosis. No solid mass. VASCULATURE: Unremarkable. No aortic aneurysm. BOWEL: Mild distal esophageal wall thickening versus underdistention. Interval left lower quadrant colostomy reversal. Sigmoid diverticulosis without diverticulitis. No obstruction. APPENDIX: Not visualized. PERITONEUM: Large multilobulated complex fluid collection in the pelvis that measures approximately 8.3 x 7.1 x 14.6 centimeter in maximal dimension. The collection abuts the expected location of the appendix as well as the surgical anastomosis. No free air. LYMPH NODES: Unremarkable. No enlarged lymph nodes. BLADDER: Approximately 2.4 x 3.2 centimeter of bladder herniated through ventral pelvic wall defect. REPRODUCTIVE: Unremarkable. BONES: Spinal degenerative changes. OTHER FINDINGS: Midline and left lower quadrant postsurgical changes. IMPRESSION: Large multilobulated complex pelvic fluid collection measuring 8.3 x 7.1 x 14.6 centimeter that abuts the expected location of the appendix as well as the colonic surgical anastomosis. Findings may represent perforated appendicitis, anastomotic leak and/or postsurgical abscess. Partial anterior bladder herniation through ventral pelvic wall defect as described above. Additional findings as above. Findings conveyed to Dr. Rodriguez by Dr. Bustillo at 12:35 pm on 07/05/2017. 1450: Stable. AAOx3. Spoke with surgery resident who will see pt. Spoke with Collins for Dr. Barker. Will admit. Zosyn. Alexandre for possible abscess postop. Medical Decision Making Medical Decision Making: Time: 14:23 Initial Plan: --CMP --CBC --Blood culture --Chest x-ray --Patient will be admitted inpatient to Med/Surg for abdominal pain, abscess, under the service of Dr. Niall Barker Scribe Attestation: Documented by Leigh Ryan, acting as a scribe for Jv Laws MD Provider Scribe Attestation: All medical record entries made by the Scribe were at my direction and personally dictated by me. I have reviewed the chart and agree that the record accurately reflects my personal performance of the history, physical exam, medical decision making, and the department course for this patient. I have also personally directed, reviewed, and agree with the discharge instructions and disposition. Disposition - Clinical Impression Clinical Impression: Abdominal discomfort, Abscess - Patient ED Disposition Is Patient to be Admitted: Yes Counseled Patient/Family Regarding: Diagnosis - Disposition Disposition Time: 14:51 Condition: FAIR - Pt Status Changed To: Hospital Disposition Of: Inpatient - Admit Certification Admit to Inpatient:: After my assessment, the patient will require hospitalization for at least two midnights. This is because of the severity of symptoms shown, intensity of services needed, and/or the medical risk in this patient being treated as an outpatient. - POA Present On Arrival: None
[2017-07-05] MEDS ORDERED: Sodium Chloride 0.9% 1,000 ML IV STA (14:24)
[2017-07-05] MEDS ORDERED: Piperacillin/Tazobact 3.375 GM in Sodium Chloride 0.9% 100 ML IV STA (14:24)
[2017-07-05 15:06] LABS: BASO % 0.5 % (0.0-2.0); EOS # 0.2 K/uL (0.0-0.7); EOS % 2.1 % (0.0-4.0); HEMATOCRIT 37.2 % (35.0-51.0); LYMPH # 1.8 K/uL (1.0-4.3); LYMPH % 20.3 % (20.0-40.0); MEAN CORPUSCULAR HEMOGLOBIN 28.8 pg (27.0-31.0); MEAN CORPUSCULAR HGB CONC 32.7 g/dL (33.0-37.0); MEAN PLATELET VOLUME 7.4 fl (7.2-11.7); MONO # 0.5 K/uL (0.0-0.8); MONO % 5.9 % (0.0-10.0); NEUT # 6.2 K/uL (1.8-7.0); NEUT % 71.2 % (50.0-75.0); RED CELL DISTRIBUTION WIDTH 13.8 % (11.5-14.5); WHITE BLOOD COUNT 8.7 K/uL (4.8-10.8)
[2017-07-05 15:06] LABS: VENOUS BLOOD GAS BASE EXCESS 4.4 mmol/L (0.0-2.0); VENOUS BLOOD GAS PCO2 52 mmHg (40-60); VENOUS BLOOD PH 7.38 (7.32-7.43)
[2017-07-05 15:15] LABS: PARTIAL THROMBOPLASTIN TIME 45.3 Seconds (25.6-37.1)
[2017-07-05 15:17] LABS: ALB/GLOB RATIO 1.4 (1.0-2.1); ALKALINE PHOSPHATASE 50 U/L (38-126); ALT/SGPT 30 U/L (21-72); AST/SGOT 28 U/L (17-59); BILIRUBIN,TOTAL 1.3 mg/dl (0.2-1.3); BLOOD UREA NITROGEN 12 mg/dl (9-20); CALCIUM 9.1 mg/dL (8.4-10.2); CARBON DIOXIDE 30 mmol/L (22-30); CHLORIDE 103 mmol/L (98-107); GFR AFRICAN-AMERICAN > 60; GLUCOSE,RANDOM 78 mg/dL (75-110); LIPASE 135 U/L (23-300); POTASSIUM 4.1 MMOL/L (3.6-5.0); SODIUM 136 mmol/l (132-148)
--- NOTE | 2017-07-05 15:51 | CP.PCM.CON ---
History of Present Illness - History of Present Illness History of Present Illness: General Surgery Dr. Tillman (covering Dr. Rodriguez) 67 y/o M s/p colostomy reversal on 06/19 presents to the ED as per Dr. Rodriguez's instructions. At last office appointment, pt complaining of post-operative hiccups. Pt was instructed to get get an outpatient CT Abd/pelvis to assess cause of continued post-op hiccups. Pt went for CT today and was found to have large, multi-lobulated, complex fluid collection in the pelvis near appendix and surgical anastomosis site. Pt was instructed to come to the ED for admission and further work up. Pt admits to epigastric discomfort, worse w/ lying down and some leticia-incisional burning/irritation. Pt denies F/C, N/V, D/ C. PMHx: diverticulitis, GERD, HTN, HLD, depression, hemorrhoids Meds: reviewed in chart NKDA PSHx: Wheatley's reversal, Wheatley's procedure, tonsillectomy, R femoral hernia repair, spinal nerve ablation SHx: former smoker; denies EtOH, drug use FHx: noncontributory Review of Systems - Review of Systems All systems: reviewed and no additional remarkable complaints except (see HPI) Past Patient History - Infectious Disease Hx of Infectious Diseases: None - Past Medical History & Family History Past Medical History?: Yes - Past Social History Alcohol: None Drugs: Denies - CARDIAC Hx Hypercholesterolemia: Yes Hx Hypertension: Yes - PULMONARY Hx Respiratory Disorders: No - NEUROLOGICAL Hx Neurological Disorder: No - HEENT Hx HEENT Problems: No - RENAL Hx Chronic Kidney Disease: No - ENDOCRINE/METABOLIC Hx Endocrine Disorders: No - HEMATOLOGICAL/ONCOLOGICAL Hx Human Immunodeficiency Virus (HIV): No - INTEGUMENTARY Hx Dermatological Problems: No - MUSCULOSKELETAL/RHEUMATOLOGICAL Hx Musculoskeletal Disorders: No Hx Falls: No Hx Herniated Disk: Yes (lumbar) - GASTROINTESTINAL Hx Diverticulitis: Yes - GENITOURINARY/GYNECOLOGICAL Hx Genitourinary Disorders: No - PSYCHIATRIC Hx Depression: Yes - SURGICAL HISTORY Hx Tonsillectomy: Yes - ANESTHESIA Hx Anesthesia: Yes Hx Anesthesia Reactions: No Hx Malignant Hyperthermia: No Meds Allergies/Adverse Reactions: Allergies Allergy/AdvReac Type Severity Reaction Status Date / Time No Known Allergies Allergy Verified 02/09/17 23:02 - Medications Medications: Current Medications Piperacillin Sod/Tazobactam (Sod 3.375 gm/ Sodium Chloride) 100 mls @ 100 mls/ hr IVPB Q6 SANDER PRN Reason: Protocol Oxycodone/Acetaminophen (Percocet 5/325 Mg Tab) 1 tab PO Q4 PRN PRN Reason: Pain, moderate (4-7) Stop: 07/08/17 15:34 Pantoprazole Sodium (Protonix Inj) 40 mg IVP DAILY SANDER Physical Exam - Constitutional Appears: Non-toxic, No Acute Distress - Head Exam Head Exam: NORMAL INSPECTION - Eye Exam Eye Exam: Normal appearance - ENT Exam ENT Exam: Mucous Membranes Moist - Respiratory Exam Respiratory Exam: NORMAL BREATHING PATTERN. absent: Accessory Muscle Use, Respiratory Distress - Cardiovascular Exam Cardiovascular Exam: absent: Bradycardia, Tachycardia - GI/Abdominal Exam GI & Abdominal Exam: Soft, Tenderness (minimal leticia-incisional TTP). absent: Distended, Firm, Guarding, Rigid Additional comments: ecchymosis present surround incision saadia in place skin well approximated no drainage noted - Extremities Exam Extremities exam: Positive for: normal inspection - Neurological Exam Neurological exam: Alert, Oriented x3 - Psychiatric Exam Psychiatric exam: Normal Affect, Normal Mood - Skin Skin Exam: Dry, Intact, Warm Results - Vital Signs Recent Vital Signs: Last Vital Signs Temp 98.8 F 07/05/17 13:51 Pulse 75 07/05/17 13:51 Resp 18 07/05/17 13:51 BP 123/77 07/05/17 13:51 Pulse Ox 98 07/05/17 14:52 - Labs Result Diagrams: 07/05/17 15:00 07/05/17 15:00 Labs: Laboratory Results - last 24 hr 07/05/17 07/05/17 07/05/17 15:00 15:00 15:00 WBC 8.7 RBC 4.22 L Hgb 12.2 Hct 37.2 MCV 88.0 MCH 28.8 MCHC 32.7 L RDW 13.8 Plt Count 446 H D MPV 7.4 Neut % (Auto) 71.2 Lymph % (Auto) 20.3 [place] % (Auto) 5.9 Eos % (Auto) 2.1 Baso % (Auto) 0.5 Neut # 6.2 Lymph # 1.8 [place] # 0.5 Eos # 0.2 Baso # 0.0 PT 11.6 INR 1.0 APTT 45.3 H pO2 VBG pH VBG pCO2 VBG HCO3 VBG Total CO2 VBG O2 Sat (Calc) VBG Base Excess VBG Potassium Glucose Lactate FiO2 Sodium 136 Potassium 4.1 Chloride 103 Carbon Dioxide 30 Anion Gap 7 L BUN 12 Creatinine 1.0 Est GFR ( Amer) > 60 Est GFR (Non-Af Amer) > 60 Random Glucose 78 Calcium 9.1 Total Bilirubin 1.3 AST 28 ALT 30 Alkaline Phosphatase 50 Total Protein 7.0 Albumin 4.1 Globulin 2.9 Albumin/Globulin Ratio 1.4 Lipase 135 Venous Blood Potassium 07/05/17 15:01 WBC RBC Hgb Hct MCV MCH MCHC RDW Plt Count MPV Neut % (Auto) Lymph % (Auto) [place] % (Auto) Eos % (Auto) Baso % (Auto) Neut # Lymph # [place] # Eos # Baso # PT INR APTT pO2 23 L VBG pH 7.38 VBG pCO2 52 VBG HCO3 26.8 VBG Total CO2 32.4 H VBG O2 Sat (Calc) 51.5 VBG Base Excess 4.4 H VBG Potassium 3.8 Glucose 79 Lactate 1.2 FiO2 21.0 Sodium 137.0 Potassium Chloride 103.0 Carbon Dioxide Anion Gap BUN Creatinine Est GFR ( Amer) Est GFR (Non-Af Amer) Random Glucose Calcium Total Bilirubin AST ALT Alkaline Phosphatase Total Protein Albumin Globulin Albumin/Globulin Ratio Lipase Venous Blood Potassium 3.8 - Imaging and Cardiology CT scan - abdomen Status: Image reviewed by me, Report reviewed by me Assessment & Plan - Assessment and Plan (Free Text) Assessment: 67 y/o M POD#16 s/p Wheatley's reversal w/ loculated pelvic fluid collection - IV Abx - Low residue diet - pain management - monitor bowel fxn - f/u AM labs - GI/DVT PPx - May need IR drainage - Further recs per Dr. Tillman (covering Dr. Rodriguez) Pt discussed w/ Dr. Michael Herrera DO PGY2
--- NOTE | 2017-07-05 16:00 | RAD ---
HISTORY: abd pain COMPARISON: Comparison is made to 06/14/2017 FINDINGS: LUNGS: No active pulmonary disease. PLEURA: No significant pleural effusion identified, no pneumothorax apparent. CARDIOVASCULAR: Normal. OSSEOUS STRUCTURES: No significant abnormalities. VISUALIZED UPPER ABDOMEN: Normal. OTHER FINDINGS: None. IMPRESSION: No active disease.
[2017-07-05] MEDS ORDERED: Oxycodone/Acetaminophen 5/325 mg Tab ONE (16:03)
[2017-07-05] MEDS: Oxycodone/Acetaminophen 5/325 mg Tab PO PRN (16:03)
[2017-07-05] MEDS ORDERED: HYDROmorphone 0.5 mg/0.5 ml ISec IVP PRN (18:58)
[2017-07-05] MEDS ORDERED: Pneumococcal 23-Valent Vaccine IM ONE (19:00)
[2017-07-05] MEDS: Piperacillin/Tazobact 3.375 GM in Sodium Chloride 0.9% 100 ML IVPB SCH (21:05)
[2017-07-06] MEDS: Piperacillin/Tazobact 3.375 GM in Sodium Chloride 0.9% 100 ML IVPB SCH ×4 (04:33→21:49)
[2017-07-06 07:38] LABS: HEMATOCRIT 34.3 % (35.0-51.0); MEAN CELL VOLUME 87.4 fl (80.0-94.0); MEAN CORPUSCULAR HEMOGLOBIN 29.3 pg (27.0-31.0); MEAN CORPUSCULAR HGB CONC 33.5 g/dL (33.0-37.0); RED CELL DISTRIBUTION WIDTH 13.7 % (11.5-14.5); WHITE BLOOD COUNT 7.7 K/uL (4.8-10.8)
[2017-07-06 07:59] LABS: BLOOD UREA NITROGEN 14 mg/dl (9-20); CALCIUM 8.7 mg/dL (8.4-10.2); CARBON DIOXIDE 29 mmol/L (22-30); CHLORIDE 105 mmol/L (98-107); GFR AFRICAN-AMERICAN > 60; GLUCOSE,RANDOM 96 mg/dL (75-110); POTASSIUM 4.2 MMOL/L (3.6-5.0); SODIUM 140 mmol/l (132-148)
--- NOTE | 2017-07-06 08:01 | CP.PCM.HP ---
History of Present Illness - History of Present Illness History of Present Illness: pt admitted for possible abscess vs fluid collection to the rlq. pt had colostomy w/ reversal over the last few months. no f/c, n/v/d. pt states pain waxes/wanes. no further hiccoughs. Present on Admission - Present on Admission Any Indicators Present on Admission: No Review of Systems - Gastrointestinal Gastrointestinal: As Per HPI, Abdominal Pain Past Patient History - Infectious Disease Hx of Infectious Diseases: None - Past Medical History & Family History Past Medical History?: Yes - Past Social History Smoking Status: Former Smoker - CARDIAC Hx Cardiac Disorders: Yes - PULMONARY Hx Respiratory Disorders: No - NEUROLOGICAL Hx Neurological Disorder: No - HEENT Hx HEENT Problems: No - RENAL Hx Chronic Kidney Disease: No - ENDOCRINE/METABOLIC Hx Endocrine Disorders: No - HEMATOLOGICAL/ONCOLOGICAL Hx Human Immunodeficiency Virus (HIV): No - INTEGUMENTARY Hx Dermatological Problems: No - MUSCULOSKELETAL/RHEUMATOLOGICAL Hx Musculoskeletal Disorders: No Hx Falls: No - GASTROINTESTINAL Hx Diverticulitis: Yes - GENITOURINARY/GYNECOLOGICAL Hx Genitourinary Disorders: No - PSYCHIATRIC Hx Psychophysiologic Disorder: Yes Hx Substance Use: No - SURGICAL HISTORY Hx Tonsillectomy: Yes - ANESTHESIA Hx Anesthesia: Yes Hx Anesthesia Reactions: No Hx Malignant Hyperthermia: No Meds Allergies/Adverse Reactions: Allergies Allergy/AdvReac Type Severity Reaction Status Date / Time No Known Allergies Allergy Verified 02/09/17 23:02 Physical Exam - Constitutional Appears: Well, Non-toxic, No Acute Distress - Head Exam Head Exam: ATRAUMATIC, NORMAL INSPECTION, NORMOCEPHALIC - Eye Exam Eye Exam: EOMI, Normal appearance, PERRL Pupil Exam: NORMAL ACCOMODATION, PERRL - ENT Exam ENT Exam: Mucous Membranes Moist, Normal Exam - Neck Exam Neck exam: Positive for: Normal Inspection - Respiratory Exam Respiratory Exam: Clear to Auscultation Bilateral, NORMAL BREATHING PATTERN - Cardiovascular Exam Cardiovascular Exam: REGULAR RHYTHM, RRR, +S1, +S2 - GI/Abdominal Exam GI & Abdominal Exam: Normal Bowel Sounds, Soft, Tenderness Additional comments: lower abd tenderness, nonspecific - Extremities Exam Extremities exam: Positive for: full ROM, normal capillary refill, normal inspection, pedal pulses present - Back Exam Back exam: NORMAL INSPECTION - Neurological Exam Neurological exam: Alert, CN II-XII Intact, Normal Gait, Oriented x3, Reflexes Normal - Psychiatric Exam Psychiatric exam: Normal Affect, Normal Mood - Skin Skin Exam: Dry, Intact, Normal Color, Warm Results - Vital Signs Recent Vital Signs: Last Vital Signs Temp 98.0 F 07/06/17 07:53 Pulse 62 07/06/17 07:53 Resp 17 07/06/17 07:53 BP 128/77 07/06/17 07:53 Pulse Ox 97 07/06/17 07:53 - Labs Result Diagrams: 07/06/17 05:30 07/06/17 05:30 Labs: Laboratory Results - last 24 hr 07/05/17 07/05/17 07/05/17 15:00 15:00 15:00 WBC 8.7 RBC 4.22 L Hgb 12.2 Hct 37.2 MCV 88.0 MCH 28.8 MCHC 32.7 L RDW 13.8 Plt Count 446 H D MPV 7.4 Neut % (Auto) 71.2 Lymph % (Auto) 20.3 [place] % (Auto) 5.9 Eos % (Auto) 2.1 Baso % (Auto) 0.5 Neut # 6.2 Lymph # 1.8 [place] # 0.5 Eos # 0.2 Baso # 0.0 PT 11.6 INR 1.0 APTT 45.3 H pO2 VBG pH VBG pCO2 VBG HCO3 VBG Total CO2 VBG O2 Sat (Calc) VBG Base Excess VBG Potassium Glucose Lactate FiO2 Sodium 136 Potassium 4.1 Chloride 103 Carbon Dioxide 30 Anion Gap 7 L BUN 12 Creatinine 1.0 Est GFR ( Amer) > 60 Est GFR (Non-Af Amer) > 60 Random Glucose 78 Calcium 9.1 Total Bilirubin 1.3 AST 28 ALT 30 Alkaline Phosphatase 50 Total Protein 7.0 Albumin 4.1 Globulin 2.9 Albumin/Globulin Ratio 1.4 Lipase 135 Venous Blood Potassium 07/05/17 07/06/17 07/06/17 15:01 05:30 05:30 WBC 7.7 RBC 3.92 L Hgb 11.5 L Hct 34.3 L MCV 87.4 MCH 29.3 MCHC 33.5 RDW 13.7 Plt Count 374 MPV Neut % (Auto) Lymph % (Auto) [place] % (Auto) Eos % (Auto) Baso % (Auto) Neut # Lymph # [place] # Eos # Baso # PT INR APTT pO2 23 L VBG pH 7.38 VBG pCO2 52 VBG HCO3 26.8 VBG Total CO2 32.4 H VBG O2 Sat (Calc) 51.5 VBG Base Excess 4.4 H VBG Potassium 3.8 Glucose 79 Lactate 1.2 FiO2 21.0 Sodium 137.0 140 Potassium 4.2 Chloride 103.0 105 Carbon Dioxide 29 Anion Gap 10 BUN 14 Creatinine 1.1 Est GFR ( Amer) > 60 Est GFR (Non-Af Amer) > 60 Random Glucose 96 Calcium 8.7 Total Bilirubin AST ALT Alkaline Phosphatase Total Protein Albumin Globulin Albumin/Globulin Ratio Lipase Venous Blood Potassium 3.8 Assessment & Plan (1) Abdominal fluid collection Assessment and Plan: zosyn surgery po as liu ?? repeat imaging as per surgery ct noted from outside Status: Acute (2) DVT prophylaxis Assessment and Plan: scd and ae hose ambulation no anticoag until surgery decide about surgical option Status: Acute (3) Diverticulitis Assessment and Plan: s/p colostomy w/ reversal Status: Acute Decision To Admit - Pt Status Changed To: Hospital Disposition Of: Inpatient - Admit Certification Admit to Inpatient:: After my assessment, the patient will require hospitalization for at least two midnights. This is because of the severity of symptoms shown, intensity of services needed, and/or the medical risk in this patient being treated as an outpatient. - . Bed Request Type: Med/Surg Admitting Physician: Niall Barker
[2017-07-06] MEDS: HCTZ/Losartan 12.5/50 Tab PO SCH (08:45)
[2017-07-06] MEDS: Oxycodone/Acetaminophen 5/325 mg Tab PO PRN ×3 (08:50→19:01)
[2017-07-06] MEDS ORDERED: Pantoprazole 40 mg EC Tab PO SCH (09:00)
--- NOTE | 2017-07-06 09:45 | CP.PCM.PN ---
<Quang Cruz - Last Filed: 07/06/17 09:41> Subjective - Date & Time of Evaluation Date of Evaluation: 07/06/17 Time of Evaluation: 09:41 - Subjective Subjective: Gen Sx: Dr Rodriguez/Primo Pt S&e. YAZANHunterO. Reports minimal discomfort in lower abdomen but is resolving. Denies f/c, n/v. Passing flatus and having regular BMs. CT evaluated by IR and reportedly not amendable to drainage. Objective - Vital Signs/Intake and Output Vital Signs (last 24 hours): Temp Pulse Resp BP Pulse Ox 98.0 F 62 17 128/77 97 07/06/17 07:53 07/06/17 08:46 07/06/17 07:53 07/06/17 08:46 07/06/17 07:53 - Medications Medications: Current Medications Amlodipine Besylate (Norvasc) 10 mg PO DAILY [facility] Last Admin: 07/06/17 08:46 Dose: 10 mg Atorvastatin Calcium (Lipitor) 20 mg PO HS [facility] Last Admin: 07/05/17 22:45 Dose: Not Given Clonazepam (Klonopin) 0.5 mg PO HS PRN PRN Reason: Anxiety Diphenhydramine HCl (Benadryl) 25 mg PO HS PRN PRN Reason: Insomnia Last Admin: 07/05/17 22:39 Dose: 25 mg HCTZ/Losartan Potassium (Hyzaar 12.5 Mg-50 Mg) 1 tab PO DAILY [facility] Last Admin: 07/06/17 08:45 Dose: 1 tab Hydromorphone HCl (Dilaudid) 0.5 mg IVP Q4 PRN PRN Reason: Pain, severe (8-10) Stop: 07/07/17 18:58 Last Admin: 07/05/17 22:40 Dose: 0.5 mg Piperacillin Sod/Tazobactam (Sod 3.375 gm/ Sodium Chloride) 100 mls @ 100 mls/ hr IVPB Q6 SANDER PRN Reason: Protocol Last Admin: 07/06/17 04:33 Dose: 100 mls/hr Ondansetron HCl (Zofran Inj) 4 mg IVP Q6 PRN PRN Reason: Nausea/Vomiting Oxycodone/Acetaminophen (Percocet 5/325 Mg Tab) 1 tab PO Q4 PRN PRN Reason: Pain, moderate (4-7) Stop: 07/08/17 15:34 Last Admin: 07/06/17 08:50 Dose: 1 tab Pantoprazole Sodium (Protonix Inj) 40 mg IVP DAILY [facility] Last Admin: 07/06/17 08:48 Dose: 40 mg - Labs Labs: 07/06/17 05:30 07/06/17 05:30 PT 11.6 Seconds (9.8-13.1) 07/05/17 15:00 INR 1.0 (0.9-1.2) 07/05/17 15:00 APTT 45.3 Seconds (25.6-37.1) H 07/05/17 15:00 - Constitutional Appears: Non-toxic, No Acute Distress - ENT Exam ENT Exam: Mucous Membranes Moist - Respiratory Exam Respiratory Exam: absent: Accessory Muscle Use, Respiratory Distress - Cardiovascular Exam Cardiovascular Exam: REGULAR RHYTHM. absent: Tachycardia - GI/Abdominal Exam GI & Abdominal Exam: Soft, Tenderness (lower abdomen supra-pubic). absent: Distended, Firm - Neurological Exam Neurological Exam: Alert, Awake, Oriented x3 - Psychiatric Exam Psychiatric exam: Normal Affect, Normal Mood - Skin Skin Exam: Normal Color, Warm Assessment and Plan - Assessment and Plan (Free Text) Assessment: 67M POD reversal of Hartmanns; now with intra-abdominal abscess Plan: cont IV Abx cont IVF will re-evaluate collection on saturday pain meds PRN d/w Dr Primo Cruz, PGY3 <Abhi Tillman - Last Filed: 07/06/17 10:16> Subjective - Subjective Subjective: Pt feels well, afebrile, vss, abd soft, nontender, cont abx, cont current medical mgmt, IV abx Objective - Vital Signs/Intake and Output Vital Signs (last 24 hours): Temp Pulse Resp BP Pulse Ox 98.0 F 62 17 128/77 97 07/06/17 07:53 07/06/17 08:46 07/06/17 07:53 07/06/17 08:46 07/06/17 07:53 - Medications Medications: Current Medications Amlodipine Besylate (Norvasc) 10 mg PO DAILY [facility] Last Admin: 07/06/17 08:46 Dose: 10 mg Atorvastatin Calcium (Lipitor) 20 mg PO HS [facility] Last Admin: 07/05/17 22:45 Dose: Not Given Clonazepam (Klonopin) 0.5 mg PO HS PRN PRN Reason: Anxiety Diphenhydramine HCl (Benadryl) 25 mg PO HS PRN PRN Reason: Insomnia Last Admin: 07/05/17 22:39 Dose: 25 mg HCTZ/Losartan Potassium (Hyzaar 12.5 Mg-50 Mg) 1 tab PO DAILY [facility] Last Admin: 07/06/17 08:45 Dose: 1 tab Hydromorphone HCl (Dilaudid) 0.5 mg IVP Q4 PRN PRN Reason: Pain, severe (8-10) Stop: 07/07/17 18:58 Last Admin: 07/05/17 22:40 Dose: 0.5 mg Piperacillin Sod/Tazobactam (Sod 3.375 gm/ Sodium Chloride) 100 mls @ 100 mls/ hr IVPB Q6 SANDER PRN Reason: Protocol Last Admin: 07/06/17 04:33 Dose: 100 mls/hr Ondansetron HCl (Zofran Inj) 4 mg IVP Q6 PRN PRN Reason: Nausea/Vomiting Oxycodone/Acetaminophen (Percocet 5/325 Mg Tab) 1 tab PO Q4 PRN PRN Reason: Pain, moderate (4-7) Stop: 07/08/17 15:34 Last Admin: 07/06/17 08:50 Dose: 1 tab Pantoprazole Sodium (Protonix Inj) 40 mg IVP DAILY [facility] Last Admin: 07/06/17 08:48 Dose: 40 mg - Labs Labs: 07/06/17 05:30 07/06/17 05:30 PT 11.6 Seconds (9.8-13.1) 07/05/17 15:00 INR 1.0 (0.9-1.2) 07/05/17 15:00 APTT 45.3 Seconds (25.6-37.1) H 07/05/17 15:00
[2017-07-07] MEDS: Piperacillin/Tazobact 3.375 GM in Sodium Chloride 0.9% 100 ML IVPB SCH ×4 (04:45→21:37)
[2017-07-07 08:42] LABS: BASO # 0.1 K/uL (0.0-0.2); BASO % 0.8 % (0.0-2.0); EOS # 0.2 K/uL (0.0-0.7); EOS % 2.4 % (0.0-4.0); HEMATOCRIT 35.2 % (35.0-51.0); LYMPH # 0.8 K/uL (1.0-4.3); LYMPH % 10.7 % (20.0-40.0); MEAN CELL VOLUME 86.9 fl (80.0-94.0); MEAN CORPUSCULAR HEMOGLOBIN 29.6 pg (27.0-31.0); MEAN PLATELET VOLUME 7.7 fl (7.2-11.7); MONO # 0.4 K/uL (0.0-0.8); MONO % 5.6 % (0.0-10.0); NEUT % 80.5 % (50.0-75.0); RED CELL DISTRIBUTION WIDTH 13.8 % (11.5-14.5); WHITE BLOOD COUNT 7.4 K/uL (4.8-10.8)
[2017-07-07 08:52] LABS: ALB/GLOB RATIO 1.4 (1.0-2.1); ALKALINE PHOSPHATASE 47 U/L (38-126); ALT/SGPT 26 U/L (21-72); AST/SGOT 26 U/L (17-59); BLOOD UREA NITROGEN 10 mg/dl (9-20); CALCIUM 8.7 mg/dL (8.4-10.2); CARBON DIOXIDE 28 mmol/L (22-30); CHLORIDE 106 mmol/L (98-107); GFR AFRICAN-AMERICAN > 60; GLUCOSE,RANDOM 92 mg/dL (75-110); SODIUM 141 mmol/l (132-148); TOTAL PROTEIN 6.5 G/DL (6.3-8.2)
--- NOTE | 2017-07-07 10:13 | CP.PCM.PN ---
Subjective - Date & Time of Evaluation Date of Evaluation: 07/07/17 Time of Evaluation: 10:12 - Subjective Subjective: doing well, pain controlled. po liu. no f/c, n/v/d. bw and surgical notes reviewed Objective - Vital Signs/Intake and Output Vital Signs (last 24 hours): Temp Pulse Resp BP Pulse Ox 98.3 F 75 17 113/71 99 07/07/17 07:55 07/07/17 07:55 07/07/17 07:55 07/07/17 07:55 07/07/17 07:55 - Medications Medications: Current Medications Amlodipine Besylate (Norvasc) 10 mg PO DAILY [facility] Last Admin: 07/06/17 08:46 Dose: 10 mg Atorvastatin Calcium (Lipitor) 20 mg PO HS [facility] Last Admin: 07/06/17 21:53 Dose: 20 mg Clonazepam (Klonopin) 0.5 mg PO HS PRN PRN Reason: Anxiety Diphenhydramine HCl (Benadryl) 25 mg PO HS PRN PRN Reason: Insomnia Last Admin: 07/06/17 23:09 Dose: 25 mg HCTZ/Losartan Potassium (Hyzaar 12.5 Mg-50 Mg) 1 tab PO DAILY [facility] Last Admin: 07/06/17 08:45 Dose: 1 tab Hydromorphone HCl (Dilaudid) 0.5 mg IVP Q4 PRN PRN Reason: Pain, severe (8-10) Stop: 07/07/17 18:58 Last Admin: 07/06/17 23:12 Dose: 0.5 mg Piperacillin Sod/Tazobactam (Sod 3.375 gm/ Sodium Chloride) 100 mls @ 100 mls/ hr IVPB Q6 [facility] PRN Reason: Protocol Last Admin: 07/07/17 04:45 Dose: 100 mls/hr Ondansetron HCl (Zofran Inj) 4 mg IVP Q6 PRN PRN Reason: Nausea/Vomiting Oxycodone/Acetaminophen (Percocet 5/325 Mg Tab) 1 tab PO Q4 PRN PRN Reason: Pain, moderate (4-7) Stop: 07/08/17 15:34 Last Admin: 07/06/17 19:01 Dose: 1 tab Pantoprazole Sodium (Protonix Inj) 40 mg IVP DAILY [facility] Last Admin: 07/06/17 08:48 Dose: 40 mg - Labs Labs: 07/07/17 05:45 07/07/17 05:45 PT 11.6 Seconds (9.8-13.1) 07/05/17 15:00 INR 1.0 (0.9-1.2) 07/05/17 15:00 APTT 45.3 Seconds (25.6-37.1) H 07/05/17 15:00 - Constitutional Appears: Well, Non-toxic, No Acute Distress - Head Exam Head Exam: ATRAUMATIC, NORMAL INSPECTION, NORMOCEPHALIC - Eye Exam Eye Exam: EOMI, Normal appearance, PERRL Pupil Exam: NORMAL ACCOMODATION, PERRL - ENT Exam ENT Exam: Mucous Membranes Moist, Normal Exam - Neck Exam Neck Exam: Full ROM, Normal Inspection. absent: Lymphadenopathy - Respiratory Exam Respiratory Exam: Clear to Ausculation Bilateral, NORMAL BREATHING PATTERN - Cardiovascular Exam Cardiovascular Exam: REGULAR RHYTHM, RRR, +S1, +S2. absent: Murmur - GI/Abdominal Exam GI & Abdominal Exam: Soft, Normal Bowel Sounds. absent: Tenderness - Extremities Exam Extremities Exam: Full ROM, Normal Capillary Refill, Normal Inspection. absent : Joint Swelling, Pedal Edema - Back Exam Back Exam: NORMAL INSPECTION - Neurological Exam Neurological Exam: Alert, Awake, CN II-XII Intact, Normal Gait, Oriented x3 - Psychiatric Exam Psychiatric exam: Normal Affect, Normal Mood - Skin Skin Exam: Dry, Intact, Normal Color, Warm Assessment and Plan (1) Abdominal fluid collection Status: Acute (2) DVT prophylaxis Status: Acute (3) Diverticulitis Status: Acute - Assessment and Plan (Free Text) Assessment: (1) Abdominal fluid collection Assessment and Plan: zosyn surgery po as liu ?? repeat imaging as per surgery ct noted from outside Status: Acute (2) DVT prophylaxis Assessment and Plan: scd and ae hose ambulation no anticoag until surgery decide about surgical option Status: Acute (3) Diverticulitis Assessment and Plan: s/p colostomy w/ reversal
[2017-07-07] MEDS: HCTZ/Losartan 12.5/50 Tab PO SCH (10:14)
[2017-07-07] MEDS: Oxycodone/Acetaminophen 5/325 mg Tab PO PRN ×4 (10:20→22:00)
--- NOTE | 2017-07-07 10:48 | CP.PCM.PN ---
Subjective - Date & Time of Evaluation Date of Evaluation: 07/07/17 Time of Evaluation: 10:47 - Subjective Subjective: Gen Sx: Dr Rodriguez Pt S&E. BASIM. Tolerating clears. Denies pain. Denies f/c, n/v, sob or chest pain. Objective - Vital Signs/Intake and Output Vital Signs (last 24 hours): Temp Pulse Resp BP Pulse Ox 98.3 F 75 17 113/71 99 07/07/17 07:55 07/07/17 10:14 07/07/17 07:55 07/07/17 10:14 07/07/17 07:55 - Medications Medications: Current Medications Amlodipine Besylate (Norvasc) 10 mg PO DAILY [facility] Last Admin: 07/07/17 10:14 Dose: 10 mg Atorvastatin Calcium (Lipitor) 20 mg PO HS [facility] Last Admin: 07/06/17 21:53 Dose: 20 mg Clonazepam (Klonopin) 0.5 mg PO HS PRN PRN Reason: Anxiety Diphenhydramine HCl (Benadryl) 25 mg PO HS PRN PRN Reason: Insomnia Last Admin: 07/06/17 23:09 Dose: 25 mg HCTZ/Losartan Potassium (Hyzaar 12.5 Mg-50 Mg) 1 tab PO DAILY [facility] Last Admin: 07/07/17 10:14 Dose: 1 tab Hydromorphone HCl (Dilaudid) 0.5 mg IVP Q4 PRN PRN Reason: Pain, severe (8-10) Stop: 07/07/17 18:58 Last Admin: 07/06/17 23:12 Dose: 0.5 mg Piperacillin Sod/Tazobactam (Sod 3.375 gm/ Sodium Chloride) 100 mls @ 100 mls/ hr IVPB Q6 [facility] PRN Reason: Protocol Last Admin: 07/07/17 10:18 Dose: 100 mls/hr Ondansetron HCl (Zofran Inj) 4 mg IVP Q6 PRN PRN Reason: Nausea/Vomiting Oxycodone/Acetaminophen (Percocet 5/325 Mg Tab) 1 tab PO Q4 PRN PRN Reason: Pain, moderate (4-7) Stop: 07/08/17 15:34 Last Admin: 07/07/17 10:20 Dose: 1 tab Pantoprazole Sodium (Protonix Inj) 40 mg IVP DAILY [facility] Last Admin: 07/07/17 10:15 Dose: 40 mg - Labs Labs: 07/07/17 05:45 07/07/17 05:45 PT 11.6 Seconds (9.8-13.1) 07/05/17 15:00 INR 1.0 (0.9-1.2) 07/05/17 15:00 APTT 45.3 Seconds (25.6-37.1) H 07/05/17 15:00 - Constitutional Appears: Non-toxic, No Acute Distress - ENT Exam ENT Exam: Mucous Membranes Moist - Respiratory Exam Respiratory Exam: absent: Accessory Muscle Use, Respiratory Distress - Cardiovascular Exam Cardiovascular Exam: REGULAR RHYTHM - GI/Abdominal Exam GI & Abdominal Exam: Soft. absent: Tenderness Assessment and Plan - Assessment and Plan (Free Text) Assessment: cont abx medical mgmt will consider repeat CT this week will d/w Primo/Michael Cruz, PGY3
[2017-07-08] MEDS: Oxycodone/Acetaminophen 5/325 mg Tab PO PRN ×4 (02:07→21:02)
[2017-07-08] MEDS: Piperacillin/Tazobact 3.375 GM in Sodium Chloride 0.9% 100 ML IVPB SCH ×4 (04:16→21:02)
[2017-07-08 06:30] LABS: ALKALINE PHOSPHATASE 41 U/L (38-126); ALT/SGPT 26 U/L (21-72); AST/SGOT 21 U/L (17-59); BILIRUBIN,TOTAL 0.8 mg/dl (0.2-1.3); BLOOD UREA NITROGEN 10 mg/dl (9-20); CALCIUM 8.6 mg/dL (8.4-10.2); CARBON DIOXIDE 29 mmol/L (22-30); CHLORIDE 105 mmol/L (98-107); GFR AFRICAN-AMERICAN > 60; GLUCOSE,RANDOM 93 mg/dL (75-110); SODIUM 141 mmol/l (132-148); TOTAL PROTEIN 6.1 G/DL (6.3-8.2)
[2017-07-08 06:35] LABS: ALB/GLOB RATIO 1.4 (1.0-2.1)
[2017-07-08 06:39] LABS: BASO # 0.1 K/uL (0.0-0.2); BASO % 1.1 % (0.0-2.0); EOS # 0.3 K/uL (0.0-0.7); EOS % 4.4 % (0.0-4.0); HEMATOCRIT 34.3 % (35.0-51.0); LYMPH # 1.1 K/uL (1.0-4.3); LYMPH % 19.1 % (20.0-40.0); MEAN CELL VOLUME 87.7 fl (80.0-94.0); MEAN CORPUSCULAR HEMOGLOBIN 29.2 pg (27.0-31.0); MEAN CORPUSCULAR HGB CONC 33.3 g/dL (33.0-37.0); MEAN PLATELET VOLUME 7.8 fl (7.2-11.7); MONO # 0.5 K/uL (0.0-0.8); MONO % 8.3 % (0.0-10.0); NEUT # 3.9 K/uL (1.8-7.0); NEUT % 67.1 % (50.0-75.0); RED CELL DISTRIBUTION WIDTH 13.9 % (11.5-14.5); WHITE BLOOD COUNT 5.8 K/uL (4.8-10.8)
--- NOTE | 2017-07-08 07:21 | CP.PCM.PN ---
Subjective - Date & Time of Evaluation Date of Evaluation: 07/08/17 Time of Evaluation: 07:20 - Subjective Subjective: no complaints/no pain. nof/c, n/v/d. liu po pending reeval by surgery-dr juarez for ?? repeat ct/dispo Objective - Vital Signs/Intake and Output Vital Signs (last 24 hours): Temp Pulse Resp BP Pulse Ox 98.2 F 60 19 93/59 L 99 07/08/17 00:00 07/08/17 00:00 07/08/17 00:00 07/08/17 00:00 07/08/17 00:00 - Medications Medications: Current Medications Amlodipine Besylate (Norvasc) 10 mg PO DAILY [facility] Last Admin: 07/07/17 10:14 Dose: 10 mg Atorvastatin Calcium (Lipitor) 20 mg PO HS [facility] Last Admin: 07/07/17 21:38 Dose: 20 mg Clonazepam (Klonopin) 0.5 mg PO HS PRN PRN Reason: Anxiety Last Admin: 07/07/17 21:40 Dose: 0.5 mg Diphenhydramine HCl (Benadryl) 25 mg PO HS PRN PRN Reason: Insomnia Last Admin: 07/06/17 23:09 Dose: 25 mg HCTZ/Losartan Potassium (Hyzaar 12.5 Mg-50 Mg) 1 tab PO DAILY [facility] Last Admin: 07/07/17 10:14 Dose: 1 tab Piperacillin Sod/Tazobactam (Sod 3.375 gm/ Sodium Chloride) 100 mls @ 100 mls/ hr IVPB Q6 [facility] PRN Reason: Protocol Last Admin: 07/08/17 04:16 Dose: 100 mls/hr Ondansetron HCl (Zofran Inj) 4 mg IVP Q6 PRN PRN Reason: Nausea/Vomiting Oxycodone/Acetaminophen (Percocet 5/325 Mg Tab) 1 tab PO Q4 PRN PRN Reason: Pain, moderate (4-7) Stop: 07/08/17 15:34 Last Admin: 07/08/17 02:07 Dose: 1 tab Pantoprazole Sodium (Protonix Inj) 40 mg IVP DAILY [facility] Last Admin: 07/07/17 10:15 Dose: 40 mg - Labs Labs: 07/08/17 05:30 07/08/17 05:30 PT 11.6 Seconds (9.8-13.1) 07/05/17 15:00 INR 1.0 (0.9-1.2) 07/05/17 15:00 APTT 45.3 Seconds (25.6-37.1) H 07/05/17 15:00 - Constitutional Appears: Well, Non-toxic, No Acute Distress - Head Exam Head Exam: ATRAUMATIC, NORMAL INSPECTION, NORMOCEPHALIC - Eye Exam Eye Exam: EOMI, Normal appearance, PERRL Pupil Exam: NORMAL ACCOMODATION, PERRL - ENT Exam ENT Exam: Mucous Membranes Moist, Normal Exam - Neck Exam Neck Exam: Full ROM, Normal Inspection. absent: Lymphadenopathy - Respiratory Exam Respiratory Exam: Clear to Ausculation Bilateral, NORMAL BREATHING PATTERN - Cardiovascular Exam Cardiovascular Exam: REGULAR RHYTHM, +S1, +S2. absent: Murmur - GI/Abdominal Exam GI & Abdominal Exam: Soft, Normal Bowel Sounds. absent: Tenderness - Extremities Exam Extremities Exam: Full ROM, Normal Capillary Refill, Normal Inspection. absent : Joint Swelling, Pedal Edema - Back Exam Back Exam: NORMAL INSPECTION - Neurological Exam Neurological Exam: Alert, Awake, CN II-XII Intact, Normal Gait, Oriented x3 - Psychiatric Exam Psychiatric exam: Normal Affect, Normal Mood - Skin Skin Exam: Dry, Intact, Normal Color, Warm Assessment and Plan (1) Abdominal fluid collection Status: Acute (2) DVT prophylaxis Status: Acute (3) Diverticulitis Status: Acute - Assessment and Plan (Free Text) Assessment: (1) Abdominal fluid collection Assessment and Plan: zosyn surgery po as liu ?? repeat imaging as per surgery ct noted from outside Status: Acute (2) DVT prophylaxis Assessment and Plan: scd and ae hose ambulation no anticoag until surgery decide about surgical option Status: Acute (3) Diverticulitis Assessment and Plan: s/p colostomy w/ reversal
--- NOTE | 2017-07-08 08:55 | CP.PCM.PN ---
<Daniela Herrera - Last Filed: 07/08/17 08:56> Subjective - Date & Time of Evaluation Date of Evaluation: 07/08/17 Time of Evaluation: 07:00 - Subjective Subjective: General Surgery Dr. Rodriguez Pt S&E @bedside. NAEO. pt has no complaints. denies abd pain, F/C, N/V, D/C. tolerating diet. (+)BM/Flatus. Objective - Vital Signs/Intake and Output Vital Signs (last 24 hours): Temp Pulse Resp BP Pulse Ox 97.3 F L 62 20 132/85 100 07/08/17 08:11 07/08/17 08:11 07/08/17 08:11 07/08/17 08:11 07/08/17 08:11 - Medications Medications: Current Medications Amlodipine Besylate (Norvasc) 10 mg PO DAILY [facility] Last Admin: 07/07/17 10:14 Dose: 10 mg Atorvastatin Calcium (Lipitor) 20 mg PO HS [facility] Last Admin: 07/07/17 21:38 Dose: 20 mg Clonazepam (Klonopin) 0.5 mg PO HS PRN PRN Reason: Anxiety Last Admin: 07/07/17 21:40 Dose: 0.5 mg Diphenhydramine HCl (Benadryl) 25 mg PO HS PRN PRN Reason: Insomnia Last Admin: 07/06/17 23:09 Dose: 25 mg HCTZ/Losartan Potassium (Hyzaar 12.5 Mg-50 Mg) 1 tab PO DAILY [facility] Last Admin: 07/07/17 10:14 Dose: 1 tab Piperacillin Sod/Tazobactam (Sod 3.375 gm/ Sodium Chloride) 100 mls @ 100 mls/ hr IVPB Q6 [facility] PRN Reason: Protocol Last Admin: 07/08/17 04:16 Dose: 100 mls/hr Ondansetron HCl (Zofran Inj) 4 mg IVP Q6 PRN PRN Reason: Nausea/Vomiting Oxycodone/Acetaminophen (Percocet 5/325 Mg Tab) 1 tab PO Q4 PRN PRN Reason: Pain, moderate (4-7) Stop: 07/08/17 15:34 Last Admin: 07/08/17 08:49 Dose: 1 tab Pantoprazole Sodium (Protonix Inj) 40 mg IVP DAILY [facility] Last Admin: 07/07/17 10:15 Dose: 40 mg - Labs Labs: 07/08/17 05:30 07/08/17 05:30 PT 11.6 Seconds (9.8-13.1) 07/05/17 15:00 INR 1.0 (0.9-1.2) 07/05/17 15:00 APTT 45.3 Seconds (25.6-37.1) H 07/05/17 15:00 - Constitutional Appears: Non-toxic, No Acute Distress - Head Exam Head Exam: NORMAL INSPECTION - Eye Exam Eye Exam: Normal appearance - ENT Exam ENT Exam: Mucous Membranes Moist - Respiratory Exam Respiratory Exam: NORMAL BREATHING PATTERN. absent: Accessory Muscle Use, Respiratory Distress - Cardiovascular Exam Cardiovascular Exam: absent: Bradycardia, Tachycardia - GI/Abdominal Exam GI & Abdominal Exam: Soft. absent: Distended, Guarding, Tenderness, Rebound Additional comments: saadia in place skin well approximated - Extremities Exam Extremities Exam: Normal Inspection - Neurological Exam Neurological Exam: Alert, Awake, Normal Gait, Oriented x3 - Psychiatric Exam Psychiatric exam: Normal Affect, Normal Mood - Skin Skin Exam: Dry, Intact, Warm Assessment and Plan - Assessment and Plan (Free Text) Assessment: 67 y/o M s/p reversal of Hartmanns, now w/ intra-abdominal abscess - cont IVF, IV Abx - cont pain management - repeat CT this week - monitor vitals/labs Pt discussed w/ Dr. Michael Herrera DO PGY2 <Don Rodriguez - Last Filed: 07/08/17 10:10> Subjective - Date & Time of Evaluation Time of Evaluation: 09:25 - Subjective Subjective: Patient was seen and examined at the bedside. Denies any abdominal pain, tolerating regular diet, passing flatus and having bowel movement. Agree with resident's note above. Objective - Vital Signs/Intake and Output Vital Signs (last 24 hours): Temp Pulse Resp BP Pulse Ox 97.3 F L 65 20 132/85 100 07/08/17 08:11 07/08/17 09:18 07/08/17 08:11 07/08/17 09:18 07/08/17 08:11 - Medications Medications: Current Medications Amlodipine Besylate (Norvasc) 10 mg PO DAILY [facility] Last Admin: 07/08/17 09:18 Dose: 10 mg Atorvastatin Calcium (Lipitor) 20 mg PO HS [facility] Last Admin: 07/07/17 21:38 Dose: 20 mg Clonazepam (Klonopin) 0.5 mg PO HS PRN PRN Reason: Anxiety Last Admin: 07/07/17 21:40 Dose: 0.5 mg Diphenhydramine HCl (Benadryl) 25 mg PO HS PRN PRN Reason: Insomnia Last Admin: 07/06/17 23:09 Dose: 25 mg HCTZ/Losartan Potassium (Hyzaar 12.5 Mg-50 Mg) 1 tab PO DAILY [facility] Last Admin: 07/08/17 09:18 Dose: 1 tab Piperacillin Sod/Tazobactam (Sod 3.375 gm/ Sodium Chloride) 100 mls @ 100 mls/ hr IVPB Q6 [facility] PRN Reason: Protocol Last Admin: 07/08/17 09:19 Dose: 100 mls/hr Iohexol (Omnipaque 240 (50 Ml)) 50 ml PO ONCE ONE Stop: 07/08/17 09:43 Ondansetron HCl (Zofran Inj) 4 mg IVP Q6 PRN PRN Reason: Nausea/Vomiting Oxycodone/Acetaminophen (Percocet 5/325 Mg Tab) 1 tab PO Q4 PRN PRN Reason: Pain, moderate (4-7) Stop: 07/08/17 15:34 Last Admin: 07/08/17 08:49 Dose: 1 tab Pantoprazole Sodium (Protonix Inj) 40 mg IVP DAILY [facility] Last Admin: 07/08/17 09:19 Dose: 40 mg - Labs Labs: 07/08/17 05:30 07/08/17 05:30 PT 11.6 Seconds (9.8-13.1) 07/05/17 15:00 INR 1.0 (0.9-1.2) 07/05/17 15:00 APTT 45.3 Seconds (25.6-37.1) H 07/05/17 15:00 Assessment and Plan - Assessment and Plan (Free Text) Plan: - Continue diet - Continue antibiotics - Repeat CT abd/pelvis - Will follow
[2017-07-08] MEDS: HCTZ/Losartan 12.5/50 Tab PO SCH (09:18)
--- NOTE | 2017-07-08 09:36 | PQF GENQUE ---
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 Having abdominal pain and hiccups since colostomy reversal surgery on 06/19/17. Diagnosis includes Abscess. Treated with IVAB. Please clarify the relationship, if any, between the recent colostomy reversal and the presence of the fluid collection/abscess. Clarification of your documentation is requested to better reflect the severity of illness and intensity of treatment of your patient. Indicators present [] Specify: [] [] Specify: [] [] Specify: [] [] Specify: [] Location in the medical record that reflects the above clinical findings: [] Treatment Provided: [] PHYSICIAN'S RESPONSE Please clarify the relationship, if any, between the recent colostomy reversal and the presence of the fluid collection/abscess: Are the conditions: [x] Due to or associated with each other (most likely) [] Complication [] Unrelated to each other [] Clinically unable to determine [] Unknown Based on your medical judgment of the clinical indicators outlined above please clarify the following: [] Practitioner response [] If unable to determine, please check the box, sign and date. Present On Admission (POA) Indicator: [] Present at the time of admission [] Not present at the time of admission [] Clinically Undetermined In responding to this query, please exercise your independent professional judgment. The fact that a question is asked does not imply that any particular answer is desired or expected. Thank you for your clarification on this documentation. If you have any questions please call:extension [phone] * Thank you, Krystin Ramos RN [facility]
[2017-07-08] MEDS ORDERED: Iohexol 240 (50 ml) PO ONE ×2 (09:42→11:31)
[2017-07-08] MEDS: guaiFENesin DM 200 mg-20 mg/10 ml UD PO PRN (19:29)
--- NOTE | 2017-07-08 21:18 | CT ---
EXAM: CT Abdomen and Pelvis Without Intravenous Contrast CLINICAL HISTORY: 67 years old, male; Signs and symptoms; Other: Pelvic fluid collection, abcess vs; Additional info: Pelvic fluid collection; Abscess vs seroma TECHNIQUE: Axial computed tomography images of the abdomen and pelvis without intravenous contrast. Oral contrast was utilized. All CT scans at this facility use one or more dose reduction techniques, viz.: automated exposure control; ma/kV adjustment per patient size (including targeted exams where dose is matched to indication; i.e. head); or iterative reconstruction technique. Coronal and sagittal reformatted images were created and reviewed. COMPARISON: CT - ABD PELVIS PO IV CONTRAST 2017-07-05 11:27 FINDINGS: Lower thorax: The bilateral lung bases are clear. ABDOMEN: Liver: No acute findings Gallbladder and bile ducts: No acute finding. No calcified stones. No intra-extrahepatic biliary ductal dilation. Pancreas: Limited evaluation secondary to the lack of intravenous contrast. Spleen: No acute findings. Adrenals: No acute findings. Kidneys and ureters: No obstructing stones. No hydronephrosis. Subcentimeter focus of decreased attenuation within the upper pole the right kidney, statistically representing a cyst. PELVIS: Bladder: Persistent anterior herniation of the bladder, unchanged. Reproductive: No acute findings. Appendix: Not visualized. ABDOMEN and PELVIS: Stomach and bowel: Oral contrast extends to the level of the rectum, without obstruction. Peritoneum: Again identified is a multilobulated fluid collection which originates deep in the pelvis (series 3, image 137) and extends within the left hemipelvis to the level of the anastomosis at which time it extends to the right of midline and then centrally terminating at the level of the umbilicus. This focus measures 7.4 x 7.1 by 13 cm (anterior to posterior and medial to lateral by cranial to caudal dimension). An additional smaller collection is identified within the right hemipelvis (measuring 3.3 cm in greatest dimension) originating just below the level of the anastomosis and terminating at the level of the pelvic brim. Lymph nodes: Limited evaluation without intravenous contrast. Vasculature: No aortic aneurysm. Bones: No acute fracture. IMPRESSION: Interval increase in size of the multilobulated fluid collection deep within the pelvis, with measurements as detailed above. This focus contains attenuation areas which are more consistent with intra-abdominal abscess, rather than a perioperative seroma. Without the presence of intravenous contrast, rim enhancement detection is limited.
[2017-07-09] MEDS: Oxycodone/Acetaminophen 5/325 mg Tab PO PRN ×3 (00:52→08:42)
[2017-07-09] MEDS: guaiFENesin DM 200 mg-20 mg/10 ml UD PO PRN (00:53)
[2017-07-09] MEDS: Piperacillin/Tazobact 3.375 GM in Sodium Chloride 0.9% 100 ML IVPB SCH ×2 (04:22→09:59)
[2017-07-09 08:00] VITALS: RESP 20; TEMP 97.4; O2SAT 100
--- NOTE | 2017-07-09 08:09 | CP.PCM.PN ---
Subjective - Date & Time of Evaluation Date of Evaluation: 07/09/17 Time of Evaluation: 08:08 - Subjective Subjective: denies abd pain. no f/c, n/v/d.ct from yesterday noted. abscess slightly smaller and in giancarlo eposition as previous. tolpo. case d/c w/ residential care officer. pending decision froms urgical attending Objective - Vital Signs/Intake and Output Vital Signs (last 24 hours): Temp Pulse Resp BP Pulse Ox 97.4 F L 59 L 20 123/80 100 07/09/17 07:59 07/09/17 07:59 07/09/17 07:59 07/09/17 07:59 07/09/17 07:59 - Medications Medications: Current Medications Amlodipine Besylate (Norvasc) 10 mg PO DAILY [facility]S AT [facility] Last Admin: 07/08/17 09:18 Dose: 10 mg Atorvastatin Calcium (Lipitor) 20 mg PO HS [facility] Last Admin: 07/08/17 21:02 Dose: 20 mg Clonazepam (Klonopin) 0.5 mg PO HS PRN PRN Reason: Anxiety Last Admin: 07/08/17 22:29 Dose: 0.5 mg Diphenhydramine HCl (Benadryl) 25 mg PO HS PRN PRN Reason: Insomnia Last Admin: 07/06/17 23:09 Dose: 25 mg Fluticasone Propionate (Flonase) 1 spr SIENNA BID [facility] Last Admin: 07/08/17 19:29 Dose: 1 spr Guaifenesin/Dextromethorphan (Robitussin Dm) 10 ml PO Q6 PRN PRN Reason: Cough Last Admin: 07/09/17 00:53 Dose: 10 ml HCTZ/Losartan Potassium (Hyzaar 12.5 Mg-50 Mg) 1 tab PO DAILY [facility] Last Admin: 07/08/17 09:18 Dose: 1 tab Piperacillin Sod/Tazobactam (Sod 3.375 gm/ Sodium Chloride) 100 mls @ 100 mls/ hr IVPB Q6 [facility] PRN Reason: Protocol Last Admin: 07/09/17 04:22 Dose: 100 mls/hr Ondansetron HCl (Zofran Inj) 4 mg IVP Q6 PRN PRN Reason: Nausea/Vomiting Oxycodone/Acetaminophen (Percocet 5/325 Mg Tab) 1 tab PO Q4 PRN PRN Reason: Pain, moderate (4-7) Stop: 07/11/17 20:18 Last Admin: 07/09/17 04:27 Dose: 1 tab Pantoprazole Sodium (Protonix Inj) 40 mg IVP DAILY [facility] Last Admin: 07/08/17 09:19 Dose: 40 mg - Labs Labs: 07/08/17 05:30 07/08/17 05:30 PT 11.6 Seconds (9.8-13.1) 07/05/17 15:00 INR 1.0 (0.9-1.2) 07/05/17 15:00 APTT 45.3 Seconds (25.6-37.1) H 07/05/17 15:00 - Constitutional Appears: Well, Non-toxic, No Acute Distress - Head Exam Head Exam: ATRAUMATIC, NORMAL INSPECTION, NORMOCEPHALIC - Eye Exam Eye Exam: EOMI, Normal appearance, PERRL Pupil Exam: NORMAL ACCOMODATION, PERRL - ENT Exam ENT Exam: Mucous Membranes Moist, Normal Exam - Neck Exam Neck Exam: Full ROM, Normal Inspection. absent: Lymphadenopathy - Respiratory Exam Respiratory Exam: Clear to Ausculation Bilateral, NORMAL BREATHING PATTERN - Cardiovascular Exam Cardiovascular Exam: REGULAR RHYTHM, RRR, +S1, +S2. absent: Murmur - GI/Abdominal Exam GI & Abdominal Exam: Soft, Normal Bowel Sounds. absent: Tenderness - Extremities Exam Extremities Exam: Full ROM, Normal Capillary Refill, Normal Inspection. absent : Joint Swelling, Pedal Edema - Back Exam Back Exam: NORMAL INSPECTION - Neurological Exam Neurological Exam: Alert, Awake, CN II-XII Intact, Normal Gait, Oriented x3 - Psychiatric Exam Psychiatric exam: Normal Affect, Normal Mood - Skin Skin Exam: Dry, Intact, Normal Color, Warm Assessment and Plan (1) Abdominal fluid collection Status: Acute (2) DVT prophylaxis Status: Acute (3) Diverticulitis Status: Acute - Assessment and Plan (Free Text) Assessment: (1) Abdominal fluid collection Assessment and Plan: zosyn surgery po as liu repeat imaging noted. pending dispo dr juarez ct noted from outside Status: Acute (2) DVT prophylaxis Assessment and Plan: scd and ae hose ambulation no anticoag until surgery decide about surgical option Status: Acute (3) Diverticulitis Assessment and Plan: s/p colostomy w/ reversal
[2017-07-09] MEDS: HCTZ/Losartan 12.5/50 Tab PO SCH (08:32)
[2017-07-09 08:38] VITALS: BP 110/70; PULSE 90
--- NOTE | 2017-07-09 09:02 | CP.PCM.PN ---
<French Mathew - Last Filed: 07/09/17 09:02> Subjective - Date & Time of Evaluation Date of Evaluation: 07/09/17 Time of Evaluation: 07:00 - Subjective Subjective: General Surgery Patient seen and examined at bedside this AM. no acute events overnight. tolerating diet. denies current hiccups. currently no abdominal pain. Denies fevers, chills, chest pain, shortness of breath, nausea, vomiting, diarrhea. Objective - Vital Signs/Intake and Output Vital Signs (last 24 hours): Temp Pulse Resp BP Pulse Ox 97.4 F L 90 20 110/70 100 07/09/17 07:59 07/09/17 08:37 07/09/17 07:59 07/09/17 08:37 07/09/17 07:59 - Medications Medications: Current Medications Amlodipine Besylate (Norvasc) 10 mg PO DAILY [facility] Last Admin: 07/09/17 08:37 Dose: 10 mg Atorvastatin Calcium (Lipitor) 20 mg PO HS [facility] Last Admin: 07/08/17 21:02 Dose: 20 mg Clonazepam (Klonopin) 0.5 mg PO HS PRN PRN Reason: Anxiety Last Admin: 07/08/17 22:29 Dose: 0.5 mg Diphenhydramine HCl (Benadryl) 25 mg PO HS PRN PRN Reason: Insomnia Last Admin: 07/06/17 23:09 Dose: 25 mg Fluticasone Propionate (Flonase) 1 spr SIENNA BID [facility] Last Admin: 07/09/17 08:32 Dose: 1 spr Guaifenesin/Dextromethorphan (Robitussin Dm) 10 ml PO Q6 PRN PRN Reason: Cough Last Admin: 07/09/17 00:53 Dose: 10 ml HCTZ/Losartan Potassium (Hyzaar 12.5 Mg-50 Mg) 1 tab PO DAILY [facility] Last Admin: 07/09/17 08:32 Dose: 1 tab Piperacillin Sod/Tazobactam (Sod 3.375 gm/ Sodium Chloride) 100 mls @ 100 mls/ hr IVPB Q6 [facility] PRN Reason: Protocol Last Admin: 07/09/17 04:22 Dose: 100 mls/hr Ondansetron HCl (Zofran Inj) 4 mg IVP Q6 PRN PRN Reason: Nausea/Vomiting Oxycodone/Acetaminophen (Percocet 5/325 Mg Tab) 1 tab PO Q4 PRN PRN Reason: Pain, moderate (4-7) Stop: 07/11/17 20:18 Last Admin: 07/09/17 08:42 Dose: 1 tab Pantoprazole Sodium (Protonix Inj) 40 mg IVP DAILY [facility] Last Admin: 07/09/17 08:33 Dose: 40 mg - Labs Labs: 07/08/17 05:30 07/08/17 05:30 PT 11.6 Seconds (9.8-13.1) 07/05/17 15:00 INR 1.0 (0.9-1.2) 07/05/17 15:00 APTT 45.3 Seconds (25.6-37.1) H 07/05/17 15:00 - Constitutional Appears: Non-toxic, No Acute Distress - Head Exam Head Exam: ATRAUMATIC - Eye Exam Eye Exam: EOMI. absent: Scleral icterus - ENT Exam ENT Exam: Mucous Membranes Moist - Respiratory Exam Respiratory Exam: NORMAL BREATHING PATTERN. absent: Accessory Muscle Use, Respiratory Distress - Cardiovascular Exam Cardiovascular Exam: +S1, +S2. absent: Bradycardia - GI/Abdominal Exam GI & Abdominal Exam: Soft. absent: Distended, Firm, Guarding, Rigid, Tenderness - Extremities Exam Extremities Exam: Normal Inspection. absent: Calf Tenderness - Neurological Exam Neurological Exam: Alert, Awake, Oriented x3 - Skin Skin Exam: Intact, Normal Color, Warm Assessment and Plan - Assessment and Plan (Free Text) Assessment: 67 y/o M s/p reversal of Hartmanns, now w/ intra-abdominal abscess Plan: - spoke to IR, no drainable area - plan to discharge home today on abx - further recs per surgical attending French Mathew PGY1 <Don Rodriguez - Last Filed: 07/09/17 10:19> Subjective - Date & Time of Evaluation Time of Evaluation: 09:35 - Subjective Subjective: Patient was seen and examined at the bedside. Agree with resident's note above. Denies any abdominal pain, passing flatus and had 2 bowel movements this morning. Objective - Vital Signs/Intake and Output Vital Signs (last 24 hours): Temp Pulse Resp BP Pulse Ox 97.4 F L 90 20 110/70 100 07/09/17 07:59 07/09/17 08:37 07/09/17 07:59 07/09/17 08:37 07/09/17 07:59 - Medications Medications: Current Medications Amlodipine Besylate (Norvasc) 10 mg PO DAILY [facility] Last Admin: 07/09/17 08:37 Dose: 10 mg Atorvastatin Calcium (Lipitor) 20 mg PO HS [facility] Last Admin: 07/08/17 21:02 Dose: 20 mg Clonazepam (Klonopin) 0.5 mg PO HS PRN PRN Reason: Anxiety Last Admin: 07/08/17 22:29 Dose: 0.5 mg Diphenhydramine HCl (Benadryl) 25 mg PO HS PRN PRN Reason: Insomnia Last Admin: 07/06/17 23:09 Dose: 25 mg Fluticasone Propionate (Flonase) 1 spr SIENNA BID [facility] Last Admin: 07/09/17 08:32 Dose: 1 spr Guaifenesin/Dextromethorphan (Robitussin Dm) 10 ml PO Q6 PRN PRN Reason: Cough Last Admin: 07/09/17 00:53 Dose: 10 ml HCTZ/Losartan Potassium (Hyzaar 12.5 Mg-50 Mg) 1 tab PO DAILY [facility] Last Admin: 07/09/17 08:32 Dose: 1 tab Piperacillin Sod/Tazobactam (Sod 3.375 gm/ Sodium Chloride) 100 mls @ 100 mls/ hr IVPB Q6 [facility] PRN Reason: Protocol Last Admin: 07/09/17 09:59 Dose: 100 mls/hr Ondansetron HCl (Zofran Inj) 4 mg IVP Q6 PRN PRN Reason: Nausea/Vomiting Oxycodone/Acetaminophen (Percocet 5/325 Mg Tab) 1 tab PO Q4 PRN PRN Reason: Pain, moderate (4-7) Stop: 07/11/17 20:18 Last Admin: 07/09/17 08:42 Dose: 1 tab Pantoprazole Sodium (Protonix Inj) 40 mg IVP DAILY [facility] Last Admin: 07/09/17 08:33 Dose: 40 mg - Labs Labs: 07/08/17 05:30 07/08/17 05:30 PT 11.6 Seconds (9.8-13.1) 07/05/17 15:00 INR 1.0 (0.9-1.2) 07/05/17 15:00 APTT 45.3 Seconds (25.6-37.1) H 07/05/17 15:00 Assessment and Plan - Assessment and Plan (Free Text) Plan: - Discharge home on Augmentin - Patient will follow up with me in the office
== END 2017-07-09 11:59 | disposition home or self-care (01) | DRG 372 ==
LOC: H.ER 13:27 → H.ERHOLD 14:21 → H.MEDSURG1 16:35
PROVIDERS: ADMIT Family Medicine; ATTEND Family Medicine
PROC: 3E0234Z Introduction of Serum, Toxoid and Vaccine into Muscle, Percutaneous Approach (ICD-10-PCS; principal; 2017-07-05)
DX: K65.1 Peritoneal abscess (principal); K57.92 Diverticulitis of intestine, part unspecified, without perforation or abscess without bleeding; Z43.3 Encounter for attention to colostomy; Z87.891 Personal history of nicotine dependence; Z93.3 Colostomy status; F32.9 Major depressive disorder, single episode, unspecified; E78.5 Hyperlipidemia, unspecified; K21.9 Gastro-esophageal reflux disease without esophagitis; K64.9 Unspecified hemorrhoids; R06.6 Hiccough; E78.00 Pure hypercholesterolemia, unspecified; I10 Essential (primary) hypertension; I25.10 Atherosclerotic heart disease of native coronary artery without angina pectoris; Z23 Encounter for immunization

== ENCOUNTER 2018-01-15 07:45 | Inpatient (IN) | payer MEDICARE, BC, OTHER ==
[2017-12-11 09:35] VITALS: BMI 23.8
[2018-01-15] MEDS ORDERED: Lactated Ringer's 1,000 ML IV ONE ×3 (08:31→13:55)
[2018-01-15] MEDS ORDERED: Propofol 10 mg/ml Inj (20 ML) ONE (09:58)
[2018-01-15] MEDS ORDERED: Rocuronium 10 mg/ml (5 ml) ONE (09:58)
[2018-01-15] MEDS ORDERED: Midazolam 2 MG/2 ML VIAL ONE (09:58)
[2018-01-15] MEDS ORDERED: Succinylcholine 200 mg/10 ml Inj IV ONE (09:59)
[2018-01-15] MEDS ORDERED: ePHEDrine 50 mg/ml Inj ONE (10:49)
[2018-01-15] MEDS ORDERED: Phenylephrine 10 mg/ml Inj ONE (11:12)
--- NOTE | 2018-01-15 12:12 | CP.PCM.HP ---
History of Present Illness - History of Present Illness History of Present Illness: 66M with PMHx of diverticulitis, hx of perforation treated conservatively many yrs ago, GERD, HTN, HLD, depression, hemorrhoids presented to hospital today for repair of incisional hernia. Patient tolerated procedure well, no complications arose intra-operatively. Patient to be admitted for observation. PMH: Diverticulitis, hx of perforation treated conservatively many yrs ago, GERD , HTN, HLD, depression, hemorrhoids PSH: Tonsillectomy, R femoral hernia repair, L inguinal hernia repair, recent surgical ablation of spinal nerves All: NKDA SH: Remote hx of tobacco use, occasional cigar use, denies ETOH or illicit drug use Fam Hx: noon-contributory Present on Admission - Present on Admission Any Indicators Present on Admission: No Review of Systems - Review of Systems Review of Systems: 12pt ROS unremarkable, except as stated in HPI Past Patient History - Infectious Disease Hx of Infectious Diseases: None - Past Medical History & Family History Past Medical History?: Yes - Past Social History Smoking Status: Former Smoker - CARDIAC Hx Cardiac Disorders: Yes Hx Hypercholesterolemia: Yes Hx Hypertension: Yes - PULMONARY Hx Respiratory Disorders: No - NEUROLOGICAL Hx Neurological Disorder: No - HEENT Hx HEENT Problems: No - RENAL Hx Chronic Kidney Disease: No - ENDOCRINE/METABOLIC Hx Endocrine Disorders: No - HEMATOLOGICAL/ONCOLOGICAL Hx Blood Disorders: No Hx AIDS: No Hx Human Immunodeficiency Virus (HIV): No - INTEGUMENTARY Hx Dermatological Problems: No - MUSCULOSKELETAL/RHEUMATOLOGICAL Hx Musculoskeletal Disorders: No Hx Falls: No Hx Herniated Disk: Yes (lumbar) - GASTROINTESTINAL Hx Gastrointestinal Disorders: Yes Hx Colostomy: Yes Hx Diverticulitis: Yes Hx Gastroesophageal Reflux: Yes Other/Comment: Colostomy reversal Jun 19, 2017 - GENITOURINARY/GYNECOLOGICAL Hx Genitourinary Disorders: No - PSYCHIATRIC Hx Psychophysiologic Disorder: Yes Hx Depression: Yes Hx Substance Use: No - SURGICAL HISTORY Hx Surgeries: Yes Hx Herniorrhaphy: Yes (left Inguinal and Right femoral Hernia repair) Hx Tonsillectomy: Yes Other/Comment: EXPLORATORY LAPAROTOMY,(SOHAIL PROCEDURE) - ANESTHESIA Hx Anesthesia: Yes Hx Anesthesia Reactions: No Hx Malignant Hyperthermia: No Meds Allergies/Adverse Reactions: Allergies Allergy/AdvReac Type Severity Reaction Status Date / Time No Known Allergies Allergy Verified 02/09/17 23:02 Physical Exam - Constitutional Appears: No Acute Distress - Head Exam Head Exam: NORMOCEPHALIC - Eye Exam Eye Exam: EOMI, Normal appearance - ENT Exam ENT Exam: Mucous Membranes Moist - Respiratory Exam Respiratory Exam: NORMAL BREATHING PATTERN - Cardiovascular Exam Cardiovascular Exam: +S1, +S2 - GI/Abdominal Exam GI & Abdominal Exam: Hernia, Soft. absent: Distended, Firm, Guarding, Rebound, Rigid, Tenderness Additional comments: +incisional hernia - Neurological Exam Neurological exam: Alert, Oriented x3 - Psychiatric Exam Psychiatric exam: Normal Mood - Skin Skin Exam: Dry, Intact, Warm Results - Vital Signs Recent Vital Signs: Last Vital Signs Temp 97.5 F L 01/15/18 08:18 Pulse 62 01/15/18 08:21 Resp 18 01/15/18 08:18 BP 99/64 L 01/15/18 08:18 Pulse Ox 97 01/15/18 08:18 Assessment & Plan - Assessment and Plan (Free Text) Assessment: 67M with incisional hernia s/p incisional hernia repair with mesh placement Plan: NPO IVF Protonix SCDs 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 Michael Ponce PGY2
[2018-01-15] MEDS ORDERED: DiphenhydrAMINE 50 mg/ml Inj IVP PRN (12:21)
[2018-01-15] MEDS ORDERED: Simethicone 80 mg Chewtab PO PRN (12:22)
--- NOTE | 2018-01-15 12:22 | PCM.SURG1 ---
Surgeon's Initial Post Op Note - Surgeon's Notes Surgeon: Dr. Primo Morin Philosophy Faculty: Dr. Rooney PGY2 Type of Anesthesia: General Endo Pre-Operative Diagnosis: incisional hernia Operative Findings: incisional hernia Post-Operative Diagnosis: same Operation Performed: incisional hernia repair with mesh placement Specimen/Specimens Removed: none Estimated Blood Loss: EBL {In ML}: 50 Drains Used: No Drains Post-Op Condition: Good Date of Surgery/Procedure: 01/15/18 Time of Surgery/Procedure: 12:22
[2018-01-15] MEDS ORDERED: Lactated Ringer's 1,000 ML IV SCH ×2 (12:30)
[2018-01-15] MEDS: HYDROmorphone 0.5 mg/0.5 ml ISec IVP PRN ×4 (12:31→13:17)
[2018-01-15] MEDS ORDERED: Benzocaine/Menthol (Cepacol) Lozenge PO PRN (23:28)
--- NOTE | 2018-01-15 23:52 | OP ---
PROCEDURE DATE: 01/15/2018 PREOPERATIVE DIAGNOSIS: Incisional hernia. POSTOPERATIVE DIAGNOSIS: Incisional hernia. PROCEDURE: Repair of the incisional hernia with mesh. SURGEON: Don Rodriguez MD RESISTANCE WELDER: Dr. Tillman. SECOND RESISTANCE WELDER: Luis Miguel Rooney DO ANESTHESIA ADMINISTERED BY: ____ TYPE OF ANESTHESIA: General with endotracheal intubation. IV FLUIDS: Crystalloids. ESTIMATED BLOOD LOSS: 25 mL. INTRAOPERATIVE FINDINGS: Incisional hernia, satisfactory position of the mesh. SPECIMENS: None. BRIEF HISTORY: The patient is a very pleasant 67-year-old gentleman, who is very well known to me from his prior surgeries, last one being the reversal of Mulu's procedure for diverticular disease, subsequent to that the patient developed incisional hernia to the lower portion of the incision that has been bothering him lately given him pains and discomforts and the patient was brought in for elective incisional hernia repair. All the risks and benefits of the procedure were explained to the patient, and with the patient having a full understanding of all the risks and benefits involved, informed consent was obtained, and the patient was taken to the operating room for above-stated procedure. DESCRIPTION OF PROCEDURE: The patient was brought into the operating room and placed supine on the operating table. Bilateral Flowtron boots were applied to the patient's lower extremities. After successful induction of anesthesia and successful endotracheal intubation by the anesthesia team, Holt catheter was inserted into the patient's urinary bladder and subsequent to that the patient's abdomen was prepped with ChloraPrep stick and draped in the standard surgical fashion. Prior to the beginning of the procedure, the patient received prophylactic Ancef antibiotics. A time-out was called in the room and everyone in the room were in agreement. Using #10 blade scalpel knife, approximately 10 cm incision was made through the prior scar from prior laparotomy below the umbilicus extending longitudinally and subsequent to that dissection was carried down with electrical cautery until the peritoneal layer was encountered. Peritoneum was transected and at this point in time, the patient abdominal cavity was entered. The entire length of the incision was opened up with electrical cautery. At this point in time, there was some omentum stuck to the superior portion of the wound that was dissected down with electrical cautery. At this point in time, it appeared that the hernia was way too low right next to pubic symphysis, so I had to create bladder flap getting into space of Retzius using electrical cautery and blunt dissection with finger. Once the bladder flap was created into the space of Retzius, I made a decision to use 20 x 15 cm Symbotex dual-sided composite mesh with scrub. Mesh was placed inside of the patient's abdomen and secured inferiorly with [address] needle to the pubic symphysis . Once this was accomplished, the rest of the mesh was secured circumferentially with SecureStrap device. Once the position of the mesh was satisfactory, the fascial layer was closed on top of the mesh with 0 Vicryl suture grabbing a little bit of the mesh and eliminating the potential space. Once this was accomplished, some redundant skin and the area of the hernia was transected with electrical cautery and at this point in time, several interrupted 3-0 Vicryl sutures were placed in a deep dermal layer and subsequent to that skin was closed with saadia. At this point in time, the patient's abdomen was washed and dried and a clean dressing, 4 x 4's and some tape was applied to the side of the incision as well as abdominal binder. The patient was successfully extubated by the anesthesia team, transferred to the stretcher and taken to the recovery room in a stable condition. At the end of the procedure, all instrument counts, needles, and sponges were correct. Don Rodriguez MD
--- NOTE | 2018-01-16 08:08 | CP.PCM.PN ---
<KaylanAv ambriz - Last Filed: 01/16/18 08:32> Subjective - Date & Time of Evaluation Date of Evaluation: 01/16/18 Time of Evaluation: 06:45 - Subjective Subjective: Surgery Progress note. Dr. Rodriguez Pt seen and examined at bedside. No Acute events overnight. does report abdominal pain especially after coughing. States that the abdominal binder helps. 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 Denies N/V/D. Tolerating diet. No new complaints. Objective - Vital Signs/Intake and Output Vital Signs (last 24 hours): Temp Pulse Resp BP Pulse Ox 98.2 F 66 18 107/66 95 01/16/18 07:52 01/16/18 07:52 01/16/18 07:52 01/16/18 07:52 01/16/18 07:52 Intake and Output: 01/16/18 01/16/18 06:59 18:59 Output Total 525 Balance -525 - Medications Medications: Current Medications Acetaminophen (Tylenol 325mg Tab) 975 mg PO Q8 [facility] Last Admin: 01/16/18 00:14 Dose: 975 mg Benzocaine/Menthol (Cepacol Sore Throat) 1 jen PO Q3 PRN PRN Reason: Sore Throat Lactated Ringer's (Lactated Ringer's) 1,000 mls @ 75 mls/hr IV .[id number] [facility] Morphine Sulfate (Morphine [employer] 1 Mg/Ml) 0 mg IV PRN PRN; Protocol PRN Reason: Pain, moderate (4-7) Last Admin: 01/16/18 05:24 Dose: 30 mg Ondansetron HCl (Zofran Odt) 4 mg PO Q8H PRN PRN Reason: Nausea/Vomiting Last Admin: 01/15/18 19:52 Dose: 4 mg Pantoprazole Sodium (Protonix Inj) 40 mg IVP DAILY [facility] Last Admin: 01/15/18 16:31 Dose: 40 mg Simethicone (Mylicon Chew Tab) 80 mg PO [facility] PRN PRN Reason: Flatulence - Constitutional Appears: Well, Non-toxic, No Acute Distress - Head Exam Head Exam: ATRAUMATIC, NORMAL INSPECTION, NORMOCEPHALIC - Eye Exam Eye Exam: EOMI. absent: Scleral icterus - ENT Exam ENT Exam: Mucous Membranes Moist - Respiratory Exam Respiratory Exam: NORMAL BREATHING PATTERN. absent: Accessory Muscle Use - Cardiovascular Exam Cardiovascular Exam: RRR. absent: JVD - GI/Abdominal Exam GI & Abdominal Exam: Soft. absent: Distended, Guarding, Rigid, Rebound Additional comments: midline incision intact. Dressing in place, clean dry and intact. soft abdomen. non distended. - Extremities Exam Extremities Exam: Normal Inspection. absent: Calf Tenderness - Neurological Exam Neurological Exam: Alert, Awake, Oriented x3 - Skin Skin Exam: Dry, Intact, Normal Color, Warm Assessment and Plan - Assessment and Plan (Free Text) Assessment: 67yo M with incisional hernia s/p repair with mesh. POD1 Plan: - Possible D/C vanegas today - CLD, december ADAT - Continue Abdominal binder - Pain management: transition off PHARMACY LABORATORY TECHNICIAN - Antiemetics prn - Encourage OOBTC, Ambulation, IS use Further recs as per Dr. Michael Kimbrough PGY1 surgery pager: [phone] <Don Rodriguez - Last Filed: 01/16/18 10:28> Subjective - Date & Time of Evaluation Time of Evaluation: 10:05 - Subjective Subjective: Patient was seen and examined at the bedside. Agree with resident's note above. Objective - Vital Signs/Intake and Output Vital Signs (last 24 hours): Temp Pulse Resp BP Pulse Ox 98.2 F 66 18 107/66 95 01/16/18 07:52 01/16/18 07:52 01/16/18 07:52 01/16/18 07:52 01/16/18 07:52 Intake and Output: 01/16/18 01/16/18 06:59 18:59 Output Total 525 Balance -525 - Medications Medications: Current Medications Acetaminophen (Tylenol 325mg Tab) 975 mg PO Q8 [facility] Last Admin: 01/16/18 09:59 Dose: 975 mg Benzocaine/Menthol (Cepacol Sore Throat) 1 jen PO Q3 PRN PRN Reason: Sore Throat Lactated Ringer's (Lactated Ringer's) 1,000 mls @ 75 mls/hr IV .[id number] [facility] Morphine Sulfate (Morphine Cotton Farmworker 1 Mg/Ml) 0 mg IV PRN PRN; Protocol PRN Reason: Pain, moderate (4-7) Last Admin: 01/16/18 05:24 Dose: 30 mg Ondansetron HCl (Zofran Odt) 4 mg PO Q8H PRN PRN Reason: Nausea/Vomiting Last Admin: 01/15/18 19:52 Dose: 4 mg Pantoprazole Sodium (Protonix Inj) 40 mg IVP DAILY [facility] Last Admin: 01/16/18 09:13 Dose: 40 mg Simethicone (Mylicon Chew Tab) 80 mg PO [facility] PRN PRN Reason: Flatulence - GI/Abdominal Exam Additional comments: soft, leticia-incisional tenderness, ND, BS hypoactive, no rebound, no guarding, dressing dry, clean, intact Assessment and Plan - Assessment and Plan (Free Text) Plan: - Start regular diet - Stop PHARMACY LABORATORY TECHNICIAN start Percocet and Morphine for pain control - D/C vanegas catheter - Insentive spirometry - DVT ppx - Out of bed and ambulate - protonix - repeat labs in am
[2018-01-16] MEDS ORDERED: Oxycodone/Acetaminophen 5/325 mg Tab PO PRN (10:29)
[2018-01-16 11:24] LABS: HEMOGLOBIN 14.7 g/dL (12.0-18.0); MEAN CELL VOLUME 92.3 fl (80.0-94.0); MEAN CORPUSCULAR HEMOGLOBIN 31.9 pg (27.0-31.0); MEAN CORPUSCULAR HGB CONC 34.5 g/dL (33.0-37.0); RBC 4.61 Mil/uL (4.40-5.90); RED CELL DISTRIBUTION WIDTH 13.7 % (11.5-14.5); WHITE BLOOD COUNT 10.3 K/uL (4.8-10.8)
[2018-01-16 11:34] LABS: BLOOD UREA NITROGEN 10 mg/dl (9-20); CALCIUM 8.4 mg/dL (8.4-10.2); GFR AFRICAN-AMERICAN > 60; GFR NON-AFRICAN AMERICAN > 60
[2018-01-16] MEDS ORDERED: Potassium Chloride 20 mEq ER Tab PO ONE (12:10)
--- NOTE | 2018-01-16 13:25 | PQF GENQUE ---
This form is a permanent part of the medical record 01/16/18 Dr. Rodriguez, Would you please clarify if there is an associated diagnosis or not to go along with the low potassium level and use of KCL medication. Patient received 1 dose of KCL 40 meq po x 1. K level 3.1 Clarification of your documentation is requested to better reflect the severity of illness and intensity of treatment of your patient. Indicators present PHYSICIAN'S RESPONSE Based on your medical judgment of the clinical indicators outlined above please clarify the following: [] Practitioner response [] If unable to determine, please check the box, sign and date. Present On Admission (POA) Indicator: [] Present at the time of admission [] Not present at the time of admission [] Clinically Undetermined In responding to this query, please exercise your independent professional judgment. The fact that a question is asked does not imply that any particular answer is desired or expected. Thank you for your clarification on this documentation. If you have any questions please call:[phone] * Thank you, Krystin Ramos RN [facility]
[2018-01-16] MEDS: HCTZ/Losartan 12.5/50 Tab PO SCH (14:10)
[2018-01-16] MEDS: Oxycodone/Acetaminophen 5/325 mg Tab PO PRN (14:52)
[2018-01-16] MEDS: Pantoprazole 40 mg EC Tab PO SCH (19:40)
[2018-01-17] MEDS: Oxycodone/Acetaminophen 5/325 mg Tab PO PRN (01:13)
[2018-01-17] MEDS ORDERED: guaiFENesin 200 mg/10 ml Syrup UD PO ONE (01:14)
[2018-01-17 06:47] LABS: BLOOD UREA NITROGEN 8 mg/dl (9-20); CALCIUM 9.3 mg/dL (8.4-10.2); GFR AFRICAN-AMERICAN > 60; GFR NON-AFRICAN AMERICAN > 60
[2018-01-17 07:31] LABS: BASO % 0.3 % (0.0-2.0); EOS % 0.3 % (0.0-4.0); HEMOGLOBIN 16.4 g/dL (12.0-18.0); LYMPH # 0.7 K/uL (1.0-4.3); LYMPH % 5.5 % (20.0-40.0); MEAN CORPUSCULAR HEMOGLOBIN 32.1 pg (27.0-31.0); MEAN CORPUSCULAR HGB CONC 34.6 g/dL (33.0-37.0); MEAN PLATELET VOLUME 8.3 fl (7.2-11.7); MONO # 0.7 K/uL (0.0-0.8); MONO % 5.8 % (0.0-10.0); NEUT # 10.9 K/uL (1.8-7.0); NEUT % 88.1 % (50.0-75.0); NRBC % 0.1 % (0.0-0.0); PLATELET COUNT 219 K/uL (130-400); RBC 5.11 Mil/uL (4.40-5.90); RED CELL DISTRIBUTION WIDTH 13.6 % (11.5-14.5); WHITE BLOOD COUNT 12.4 K/uL (4.8-10.8)
--- NOTE | 2018-01-17 07:59 | CP.PCM.PN ---
<Mann Tineo - Last Filed: 01/17/18 07:57> Subjective - Date & Time of Evaluation Date of Evaluation: 01/17/18 Time of Evaluation: 07:57 - Subjective Subjective: Surgery Progress Note - Dr. Rodriguez 67M seen and evaluated this AM. No acute events overnight. Patient reports abdominal pain improving. Admits to continued coughing, relieved with Robitussin. Dressing intact with abdominal binder in place. Tolerating diet. Denies N/V/F/D/C/SOB. Objective - Vital Signs/Intake and Output Vital Signs (last 24 hours): Temp Pulse Resp BP Pulse Ox 98.6 F 84 20 146/87 94 L 01/17/18 03:54 01/17/18 03:54 01/17/18 03:54 01/17/18 03:54 01/17/18 03:54 - Medications Medications: Current Medications Acetaminophen (Tylenol 325mg Tab) 975 mg PO Q8 [facility] Last Admin: 01/17/18 01:27 Dose: Not Given Amlodipine Besylate (Norvasc) 10 mg PO DAILY [facility] Atorvastatin Calcium (Lipitor) 20 mg PO DAILY [facility] Last Admin: 01/16/18 12:07 Dose: 20 mg Benzocaine/Menthol (Cepacol Sore Throat) 1 jen PO Q3 PRN PRN Reason: Sore Throat Enoxaparin Sodium (Lovenox) 40 mg SC DAILY [facility] PRN Reason: Protocol HCTZ/Losartan Potassium (Hyzaar 12.5 Mg-50 Mg) 1 tab PO DAILY [facility] Last Admin: 01/16/18 14:10 Dose: Not Given Morphine Sulfate (Morphine) 4 mg IVP Q4 PRN PRN Reason: Pain, severe (8-10) Last Admin: 01/16/18 13:28 Dose: 4 mg Ondansetron HCl (Zofran Odt) 4 mg PO Q8H PRN PRN Reason: Nausea/Vomiting Last Admin: 01/15/18 19:52 Dose: 4 mg Oxycodone/Acetaminophen (Percocet 5/325 Mg Tab) 1 tab PO Q4 PRN PRN Reason: Pain, Mild (1-3) Stop: 01/19/18 10:30 Oxycodone/Acetaminophen (Percocet 5/325 Mg Tab) 2 tab PO Q4 PRN PRN Reason: Pain, moderate (4-7) Stop: 01/19/18 10:31 Last Admin: 01/17/18 01:13 Dose: 2 tab Pantoprazole Sodium (Protonix Ec Tab) 40 mg PO DAILY [facility] Last Admin: 01/16/18 19:40 Dose: Not Given Simethicone (Mylicon Chew Tab) 80 mg PO HS PRN PRN Reason: Flatulence - Labs Labs: 01/17/18 05:30 01/17/18 05:30 - Constitutional Appears: Well, Non-toxic, No Acute Distress - Head Exam Head Exam: NORMAL INSPECTION, NORMOCEPHALIC - Eye Exam Eye Exam: EOMI, Normal appearance Pupil Exam: NORMAL ACCOMODATION - ENT Exam ENT Exam: Mucous Membranes Moist - Neck Exam Neck Exam: Full ROM. absent: Tenderness - Respiratory Exam Respiratory Exam: NORMAL BREATHING PATTERN. absent: Respiratory Distress - Cardiovascular Exam Cardiovascular Exam: REGULAR RHYTHM - GI/Abdominal Exam GI & Abdominal Exam: Soft. absent: Distended, Firm, Tenderness Additional comments: Midline incision with saadia in place and no drainage noted. - Extremities Exam Extremities Exam: Full ROM, Normal Inspection. absent: Pedal Edema, Tenderness - Neurological Exam Neurological Exam: Alert, Awake, Oriented x3 - Psychiatric Exam Psychiatric exam: Normal Affect, Normal Mood - Skin Skin Exam: Dry, Intact, Normal Color, Warm Assessment and Plan - Assessment and Plan (Free Text) Assessment: 67M POD#2 incisional hernia repair with mesh placement Hypokalemia, resolved Plan: - Dressing changed w/o issues - Continue abdominal binder - Continue regular diet - Protonix - KCl PO given for hypokalemia, now resolved - Pain regimen: Percocet 1-2 tabs PO, Morphine 4mg IV - DVT ppx - Encourage ambulation - Continue incentive spirometry - Repeat labs tomorrow AM - Further recs as per Dr. Rodriguez <Don Rodriguez - Last Filed: 01/17/18 10:10> Subjective - Date & Time of Evaluation Time of Evaluation: 09:45 - Subjective Subjective: Patient was seen and examined at the bedside. Agree with resident's note above. C/O cough. Objective - Vital Signs/Intake and Output Vital Signs (last 24 hours): Temp Pulse Resp BP Pulse Ox 98.2 F 71 18 153/95 H 93 L 01/17/18 08:18 01/17/18 08:18 01/17/18 08:18 01/17/18 08:18 01/17/18 08:18 - Medications Medications: Current Medications Acetaminophen (Tylenol 325mg Tab) 975 mg PO Q8 [facility] Last Admin: 01/17/18 01:27 Dose: Not Given Amlodipine Besylate (Norvasc) 10 mg PO DAILY [facility] Atorvastatin Calcium (Lipitor) 20 mg PO DAILY [facility] Last Admin: 01/16/18 12:07 Dose: 20 mg Benzocaine/Menthol (Cepacol Sore Throat) 1 jen PO Q3 PRN PRN Reason: Sore Throat Enoxaparin Sodium (Lovenox) 40 mg SC DAILY [facility] PRN Reason: Protocol HCTZ/Losartan Potassium (Hyzaar 12.5 Mg-50 Mg) 1 tab PO DAILY [facility] Last Admin: 01/16/18 14:10 Dose: Not Given Morphine Sulfate (Morphine) 4 mg IVP Q4 PRN PRN Reason: Pain, severe (8-10) Last Admin: 01/16/18 13:28 Dose: 4 mg Ondansetron HCl (Zofran Odt) 4 mg PO Q8H PRN PRN Reason: Nausea/Vomiting Last Admin: 01/15/18 19:52 Dose: 4 mg Oxycodone/Acetaminophen (Percocet 5/325 Mg Tab) 1 tab PO Q4 PRN PRN Reason: Pain, Mild (1-3) Stop: 01/19/18 10:30 Oxycodone/Acetaminophen (Percocet 5/325 Mg Tab) 2 tab PO Q4 PRN PRN Reason: Pain, moderate (4-7) Stop: 01/19/18 10:31 Last Admin: 01/17/18 01:13 Dose: 2 tab Pantoprazole Sodium (Protonix Ec Tab) 40 mg PO DAILY [facility] Last Admin: 01/16/18 19:40 Dose: Not Given Simethicone (Mylicon Chew Tab) 80 mg PO HS PRN PRN Reason: Flatulence - Labs Labs: 01/17/18 05:30 01/17/18 05:30 - GI/Abdominal Exam Additional comments: soft, very mild leticia-incisional tenderness, ND, Hypoactive bowel sounds, no rebound, no guarding, incision clean, no erythema, no drainage, saadia in place Assessment and Plan - Assessment and Plan (Free Text) Plan: - Will obtain chest X-Ray - Out of bed and ambulate
[2018-01-17 09:34] LABS: BANDS 3 % (0-2); GIANT PLATELETS PRESENT; LARGE PLATELETS PRESENT; LYMPHOCYTE 4 % (20-50); MONOCYTE 6 % (0-10); NEUTROPHIL 87 % (42-75); PLATELET ESTIMATE NORMAL (NORMAL); TOTAL CELLS COUNTED 100
[2018-01-17] MEDS: HCTZ/Losartan 12.5/50 Tab PO SCH (11:39)
[2018-01-17] MEDS: Enoxaparin 40 mg Syringe SC SCH (11:42)
[2018-01-17] MEDS: Pantoprazole 40 mg EC Tab PO SCH (11:43)
[2018-01-17] MEDS: guaiFENesin DM 200 mg-20 mg/10 ml UD PO PRN ×2 (12:11→21:34)
--- NOTE | 2018-01-17 12:51 | RAD ---
HISTORY: Cough COMPARISON: Comparison made with chest radiograph dated 12/11/2017 FINDINGS: LUNGS: Poor inspiration with low lung volumes, crowded bronchovascular markings and mild bibasilar atelectasis of left greater than right. Note that the possibility of developing left lower lobe infiltrate could be excluded followup radiographs if clinically indicated. PLEURA: No significant pleural effusion identified, no pneumothorax apparent. CARDIOVASCULAR: Normal. OSSEOUS STRUCTURES: Mild multilevel degenerative spondylosis of the thoracic spine VISUALIZED UPPER ABDOMEN: Normal. OTHER FINDINGS: None. IMPRESSION: Poor inspiration with low lung volumes, crowded bronchovascular markings and mild bibasilar atelectasis of left greater than right. Note that the possibility of developing left lower lobe infiltrate could be excluded followup radiographs if clinically indicated.
[2018-01-17] MEDS: levoFLOXacin 500 MG TAB PO SCH (16:20)
--- NOTE | 2018-01-17 17:14 | CP.PCM.CON ---
History of Present Illness - History of Present Illness History of Present Illness: This 67 year old male, former cigarette smoker underwent repair of an incisional hernia on 01/15/18 without complication. He has developed a productive cough today with expectoration of thick greenish colored sputum. He denies any chest pain or hemoptysis and does not have shortness of breath. A chest x-ray has been done and reported as having poor inspiration with crowded bronchovascular markings, more so at the left base. He admits to having had a cough which developed prior to admission, and had been given antibiotics for two days prior to this admission. He apparently had not informed his surgeon of this event. He has remained afebrile but has had a small increase in his WBC's today. He is not SOB during the exam, but there is a congested cough without any sputum expectorated. He has been OOB and ambulating in the [place]. Review of Systems - Review of Systems All systems: reviewed and no additional remarkable complaints except - Respiratory Respiratory: Cough, Chest Congestion, Change in Mucous Color - Gastrointestinal Gastrointestinal: As Per HPI, Heartburn - Musculoskeletal Musculoskeletal: Back Pain Past Patient History - Infectious Disease Hx of Infectious Diseases: None - Past Medical History & Family History Past Medical History?: Yes - Past Social History Smoking Status: Former Smoker Chewing Tobacco Use: No Cigar Use: Yes (former occasional) Alcohol: Social Drugs: Denies Home Situation {Lives}: With Family - CARDIAC Hx Hypercholesterolemia: Yes Hx Hypertension: Yes - PULMONARY Hx Bronchitis: Yes - NEUROLOGICAL Hx Neurological Disorder: No - HEENT Hx HEENT Problems: No - RENAL Hx Chronic Kidney Disease: No - ENDOCRINE/METABOLIC Hx Endocrine Disorders: No - HEMATOLOGICAL/ONCOLOGICAL Hx Blood Disorders: No Hx Human Immunodeficiency Virus (HIV): No - INTEGUMENTARY Hx Dermatological Problems: No - MUSCULOSKELETAL/RHEUMATOLOGICAL Hx Falls: No Hx Herniated Disk: Yes (lumbar) - GASTROINTESTINAL Hx Colostomy: Yes Hx Diverticulitis: Yes Hx Gastroesophageal Reflux: Yes Other/Comment: Colostomy reversal Jun 19, 2017 - GENITOURINARY/GYNECOLOGICAL Hx Genitourinary Disorders: No - PSYCHIATRIC Hx Depression: Yes Hx Substance Use: No - SURGICAL HISTORY Hx Herniorrhaphy: Yes (left Inguinal and Right femoral Hernia repair) Hx Tonsillectomy: Yes Other/Comment: EXPLORATORY LAPAROTOMY,(SOHAIL PROCEDURE) - ANESTHESIA Hx Anesthesia: Yes Hx Anesthesia Reactions: No Hx Malignant Hyperthermia: No Meds Allergies/Adverse Reactions: Allergies Allergy/AdvReac Type Severity Reaction Status Date / Time No Known Allergies Allergy Verified 02/09/17 23:02 - Medications Medications: Current Medications Acetaminophen (Tylenol 325mg Tab) 975 mg PO Q8 [facility] Last Admin: 01/17/18 16:23 Dose: 975 mg Amlodipine Besylate (Norvasc) 10 mg PO DAILY [facility] Last Admin: 01/17/18 11:42 Dose: 10 mg Atorvastatin Calcium (Lipitor) 20 mg PO DAILY [facility] Last Admin: 01/17/18 11:39 Dose: 20 mg Benzocaine/Menthol (Cepacol Sore Throat) 1 jen PO Q3 PRN PRN Reason: Sore Throat Enoxaparin Sodium (Lovenox) 40 mg SC DAILY [facility] PRN Reason: Protocol Last Admin: 01/17/18 11:42 Dose: 40 mg Guaifenesin/Dextromethorphan (Robitussin Dm) 10 ml PO Q6 PRN PRN Reason: Cough Last Admin: 01/17/18 12:11 Dose: 10 ml HCTZ/Losartan Potassium (Hyzaar 12.5 Mg-50 Mg) 1 tab PO DAILY [facility] Last Admin: 01/17/18 11:39 Dose: 1 tab Levofloxacin (Levaquin) 500 mg PO DAILY [facility] PRN Reason: Protocol Last Admin: 01/17/18 16:20 Dose: 500 mg Morphine Sulfate (Morphine) 4 mg IVP Q4 PRN PRN Reason: Pain, severe (8-10) Last Admin: 01/16/18 13:28 Dose: 4 mg Ondansetron HCl (Zofran Odt) 4 mg PO Q8H PRN PRN Reason: Nausea/Vomiting Last Admin: 01/15/18 19:52 Dose: 4 mg Oxycodone/Acetaminophen (Percocet 5/325 Mg Tab) 1 tab PO Q4 PRN PRN Reason: Pain, Mild (1-3) Stop: 01/19/18 10:30 Oxycodone/Acetaminophen (Percocet 5/325 Mg Tab) 2 tab PO Q4 PRN PRN Reason: Pain, moderate (4-7) Stop: 01/19/18 10:31 Last Admin: 01/17/18 01:13 Dose: 2 tab Pantoprazole Sodium (Protonix Ec Tab) 40 mg PO DAILY [facility] Last Admin: 01/17/18 11:43 Dose: 40 mg Simethicone (Mylicon Chew Tab) 80 mg PO [facility] PRN PRN Reason: Flatulence Physical Exam - Additional Findings Additional findings: Well nourished, well developed, congested cough noted, no SOB. No cyanosis, no dependant edema, no ecchymosis or jaundice. Pharynx pink and moist w/o exudate. No dullness on chest percussion, equal expansion. Breath sounds are slightly decreased bilaterally. Sonorous rhonchi are heard in the right lower lobe posteriorly. No audible wheezing or bronchial breath sounds. Few basal dry rales. Heart sounds are well heard and rhythm regular. Results - Vital Signs Recent Vital Signs: Last Vital Signs Temp 98.7 F 01/17/18 15:56 Pulse 72 01/17/18 15:56 Resp 18 01/17/18 15:56 BP 129/78 01/17/18 15:56 Pulse Ox 94 L 01/17/18 15:56 - Labs Result Diagrams: 01/17/18 05:30 01/17/18 05:30 Labs: Laboratory Results - last 24 hr 01/17/18 01/17/18 05:30 05:30 WBC 12.4 H RBC 5.11 Hgb 16.4 Hct 47.5 MCV 93.0 MCH 32.1 H MCHC 34.6 RDW 13.6 Plt Count 219 MPV 8.3 Neut % (Auto) 88.1 H Lymph % (Auto) 5.5 L Desha % (Auto) 5.8 Eos % (Auto) 0.3 Baso % (Auto) 0.3 Neut # (Auto) 10.9 H Lymph # (Auto) 0.7 L Desha # (Auto) 0.7 Eos # (Auto) 0.0 Baso # (Auto) 0.0 Neutrophils % (Manual) 87 H Band Neutrophils % 3 H Lymphocytes % (Manual) 4 L Monocytes % (Manual) 6 Platelet Estimate Normal Large Platelets Present Giant Platelets Present Sodium 138 Potassium 3.9 Chloride 99 Carbon Dioxide 31 H Anion Gap 12 BUN 8 L Creatinine 0.9 Est GFR ( Amer) > 60 Est GFR (Non-Af Amer) > 60 Random Glucose 114 H Calcium 9.3 Assessment & Plan (1) Bronchitis after surgery Status: Acute Priority: High - Assessment and Plan (Free Text) Plan: Would treat with oral antibiotic such as levofloxacin for 7 days. This process had begun 2 days [employer], and the clinical presentation does not suggest PE. - Date & Time Date: 01/17/18 Time: 17:45
[2018-01-17] MEDS ORDERED: Sodium Chloride 3% for Inhalation 4 ML VIAL.NEB IH PRN (18:39)
[2018-01-18] MEDS: Oxycodone/Acetaminophen 5/325 mg Tab PO PRN ×3 (06:39→23:48)
[2018-01-18] MEDS: guaiFENesin DM 200 mg-20 mg/10 ml UD PO PRN ×3 (07:01→23:48)
[2018-01-18 07:30] LABS: BASO % 0.3 % (0.0-2.0); EOS # 0.1 K/uL (0.0-0.7); EOS % 1.2 % (0.0-4.0); HEMOGLOBIN 15.8 g/dL (12.0-18.0); LYMPH # 0.7 K/uL (1.0-4.3); LYMPH % 7.7 % (20.0-40.0); MEAN CORPUSCULAR HEMOGLOBIN 32.2 pg (27.0-31.0); MEAN PLATELET VOLUME 8.4 fl (7.2-11.7); MONO # 0.6 K/uL (0.0-0.8); MONO % 6.8 % (0.0-10.0); NEUT # 7.7 K/uL (1.8-7.0); NRBC % 0.1 % (0.0-0.0); RBC 4.89 Mil/uL (4.40-5.90); WHITE BLOOD COUNT 9.1 K/uL (4.8-10.8)
[2018-01-18 07:50] LABS: BLOOD UREA NITROGEN 10 mg/dl (9-20); CALCIUM 9.2 mg/dL (8.4-10.2); GFR AFRICAN-AMERICAN > 60; GFR NON-AFRICAN AMERICAN > 60
[2018-01-18] MEDS: levoFLOXacin 500 MG TAB PO SCH (09:21)
[2018-01-18] MEDS: Enoxaparin 40 mg Syringe SC SCH (09:21)
[2018-01-18] MEDS: Pantoprazole 40 mg EC Tab PO SCH (09:22)
[2018-01-18] MEDS: HCTZ/Losartan 12.5/50 Tab PO SCH (09:24)
--- NOTE | 2018-01-18 11:04 | CP.PCM.PN ---
Subjective - Date & Time of Evaluation Date of Evaluation: 01/18/18 Time of Evaluation: 08:40 - Subjective Subjective: Surgery Progress note. Dr. Rodriguez Pt seen and examined at bedside. No acute events overnight. Does report some nausea overnight. No F/C. Still with some cough and mild hiccups. Abd pain improved. Does report some flatus, no BM. No new complaints. Objective - Vital Signs/Intake and Output Vital Signs (last 24 hours): Temp Pulse Resp BP Pulse Ox 98.3 F 76 20 114/78 94 L 01/18/18 07:53 01/18/18 09:22 01/18/18 07:53 01/18/18 09:22 01/18/18 07:53 - Medications Medications: Current Medications Acetaminophen (Tylenol 325mg Tab) 975 mg PO Q8 [facility] Last Admin: 01/18/18 09:28 Dose: 975 mg Amlodipine Besylate (Norvasc) 10 mg PO DAILY [facility] Last Admin: 01/18/18 09:22 Dose: 10 mg Atorvastatin Calcium (Lipitor) 20 mg PO DAILY [facility] Last Admin: 01/18/18 09:21 Dose: 20 mg Benzocaine/Menthol (Cepacol Sore Throat) 1 jen PO Q3 PRN PRN Reason: Sore Throat Enoxaparin Sodium (Lovenox) 40 mg SC DAILY [facility] PRN Reason: Protocol Last Admin: 01/18/18 09:21 Dose: 40 mg Guaifenesin/Dextromethorphan (Robitussin Dm) 10 ml PO Q6 PRN PRN Reason: Cough Last Admin: 01/18/18 07:01 Dose: 10 ml HCTZ/Losartan Potassium (Hyzaar 12.5 Mg-50 Mg) 1 tab PO DAILY [facility] Last Admin: 01/18/18 09:24 Dose: 1 tab Levofloxacin (Levaquin) 500 mg PO DAILY [facility] PRN Reason: Protocol Last Admin: 01/18/18 09:21 Dose: 500 mg Morphine Sulfate (Morphine) 4 mg IVP Q4 PRN PRN Reason: Pain, severe (8-10) Last Admin: 01/16/18 13:28 Dose: 4 mg Nicotine (Nicoderm Cq) 1 patch TD DAILY [facility] Last Admin: 01/18/18 09:23 Dose: Not Given Ondansetron HCl (Zofran Odt) 4 mg PO Q8H PRN PRN Reason: Nausea/Vomiting Last Admin: 01/15/18 19:52 Dose: 4 mg Oxycodone/Acetaminophen (Percocet 5/325 Mg Tab) 1 tab PO Q4 PRN PRN Reason: Pain, Mild (1-3) Stop: 01/19/18 10:30 Oxycodone/Acetaminophen (Percocet 5/325 Mg Tab) 2 tab PO Q4 PRN PRN Reason: Pain, moderate (4-7) Stop: 01/19/18 10:31 Last Admin: 01/18/18 06:39 Dose: 2 tab Pantoprazole Sodium (Protonix Ec Tab) 40 mg PO DAILY [facility] Last Admin: 01/18/18 09:22 Dose: 40 mg Simethicone (Mylicon Chew Tab) 80 mg PO [facility] PRN PRN Reason: Flatulence - Labs Labs: 01/18/18 05:20 01/18/18 05:20 - Constitutional Appears: Well, Non-toxic, No Acute Distress - Head Exam Head Exam: ATRAUMATIC, NORMAL INSPECTION, NORMOCEPHALIC - Eye Exam Eye Exam: EOMI, Normal appearance - Respiratory Exam Respiratory Exam: NORMAL BREATHING PATTERN. absent: Accessory Muscle Use, Respiratory Distress - Cardiovascular Exam Cardiovascular Exam: RRR. absent: JVD - GI/Abdominal Exam GI & Abdominal Exam: Soft. absent: Distended, Firm, Guarding, Rigid, Rebound Additional comments: midline incision intact, skin edges well approximated. non distended, soft, no rebound, no guarding. Assessment and Plan - Assessment and Plan (Free Text) Assessment: 67yo M s/p incisional hernia repair w mesh. POD 3 Plan: - Pulm consult requested due cough, appreciate recs: Continue Levofloxacin x7 days - Continue abdominal binder as needed - Regular diet - Pain management - DVT ppx - Encourage OOBTC, Ambulate, IS use Further recs as per Dr. Michael Kimbrough PGY1 surgery pager: [phone]
--- NOTE | 2018-01-18 14:04 | CP.PCM.PN ---
Subjective - Date & Time of Evaluation Date of Evaluation: 01/18/18 Time of Evaluation: 14:01 - Subjective Subjective: Pt seen and examined. Reports he is tolerating his diet. (+) Flatus, (-) BM. Pt afebrile. He c/o of cough. PE: Gen: Pt is sitting in bed in NAD Skin: warm and dry Cardio: S1S2 RRR Lungs: CTA vernon Abd: Soft NTND, Stapled midline incision below the umbilicus c/d/i Extr: (-) Calf tenderness A/P POD 3 Open incision hernia repair with mesh Continue diet Monitor BM Pt likely for discharge tomorrow Bronchitis/ atelectasis Continue Levaquin Objective - Vital Signs/Intake and Output Vital Signs (last 24 hours): Temp Pulse Resp BP Pulse Ox 98.3 F 76 20 114/78 94 L 01/18/18 07:53 01/18/18 09:22 01/18/18 07:53 01/18/18 09:22 01/18/18 07:53 - Medications Medications: Current Medications Acetaminophen (Tylenol 325mg Tab) 975 mg PO Q8 [facility] Last Admin: 01/18/18 09:28 Dose: 975 mg Amlodipine Besylate (Norvasc) 10 mg PO DAILY [facility] Last Admin: 01/18/18 09:22 Dose: 10 mg Atorvastatin Calcium (Lipitor) 20 mg PO DAILY [facility] Last Admin: 01/18/18 09:21 Dose: 20 mg Benzocaine/Menthol (Cepacol Sore Throat) 1 jen PO Q3 PRN PRN Reason: Sore Throat Enoxaparin Sodium (Lovenox) 40 mg SC DAILY [facility] PRN Reason: Protocol Last Admin: 01/18/18 09:21 Dose: 40 mg Guaifenesin/Dextromethorphan (Robitussin Dm) 10 ml PO Q6 PRN PRN Reason: Cough Last Admin: 01/18/18 07:01 Dose: 10 ml HCTZ/Losartan Potassium (Hyzaar 12.5 Mg-50 Mg) 1 tab PO DAILY [facility] Last Admin: 01/18/18 09:24 Dose: 1 tab Levofloxacin (Levaquin) 500 mg PO DAILY [facility] PRN Reason: Protocol Last Admin: 01/18/18 09:21 Dose: 500 mg Morphine Sulfate (Morphine) 4 mg IVP Q4 PRN PRN Reason: Pain, severe (8-10) Last Admin: 01/16/18 13:28 Dose: 4 mg Nicotine (Nicoderm Cq) 1 patch TD DAILY [facility] Last Admin: 01/18/18 09:23 Dose: Not Given Ondansetron HCl (Zofran Odt) 4 mg PO Q8H PRN PRN Reason: Nausea/Vomiting Last Admin: 01/15/18 19:52 Dose: 4 mg Oxycodone/Acetaminophen (Percocet 5/325 Mg Tab) 1 tab PO Q4 PRN PRN Reason: Pain, Mild (1-3) Stop: 01/19/18 10:30 Oxycodone/Acetaminophen (Percocet 5/325 Mg Tab) 2 tab PO Q4 PRN PRN Reason: Pain, moderate (4-7) Stop: 01/19/18 10:31 Last Admin: 01/18/18 06:39 Dose: 2 tab Pantoprazole Sodium (Protonix Ec Tab) 40 mg PO DAILY [facility] Last Admin: 01/18/18 09:22 Dose: 40 mg Simethicone (Mylicon Chew Tab) 80 mg PO [facility] PRN PRN Reason: Flatulence - Labs Labs: 01/18/18 05:20 01/18/18 05:20 Assessment and Plan - Assessment and Plan (Free Text) Assessment: see above
[2018-01-18] MEDS ORDERED: OMEPRAZOLE 40 MG PO SCH (17:00)
[2018-01-19 00:31] VITALS: O2SAT 95
[2018-01-19] MEDS: HCTZ/Losartan 12.5/50 Tab PO SCH (08:17)
[2018-01-19] MEDS: levoFLOXacin 500 MG TAB PO SCH (08:17)
[2018-01-19 08:29] VITALS: BP 129/88; PULSE 72; RESP 20; TEMP 98.2
--- NOTE | 2018-01-19 09:59 | CP.PCM.DIS ---
Provider - Provider Date of Admission: 01/15/18 14:27 Attending physician: Don Rodriguez MD Primary care physician: Jeremie Nicolas Time Spent in preparation of Discharge (in minutes): 25 Diagnosis - Discharge Diagnosis (1) Incisional hernia Status: Resolved Hospital Course - Lab Results Lab Results: Micro Results 01/17/18 18:41 Sputum Gram Stain - Final Most Recent Lab Values WBC 9.1 K/uL (4.8-10.8) 01/18/18 05:20 RBC 4.89 Mil/uL (4.40-5.90) 01/18/18 05:20 Hgb 15.8 g/dL (12.0-18.0) 01/18/18 05:20 Hct 45.0 % (35.0-51.0) 01/18/18 05:20 MCV 92.0 fl (80.0-94.0) 01/18/18 05:20 MCH 32.2 pg (27.0-31.0) H 01/18/18 05:20 MCHC 35.0 g/dL (33.0-37.0) 01/18/18 05:20 RDW 14.0 % (11.5-14.5) 01/18/18 05:20 Plt Count 244 K/uL (130-400) 01/18/18 05:20 MPV 8.4 fl (7.2-11.7) 01/18/18 05:20 Neut % (Auto) 84.0 % (50.0-75.0) H 01/18/18 05:20 Lymph % (Auto) 7.7 % (20.0-40.0) L 01/18/18 05:20 Cass % (Auto) 6.8 % (0.0-10.0) 01/18/18 05:20 Eos % (Auto) 1.2 % (0.0-4.0) 01/18/18 05:20 Baso % (Auto) 0.3 % (0.0-2.0) 01/18/18 05:20 Neut # (Auto) 7.7 K/uL (1.8-7.0) H 01/18/18 05:20 Lymph # (Auto) 0.7 K/uL (1.0-4.3) L 01/18/18 05:20 Cass # (Auto) 0.6 K/uL (0.0-0.8) 01/18/18 05:20 Eos # (Auto) 0.1 K/uL (0.0-0.7) 01/18/18 05:20 Baso # (Auto) 0.0 K/uL (0.0-0.2) 01/18/18 05:20 Neutrophils % (Manual) 87 % (42-75) H 01/17/18 05:30 Band Neutrophils % 3 % (0-2) H 01/17/18 05:30 Lymphocytes % (Manual) 4 % (20-50) L 01/17/18 05:30 Monocytes % (Manual) 6 % (0-10) 01/17/18 05:30 Platelet Estimate Normal (NORMAL) 01/17/18 05:30 Large Platelets Present 01/17/18 05:30 Giant Platelets Present 01/17/18 05:30 Sodium 137 mmol/l (132-148) 01/18/18 05:20 Potassium 3.8 MMOL/L (3.6-5.0) 01/18/18 05:20 Chloride 99 mmol/L (98-107) 01/18/18 05:20 Carbon Dioxide 31 mmol/L (22-30) H 01/18/18 05:20 Anion Gap 11 (10-20) 01/18/18 05:20 BUN 10 mg/dl (9-20) 01/18/18 05:20 Creatinine 0.8 mg/dl (0.8-1.5) 01/18/18 05:20 Est GFR ( Amer) > 60 01/18/18 05:20 Est GFR (Non-Af Amer) > 60 01/18/18 05:20 Random Glucose 114 mg/dL (75-110) H 01/18/18 05:20 Calcium 9.2 mg/dL (8.4-10.2) 01/18/18 05:20 - Hospital Course Hospital Course: 01/15:66M with PMHx of diverticulitis, hx of perforation treated conservatively many yrs ago, GERD, HTN, HLD, depression, hemorrhoids presented to hospital today for repair of incisional hernia. Patient tolerated procedure well, no complications arose intra-operatively. Patient to be admitted for observation. 01/16: Pt seen and examined at bedside. No Acute events overnight. does report abdominal pain especially after coughing. States that the abdominal binder helps. Currently on [employer] and is doing well. Denies N/V/D. Tolerating diet. No new complaints. Holt was discontinued. 01/17:67M seen and evaluated this AM. No acute events overnight. Patient reports abdominal pain improving. Admits to continued coughing, relieved with Robitussin. Dressing intact with abdominal binder in place. Tolerating diet. Denies N/V/F/D/C/SOB. CXR obtained. Pulmonology consulted. Pulmonology recommended levofloxacin PO daily for 7 days. 01/18: Pt seen and examined at bedside. No acute events overnight. Does report some nausea overnight. No F/C. Still with some cough and mild hiccups. Abd pain improved. Does report some flatus, no BM. No new complaints. Above is a brief description of patient's hospital summary. For more information please refer to medical records. Discharge Exam - Head Exam Head Exam: ATRAUMATIC, NORMAL INSPECTION, NORMOCEPHALIC - Eye Exam Eye Exam: EOMI, Normal appearance - ENT Exam ENT Exam: Mucous Membranes Moist - Respiratory Exam Respiratory Exam: NORMAL BREATHING PATTERN - Cardiovascular Exam Cardiovascular Exam: +S1, +S2 - GI/Abdominal Exam GI & Abdominal Exam: Soft - Neurological Exam Neurological exam: Alert, Oriented x3 - Psychiatric Exam Psychiatric exam: Normal Mood - Skin Skin Exam: Dry, Intact, Warm Discharge Plan - Follow Up Plan Condition: GOOD Disposition: HOME/ ROUTINE Instructions: Hernia Repair (DC) Referrals: Jeremie Nicolas MD [Primary Care Provider] - Don Rodriguez MD [Staff Provider] -
[2018-01-19] MEDS: Enoxaparin 40 mg Syringe SC SCH (10:52)
== END 2018-01-19 14:34 | disposition home or self-care (01) | DRG 354 ==
LOC: H.OPSURG 07:45 → H.MEDSURG1 14:27
PROVIDERS: ADMIT Surgery; ATTEND Surgery
PROC: 0WUF0JZ Supplement Abdominal Wall with Synthetic Substitute, Open Approach (ICD-10-PCS; principal; 2018-01-15 09:55)
DX: K43.2 Incisional hernia without obstruction or gangrene (principal); J98.11 Atelectasis; Z87.891 Personal history of nicotine dependence; E78.00 Pure hypercholesterolemia, unspecified; E78.5 Hyperlipidemia, unspecified; E87.6 Hypokalemia; K21.9 Gastro-esophageal reflux disease without esophagitis; I10 Essential (primary) hypertension; F32.9 Major depressive disorder, single episode, unspecified; J40 Bronchitis, not specified as acute or chronic